=== PATIENT | male | born 1930 | race Caucasian/White ===

== ENCOUNTER 2018-06-04 12:50 | Emergency (ER) | payer OTHER ==
--- OUTSIDE RECORDS SUMMARY | 2018-06-04 12:54 | XMS REPORT | Continuity of Care Document ---
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 [facility] [place] arrhythmia<sup> [facility] 1</sup> Colon polyp Active Problem 01/14/2016 [facility] Skin cancer of Resolved Problem 01/14/2016 [facility] [place] face [facility] TIA (<span Resolved Problem 01/14/2016 [facility] [place] ID="[id number] [facility] 5">Confirmed</s miller>) ILLNESS, Active [facility] [place] UNSPECIFIED [facility] Medications Medication Details Route Status Patient Ordering Order Source Instructions Provider Date tramadol 50 mg=1 tab, PO, Active hydrochloride Q8H, PRN as 2015 [facility] 50 MG Oral needed for pain, [facility] Tablet [Ultram] # 40 tab, 0 Refill(s) tramadol 50 mg=1 tab, PO, Inactive 11/28[facility] hydrochloride Q8H, PRN Other 2015 [facility] 50 MG Oral -See Comment | [facility] Tablet pain, X 7 day, # 21 tab, 0 Refill(s) Miralax 17 gm, 1 pkt, Inactive Route: PO, Drug 2015 [facility] form: PWDRCecilia ONCE, Dosing Weight 82.2, kg, Priority: NOW, Start date: 11/29/15 7:52:00 CDT, Duration: 1 doses or times, Stop date: 11/29/15 7:52:00 CDTNotes: Dissolve in 8 oz of water or juice. (Same as: Miralax) Tylenol 650 mg, 2 tab, No Longer Route: PO, Drug Active 2015 [facility] form: TAB, Q6H, Cecilia Dosing Weight 82.2, kg, PRN Pain Score 1-3, Start date: 11/26/15 8:15:00 CDT, Duration: 30 day, Stop date: 12/26/15 8:14:00 CDTNotes: Do not exceed 4 gm/day. (Same as: Tylenol) tramadol 100 mg, 2 tab, No Longer hydrochloride Route: PO, Drug Active 2015 [facility] 50 MG Oral form: TAB, Q8H, City Tablet Dosing Weight 82.2, kg, PRN Pain Score 7-10, Start date: 11/26/15 8:15:00 CDT, Duration: 30 day, Stop date: 12/26/15 8:14:00 CDTNotes: Not to exceed 400mg/day. (Same As: Ultram) D5W 1/2NS + KCL 1,000 mL, Rate: No Longer 20mEq/L 1000ml 50 ml/hr, Infuse Active 2015 [facility] ([facility]) 1,000 over: 20 hr, City mL Route: IV, Dosing Weight 82.2 kg, Total Volume: 1,000, Start date: 11/26/15 8:13:00 CDT, Duration: 30 day, Stop date: 12/26/15 8:12:00 CDTNotes: PREMIX IV - Do Not Alter WASTE: F/P - Sink; E - Municipal Trash Bin ketOROLAC 15 15 mg, 0.5 mL, No Longer mg/mL Route: IV, Drug Active 2015 [facility] injectable form: INJ, Q6H, City solution Dosing Weight 82.2, kg, Start date: 11/25/15 12:00:00 CDT, Duration: 4 day, Stop date: 11/29/15 6:00:00 CDTNotes: (Same as:Toradol) IV bolus must be given >15 seconds. Give IM administration slowly and deeply into the muscle. Not for use > 4 days MEDICATION WASTE Product Size: 30 mg Product Wasted: _15__ mg Ofirmev 1,000 mg, 100 No Longer mL, Route: IV, Active 2015 [facility] Drug form: INJ, City Q6H, Dosing Weight 82.2, kg, for > or=50 kg, Start date: 11/25/15 12:00:00 CDT, Duration: 4 doses or times, Stop date: 11/26/15 3:48:00 CDTNotes: Infuse over 15 minutes Do not exceed 4gm/day of acetaminophen MEDICATION WASTE Product Size: 1000 mg Product Wasted: _0__ mg Lovenox 40 mg, 0.4 mL, No Longer Route: SUB-Q, Active 2015 [facility] Drug form: INJCecilia Daily, Dosing Weight 79.091, kg, Start date: 11/25/15 9:00:00 CDT, Duration: 30 day, Stop date: 12/24/15 9:00:00 CDTNotes: (Same as: Lovenox) latanoprost 1 drp, Route: No Longer ophthalmic BOTH EYES, Active 2015 [facility] 0.005% solution Bedtime, Drug City form: SOLN, Start date: 11/24/15 21:00:00 CDT, Duration: 30 day, Stop date: 12/23/15 21:00:00 CDTNotes: (Same as:Xalatan) bimatoprost 0.1 1 drp, Route: Inactive MG/ML BOTH EYES, Drug 2015 [facility] Ophthalmic Form: SOLNCecilia Solution Dosing Weight [Lumigan] 79.091, kg, Bedtime, Start date: 11/24/15 21:00:00 CDT, Duration: 30 day, Stop date: 12/23/15 21:00:00 CDT Cipro 400 mg, 200 mL, Inactive Route: IVPB, 2015 [facility] Drug form: INJCecilia ONCE, Dosing Weight 79.091, kg, Priority: Routine, Start date: 11/24/15 20:00:00 CDT, Stop date: 11/24/15 20:00:00 CDTNotes: Do not refrigerate Atropine 1 drp, Route: No Longer Sulfate 10 OPTH, QID, Drug Active 2015 [facility] MG/ML form: SOLN, Cecilia Ophthalmic Start date: Solution 11/24/15 [Atropine-Care] 17:00:00 CDT, Duration: 30 day, Stop date: 12/24/15 13:00:00 CDTNotes: (Same As: Isopto Atropine) Protonix 40 mg, Route: No Longer IVP, Before Active 2015 [facility] Dinner, Dosing City Weight 79.091, kg, Start date: 11/24/15 16:30:00 CDT, Duration: 30 day, Stop date: 12/23/15 16:30:00 CDTNotes: For IV push reconstitute with 10 ml 0.9% sodium chloride and push over 2 minutes. (Same as: Protonix) Flagyl 500 mg, 100 mL, No Longer Route: IVPB, [facility] 2015 [facility] Drug form: INJ, City Q8H, Dosing Weight 79.091, kg, Start date: 11/24/15 16:00:00 CDT, Duration: 2 doses or times, Stop date: 11/25/15 0:00:00 CDTNotes: (Same as: Flagyl) Avoid alcohol. Acetaminophen 1,000 mg, 100 No Longer 10 MG/ML mL, Route: IV, [facility] 2015 [facility] Injectable Drug form: INJ, City Solution Q8H, Dosing Weight 79.091, kg, For > or=50 kg, Start date: 11/24/15 16:00:00 CDT, Duration: 1 day, Stop date: 11/25/15 8:00:00 CDTNotes: Infuse over 15 minutes Do not exceed 4gm/day of acetaminophen MEDICATION WASTE Product Size: 1000 mg Product Wasted: ___ mg Sodium Chloride 25 mL, Route: No Longer 0.9% IV IV, Start date: [address] 11/24/15 [facility] 15:48:00 CDT, Duration: 30 day, Stop date: 12/24/15 15:47:00 CDT, PRN Line Flush BD Normal 10 mL, Route: No Longer Saline Flush IV, Drug Form: [facility] 2015 [facility] INJ, PRN, PRN City Line Flush, Start date: 11/24/15 15:48:00 CDT, Duration: 30 day, Stop date: 12/24/15 15:47:00 CDTNotes: (Same as: BD Posiflush) Morphine 3 mg, 0.75 mL, No Longer Route: IVP, Drug [address] form: INJ, Q2H, [facility] Dosing Weight 79.091, kg, PRN Other -See Comment, Priority: Routine, Start date: 11/24/15 12:44:00 CDT, Duration: 30 day, Stop date: 12/24/15 12:43:00 CDT, abdominal painNotes: (Same as:MORPhine Sulfate) Zofran 4 mg, 2 mL, No Longer Route: IV, Drug Active 2015 [facility] form: INJ, Q6H, [facility] Dosing Weight 79.091, kg, PRN Nausea, Start date: 11/24/15 12:40:00 CDT, Duration: 30 day, Stop date: 12/24/15 12:39:00 CDTNotes: (Same as: Zofran) MEDICATION WASTE Product Size: 4 mg Product Wasted: ___ mg D5W 1/2NS + KCL 1,000 mL, Rate: No Longer 20mEq/L 1000ml 125 ml/hr, Active 2015 [facility] ([facility]) 1,000 Infuse over: 8 City mL hr, Route: IV, Dosing Weight 79.091 kg, Total Volume: 1,000, Start date: 11/24/15 12:39:00 CDT, Duration: 30 day, Stop date: 12/24/15 12:38:00 CDTNotes: PREMIX IV - Do Not Alter WASTE: F/P - Sink; E - Municipal Trash Bin sugammadex 200 mg, 2 mL, Inactive Route: IV, Drug 2015 [facility] form: SOLN, City ONCE, Start date: 11/24/15 11:59:00 CDT, Stop date: 11/24/15 11:59:00 CDTNotes: (Same as: Bridion) Ondansetron 4 mg, 2 mL, Inactive Route: IVP, Drug 2015 [facility] form: INJ, ONCE, [facility] Dosing Weight 79.091, kg, PRN Nausea & Vomiting, Start date: 11/24/15 8:53:00 CDTNotes: (Same as: Zofran) MEDICATION WASTE Product Size: 4 mg Product Wasted: ___ mg Naloxone 0.4 mg, 1 mL, Inactive Route: IVP, Drug 2015 [facility] form: INJ, City Q2MIN, Dosing Weight 79.091, kg, PRN Narcotic Reversal, Start date: 11/24/15 8:53:00 CDT, Duration: 8 doses or times, Stop date: Limited # of timesNotes: Same as Narcan Flumazenil 0.2 mg, 2 mL, Inactive Route: IVP, Drug 2015 [facility] form: INJ, PRN, [facility] Dosing Weight 79.091, kg, PRN Benzodiazepine Reversal, Initial dose, Start date: 11/24/15 8:53:00 CDT, Duration: 30 day, Stop date: 12/24/15 8:52:00 CDTNotes: (Same as: Romazicon) Morphine 4 mg, 0.4 mL, Inactive Route: IVP, Drug 2015 [facility] form: INJ, City Q5Min, Dosing Weight 79.091, kg, PRN Pain Score 7-10, Start date: 11/24/15 8:53:00 CDT, Duration: 3 doses or times, Stop date: Limited # of timesNotes: (Same as:MORPhine Sulfate) bupivacaine 20 mL, Route: Inactive liposome InFILtration([facility] 2015 [facility]), Drug Form: City INJ, ONCALL, Start date: 11/24/15 0:00:00 CDT, Duration: 20 hr, Stop date: 11/24/15 19:59:00 CDTNotes: (Same as: Exparel) NOT FOR IV use Postoperative analgesia: Infiltration (local): Dose is based on surgical site and volume required to cover the area (in general, the maximum total dose is 266 mg). Bunionectomy: 7 mL into the tissues surrounding the osteotomy and 1 mL into the subcutaneous tissue of the surgical site (total dose=8 mL [106 mg]) Hemorrhoidectomy : 30 mL (20 mL vial diluted with 10 mL NS) divided and administered as 6 injections of 5 mL each (total dose=30 mL [266 mg]) Flagyl 500 mg, 100 mL, Inactive Route: IVPB 2015 [facility] Drug form: INJ, City ONCALL, Start date: 11/24/15 0:00:00 CDT, Duration: 20 hr, Stop date: 11/24/15 19:59:00 CDTNotes: (Same as: Flagyl) Avoid alcohol. Cipro 400 mg, 200 mL, Inactive Route: IVPB, 2015 [facility] Drug form: INJ, Cecilia ONCALL, Start date: 11/24/15 0:00:00 CDT, Duration: 20 hr, Stop date: 11/24/15 19:59:00 CDTNotes: Do not refrigerate Ferrex 150 Plus 1 cap, PO, Active Daily, 0 2015 [facility] Refill(s) [facility] bimatoprost 0.1 1 drp, BOTH Active MG/ML EYES, Bedtime, # 2016 [facility] Ophthalmic 5 mL, 4 City Solution Refill(s) [Lumigan] difluprednate 1 drp, BOTH Active 0.5 MG/ML EYES, QID, After 2015 [facility] Ophthalmic 14 days, taper [facility] Suspension dose as directed [Durezol] by physician., # 5 mL, 0 Refill(s) Atropine 1 drp, OPTH, Active Sulfate 10 QID, # 15 ml, 0 2015 [facility] MG/ML Refill(s) [facility] Ophthalmic Solution [Atropine-Care] Trazodone 50 mg=1 tab, PO, Active Hydrochloride Bedtime, # 30 2015 [facility] 50 MG Oral tab, 1 Refill(s) [facility] Tablet Allergies, Adverse Reactions, Alerts Substance Category Reaction Severity Reaction Status Date Comments Source type Reported Immunizations Immunization Date Given Site Status Last Updated Comments Source Results Order Name Results Value Reference Date Interpretation Comments Source Range Finger 3 Finger 3 Clinical history: Pain from a fall. 01/10 - views DX views DX [facility] Sex: Male. [facility] : 1930. Read by: Ashkan Dobbs MD Dictated Date/time: 01/11/16 17:21 Electronically Signed by: Ashkan Dobbs MD 01/11/16 17:22 FINAL REPORT Technique: 3 views of the right fingers attention 4th finger.. Findings: Interphalangeal narrowing. There is no fracture or dislocation. No destructive lesion. Impression: No acute skeletal abnormality. ELECTROLYTE AGAP 10.4 meq/L 10.0 - 11/25 S 20.0 [facility] ELECTROLYTE Glucose Lvl 117 mg/dL 70 - 99 11/25 S /2015 [facility] ELECTROLYTE Calcium Lvl 7.9 mg/dL 8.5 - 10.5 11/25 S [facility] ELECTROLYTE BUN 6 mg/dL 7 - 22 11/25 S [facility] ELECTROLYTE CO2 26 meq/L 24 - 32 11/25 S [facility] ELECTROLYTE Sodium Lvl 141 meq/L 135 - 145 11/25 S [facility] ELECTROLYTE Chloride Lvl 109 meq/L 95 - 109 11/25 S [facility] ELECTROLYTE Potassium 4.4 meq/L 3.5 - 5.1 11/25 S Lvl [facility] ELECTROLYTE eGFR 81 11/25 Result Comment: The eGFR is calculated using the CKD-EPI formula. In most young, healthy individuals the eGFR will be >90 mL/ min/1.73m2. The eGFR declines with age. An eGFR of 60-89 may be normal in mL/min/1. some populations, particularly the elderly, for whom the CKD-EPI formula has not been extensively validated. Use of the eGFR is not recommended in the following populations: [address] Individuals with unstable creatinine concentrations, including patients and those with serious co-morbid conditions. Patients with extremes in muscle mass or diet. The data above are obtained from the National Kidney Disease Education Program (NKDEP) which additionally recommends that when the eGFR is used in patients with extremes of body mass index for purposes of drug dosing, the eGFR should be multiplied by the estimated BMI. ELECTROLYTE Creatinine 0.82 mg/dL 0.50 - 11/25 S Lvl 1.40 [facility] HEMATOLOGY Eosinophils 5.4 % 0.0 - 4.0 11/25 [facility] HEMATOLOGY Monocytes 7.4 % 2.0 - 12.0 11/25 [facility] HEMATOLOGY Lymphocytes 18.7 % 20.0 - 11/25 MH 40.0 [facility] HEMATOLOGY Segs 68.0 % 45.0 - 11/25 MH 75.0 [facility] HEMATOLOGY Lymphocytes 1.4 K/CMM 1.0 - 5.5 11/25 MH # /2016 [facility] HEMATOLOGY Basophils 0.5 % 0.0 - 1.0 11/25 [facility] HEMATOLOGY Segs-Bands # 5.2 K/CMM 1.5 - 8.1 11/25 [facility] HEMATOLOGY Monocytes # 0.6 K/CMM 0.0 - 0.8 11/25 [facility] HEMATOLOGY Eosinophils 0.4 K/CMM 0.0 - 0.5 11/25 MH # /2015 [facility] HEMATOLOGY Basophils # 0.0 K/CMM 0.0 - 0.2 11/25 /2015 [facility] HEMATOLOGY Platelet 278 K/CMM 133 - 450 11/25 /2015 [facility] HEMATOLOGY MCH 30.1 pg 27.0 - 11/25 MH 31.0 /2015 [facility] HEMATOLOGY MCV 91.5 fL 80.0 - 11/25 MH 94.0 /2015 [facility] HEMATOLOGY Hct 31.4 % 42.0 - 11/25 MH 54.0 /2015 [facility] HEMATOLOGY Hgb 10.3 g/dL 14.0 - 11/25 MH 18.0 /2015 [facility] HEMATOLOGY RBC 3.44 M/CMM 4.70 - 11/25 MH 6.10 [facility] HEMATOLOGY WBC 7.7 K/CMM 3.7 - 10.4 11/25 [facility] HEMATOLOGY RDW 15.0 % 11.5 - 11/25 MH 14. [facility] HEMATOLOGY MCHC 32.9 g/dL 32.0 - 11/25 MH 36.0 /2015 [facility] HEMATOLOGY MPV 7.2 fL 7.4 - 10.4 11/25 [facility] CHEM PANEL Magnesium 2.1 mg/dL 1.8 - 2.4 11/24 MH Lvl /2015 [facility] CHEM PANEL Phosphorus 2.8 mg/dL 2.5 - 4.5 11/24 [facility] ELECTROLYTE Sodium Lvl 142 meq/L 135 - 145 11/24 S [facility] ELECTROLYTE Calcium Lvl 8.0 mg/dL 8.5 - 10.5 11/24 S [facility] ELECTROLYTE Chloride Lvl 107 meq/L 95 - 109 11/24 S [facility] ELECTROLYTE Potassium 3.9 meq/L 3.5 - 5.1 11/24 S Lvl /2015 [facility] ELECTROLYTE Glucose Lvl 147 mg/dL 70 - 99 11/24 S /2015 [facility] ELECTROLYTE BUN 9 mg/dL 7 - 22 11/24 S /2015 [facility] ELECTROLYTE Creatinine 0.92 mg/dL 0.50 - 11/24 S Lvl 1.40 /2015 [facility] ELECTROLYTE CO2 24 meq/L 24 - 32 11/24 S /2015 [facility] ELECTROLYTE eGFR 76 11/24 Result Comment: The eGFR is calculated using the CKD-EPI formula. In most young, healthy individuals the eGFR will be >90 mL/ min/1.73m2. The eGFR declines with age. An eGFR of 60-89 may be normal in S mL/min/1. some populations, particularly the elderly, for whom the CKD-EPI formula has not been extensively validated. Use of the eGFR is not recommended in the following populations: [address] Individuals with unstable creatinine concentrations, including patients and those with serious co-morbid conditions. Patients with extremes in muscle mass or diet. The data above are obtained from the National Kidney Disease Education Program (NKDEP) which additionally recommends that when the eGFR is used in patients with extremes of body mass index for purposes of drug dosing, the eGFR should be multiplied by the estimated BMI. ELECTROLYTE AGAP 14.9 meq/L 10.0 - 11/24 S 20.0 [facility] HEMATOLOGY MCHC 33.0 g/dL 32.0 - 11/24 MH 36.0 [facility] HEMATOLOGY RDW 15.1 % 11.5 - 11/24 MH 14. [facility] HEMATOLOGY MPV 6.7 fL 7.4 - 10.4 11/24 [facility] HEMATOLOGY Platelet 328 K/CMM 133 - 450 11/24 [facility] HEMATOLOGY WBC 9.4 K/CMM 3.7 - 10.4 11/24 [facility] HEMATOLOGY Hgb 11.3 g/dL 14.0 - 11/24 MH 18.0 [facility] HEMATOLOGY RBC 3.82 M/CMM 4.70 - 11/24 MH 6.10 [facility] HEMATOLOGY MCV 89.4 fL 80.0 - 11/24 MH 94.0 [facility] MCH 29.5 pg 27.0 - 11/24 MH 31.0 [facility] HEMATOLOGY Hct 34.1 % 42.0 - 11/24 MH 54.0 [facility] HEMATOLOGY Eosinophils 0.0 K/CMM 0.0 - 0.5 11/24 MH # /2016 [facility] HEMATOLOGY Basophils 0.3 % 0.0 - 1.0 11/24 [facility] HEMATOLOGY Segs-Bands # 7.4 K/CMM 1.5 - 8.1 11/24 /2015 [facility] HEMATOLOGY Monocytes # 0.8 K/CMM 0.0 - 0.8 11/24 /2015 [facility] HEMATOLOGY Lymphocytes 1.2 K/CMM 1.0 - 5.5 11/24 MH # /2016 [facility] HEMATOLOGY Segs 78.0 % 45.0 - 11/24 MH 75.0 /2015 [facility] HEMATOLOGY Monocytes 8.8 % 2.0 - 12.0 11/24 /2015 [facility] HEMATOLOGY Lymphocytes 12.7 % 20.0 - 11/24 MH 40.0 /2015 [facility] HEMATOLOGY Eosinophils 0.2 % 0.0 - 4.0 11/24 /2015 [facility] BLOOD BANK Antigen AHG K neg 11/16 RESULTS Int /2015 [facility] BLOOD BANK AB Int Anti-K 11/16 RESULTS /2015 [facility] BLOOD BANK Antibody Positive 1 11/16 Result Comment: 11/17/2015 12:12 [id number] RESULTS Scr "Significant Findings of Positive Antibody Screen_ called to Nella Copeland Rn__ at 11/17/2015 12:12__ by GM__. Read Back OK" [facility] (11/17/15 10:06 AM) [facility] BLOOD BANK ABO/Rh A POS 11/16 RESULTS [facility] Vital Signs Vital Sign Value Date Comments Source Respitory Rate 17 01/11/2016 [facility] Heart Rate 74 01/11/2016 [facility] Systolic (mm Hg) 146 01/11/2016 [facility] Diastolic (mm Hg) 87 01/11/2016 [facility] Heart Rate 83 01/11/2016 [facility] Respitory Rate 19 01/11/2016 [facility] Systolic (mm Hg) 143 01/11/2016 [facility] Diastolic (mm Hg) 85 01/11/2016 [facility] Weight 75.909 01/11/2016 [facility] Temperature Oral (F) 98.5 F 01/11/2016 [facility] Height 177.8 cm 01/11/2016 [facility] BMI Calculated 24.01 01/11/2016 [facility] Heart Rate 69 11/29/2015 [facility] Systolic (mm Hg) 149 11/29/2015 [facility] Diastolic (mm Hg) 79 11/29/2015 [facility] Respitory Rate 18 11/29/2015 [facility] Temperature Oral (F) 98.0 F 11/29/2015 [facility] Heart Rate 75 11/29/2015 [facility] Respitory Rate 18 11/29/2015 [facility] Systolic (mm Hg) 147 11/29/2015 [facility] Diastolic (mm Hg) 84 11/29/2015 [facility] Temperature Oral (F) 98.1 F 11/29/2015 [facility] Temperature Oral (F) 98.2 F 11/29/2015 [facility] Heart Rate 88 11/29/2015 [facility] Systolic (mm Hg) 145 11/29/2015 [facility] Diastolic (mm Hg) 76 11/29/2015 [facility] Respitory Rate 18 11/29/2015 [facility] BMI Calculated 26 11/24/2015 [facility] Weight 82.2 11/24/2015 [facility] Height 177.8 cm 11/24/2015 [facility] Weight 79.091 11/17/2015 [facility] Height 177.8 cm 11/17/2015 [facility] BMI Calculated 25.02 11/17/2015 [facility] Encounters Location Location Encounter Encounter Reason Attending ADM DC Status Source Details Type Number For Provider Date Date Visit [facility] Inpatient [id number] Andrea 11/23 11/28 Brice Sarah /2015 [facility] [id number] Roman Arceo 01/10 01/10 [facility] /2015 [facility] Procedures Procedure Code Date Perfomer Comments Source 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
--- NOTE | 2018-06-04 13:52 | EDPHYS ---
Physician Documentation [facility] Name: Khris Will Sr Age: 87 yrs Sex: Male : 1930 Arrival Date: 06/04/2018 Time: 12:51 Bed 6 Private MD: ED Physician Kane Pollack HPI: 06/04 13:47 This 87 yrs old Male presents to ER via EMS with complaints of Fall Injury. nessa 13:47 Details of fall: The patient fell from an upright position. Onset: The symptoms/episode nessa began/occurred just prior to arrival. Associated injuries: The patient sustained right arm and left arm, abrasion, contusion. Severity of symptoms: At their worst the symptoms were mild, in the emergency department the symptoms are unchanged. The patient has not experienced similar symptoms in the past. - Immunization history:: Adult Immunizations. - Family history:: not pertinent. - Ebola Screening: : Patient negative for fever greater than or equal to 101.5 degrees Fahrenheit, and additional compatible Ebola Virus Disease symptoms Patient denies exposure to infectious person Patient denies travel to an Ebola-affected area in the 21 days before illness onset No symptoms or risks identified at this time. ROS: 13:49 Constitutional: Negative for fever, chills, and weight loss, Eyes: Negative for injury, nessa pain, redness, and discharge, ENT: Negative for injury, pain, and discharge, Neck: Negative for injury, pain, and swelling, Cardiovascular: Negative for chest pain, palpitations, and edema, Respiratory: Negative for shortness of breath, cough, wheezing, and pleuritic chest pain, Abdomen/GI: Negative for abdominal pain, nausea, vomiting, diarrhea, and constipation, Back: Negative for injury and pain, : Negative for injury, bleeding, discharge, and swelling, Skin: Negative for injury, rash, and discoloration, Neuro: Negative for headache, weakness, numbness, tingling, and seizure, Psych: Negative for depression, anxiety, suicide ideation, homicidal ideation, and hallucinations, Allergy/Immunology: Negative for hives, rash, and allergies, Endocrine: Negative for neck swelling, polydipsia, polyuria, polyphagia, and marked weight changes. 13:49 MS/extremity: Positive for abrasion, pain, of the right arm and left arm. Exam: 13:49 Constitutional: This is a well developed, well nourished patient who is awake, alert, nessa and in no acute distress. Head/Face: Normocephalic, atraumatic. Eyes: Pupils equal round and reactive to light, extra-ocular motions intact. Lids and lashes normal. Conjunctiva and sclera are non-icteric and not injected. Cornea within normal limits. Periorbital areas with no swelling, redness, or edema. ENT: Nares patent. No nasal discharge, no septal abnormalities noted. Tympanic membranes are normal and external auditory canals are clear. Oropharynx with no redness, swelling, or masses, exudates, or evidence of obstruction, uvula midline. Mucous membranes moist. Neck: Trachea midline, no thyromegaly or masses palpated, and no cervical lymphadenopathy. Supple, full range of motion without nuchal rigidity, or vertebral point tenderness. No Meningismus. Chest/axilla: Normal chest wall appearance and motion. Nontender with no deformity. No lesions are appreciated. Cardiovascular: Regular rate and rhythm with a normal S1 and S2. No gallops, murmurs, or rubs. Normal PMI, no JVD. No pulse deficits. Respiratory: Lungs have equal breath sounds bilaterally, clear to auscultation and percussion. No rales, rhonchi or wheezes noted. No increased work of breathing, no retractions or nasal flaring. Abdomen/GI: Soft, non-tender, with normal bowel sounds. No distension or tympany. No guarding or rebound. No evidence of tenderness throughout. Back: No spinal tenderness. No costovertebral tenderness. Full range of motion. Male : Normal genitalia with no discharge or lesions. Skin: Warm, dry with normal turgor. Normal color with no rashes, no lesions, and no evidence of cellulitis. Neuro: Awake and alert, GCS 15, oriented to person, place, time, and situation. Cranial nerves II-XII grossly intact. Motor strength 5/5 in all extremities. Sensory grossly intact. Cerebellar exam normal. Normal gait. Psych: Awake, alert, with orientation to person, place and time. Behavior, mood, and affect are within normal limits. 13:49 Musculoskeletal/extremity: Extremities: noted in the right arm and left arm: abrasion. Vital Signs: 13:09 BP 117 / 69; Pulse 70; Resp 16; Temp 97.8; Pulse Ox 96% on R/A; Pain 4/10; iw MDM: 13:14 Patient medically screened. [facility] 13:49 Data reviewed: vital signs, nurses notes. [facility] 06/04 13:47 Order name: Wound Care; Complete Time: 14:00 [facility] Administered Medications: 14:00 Drug: Neosporin Ointment 1 application Route: Topical; Site: affected area; iw Disposition: 06/04/18 13:51 Discharged to Home. Impression: Fall due to bumping against object, Abrasion of left forearm, Abrasion of right forearm. - Condition is Stable. - Discharge Instructions: Contusion, Contusion, [id number], Fall Prevention in the Home, [id number]. - Medication Reconciliation Form, Thank You Letter, Antibiotic Education, Prescription Opioid Use form. - Follow up: Private Physician; When: 2 - 3 days; Reason: Recheck today's complaints, Continuance of care, Re-evaluation by your physician. - Problem is new. - Symptoms have improved. Signatures: Suzy Ventura, RN RN dm5 Kane Pollack MD MD cha Williams, Irene, RN RN Corrections: (The following items were deleted from the chart) 14:35 13:51 06/04/2018 13:51 Discharged to Home. Impression: Fall due to bumping against dm5 object; Abrasion of left forearm; Abrasion of right forearm. Condition is Stable. Forms are Medication Reconciliation Form, Thank You Letter, Antibiotic Education, Prescription Opioid Use. Follow up: Private Physician; When: 2 - 3 days; Reason: Recheck today's complaints, Continuance of care, Re-evaluation by your physician. Problem is new. Symptoms have improved. [facility]
--- NOTE | 2018-06-04 13:52 | ER ---
Nurse's Notes [facility] Name: Khris Will Sr Age: 87 yrs Sex: Male : 1930 Arrival Date: 06/04/2018 Time: 12:51 Bed 6 Private MD: Diagnosis: Fall due to bumping against object;Abrasion of left forearm;Abrasion of right forearm Presentation: 06/04 13:00 Presenting complaint: EMS states: fall at home, skin tear to right elbow, pt has been iw on pain medication due to recent oral surgery, difficult to speak. Risk Assessment: Do you want to hurt yourself or someone else? Patient reports no desire to harm self or others. 13:00 Initial Sepsis Screen: Does the patient meet any 2 criteria? No. Patient's initial iw sepsis screen is negative. Does the patient have a suspected source of infection? No. Patient's initial sepsis screen is negative. Care prior to arrival: None. 13:28 Transition of care: patient was not received from another setting of care. Onset of iw symptoms was June 04, 2018. 13:28 Method Of Arrival: EMS: [facility] iw 13:28 Acuity: CONCEPCION 3 iw Triage Assessment: 13:40 General: Appears in no apparent distress. Behavior is calm, cooperative. iw - Immunization history:: Adult Immunizations. - Family history:: not pertinent. - Ebola Screening: : Patient negative for fever greater than or equal to 101.5 degrees Fahrenheit, and additional compatible Ebola Virus Disease symptoms Patient denies exposure to infectious person Patient denies travel to an Ebola-affected area in the 21 days before illness onset No symptoms or risks identified at this time. Screenin:00 Abuse screen: Denies threats or abuse. Denies injuries from another. Nutritional iw screening: No deficits noted. Tuberculosis screening: No symptoms or risk factors identified. Fall Risk Fall in past 12 months (25 points). Assessment: 13:00 General: Appears. iw Vital Signs: 13:09 BP 117 / 69; Pulse 70; Resp 16; Temp 97.8; Pulse Ox 96% on R/A; Pain 4/10; iw ED Course: 12:51 Patient arrived in ED. ms 13:00 Arm band placed on. iw 13:08 Pilar Brantley, RN is Primary Nurse. iw 13:10 EKG done, by veterinary technologist. reviewed by Scooby Henry MD. at1 13:14 Kane Pollack MD is Attending Physician. nessa 13:28 Triage completed. iw 14:30 No provider procedures requiring assistance completed. Patient did not have IV access iw during this emergency room visit. Administered Medications: 14:00 Drug: Neosporin Ointment 1 application Route: Topical; Site: affected area; iw Outcome: 13:51 Discharge ordered by . nessa 14:34 Discharged to home via wheelchair, with family. iw 14:34 Condition: good 14:34 Discharge instructions given to patient, Instructed on discharge instructions, follow up and referral plans. Demonstrated understanding of instructions, follow-up care. 14:35 Patient left the ED. dm5 Signatures: Suzy Ventura, RN RN dmKane Davies MD MD cha Williams, Irene, Daily Jaramillo RN, ms, Amanda, social work therapist EKG Tat1
[2018-06-04 14:41] VITALS: BP 117/69; TEMP 97.8; O2SAT 96
--- NOTE | 2018-06-05 07:40 | EKG ---
Test Date: 2018-05-04 Test Time: 13:09:21 Central Office Operator: YESENIA MEASUREMENT RESULTS: Intervals: Rate: 68 WI: 138 QRSD: 178 QT: 474 QTc: 504 [place]: P: 76 WI: 138 QRS: 252 T: 82 INTERPRETIVE STATEMENTS: Atrial-sensed ventricular-paced rhythm tracking sinus rhythm Compared to ECG 04/26/2015 14:53:11 Atrial-sensed ventricular-paced rhythm is now present Electronically Signed On 06-05-18 07:31:25 E [employer] by Josias Franco
== END 2018-06-04 14:35 | disposition home or self-care (01) ==
LOC: ER 12:50
DX: S50.811A Abrasion of right forearm, initial encounter (principal); S50.812A Abrasion of left forearm, initial encounter; W18.00XA Striking against unspecified object with subsequent fall, initial encounter
CPT/HCPCS: 93005; 99283

== ENCOUNTER 2018-12-11 19:29 | Emergency (ER) | payer OTHER ==
--- OUTSIDE RECORDS SUMMARY | 2018-12-11 19:31 | XMS REPORT | Continuity of Care Document ---
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 [facility] Colon polyp Active Problem 01/14/2016 [facility] Skin cancer of Resolved Problem 01/14/2016 [facility] face [facility] TIA (Confirmed) Resolved Problem 01/14/2016 [facility] ILLNESS, Active [facility] UNSPECIFIED [facility] Medications Medication Details Route Status Patient Ordering Order Source Instructions Provider Date tramadol 50 mg=1 tab, PO, Active 11/28[facility] hydrochloride Q8H, PRN as 2015 [facility] 50 MG Oral needed for pain, [facility] Tablet [Ultram] # 40 tab, 0 Refill(s) tramadol 50 mg=1 tab, PO, Inactive 11/28[facility] hydrochloride Q8H, PRN Other 2015 [facility] 50 MG Oral -See Comment | [facility] Tablet pain, X 7 day, # 21 tab, 0 Refill(s) Miralax 17 gm, 1 pkt, Inactive Route: PO, Drug 2015 [facility] form: PWDRCecilia ONCE, Dosing Weight 82.2, kg, Priority: NOW, Start date: 11/29/15 7:52:00 CDT, Duration: 1 doses or times, Stop date: 11/29/15 7:52:00 CDTNotes: Dissolve in 8 oz of water or juice. (Same as: Miralax) Tylenol 650 mg, 2 tab, No Longer Route: PO, Drug Active 2015 [facility] form: TAB, Q6H, Cecilia Dosing Weight 82.2, kg, PRN Pain Score 1-3, Start date: 11/26/15 8:15:00 CDT, Duration: 30 day, Stop date: 12/26/15 8:14:00 CDTNotes: Do not exceed 4 gm/day. (Same as: Tylenol) tramadol 100 mg, 2 tab, No Longer hydrochloride Route: PO, Drug Active 2015 [facility] 50 MG Oral form: TAB, Q8H, City Tablet Dosing Weight 82.2, kg, PRN Pain Score 7-10, Start date: 11/26/15 8:15:00 CDT, Duration: 30 day, Stop date: 12/26/15 8:14:00 CDTNotes: Not to exceed 400mg/day. (Same As: Ultram) D5W 1/2NS + KCL 1,000 mL, Rate: No Longer 20mEq/L 1000ml 50 ml/hr, Infuse Active 2015 [facility] (Premix) 1,000 over: 20 hr, City mL Route: IV, Dosing Weight 82.2 kg, Total Volume: 1,000, Start date: 11/26/15 8:13:00 CDT, Duration: 30 day, Stop date: 12/26/15 8:12:00 CDTNotes: PREMIX IV - Do Not Alter WASTE: F/P - Sink; E - Municipal Trash Bin ketOROLAC 15 15 mg, 0.5 mL, No Longer mg/mL Route: IV, Drug Active 2015 [facility] injectable form: INJ, Q6H, City solution Dosing [...] No Longer mL, Route: IV, Active 2015 [facility] Drug form: INJ, City Q6H, Dosing Weight 82.2, kg, for > or=50 kg, Start date: 11/25/15 12:00:00 CDT, Duration: 4 doses or times, Stop date: 11/26/15 3:48:00 CDTNotes: Infuse over 15 minutes Do not exceed 4gm/day of acetaminophen MEDICATION WASTE Product Size: 1000 mg Product Wasted: _0__ mg Lovenox 40 mg, 0.4 mL, No Longer Route: SUB-Q, Active 2015 [facility] Drug form: INJCecilia Daily, Dosing Weight 79.091, kg, Start date: 11/25/15 9:00:00 CDT, Duration: 30 day, Stop date: 12/24/15 9:00:00 CDTNotes: (Same as: Lovenox) latanoprost 1 drp, Route: No Longer ophthalmic BOTH EYES, Active 2015 [facility] 0.005% solution Bedtime, Drug City form: SOLN, Start date: 11/24/15 21:00:00 CDT, Duration: 30 day, Stop date: 12/23/15 21:00:00 CDTNotes: (Same as:Xalatan) bimatoprost 0.1 1 drp, Route: Inactive MG/ML BOTH EYES, Drug 2015 [facility] Ophthalmic Form: SOLNCecilia Solution Dosing Weight [Lumigan] 79.091, kg, Bedtime, Start date: 11/24/15 21:00:00 CDT, Duration: 30 day, Stop date: 12/23/15 21:00:00 CDT Cipro 400 mg, 200 mL, Inactive Route: IVPB, 2015 [facility] Drug form: INJCecilia ONCE, Dosing Weight 79.091, kg, Priority: Routine, Start date: 11/24/15 20:00:00 CDT, Stop date: 11/24/15 20:00:00 CDTNotes: Do not refrigerate Atropine 1 drp, Route: No Longer Sulfate 10 OPTH, QID, Drug Active 2015 [facility] MG/ML form: SOLN, Cecilia Ophthalmic Start date: Solution 11/24/15 [Atropine-Care] 17:00:00 CDT, Duration: 30 day, Stop date: 12/24/15 13:00:00 CDTNotes: (Same As: Isopto Atropine) Protonix 40 mg, Route: No Longer IVP, Before Active 2015 [facility] Dinner, Dosing City Weight 79.091, kg, Start date: 11/24/15 16:30:00 CDT, Duration: 30 day, Stop date: 12/23/15 16:30:00 CDTNotes: For IV push reconstitute with 10 ml 0.9% sodium chloride and push over 2 minutes. (Same as: Protonix) Flagyl 500 mg, 100 mL, No Longer Route: IVPB, [facility] 2015 [facility] Drug form: INJ, City Q8H, Dosing Weight 79.091, kg, Start date: 11/24/15 16:00:00 CDT, Duration: 2 doses or times, Stop date: 11/25/15 0:00:00 CDTNotes: (Same as: Flagyl) Avoid alcohol. Acetaminophen 1,000 mg, 100 No Longer 10 MG/ML mL, Route: IV, [facility] 2015 [facility] Injectable Drug form: INJ, City Solution Q8H, Dosing Weight 79.091, kg, For > or=50 kg, Start date: 11/24/15 16:00:00 CDT, Duration: 1 day, Stop date: 11/25/15 8:00:00 CDTNotes: Infuse over 15 minutes Do not exceed 4gm/day of acetaminophen MEDICATION WASTE Product Size: 1000 mg Product Wasted: ___ mg Sodium Chloride 25 mL, Route: No Longer 0.9% IV IV, Start date: [address] 11/24/15 [facility] 15:48:00 CDT, Duration: 30 day, Stop date: 12/24/15 15:47:00 CDT, PRN Line Flush BD Normal 10 mL, Route: No Longer Saline Flush IV, Drug Form: [facility] 2015 [facility] INJ, PRN, PRN City Line Flush, Start date: 11/24/15 15:48:00 CDT, Duration: 30 day, Stop date: 12/24/15 15:47:00 CDTNotes: (Same as: BD Posiflush) Morphine 3 mg, 0.75 mL, No Longer Route: IVP, Drug [address] form: INJ, Q2H, [facility] Dosing Weight 79.091, kg, PRN Other -See Comment, Priority: Routine, Start date: 11/24/15 12:44:00 CDT, Duration: 30 day, Stop date: 12/24/15 12:43:00 CDT, abdominal painNotes: (Same as:MORPhine Sulfate) Zofran 4 mg, 2 mL, No Longer Route: IV, Drug Active 2015 [facility] form: INJ, Q6H, [facility] Dosing Weight 79.091, kg, PRN Nausea, Start date: 11/24/15 12:40:00 CDT, Duration: 30 day, Stop date: 12/24/15 12:39:00 CDTNotes: (Same as: Zofran) MEDICATION WASTE Product Size: 4 mg Product Wasted: ___ mg D5W 1/2NS + KCL 1,000 mL, Rate: No Longer 20mEq/L 1000ml 125 ml/hr, Active 2015 [facility] (Premix) 1,000 Infuse over: 8 City mL hr, Route: IV, Dosing Weight 79.091 kg, Total Volume: 1,000, Start date: 11/24/15 12:39:00 CDT, Duration: 30 day, Stop date: 12/24/15 12:38:00 CDTNotes: PREMIX IV - Do Not Alter WASTE: F/P - Sink; E - Municipal Trash Bin sugammadex 200 mg, 2 mL, Inactive Route: IV, Drug 2015 [facility] form: SOLN, City ONCE, Start date: 11/24/15 11:59:00 CDT, Stop date: 11/24/15 11:59:00 CDTNotes: (Same as: Bridion) Ondansetron 4 mg, 2 mL, Inactive Route: IVP, Drug 2015 [facility] form: INJ, ONCE, [facility] Dosing Weight 79.091, kg, PRN Nausea & Vomiting, Start date: 11/24/15 8:53:00 CDTNotes: (Same as: Zofran) MEDICATION WASTE Product Size: 4 mg Product Wasted: ___ mg Naloxone 0.4 mg, 1 mL, Inactive Route: IVP, Drug 2015 [facility] form: INJ, City Q2MIN, Dosing Weight 79.091, kg, PRN Narcotic Reversal, Start date: 11/24/15 8:53:00 CDT, Duration: 8 doses or times, Stop date: Limited # of timesNotes: Same as Narcan Flumazenil 0.2 mg, 2 mL, Inactive Route: IVP, Drug 2015 [facility] form: INJ, PRN, [facility] Dosing Weight 79.091, kg, PRN Benzodiazepine Reversal, Initial dose, Start date: 11/24/15 8:53:00 CDT, Duration: 30 day, Stop date: 12/24/15 8:52:00 CDTNotes: (Same as: Romazicon) Morphine 4 mg, 0.4 mL, Inactive Route: IVP, Drug 2015 [facility] form: INJ, City Q5Min, Dosing Weight 79.091, kg, PRN Pain Score 7-10, Start date: 11/24/15 8:53:00 CDT, Duration: 3 doses or times, Stop date: Limited # of timesNotes: (Same as:MORPhine Sulfate) bupivacaine 20 mL, Route: Inactive liposome [facility] 2015 [facility]), Drug Form: [facility] INJ, ONCALL, Start date: 11/24/15 0:00:00 CDT, [...] mg, 100 mL, Inactive Route: IVPB 2015 [facility] Drug form: INJ, City ONCALL, Start date: 11/24/15 0:00:00 CDT, Duration: 20 hr, Stop date: 11/24/15 19:59:00 CDTNotes: (Same as: Flagyl) Avoid alcohol. Cipro 400 mg, 200 mL, Inactive Route: IVPB, 2015 [facility] Drug form: INJ, Cecilia ONCALL, Start date: 11/24/15 0:00:00 CDT, Duration: 20 hr, Stop date: 11/24/15 19:59:00 CDTNotes: Do not refrigerate Ferrex 150 Plus 1 cap, PO, Active Daily, 0 2015 [facility] Refill(s) [facility] bimatoprost 0.1 1 drp, BOTH Active MG/ML EYES, Bedtime, # 2016 [facility] Ophthalmic 5 mL, 4 City Solution Refill(s) [Lumigan] difluprednate 1 drp, BOTH Active 0.5 MG/ML EYES, QID, After 2015 [facility] Ophthalmic 14 days, taper [facility] Suspension dose as directed [Durezol] by physician., # 5 mL, 0 Refill(s) Atropine 1 drp, OPTH, Active Sulfate 10 QID, # 15 ml, 0 2015 [facility] MG/ML Refill(s) [facility] Ophthalmic Solution [Atropine-Care] Trazodone 50 mg=1 tab, PO, Active Hydrochloride Bedtime, # 30 2016 [facility] 50 MG Oral tab, 1 Refill(s) [facility] Tablet Allergies, Adverse Reactions, Alerts No Known Medication Allergies Immunizations No Data Provided for This Section Results Order Name Results Value Reference Date Interpretation Comments Source Range ELECTROLYTES AGAP 10.4 10.0 - 11/25 20.0 [facility] ELECTROLYTES Glucose Lvl 117 70 - 99 11/25 [facility] ELECTROLYTES Calcium Lvl 7.9 8.5 - 10.5 11/25 [facility] ELECTROLYTES BUN 6 7 - 22 11/25 [facility] ELECTROLYTES CO2 26 24 - 32 11/25 [facility] ELECTROLYTES Sodium Lvl 141 135 - 145 11/25 [facility] ELECTROLYTES Chloride Lvl 109 95 - 109 11/25 [facility] ELECTROLYTES Potassium 4.4 3.5 - 5.1 11/25 Lvl [facility] ELECTROLYTES eGFR 81 11/25 Result Comment: The [facility] eGFR is City calculated using the CKD-EPI formula. In most young, healthy individuals the eGFR will be >90 mL/min/1.73m2 . The eGFR declines with age. An eGFR of 60-89 may be normal in some populations, particularly the elderly, for whom the CKD-EPI formula has not been extensively validated. Use of the eGFR is not recommended in the following populations:< br/>
Diane viduals with unstable creatinine concentration s, including patients and those with serious co-morbid conditions.<b r/>
Patie nts with extremes in muscle mass or diet.

The data above are obtained from the National Kidney Disease Education Program (NKDEP) which additionally recommends that when the eGFR is used in patients with extremes of body mass index for purposes of drug dosing, the eGFR should be multiplied by the estimated BMI. ELECTROLYTES Creatinine 0.82 0.50 - 11/25 MH Lvl 1.40 /2015 [facility] HEMATOLOGY Eosinophils 5.4 0.0 - 4.0 11/25 [facility] HEMATOLOGY Monocytes 7.4 2.0 - 12.0 11/25 [facility] HEMATOLOGY Lymphocytes 18.7 20.0 - 11/25 MH 40.0 [facility] HEMATOLOGY Segs 68.0 45.0 - 11/25 MH 75.0 [facility] HEMATOLOGY Lymphocytes 1.4 1.0 - 5.5 11/25 MH # /2015 [facility] HEMATOLOGY Basophils 0.5 0.0 - 1.0 11/25 [facility] Segs-Bands # 5.2 1.5 - 8.1 11/25 [facility] HEMATOLOGY Monocytes # 0.6 0.0 - 0.8 11/25 [facility] HEMATOLOGY Eosinophils 0.4 0.0 - 0.5 11/25 MH # /2015 [facility] HEMATOLOGY Basophils # 0.0 0.0 - 0.2 11/25 [facility] HEMATOLOGY Platelet 278 133 - 450 11/25 [facility] HEMATOLOGY MCH 30.1 27.0 - 11/25 MH 31.0 [facility] HEMATOLOGY MCV 91.5 80.0 - 11/25 MH 94.0 [facility] HEMATOLOGY Hct 31.4 42.0 - 11/25 MH 54.0 [facility] HEMATOLOGY Hgb 10.3 14.0 - 11/25 MH 18.0 [facility] HEMATOLOGY RBC 3.44 4.70 - 11/25 MH 6. [facility] HEMATOLOGY WBC 7.7 3.7 - 10.4 11/25 [facility] HEMATOLOGY RDW 15.0 11.5 - 11/25 MH 14. [facility] HEMATOLOGY MCHC 32.9 32.0 - 11/25 MH 36. [facility] HEMATOLOGY MPV 7.2 7.4 - 10.4 11/25 [facility] CHEM PANEL Magnesium 2.1 1.8 - 2.4 11/24 MH Lvl [facility] CHEM PANEL Phosphorus 2.8 2.5 - 4.5 11/24 [facility] ELECTROLYTES Sodium Lvl 142 135 - 145 11/24 [facility] ELECTROLYTES Calcium Lvl 8.0 8.5 - 10.5 11/24 [facility] ELECTROLYTES Chloride Lvl 107 95 - 109 11/24 [facility] ELECTROLYTES Potassium 3.9 3.5 - 5.1 11/24 Lvl [facility] ELECTROLYTES Glucose Lvl 147 70 - 99 11/24 [facility] ELECTROLYTES BUN 9 7 - 22 11/24 [facility] ELECTROLYTES Creatinine 0.92 0.50 - 11/24 Lvl 1.40 [facility] ELECTROLYTES CO2 24 24 - 32 11/24 [facility] ELECTROLYTES eGFR 76 11/24 Result Comment: The [facility] eGFR is City calculated using the CKD-EPI formula. In most young, healthy individuals the eGFR will be >90 mL/min/1.73m2 . The eGFR declines with age. An eGFR of 60-89 may be normal in some populations, particularly the elderly, for whom the CKD-EPI formula has not been extensively validated. Use of the eGFR is not recommended in the following populations:< br/>
Diane viduals with unstable creatinine concentration s, including patients and those with serious co-morbid conditions.<b r/>
Patie nts with extremes in muscle mass or diet.

The data above are obtained from the National Kidney Disease Education Program (NKDEP) which additionally recommends that when the eGFR is used in patients with extremes of body mass index for purposes of drug dosing, the eGFR should be multiplied by the estimated BMI. ELECTROLYTES AGAP 14.9 10.0 - 11/24 MH 20. [facility] HEMATOLOGY MCHC 33.0 32.0 - 11/24 MH 36.0 /2015 [facility] HEMATOLOGY RDW 15.1 11.5 - 11/24 MH 14.5 /2015 [facility] HEMATOLOGY MPV 6.7 7.4 - 10.4 11/24 /2015 [facility] HEMATOLOGY Platelet 328 133 - 450 11/24 /2015 [facility] HEMATOLOGY WBC 9.4 3.7 - 10.4 11/24 /2015 [facility] HEMATOLOGY Hgb 11.3 14.0 - 11/24 MH 18.0 /2015 [facility] HEMATOLOGY RBC 3.82 4.70 - 11/24 MH 6.10 /2015 [facility] HEMATOLOGY MCV 89.4 80.0 - 11/24 MH 94.0 /2015 [facility] HEMATOLOGY MCH 29.5 27.0 - 11/24 MH 31.0 /2015 [facility] HEMATOLOGY Hct 34.1 42.0 - 11/24 MH 54.0 /2015 [facility] HEMATOLOGY Eosinophils 0.0 0.0 - 0.5 11/24 MH # /2015 [facility] HEMATOLOGY Basophils 0.3 0.0 - 1.0 11/24 /2015 [facility] HEMATOLOGY Segs-Bands # 7.4 1.5 - 8.1 11/24 /2015 [facility] HEMATOLOGY Monocytes # 0.8 0.0 - 0.8 11/24 /2015 [facility] HEMATOLOGY Lymphocytes 1.2 1.0 - 5.5 11/24 # /2015 [facility] HEMATOLOGY Segs 78.0 45.0 - 11/24 MH 75.0 /2015 [facility] HEMATOLOGY Monocytes 8.8 2.0 - 12.0 11/24 /2015 [facility] HEMATOLOGY Lymphocytes 12.7 20.0 - 11/24 40.0 /2015 [facility] HEMATOLOGY Eosinophils 0.2 0.0 - 4.0 11/24 /2015 [facility] BLOOD BANK Antigen AHG K neg 11/16 RESULTS Int /2015 [facility] BLOOD BANK AB Int Anti-K 11/16 RESULTS /2015 [facility] BLOOD BANK Antibody Positive 1 11/16 Result RESULTS Scrn (11/17/15 10:06 AM) /2015 Comment: [facility] 11/17/2015 [facility] 12:12 [id number]
"Significant Findings of Positive Antibody Screen_ called to Nella Copeland Rn__ at 11/17/2015 12:12__ by GM__. Read Back OK" BLOOD BANK ABO/Rh A POS 11/16 [facility] Pathology Reports No Data Provided for This Section Diagnostic Reports Report Value Date Source Finger 3 views DX Clinical history: Pain from a fall. 01/11/2016 [facility] Sex: Male. : 1930. Technique: 3 views of the right fingers attention 4th finger.. Findings: Interphalangeal narrowing. There is no fracture or dislocation. No destructive lesion. Impression: No acute skeletal abnormality. Consultation Notes No Data Provided for This Section Discharge Summaries No Data Provided for This Section History and Physicals No Data Provided for This Section Vital Signs Vital Sign Value Date Comments Source Respitory Rate 17 01/11/2016 [facility] Heart Rate 74 01/11/2016 [facility] Systolic (mm Hg) 146 01/11/2016 [facility] Diastolic (mm Hg) 87 01/11/2016 [facility] Heart Rate 83 01/11/2016 [facility] Respitory Rate 19 01/11/2016 [facility] Systolic (mm Hg) 143 01/11/2016 [facility] Diastolic (mm Hg) 85 01/11/2016 [facility] Weight 75.909 01/11/2016 [facility] Temperature Oral (F) 98.5 F 01/11/2016 [facility] Height 177.8 cm 01/11/2016 [facility] BMI Calculated 24.01 01/11/2016 [facility] Heart Rate 69 11/29/2015 [facility] Systolic (mm Hg) 149 11/29/2015 [facility] Diastolic (mm Hg) 79 11/29/2015 [facility] Respitory Rate 18 11/29/2015 [facility] Temperature Oral (F) 98.0 F 11/29/2015 [facility] Heart Rate 75 11/29/2015 [facility] Respitory Rate 18 11/29/2015 [facility] Systolic (mm Hg) 147 11/29/2015 [facility] Diastolic (mm Hg) 84 11/29/2015 [facility] Temperature Oral (F) 98.1 F 11/29/2015 [facility] Temperature Oral (F) 98.2 F 11/29/2015 [facility] Heart Rate 88 11/29/2015 [facility] Systolic (mm Hg) 145 11/29/2015 [facility] Diastolic (mm Hg) 76 11/29/2015 [facility] Respitory Rate 18 11/29/2015 [facility] BMI Calculated 26 11/24/2015 [facility] Weight 82.2 11/24/2015 [facility] Height 177.8 cm 11/24/2015 [facility] Weight 79.091 11/17/2015 [facility] Height 177.8 cm 11/17/2015 [facility] BMI Calculated 25.02 11/17/2015 [facility] Encounters Location Location Encounter Encounter Reason Attending ADM DC Status Source Details Type Number For Provider Date Date [id number] [id number] Roman Arceo 01/10 01/10 [facility]2015 [facility] Procedures Procedure Code Date Perfomer Comments Source 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 [facility] Vasectomy [id number] [facility] Wide re-excision [id number] nose [facility] lesion [facility] skin<sup>1</sup> Assessment and Plan Assessment and Plan Date Source Extracted from:Title: Clinical Document 11/29/2015 [facility] Author: Josias Rahman MD Date: 11/26/15 [facility] Progress Note Subjective no n/v rosalinda ice/sips passed flatus last night, asking for food sat in a chair yesterday pain only with coughing Objective Vital Signs (last 24 hrs) Last Charted Temp Oral 98.5 DegF (NOV 25 04:00) Heart Rate Apical 89 bpm (NOV 25 06:00) Resp Rate 20 BRMIN (NOV 25 06:00) SBP 139 mmHg (NOV 25 06:00) DBP 77 mmHg (NOV 25 06:00) SpO2 96 % (NOV 25 06:00) Input/Output Record In Out Bal 11/24 24hr Tot 3413 1500 1913 11/23 24hr Tot 3288 [id number] 2478 UOP 1500 ml Physical examination: alert and oriented abd soft, approp ttp, removed dressings and inc c/d/i Labs (Last four charted values) WBC 7.7 (NOV 25) 9.4 (NOV 24) Hgb L 10.3 (NOV 25) L 11.3 (NOV 24) Hct L 31.4 (NOV 25) L 34.1 (NOV 24) Plt 278 (NOV 25) 328 (NOV 24) Na 141 (NOV 25) 142 (NOV 24) K 4.4 (NOV 25) 3.9 (NOV 24) CO2 26 (NOV 25) 24 (NOV 24) Cl 109 (NOV 25) 107 (NOV 24) Cr 0.82 (NOV 25) 0.92 (NOV 24) BUN L 6 (NOV 25) 9 (NOV 24) Glucose Random H 117 (NOV 25) H 147 (NOV 24) Mg 2.1 (NOV 24) Phos 2.8 (NOV 24) Ca L 7.9 (NOV 25) L 8.0 (NOV 24) Assessment/Plan POD2 GREGORY LAR. Good pain control. HD stable. Using IS. Passing flatus. Good renal function. Hct stable. AFebrile. - oral pain medication - ambulation - clears - decrease IVF - keep [place] (indwelling at home) - transfer to [facility] with telemetry Plan of Care No Data Provided for This Section Social History Social History Date Source Social History TypeResponse 11/24/2015 [facility] Substance Abuse Use: None. Alcohol Past, Type Wine. Alcohol use interferes with work or home: No. Drinks more than intended: No. Others hurt by drinking: No. Ready to change: No. Household alcohol concerns: No. Smoking Status Previous treatment: None; Ready to change: No; Concerns about tobacco use in household: No; Exposure to Tobacco Smoke None; Cigarette Smoking Last 365 Days Yes; Reg Smoking Cessation Counseling Yes; Former smoker; Type: Cigarettes Family History No Data Provided for This Section Advance Directives No Data Provided for This Section Functional Status No Data Provided for This Section
[2018-12-11] MEDS ORDERED: TETANUS & DIPHTHERIA TOX,ADULT 0.5 ML VIAL ONE (19:52)
--- NOTE | 2018-12-11 20:38 | RAD REPORT ---
EXAM DESCRIPTION: RAD - Foot Right 3 View - 12/11/2018 8:30 pm CLINICAL HISTORY: possible foreign body COMPARISON: No comparisons FINDINGS: No fracture is identified. No radiopaque foreign body is seen.
--- NOTE | 2018-12-11 20:50 | EDPHYS ---
Physician Documentation [facility] Name: Khris Will Sr Age: 88 yrs Sex: Male : 1930 Arrival Date: 12/11/2018 Time: 19:32 Bed 28 Private MD: Kurtis Aguirre ED Physician Puma Cordero HPI: 12/11 20:43 This 88 yrs old Male presents to ER via Wheelchair with complaints of gs Laceration To Foot. 20:43 The patient has a laceration related to: a puncture wound glass, occurred at home. The gs laceration(s) is(are) located on the ball of right foot. Onset: The symptoms/episode began/occurred acutely, today. Associated signs and symptoms: Pertinent positives: suspected foreign body, Pertinent negatives: heavy bleeding, numbness distal to injury. The patient has experienced similar episodes in the past, a few times. The patient has not recently seen a physician. Historical: - Allergies: 19:38 No Known Allergies; jd3 - Home Meds: 19:38 enalapril maleate 2.5 mg Oral tab 1 tab once daily [Active]; trazodone 50 mg Oral tab 1 jd3 tab daily [Active]; Ferrex 150 150 mg iron Oral cap daily [Active]; - PMHx: 19:38 bladder "shut down"; Hypertension; skin cancer; Pacemaker; jd3 - PSHx: 19:38 colon resection; jd3 - Immunization history:: Adult Immunizations up to date, Last tetanus immunization: < 5 years ago. - Social history:: Smoking status: Patient/guardian denies using tobacco, the patient reports quitting approximately 3 years ago. - Ebola Screening: : Patient negative for fever greater than or equal to 101.5 degrees Fahrenheit, and additional compatible Ebola Virus Disease symptoms. ROS: 20:43 All other systems are negative. gs Exam: 20:43 Head/Face: Normocephalic, atraumatic. Neck: Trachea midline, no thyromegaly or masses gs palpated, and no cervical lymphadenopathy. Supple, full range of motion without nuchal rigidity, or vertebral point tenderness. No Meningismus. Cardiovascular: Regular rate and rhythm with a normal S1 and S2. No gallops, murmurs, or rubs. Normal PMI, no JVD. No pulse deficits. Respiratory: Lungs have equal breath sounds bilaterally, clear to auscultation and percussion. No rales, rhonchi or wheezes noted. No increased work of breathing, no retractions or nasal flaring. Abdomen/GI: Soft, non-tender, with normal bowel sounds. No distension or tympany. No guarding or rebound. No evidence of tenderness throughout. Back: No spinal tenderness. No costovertebral tenderness. Full range of motion. Neuro: Awake and alert, GCS 15, oriented to person, place, time, and situation. Cranial nerves II-XII grossly intact. Motor strength 5/5 in all extremities. Sensory grossly intact. Cerebellar exam normal. Normal gait. 20:43 Constitutional: The patient appears alert, awake. 20:43 Musculoskeletal/extremity: ROM: no acute changes, Pulses: are normal with no appreciated deficits, Sensation intact. 20:43 Skin: injury, puncture(s), that are superficial, of the ball of right foot, between toes, no fb palpated or seen no increased pain with palpation to indicate fb, xray negative for fb. Vital Signs: 19:38 BP 147 / 78; Pulse 66; Resp 16 S; Temp 97.6(O); Pulse Ox 96% on R/A; Weight 90.72 kg jd3 (R); Height 5 ft. 10 in. (177.80 cm) (R); Pain 0/10; 21:12 BP 135 / 68; Pulse 66; Resp 16; Temp 98; Pulse Ox 99% ; rv 19:38 Body Mass Index 28.70 (90.72 kg, 177.80 cm) jd3 MDM: 19:48 Patient medically screened. gs 20:43 Differential diagnosis: puncture, retained fb. Data reviewed: vital signs, nurses gs notes, radiologic studies. Counseling: I had a detailed discussion with the patient and/or guardian regarding: the historical points, exam findings, and any diagnostic results supporting the discharge/admit diagnosis, radiology results, the need for outpatient follow up. Response to treatment: the patient's symptoms have markedly improved after treatment, and as a result, I will discharge patient. 12/11 19:49 Order name: Foot Right 3 View XRAY; Complete Time: 20:43 gs Administered Medications: 19:55 Drug: Tetanus-Diphtheria Toxoid Adult 0.5 ml {Curriculum Consultant: [employer]. Exp: rv 08/09/2020. Lot #: [id number]. } Route: IM; Site: left deltoid; 21:08 Follow up: Response: No adverse reaction rv Disposition: 12/11/18 20:49 Discharged to Home. Impression: Puncture wound without foreign body of foot. - Condition is Stable. - Discharge Instructions: Puncture Wound, [id number]. - Prescriptions for Keflex 500 mg Oral Capsule - take 1 capsule by ORAL route every 12 hours for 7 days; 10 capsule. - Medication Reconciliation Form, Thank You Letter, Antibiotic Education, Prescription Opioid Use form. - Follow up: Private Physician; When: 2 - 3 days; Reason: Re-evaluation by your physician. Signatures: Dispatcher [employer] Puma Linn MD MD gs Davies, Jonathon, RN RN Vick Pearl RN RN rv Corrections: (The following items were deleted from the chart) 21:12 20:49 12/11/2018 20:49 Discharged to Home. Impression: Puncture wound without foreign rv body of foot. Condition is Stable. Forms are Medication Reconciliation Form, Thank You Letter, Antibiotic Education, Prescription Opioid Use. Follow up: Private Physician; When: 2 - 3 days; Reason: Re-evaluation by your physician. suyapa
--- NOTE | 2018-12-11 20:50 | ER ---
Nurse's Notes [facility] Name: Khris Will Sr Age: 88 yrs Sex: Male : 1930 Arrival Date: 12/11/2018 Time: 19:32 Bed 28 Private MD: Kurtis Aguirre Diagnosis: Puncture wound without foreign body of foot Presentation: 12/11 19:34 Presenting complaint: the patient's adult daughter states: " I think he stepped on a jd3 piece of glass.". Transition of care: patient was not received from another setting of care. Complicating Factors: There are no complicating factors for this patient. Onset of symptoms was December 11, 2018. Risk Assessment: Do you want to hurt yourself or someone else? Patient reports no desire to harm self or others. Initial Sepsis Screen: Does the patient meet any 2 criteria? No. Patient's initial sepsis screen is negative. Does the patient have a suspected source of infection? No. Patient's initial sepsis screen is negative. Care prior to arrival: None. 19:34 Method Of Arrival: Wheelchair jd3 19:34 Acuity: CONCEPCION 4 jd3 Historical: - Allergies: 19:38 No Known Allergies; jd3 - Home Meds: 19:38 enalapril maleate 2.5 mg Oral tab 1 tab once daily [Active]; trazodone 50 mg Oral tab 1 jd3 tab daily [Active]; Ferrex 150 150 mg iron Oral cap daily [Active]; - PMHx: 19:38 bladder "shut down"; Hypertension; skin cancer; Pacemaker; jd3 - PSHx: 19:38 colon resection; jd3 - Immunization history:: Adult Immunizations up to date, Last tetanus immunization: < 5 years ago. - Social history:: Smoking status: Patient/guardian denies using tobacco, the patient reports quitting approximately 3 years ago. - Ebola Screening: : Patient negative for fever greater than or equal to 101.5 degrees Fahrenheit, and additional compatible Ebola Virus Disease symptoms. Screenin:09 Abuse screen: Denies threats or abuse. Denies injuries from another. Nutritional rv screening: No deficits noted. Tuberculosis screening: No symptoms or risk factors identified. Fall Risk None identified. Assessment: 21:08 General: Appears in no apparent distress. comfortable, Behavior is calm, cooperative. rv Pain: Complains of pain in right foot. Neuro: Level of Consciousness is awake, alert, obeys commands, Oriented to person, place, time, situation. Cardiovascular: Patient's skin is warm and dry. Respiratory: Airway is patent. GI: No deficits noted. No signs and/or symptoms were reported involving the gastrointestinal system. : No signs and/or symptoms were reported regarding the genitourinary system. EENT: No signs and/or symptoms were reported regarding the EENT system. Derm: Wound noted right foot. Musculoskeletal: Swelling absent. Injury Description: Laceration sustained to right foot is clean, superficial. Vital Signs: 19:38 BP 147 / 78; Pulse 66; Resp 16 S; Temp 97.6(O); Pulse Ox 96% on R/A; Weight 90.72 kg jd3 (R); Height 5 ft. 10 in. (177.80 cm) (R); Pain 0/10; 21:12 BP 135 / 68; Pulse 66; Resp 16; Temp 98; Pulse Ox 99% ; rv 19:38 Body Mass Index 28.70 (90.72 kg, 177.80 cm) jd3 ED Course: 19:32 Patient arrived in ED. mr 19:32 Kurtis Aguirre MD is Private Physician. mr 19:35 Triage completed. jd3 19:39 Arm band placed on. jd3 19:41 Puma Cordero MD is Attending Physician. gs 19:48 Vick Mix RN is Primary Nurse. rv 20:30 Foot Right 3 View XRAY In Process Unspecified. EDMS 21:09 Patient has correct armband on for positive identification. Bed in low position. Call rv light in reach. Side rails up X 1. Adult w/ patient. Pulse ox on. NIBP on. 21:09 No provider procedures requiring assistance completed. IV discontinued, intact, rv bleeding controlled, No redness/swelling at site. Pressure dressing applied. Administered Medications: 19:55 Drug: Tetanus-Diphtheria Toxoid Adult 0.5 ml {Web Press Operator Helper Offset: [employer]. Exp: rv 08/09/2020. Lot #: [id number]. } Route: IM; Site: left deltoid; 21:08 Follow up: Response: No adverse reaction rv Outcome: 20:49 Discharge ordered by . gs 21:09 Discharged to home via wheelchair, with family. rv 21:09 Condition: improved 21:09 Discharge instructions given to patient, family, Instructed on discharge instructions, follow up and referral plans. medication usage, wound care, Demonstrated understanding of instructions, follow-up care, medications, wound care, Prescriptions given X 1. 21:12 Patient left the ED. rv Signatures: Dispatcher [employer] PEEMelissa Goodwin Puma Cordero MD MD gs Davies, Jonathon, RN RN jd3 Vick Mix RN RN rv Corrections: (The following items were deleted from the chart) 19:39 19:38 BP 152 / 98; Pulse 66bpm; Resp 16bpm; Spontaneous; Pulse Ox 96% RA; Temp 97.6F jd3 Oral; 90.72 kg Reported; Height 5 ft. 10 in. Reported; BMI: 28.7; Pain 0/10; jd3 19:47 19:34 Presenting complaint: Child states: "I think he stepped on a piece of glass on jd3 his right foot." jd3
[2018-12-11] MEDS ORDERED: CEPHALEXIN 250 MG CAP ONE (21:00)
[2018-12-11 22:12] VITALS: BP 135/68; TEMP 98; O2SAT 99
== END 2018-12-11 21:12 | disposition home or self-care (01) ==
LOC: ER 19:29
DX: S91.331A Puncture wound without foreign body, right foot, initial encounter (principal); W25.XXXA Contact with sharp glass, initial encounter; I10 Essential (primary) hypertension; C44.90 Unspecified malignant neoplasm of skin, unspecified; Z23 Encounter for immunization; Z87.891 Personal history of nicotine dependence
CPT/HCPCS: 90471; 90714; 99284

== ENCOUNTER 2019-01-13 11:12 | Day surgery (SDC) | payer OTHER ==
--- OUTSIDE RECORDS SUMMARY | 2019-01-13 11:15 | XMS REPORT | Continuity of Care Document ---
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[facility] arrhythmia1 [facility] Colon polyp Active Problem 01/14/2016 [facility] Skin cancer of Resolved Problem 01/14/2016 [facility] face [facility] TIA (Confirmed) Resolved Problem 01/14/2016 [facility] ILLNESS, Active [facility] UNSPECIFIED [facility] Medications Medication Details Route Status Patient Ordering Order Source Instructions Provider Date tramadol 50 mg=1 tab, PO, Active 11/28[facility] hydrochloride Q8H, PRN as 2015 [facility] 50 MG Oral needed for pain, [facility] Tablet [Ultram] # 40 tab, 0 Refill(s) tramadol 50 mg=1 tab, PO, Inactive 11/28[facility] hydrochloride Q8H, PRN Other 2015 [facility] 50 MG Oral -See Comment | [facility] Tablet pain, X 7 day, # 21 tab, 0 Refill(s) Miralax 17 gm, 1 pkt, Inactive Route: PO, Drug 2015 [facility] form: PWDRCecilia ONCE, Dosing Weight 82.2, kg, Priority: NOW, Start date: 11/29/15 7:52:00 CDT, Duration: 1 doses or times, Stop date: 11/29/15 7:52:00 CDTNotes: Dissolve in 8 oz of water or juice. (Same as: Miralax) Tylenol 650 mg, 2 tab, No Longer Route: PO, Drug Active 2015 [facility] form: TAB, Q6H, Cecilia Dosing Weight 82.2, kg, PRN Pain Score 1-3, Start date: 11/26/15 8:15:00 CDT, Duration: 30 day, Stop date: 12/26/15 8:14:00 CDTNotes: Do not exceed 4 gm/day. (Same as: Tylenol) tramadol 100 mg, 2 tab, No Longer hydrochloride Route: PO, Drug Active 2015 [facility] 50 MG Oral form: TAB, Q8H, City Tablet Dosing Weight 82.2, kg, PRN Pain Score 7-10, Start date: 11/26/15 8:15:00 CDT, Duration: 30 day, Stop date: 12/26/15 8:14:00 CDTNotes: Not to exceed 400mg/day. (Same As: Ultram) D5W 1/2NS + KCL 1,000 mL, Rate: No Longer 20mEq/L 1000ml 50 ml/hr, Infuse Active 2015 [facility] (Premix) 1,000 over: 20 hr, City mL Route: IV, Dosing Weight 82.2 kg, Total Volume: 1,000, Start date: 11/26/15 8:13:00 CDT, Duration: 30 day, Stop date: 12/26/15 8:12:00 CDTNotes: PREMIX IV - Do Not Alter WASTE: F/P - Sink; E - Municipal Trash Bin ketOROLAC 15 15 mg, 0.5 mL, No Longer mg/mL Route: IV, Drug Active 2015 [facility] injectable form: INJ, Q6H, City [...] No Longer mL, Route: IV, Active 2015 [facility] Drug form: INJ, City Q6H, Dosing Weight 82.2, kg, for > or=50 kg, Start date: 11/25/15 12:00:00 CDT, Duration: 4 doses or times, Stop date: 11/26/15 3:48:00 CDTNotes: Infuse over 15 minutes Do not exceed 4gm/day of acetaminophen MEDICATION WASTE Product Size: 1000 mg Product Wasted: _0__ mg Lovenox 40 mg, 0.4 mL, No Longer Route: SUB-Q, Active 2015 [facility] Drug form: INJCecilia Daily, Dosing Weight 79.091, kg, Start date: 11/25/15 9:00:00 CDT, Duration: 30 day, Stop date: 12/24/15 9:00:00 CDTNotes: (Same as: Lovenox) latanoprost 1 drp, Route: No Longer ophthalmic BOTH EYES, Active 2015 [facility] 0.005% solution Bedtime, Drug City form: SOLN, Start date: 11/24/15 21:00:00 CDT, Duration: 30 day, Stop date: 12/23/15 21:00:00 CDTNotes: (Same as:Xalatan) bimatoprost 0.1 1 drp, Route: Inactive MG/ML BOTH EYES, Drug 2015 [facility] Ophthalmic Form: SOLNCecilia Solution Dosing Weight [Lumigan] 79.091, kg, Bedtime, Start date: 11/24/15 21:00:00 CDT, Duration: 30 day, Stop date: 12/23/15 21:00:00 CDT Cipro 400 mg, 200 mL, Inactive Route: IVPB, 2015 [facility] Drug form: INJCecilia ONCE, Dosing Weight 79.091, kg, Priority: Routine, Start date: 11/24/15 20:00:00 CDT, Stop date: 11/24/15 20:00:00 CDTNotes: Do not refrigerate Atropine 1 drp, Route: No Longer Sulfate 10 OPTH, QID, Drug Active 2015 [facility] MG/ML form: SOLN, Cecilia Ophthalmic Start date: Solution 11/24/15 [Atropine-Care] 17:00:00 CDT, Duration: 30 day, Stop date: 12/24/15 13:00:00 CDTNotes: (Same As: Isopto Atropine) Protonix 40 mg, Route: No Longer IVP, Before Active 2015 [facility] Dinner, Dosing City Weight 79.091, kg, Start date: 11/24/15 16:30:00 CDT, Duration: 30 day, Stop date: 12/23/15 16:30:00 CDTNotes: For IV push reconstitute with 10 ml 0.9% sodium chloride and push over 2 minutes. (Same as: Protonix) Flagyl 500 mg, 100 mL, No Longer Route: IVPB, [facility] 2015 [facility] Drug form: INJ, City Q8H, Dosing Weight 79.091, kg, Start date: 11/24/15 16:00:00 CDT, Duration: 2 doses or times, Stop date: 11/25/15 0:00:00 CDTNotes: (Same as: Flagyl) Avoid alcohol. Acetaminophen 1,000 mg, 100 No Longer 10 MG/ML mL, Route: IV, [facility] 2015 [facility] Injectable Drug form: INJ, City Solution Q8H, Dosing Weight 79.091, kg, For > or=50 kg, Start date: 11/24/15 16:00:00 CDT, Duration: 1 day, Stop date: 11/25/15 8:00:00 CDTNotes: Infuse over 15 minutes Do not exceed 4gm/day of acetaminophen MEDICATION WASTE Product Size: 1000 mg Product Wasted: ___ mg Sodium Chloride 25 mL, Route: No Longer 0.9% IV IV, Start date: [address] 11/24/15 [facility] 15:48:00 CDT, Duration: 30 day, Stop date: 12/24/15 15:47:00 CDT, PRN Line Flush BD Normal 10 mL, Route: No Longer Saline Flush IV, Drug Form: [facility] 2015 [facility] INJ, PRN, PRN City Line Flush, Start date: 11/24/15 15:48:00 CDT, Duration: 30 day, Stop date: 12/24/15 15:47:00 CDTNotes: (Same as: BD Posiflush) Morphine 3 mg, 0.75 mL, No Longer Route: IVP, Drug [address] form: INJ, Q2H, [facility] Dosing Weight 79.091, kg, PRN Other -See Comment, Priority: Routine, Start date: 11/24/15 12:44:00 CDT, Duration: 30 day, Stop date: 12/24/15 12:43:00 CDT, abdominal painNotes: (Same as:MORPhine Sulfate) Zofran 4 mg, 2 mL, No Longer Route: IV, Drug Active 2015 [facility] form: INJ, Q6H, [facility] Dosing Weight 79.091, kg, PRN Nausea, Start date: 11/24/15 12:40:00 CDT, Duration: 30 day, Stop date: 12/24/15 12:39:00 CDTNotes: (Same as: Zofran) MEDICATION WASTE Product Size: 4 mg Product Wasted: ___ mg D5W 1/2NS + KCL 1,000 mL, Rate: No Longer 20mEq/L 1000ml 125 ml/hr, Active 2015 [facility] ([facility]ix) 1,000 Infuse over: 8 City mL hr, Route: IV, Dosing Weight 79.091 kg, Total Volume: 1,000, Start date: 11/24/15 12:39:00 CDT, Duration: 30 day, Stop date: 12/24/15 12:38:00 CDTNotes: PREMIX IV - Do Not Alter WASTE: F/P - Sink; E - Municipal Trash Bin sugammadex 200 mg, 2 mL, Inactive Route: IV, Drug 2015 [facility] form: SOLN, City ONCE, Start date: 11/24/15 11:59:00 CDT, Stop date: 11/24/15 11:59:00 CDTNotes: (Same as: Bridion) Ondansetron 4 mg, 2 mL, Inactive Route: IVP, Drug 2015 [facility] form: INJ, ONCE, [facility] Dosing Weight 79.091, kg, PRN Nausea & Vomiting, Start date: 11/24/15 8:53:00 CDTNotes: (Same as: Zofran) MEDICATION WASTE Product Size: 4 mg Product Wasted: ___ mg Naloxone 0.4 mg, 1 mL, Inactive Route: IVP, Drug 2015 [facility] form: INJ, City Q2MIN, Dosing Weight 79.091, kg, PRN Narcotic Reversal, Start date: 11/24/15 8:53:00 CDT, Duration: 8 doses or times, Stop date: Limited # of timesNotes: Same as Narcan Flumazenil 0.2 mg, 2 mL, Inactive Route: IVP, Drug 2015 [facility] form: INJ, PRN, [facility] Dosing Weight 79.091, kg, PRN Benzodiazepine Reversal, Initial dose, Start date: 11/24/15 8:53:00 CDT, Duration: 30 day, Stop date: 12/24/15 8:52:00 CDTNotes: (Same as: Romazicon) Morphine 4 mg, 0.4 mL, Inactive Route: IVP, Drug 2015 [facility] form: INJ, City Q5Min, Dosing Weight 79.091, kg, PRN Pain Score 7-10, Start date: 11/24/15 8:53:00 CDT, Duration: 3 doses or times, Stop date: Limited # of timesNotes: (Same as:MORPhine Sulfate) bupivacaine 20 mL, Route: Inactive liposome [facility] 2015 [facility]), Drug Form: [facility] INJ, ONCALL, Start date: 11/24/15 0:00:00 CDT, [...] mg, 100 mL, Inactive Route: IVPB 2015 [facility] Drug form: INJ, City ONCALL, Start date: 11/24/15 0:00:00 CDT, Duration: 20 hr, Stop date: 11/24/15 19:59:00 CDTNotes: (Same as: Flagyl) Avoid alcohol. Cipro 400 mg, 200 mL, Inactive Route: IVPB, 2015 [facility] Drug form: INJ, Cecilia ONCALL, Start date: 11/24/15 0:00:00 CDT, Duration: 20 hr, Stop date: 11/24/15 19:59:00 CDTNotes: Do not refrigerate Ferrex 150 Plus 1 cap, PO, Active Daily, 0 2015 [facility] Refill(s) [facility] bimatoprost 0.1 1 drp, BOTH Active MG/ML EYES, Bedtime, # 2016 [facility] Ophthalmic 5 mL, 4 City Solution Refill(s) [Lumigan] difluprednate 1 drp, BOTH Active 0.5 MG/ML EYES, QID, After 2015 [facility] Ophthalmic 14 days, taper [facility] Suspension dose as directed [Durezol] by physician., # 5 mL, 0 Refill(s) Atropine 1 drp, OPTH, Active Sulfate 10 QID, # 15 ml, 0 2015 [facility] MG/ML Refill(s) [facility] Ophthalmic Solution [Atropine-Care] Trazodone 50 mg=1 tab, PO, Active Hydrochloride Bedtime, # 30 2016 [facility] 50 MG Oral tab, 1 Refill(s) [facility] Tablet Allergies, Adverse Reactions, Alerts No Known Medication Allergies Immunizations No Data Provided for This Section Results Order Name Results Value Reference Date Interpretation Comments Source Range ELECTROLYTES AGAP 10.4 10.0 - 11/25 20.0 [facility] ELECTROLYTES Glucose Lvl 117 70 - 99 11/25 [facility] ELECTROLYTES Calcium Lvl 7.9 8.5 - 10.5 11/25 [facility] ELECTROLYTES BUN 6 7 - 22 11/25 [facility] ELECTROLYTES CO2 26 24 - 32 11/25 [facility] ELECTROLYTES Sodium Lvl 141 135 - 145 11/25 [facility] ELECTROLYTES Chloride Lvl 109 95 - 109 11/25 [facility] ELECTROLYTES Potassium 4.4 3.5 - 5.1 11/25 Lvl [facility] ELECTROLYTES eGFR 81 11/25 Result Comment: The [facility] eGFR is City calculated using [...] 0.50 - 11/25 MH Lvl 1.40 /2015 [facility] HEMATOLOGY Eosinophils 5.4 0.0 - 4.0 11/25 [facility] HEMATOLOGY Monocytes 7.4 2.0 - 12.0 11/25 [facility] HEMATOLOGY Lymphocytes 18.7 20.0 - 11/25 MH 40.0 [facility] HEMATOLOGY Segs 68.0 45.0 - 11/25 MH 75.0 [facility] HEMATOLOGY Lymphocytes 1.4 1.0 - 5.5 11/25 MH # /2015 [facility] HEMATOLOGY Basophils 0.5 0.0 - 1.0 11/25 [facility] Segs-Bands # 5.2 1.5 - 8.1 11/25 [facility] HEMATOLOGY Monocytes # 0.6 0.0 - 0.8 11/25 [facility] HEMATOLOGY Eosinophils 0.4 0.0 - 0.5 11/25 MH # /2015 [facility] HEMATOLOGY Basophils # 0.0 0.0 - 0.2 11/25 [facility] HEMATOLOGY Platelet 278 133 - 450 11/25 [facility] HEMATOLOGY MCH 30.1 27.0 - 11/25 MH 31.0 [facility] HEMATOLOGY MCV 91.5 80.0 - 11/25 MH 94.0 [facility] HEMATOLOGY Hct 31.4 42.0 - 11/25 MH 54.0 [facility] HEMATOLOGY Hgb 10.3 14.0 - 11/25 MH 18.0 [facility] HEMATOLOGY RBC 3.44 4.70 - 11/25 MH 6. [facility] HEMATOLOGY WBC 7.7 3.7 - 10.4 11/25 [facility] HEMATOLOGY RDW 15.0 11.5 - 11/25 MH 14. [facility] HEMATOLOGY MCHC 32.9 32.0 - 11/25 MH 36. [facility] HEMATOLOGY MPV 7.2 7.4 - 10.4 11/25 [facility] CHEM PANEL Magnesium 2.1 1.8 - 2.4 11/24 MH Lvl [facility] CHEM PANEL Phosphorus 2.8 2.5 - 4.5 11/24 [facility] ELECTROLYTES Sodium Lvl 142 135 - 145 11/24 [facility] ELECTROLYTES Calcium Lvl 8.0 8.5 - 10.5 11/24 [facility] ELECTROLYTES Chloride Lvl 107 95 - 109 11/24 [facility] ELECTROLYTES Potassium 3.9 3.5 - 5.1 11/24 Lvl [facility] ELECTROLYTES Glucose Lvl 147 70 - 99 11/24 [facility] ELECTROLYTES BUN 9 7 - 22 11/24 [facility] ELECTROLYTES Creatinine 0.92 0.50 - 11/24 Lvl 1.40 [facility] ELECTROLYTES CO2 24 24 - 32 11/24 [facility] ELECTROLYTES eGFR 76 11/24 Result Comment: [facility] eGFR is City calculated using [...] AGAP 14.9 10.0 - 11/24 MH 20. [facility] HEMATOLOGY MCHC 33.0 32.0 - 11/24 MH 36.0 /2015 [facility] HEMATOLOGY RDW 15.1 11.5 - 11/24 MH 14.5 /2015 [facility] HEMATOLOGY MPV 6.7 7.4 - 10.4 11/24 /2015 [facility] HEMATOLOGY Platelet 328 133 - 450 11/24 /2015 [facility] HEMATOLOGY WBC 9.4 3.7 - 10.4 11/24 /2015 [facility] HEMATOLOGY Hgb 11.3 14.0 - 11/24 MH 18.0 /2015 [facility] HEMATOLOGY RBC 3.82 4.70 - 11/24 MH 6.10 /2015 [facility] HEMATOLOGY MCV 89.4 80.0 - 11/24 MH 94.0 /2015 [facility] HEMATOLOGY MCH 29.5 27.0 - 11/24 MH 31.0 /2015 [facility] HEMATOLOGY Hct 34.1 42.0 - 11/24 MH 54.0 /2015 [facility] HEMATOLOGY Eosinophils 0.0 0.0 - 0.5 11/24 MH # /2015 [facility] HEMATOLOGY Basophils 0.3 0.0 - 1.0 11/24 /2015 [facility] HEMATOLOGY Segs-Bands # 7.4 1.5 - 8.1 11/24 /2015 [facility] HEMATOLOGY Monocytes # 0.8 0.0 - 0.8 11/24 /2015 [facility] HEMATOLOGY Lymphocytes 1.2 1.0 - 5.5 11/24 # /2015 [facility] HEMATOLOGY Segs 78.0 45.0 - 11/24 MH 75.0 /2015 [facility] HEMATOLOGY Monocytes 8.8 2.0 - 12.0 11/24 /2015 [facility] HEMATOLOGY Lymphocytes 12.7 20.0 - 11/24 40.0 /2015 [facility] HEMATOLOGY Eosinophils 0.2 0.0 - 4.0 11/24 /2015 [facility] BLOOD BANK Antigen AHG K neg 11/16 RESULTS Int /2015 [facility] BLOOD BANK AB Int Anti-K 11/16 RESULTS /2015 [facility] BLOOD BANK Antibody Positive 1 11/16 Result RESULTS Scrn (11/17/15 10:06 AM) /2015 Comment: [facility] 11/17/2015 [facility] 12:12 [id number]
"Significant Findings of Positive Antibody Screen_ called to Nella Copeland Rn__ at 11/17/2015 12:12__ by GM__. Read Back OK" BLOOD BANK ABO/Rh A POS 11/16 [facility] Pathology Reports No Data Provided for This Section Diagnostic Reports Report Value Date Source Finger 3 views DX Clinical history: Pain from a fall. 01/11/2016 [facility] Sex: Male. : 1930. Technique: 3 views [...] Date Comments Source Respitory Rate 17 01/11/2016 [facility] Heart Rate 74 01/11/2016 [facility] Systolic (mm Hg) 146 01/11/2016 [facility] Diastolic (mm Hg) 87 01/11/2016 [facility] Heart Rate 83 01/11/2016 [facility] Respitory Rate 19 01/11/2016 [facility] Systolic (mm Hg) 143 01/11/2016 [facility] Diastolic (mm Hg) 85 01/11/2016 [facility] Weight 75.909 01/11/2016 [facility] Temperature Oral (F) 98.5 F 01/11/2016 [facility] Height 177.8 cm 01/11/2016 [facility] BMI Calculated 24.01 01/11/2016 [facility] Heart Rate 69 11/29/2015 [facility] Systolic (mm Hg) 149 11/29/2015 [facility] Diastolic (mm Hg) 79 11/29/2015 [facility] Respitory Rate 18 11/29/2015 [facility] Temperature Oral (F) 98.0 F 11/29/2015 [facility] Heart Rate 75 11/29/2015 [facility] Respitory Rate 18 11/29/2015 [facility] Systolic (mm Hg) 147 11/29/2015 [facility] Diastolic (mm Hg) 84 11/29/2015 [facility] Temperature Oral (F) 98.1 F 11/29/2015 [facility] Temperature Oral (F) 98.2 F 11/29/2015 [facility] Heart Rate 88 11/29/2015 [facility] Systolic (mm Hg) 145 11/29/2015 [facility] Diastolic (mm Hg) 76 11/29/2015 [facility] Respitory Rate 18 11/29/2015 [facility] BMI Calculated 26 11/24/2015 [facility] Weight 82.2 11/24/2015 [facility] Height 177.8 cm 11/24/2015 [facility] Weight 79.091 11/17/2015 [facility] Height 177.8 cm 11/17/2015 [facility] BMI Calculated 25.02 11/17/2015 [facility] Encounters Location Location Encounter Encounter Reason Attending ADM DC Status Source Details Type Number For Provider Date Date [facility] [id number] Andrea 11/23 11/28 [facility] /2015 [facility] [id number] Roman Arceo 01/10 01/10 [facility] /2015 [facility] Procedures Procedure Code Date Perfomer Comments Source Implantation of [id number] [facility] cardiac pacemaker [facility] Vasectomy [id number] [facility] Wide re-excision [id number] nose [facility] lesion [facility] skin<sup>1</sup> Assessment and Plan Assessment and Plan Date Source Extracted from:Title: Clinical Document 11/29/2015 [facility] Author: Josias Rahman MD Date: 11/26/15 Colon [...] [place] (indwelling at home) - transfer to [facility] with telemetry Plan of Care No Data Provided for This Section Social History Social History Date Source Social History TypeResponse 11/24/2015 [facility] Substance Abuse Use: None. Alcohol Past, Type [...]
[2019-01-13 13:20] LABS: Absolute Lymphocytes (CBC) 0.4 K/uL (0.7-4.9); Basophils % 0.2 % (0-1.3); Hematocrit 42.7 % (39.6-49.0); Lymphocytes % 2.9 % (15.3-44.8); MPV 6.3 fL (7.6-11.3); RBC Red Blood Cell Count 4.87 M/uL (4.33-5.43)
--- NOTE | 2019-01-13 13:20 | ER ---
Nurse's Notes [facility] Name: Khris Will Sr Age: 88 yrs Sex: Male : 1930 Arrival Date: 01/13/2019 Time: 11:14 Bed 15 Private MD: Kurtis Aguirre Diagnosis: Urinary Retention Presentation: 01/13 11:32 Presenting complaint: Patient states: urine catheter clogged up since early this morning. Pt reports the urine that is in the bag is from last night. nurse attempted to flush it but was unsuccessful. Transition of care: patient was not received from another setting of care. Onset of symptoms was January 13, 2019. Risk Assessment: Do you want to hurt yourself or someone else? Patient reports no desire to harm self or others. Initial Sepsis Screen: Does the patient meet any 2 criteria? No. Patient's initial sepsis screen is negative. Does the patient have a suspected source of infection? No. Patient's initial sepsis screen is negative. Care prior to arrival: None. 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 - Social history:: Smoking status: Patient/guardian denies using tobacco. - Ebola Screening: : No symptoms or risks identified at this time. Screenin:45 Abuse screen: Denies threats or abuse. Denies injuries from another. Nutritional jl7 screening: No deficits noted. Tuberculosis screening: No symptoms or risk factors identified. Fall Risk None identified. Assessment: 11:45 General: Appears in no apparent distress. uncomfortable. Pain: Complains of pain in jl7 suprapubic area. Neuro: Level of Consciousness is awake, alert, obeys commands, Oriented to person, place, time, situation. Cardiovascular: Patient's skin is warm and dry. Respiratory: Airway is patent Respiratory effort is even, unlabored, Respiratory pattern is regular, symmetrical. : Pt reports no urine since last night, report home health nurse replaced Scott twice and flushed the Scott with no return. Derm: Skin is pink, warm \\T\\ dry. Vital Signs: 11:36 BP 136 / 73; Pulse 90; Resp 16; Temp 97.5; Pulse Ox 97% ; Weight 88.45 kg; Height 5 ft. sv 8 in. (172.72 cm); 11:36 Body Mass Index 29.65 (88.45 kg, 172.72 cm) sv ED Course: 11:14 Patient arrived in ED. rg4 11:14 Kurtis Aguirre MD is Private Physician. rg4 11:36 Triage completed. sv 11:36 Arm band placed on. sv 11:38 Alex Virgen PA is PHCP. jmm 11:38 Guido Hutchison MD is Attending Physician. m 11:45 Patient has correct armband on for positive identification. Placed in gown. Bed in low jl7 position. Call light in reach. Side rails up X 1. 12:15 Bladder scan completed. 778. jl7 12:40 Patient tolerated well. Scott cath balloon deflated, 18 cc removed when deflated Blood jl7 and clots came out when balloon was deflated attempted to replace Scott with 18 Fr Scott, unsuccessful, tube curled at level of the prostate. Attempted with 18 FR Coude, unsuccessful, ERP notified. 12:41 Jeremy Maria, RN is Primary Nurse. jl7 13:18 Rayshawn Chacon MD is Hospitalizing Provider. [facility] 13:25 No provider procedures requiring assistance completed. Initial lab(s) drawn, by lab jl7 tech, sent to lab. Inserted saline lock: 22 gauge in right antecubital area, using aseptic technique. Blood collected. 13:25 Patient admitted, IV remains in place. intact, No redness/swelling at site. jl7 Administered Medications: No medications were administered Outcome: 13:18 Decision to Hospitalize by Provider. jmm 13:25 Admitted to OR accompanied by nurse, family with patient, via stretcher, with chart. jl7 13:25 Condition: stable 13:25 Discharge instructions given to patient, family, Instructed on the need for admit, Demonstrated understanding of instructions. 13:26 Patient left the ED. jl7 Signatures: Flaquita Vela, RN RN Alex Rose PA PA jmm Garcia, Rubi rg4 Jeremy Maria RN RN jl7
--- NOTE | 2019-01-13 13:20 | EDPHYS ---
Physician Documentation [facility] Name: Khris Will Sr Age: 88 yrs Sex: Male : 1930 Arrival Date: 01/13/2019 Time: 11:14 Bed 15 Private MD: Kurtis Aguirre ED Physician Guido Hutchison HPI: 01/13 11:42 This 88 yrs old Male presents to ER via Wheelchair with complaints of Problem jmm With Urinary Catheter. 11:42 The patient presents with urinary symptoms. Onset: The symptoms/episode began/occurred jmm at 02:00. Modifying factors: The symptoms are alleviated by nothing, the symptoms are aggravated by nothing. Associated signs and symptoms: Pertinent positives: pelvic pain. This is an 88 year old male with a history of htn, renal disease, enlarged prostate that presents to the ED with complaints of decreased urinary output in catheter bag and pain to his bladder. Denies fever. [place] catheter was changed by home health nurse this morning with no relief. . Historical: - Allergies: 11:36 No Known Allergies; sv - Home Meds: 13:09 enalapril maleate 2.5 mg Oral tab 1 tab once daily [Active]; Ferrex 150 150 mg iron jl7 Oral cap daily [Active]; trazodone 50 mg Oral tab 1 tab daily [Active]; - PMHx: 11:36 bladder "shut down"; Hypertension; Pacemaker; Renal Disease; skin cancer; sv - PSHx: 11:36 colon resection; sv - Immunization history:: Adult Immunizations unknown. - Social history:: Smoking status: Patient/guardian denies using tobacco. - Ebola Screening: : No symptoms or risks identified at this time. ROS: 11:42 Constitutional: Negative for fever, chills, and weight loss, Cardiovascular: Negative jmm for chest pain, palpitations, and edema, Respiratory: Negative for shortness of breath, cough, wheezing, and pleuritic chest pain. 11:42 Abdomen/GI: Negative for abdominal pain, nausea, vomiting, diarrhea, and constipation. 11:42 : Positive for urinary symptoms. 11:42 All other systems are negative. Exam: 11:42 Constitutional: This is a well developed, well nourished patient who is awake, alert, jmm and in no acute distress. Head/Face: atraumatic. Eyes: EOMI, no conjunctival erythema appreciated ENT: Moist Mucus Membranes Neck: Trachea midline, Supple Chest/axilla: Normal chest wall appearance and motion. Cardiovascular: Regular rate and rhythm. No edema appreciated Respiratory: Normal respirations, no respiratory distress appreciated Abdomen/GI: Non distended, soft 11:42 : Male external genitalia: normal, okeefe catheter noted with urine in leg bag. 11:42 Musculoskeletal/extremity: ROM: intact in all extremities. 11:42 Skin: Appearance: Color: normal in color. 11:42 Neuro: Orientation: is normal, Mentation: is normal, Memory: is normal. 11:42 Psych: Behavior/mood is pleasant, cooperative. Vital Signs: 11:36 BP 136 / 73; Pulse 90; Resp 16; Temp 97.5; Pulse Ox 97% ; Weight 88.45 kg; Height 5 ft. sv 8 in. (172.72 cm); 11:36 Body Mass Index 29.65 (88.45 kg, 172.72 cm) sv MDM: 11:42 Patient medically screened. [facility] 13:03 Data reviewed: vital signs, nurses notes. Counseling: I had a detailed discussion with [facility] the patient and/or guardian regarding: the historical points, exam findings, and any diagnostic results supporting the discharge/admit diagnosis, the need for outpatient follow up, the need for further work-up and treatment in the hospital. ED course: I discussed the patient with Dr. Chacon whom evaluated the patient at bedside. Recommended OR intervention. . 01/13 13:01 Order name: CBC with Diff [facility] 01/13 13:01 Order name: CMP [facility] 01/13 13:01 Order name: Saline Lock; Complete Time: 13:19 [facility] Administered Medications: No medications were administered Disposition: 01/14 09:34 Co-signature as Attending Physician, Guido Hutchiosn MD I agree with the assessment and kdr plan of care. Disposition: 01/13/19 13:18 Hospitalization ordered by Rayshawn Chacon for Observation. Preliminary diagnosis is Urinary Retention. - Bed requested for Operating Room. - Status is Observation. jl7 - Condition is Stable. - Problem is new. - Symptoms are unchanged. UTI on Admission? No Signatures: Dispatcher [employer] EDMS Flaquita Vela RN RN sv Rittger, MD MD sandor Lora Joel, PA PA Jeremy Gramajo, RN RN jl7 Corrections: (The following items were deleted from the chart) 01/13 13:26 13:18 Hospitalization Ordered by Rayshawn Chacon MD for Observation. Preliminary jl7 diagnosis is Urinary Retention. Bed requested for Operating Room. Status is Observation. Condition is Stable. Problem is new. Symptoms are unchanged. UTI on Admission? No. [facility]
--- OUTSIDE RECORDS SUMMARY | 2019-01-13 13:33 | XMS REPORT | Continuity of Care Document ---
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 [facility] arrhythmia1 [facility] Colon polyp Active Problem 01/14/2016 [facility] Skin cancer of Resolved Problem 01/14/2016 [facility] face [facility] TIA (Confirmed) Resolved Problem 01/14/2016 [facility] ILLNESS, Active [facility] UNSPECIFIED [facility] Medications Medication Details Route Status Patient Ordering Order Source Instructions Provider Date tramadol 50 mg=1 tab, PO, Active 11/28[facility] hydrochloride Q8H, PRN as 2015 [facility] 50 MG Oral needed for pain, [facility] Tablet [Ultram] # 40 tab, 0 Refill(s) tramadol 50 mg=1 tab, PO, Inactive 11/28[facility] hydrochloride Q8H, PRN Other 2015 [facility] 50 MG Oral -See Comment | [facility] Tablet pain, X 7 day, # 21 tab, 0 Refill(s) Miralax 17 gm, 1 pkt, Inactive Route: PO, Drug 2015 [facility] form: PWDRCecilia ONCE, Dosing Weight 82.2, kg, Priority: NOW, Start date: 11/29/15 7:52:00 CDT, Duration: 1 doses or times, Stop date: 11/29/15 7:52:00 CDTNotes: Dissolve in 8 oz of water or juice. (Same as: Miralax) Tylenol 650 mg, 2 tab, No Longer Route: PO, Drug Active 2015 [facility] form: TAB, Q6H, Cecilia Dosing Weight 82.2, kg, PRN Pain Score 1-3, Start date: 11/26/15 8:15:00 CDT, Duration: 30 day, Stop date: 12/26/15 8:14:00 CDTNotes: Do not exceed 4 gm/day. (Same as: Tylenol) tramadol 100 mg, 2 tab, No Longer hydrochloride Route: PO, Drug Active 2015 [facility] 50 MG Oral form: TAB, Q8H, City Tablet Dosing Weight 82.2, kg, PRN Pain Score 7-10, Start date: 11/26/15 8:15:00 CDT, Duration: 30 day, Stop date: 12/26/15 8:14:00 CDTNotes: Not to exceed 400mg/day. (Same As: Ultram) D5W 1/2NS + KCL 1,000 mL, Rate: No Longer 20mEq/L 1000ml 50 ml/hr, Infuse Active 2015 [facility] (Premix) 1,000 over: 20 hr, City mL Route: IV, Dosing Weight 82.2 kg, Total Volume: 1,000, Start date: 11/26/15 8:13:00 CDT, Duration: 30 day, Stop date: 12/26/15 8:12:00 CDTNotes: PREMIX IV - Do Not Alter WASTE: F/P - Sink; E - Municipal Trash Bin ketOROLAC 15 15 mg, 0.5 mL, No Longer mg/mL Route: IV, Drug Active 2015 [facility] injectable form: INJ, Q6H, City solution Dosing [...] No Longer mL, Route: IV, Active 2015 [facility] Drug form: INJ, City Q6H, Dosing Weight 82.2, kg, for > or=50 kg, Start date: 11/25/15 12:00:00 CDT, Duration: 4 doses or times, Stop date: 11/26/15 3:48:00 CDTNotes: Infuse over 15 minutes Do not exceed 4gm/day of acetaminophen MEDICATION WASTE Product Size: 1000 mg Product Wasted: _0__ mg Lovenox 40 mg, 0.4 mL, No Longer Route: SUB-Q, Active 2015 [facility] Drug form: INJCecilia Daily, Dosing Weight 79.091, kg, Start date: 11/25/15 9:00:00 CDT, Duration: 30 day, Stop date: 12/24/15 9:00:00 CDTNotes: (Same as: Lovenox) latanoprost 1 drp, Route: No Longer ophthalmic BOTH EYES, Active 2015 [facility] 0.005% solution Bedtime, Drug City form: SOLN, Start date: 11/24/15 21:00:00 CDT, Duration: 30 day, Stop date: 12/23/15 21:00:00 CDTNotes: (Same as:Xalatan) bimatoprost 0.1 1 drp, Route: Inactive MG/ML BOTH EYES, Drug 2015 [facility] Ophthalmic Form: SOLNCecilia Solution Dosing Weight [Lumigan] 79.091, kg, Bedtime, Start date: 11/24/15 21:00:00 CDT, Duration: 30 day, Stop date: 12/23/15 21:00:00 CDT Cipro 400 mg, 200 mL, Inactive Route: IVPB, 2015 [facility] Drug form: INJCecilia ONCE, Dosing Weight 79.091, kg, Priority: Routine, Start date: 11/24/15 20:00:00 CDT, Stop date: 11/24/15 20:00:00 CDTNotes: Do not refrigerate Atropine 1 drp, Route: No Longer Sulfate 10 OPTH, QID, Drug Active 2015 [facility] MG/ML form: SOLN, Cecilia Ophthalmic Start date: Solution 11/24/15 [Atropine-Care] 17:00:00 CDT, Duration: 30 day, Stop date: 12/24/15 13:00:00 CDTNotes: (Same As: Isopto Atropine) Protonix 40 mg, Route: No Longer IVP, Before Active 2015 [facility] Dinner, Dosing City Weight 79.091, kg, Start date: 11/24/15 16:30:00 CDT, Duration: 30 day, Stop date: 12/23/15 16:30:00 CDTNotes: For IV push reconstitute with 10 ml 0.9% sodium chloride and push over 2 minutes. (Same as: Protonix) Flagyl 500 mg, 100 mL, No Longer Route: IVPB, [facility] 2015 [facility] Drug form: INJ, City Q8H, Dosing Weight 79.091, kg, Start date: 11/24/15 16:00:00 CDT, Duration: 2 doses or times, Stop date: 11/25/15 0:00:00 CDTNotes: (Same as: Flagyl) Avoid alcohol. Acetaminophen 1,000 mg, 100 No Longer 10 MG/ML mL, Route: IV, [facility] 2015 [facility] Injectable Drug form: INJ, City Solution Q8H, Dosing Weight 79.091, kg, For > or=50 kg, Start date: 11/24/15 16:00:00 CDT, Duration: 1 day, Stop date: 11/25/15 8:00:00 CDTNotes: Infuse over 15 minutes Do not exceed 4gm/day of acetaminophen MEDICATION WASTE Product Size: 1000 mg Product Wasted: ___ mg Sodium Chloride 25 mL, Route: No Longer 0.9% IV IV, Start date: [address] 11/24/15 [facility] 15:48:00 CDT, Duration: 30 day, Stop date: 12/24/15 15:47:00 CDT, PRN Line Flush BD Normal 10 mL, Route: No Longer Saline Flush IV, Drug Form: [facility] 2015 [facility] INJ, PRN, PRN City Line Flush, Start date: 11/24/15 15:48:00 CDT, Duration: 30 day, Stop date: 12/24/15 15:47:00 CDTNotes: (Same as: BD Posiflush) Morphine 3 mg, 0.75 mL, No Longer Route: IVP, Drug [address] form: INJ, Q2H, [facility] Dosing Weight 79.091, kg, PRN Other -See Comment, Priority: Routine, Start date: 11/24/15 12:44:00 CDT, Duration: 30 day, Stop date: 12/24/15 12:43:00 CDT, abdominal painNotes: (Same as:MORPhine Sulfate) Zofran 4 mg, 2 mL, No Longer Route: IV, Drug Active 2015 [facility] form: INJ, Q6H, [facility] Dosing Weight 79.091, kg, PRN Nausea, Start date: 11/24/15 12:40:00 CDT, Duration: 30 day, Stop date: 12/24/15 12:39:00 CDTNotes: (Same as: Zofran) MEDICATION WASTE Product Size: 4 mg Product Wasted: ___ mg D5W 1/2NS + KCL 1,000 mL, Rate: No Longer 20mEq/L 1000ml 125 ml/hr, Active 2015 [facility] ([facility]) 1,000 Infuse over: 8 City mL hr, Route: IV, Dosing Weight 79.091 kg, Total Volume: 1,000, Start date: 11/24/15 12:39:00 CDT, Duration: 30 day, Stop date: 12/24/15 12:38:00 CDTNotes: PREMIX IV - Do Not Alter WASTE: F/P - Sink; E - Municipal Trash Bin sugammadex 200 mg, 2 mL, Inactive Route: IV, Drug 2015 [facility] form: SOLN, City ONCE, Start date: 11/24/15 11:59:00 CDT, Stop date: 11/24/15 11:59:00 CDTNotes: (Same as: Bridion) Ondansetron 4 mg, 2 mL, Inactive Route: IVP, Drug 2015 [facility] form: INJ, ONCE, [facility] Dosing Weight 79.091, kg, PRN Nausea & Vomiting, Start date: 11/24/15 8:53:00 CDTNotes: (Same as: Zofran) MEDICATION WASTE Product Size: 4 mg Product Wasted: ___ mg Naloxone 0.4 mg, 1 mL, Inactive Route: IVP, Drug 2015 [facility] form: INJ, City Q2MIN, Dosing Weight 79.091, kg, PRN Narcotic Reversal, Start date: 11/24/15 8:53:00 CDT, Duration: 8 doses or times, Stop date: Limited # of timesNotes: Same as Narcan Flumazenil 0.2 mg, 2 mL, Inactive Route: IVP, Drug 2015 [facility] form: INJ, PRN, [facility] Dosing Weight 79.091, kg, PRN Benzodiazepine Reversal, Initial dose, Start date: 11/24/15 8:53:00 CDT, Duration: 30 day, Stop date: 12/24/15 8:52:00 CDTNotes: (Same as: Romazicon) Morphine 4 mg, 0.4 mL, Inactive Route: IVP, Drug 2015 [facility] form: INJ, City Q5Min, Dosing Weight 79.091, kg, PRN Pain Score 7-10, Start date: 11/24/15 8:53:00 CDT, Duration: 3 doses or times, Stop date: Limited # of timesNotes: (Same as:MORPhine Sulfate) bupivacaine 20 mL, Route: Inactive liposome InFILtration([facility] 2015 [facility]), Drug Form: [facility] INJ, ONCALL, Start date: 11/24/15 [...] mg, 100 mL, Inactive Route: IVPB 2015 [facility] Drug form: INJ, City ONCALL, Start date: 11/24/15 0:00:00 CDT, Duration: 20 hr, Stop date: 11/24/15 19:59:00 CDTNotes: (Same as: Flagyl) Avoid alcohol. Cipro 400 mg, 200 mL, Inactive Route: IVPB, 2015 [facility] Drug form: INJ, Cecilia ONCALL, Start date: 11/24/15 0:00:00 CDT, Duration: 20 hr, Stop date: 11/24/15 19:59:00 CDTNotes: Do not refrigerate Ferrex 150 Plus 1 cap, PO, Active Daily, 0 2015 [facility] Refill(s) [facility] bimatoprost 0.1 1 drp, BOTH Active MG/ML EYES, Bedtime, # 2016 [facility] Ophthalmic 5 mL, 4 City Solution Refill(s) [Lumigan] difluprednate 1 drp, BOTH Active 0.5 MG/ML EYES, QID, After 2015 [facility] Ophthalmic 14 days, taper [facility] Suspension dose as directed [Durezol] by physician., # 5 mL, 0 Refill(s) Atropine 1 drp, OPTH, Active Sulfate 10 QID, # 15 ml, 0 2015 [facility] MG/ML Refill(s) [facility] Ophthalmic Solution [Atropine-Care] Trazodone 50 mg=1 tab, PO, Active Hydrochloride Bedtime, # 30 2016 [facility] 50 MG Oral tab, 1 Refill(s) [facility] Tablet Allergies, Adverse Reactions, Alerts No Known Medication Allergies Immunizations No Data Provided for This Section Results Order Name Results Value Reference Date Interpretation Comments Source Range ELECTROLYTES AGAP 10.4 10.0 - 11/25 20.0 [facility] ELECTROLYTES Glucose Lvl 117 70 - 99 11/25 [facility] ELECTROLYTES Calcium Lvl 7.9 8.5 - 10.5 11/25 [facility] ELECTROLYTES BUN 6 7 - 22 11/25 [facility] ELECTROLYTES CO2 26 24 - 32 11/25 [facility] ELECTROLYTES Sodium Lvl 141 135 - 145 11/25 [facility] ELECTROLYTES Chloride Lvl 109 95 - 109 11/25 [facility] ELECTROLYTES Potassium 4.4 3.5 - 5.1 11/25 Lvl [facility] ELECTROLYTES eGFR 81 11/25 Result Comment: The [facility] eGFR is City calculated using the CKD-EPI [...] 0.50 - 11/25 MH Lvl 1.40 /2015 [facility] HEMATOLOGY Eosinophils 5.4 0.0 - 4.0 11/25 [facility] HEMATOLOGY Monocytes 7.4 2.0 - 12.0 11/25 [facility] HEMATOLOGY Lymphocytes 18.7 20.0 - 11/25 MH 40.0 [facility] HEMATOLOGY Segs 68.0 45.0 - 11/25 MH 75.0 [facility] HEMATOLOGY Lymphocytes 1.4 1.0 - 5.5 11/25 MH # /2015 [facility] HEMATOLOGY Basophils 0.5 0.0 - 1.0 11/25 [facility] Segs-Bands # 5.2 1.5 - 8.1 11/25 [facility] HEMATOLOGY Monocytes # 0.6 0.0 - 0.8 11/25 [facility] HEMATOLOGY Eosinophils 0.4 0.0 - 0.5 11/25 MH # /2015 [facility] HEMATOLOGY Basophils # 0.0 0.0 - 0.2 11/25 [facility] HEMATOLOGY Platelet 278 133 - 450 11/25 [facility] HEMATOLOGY MCH 30.1 27.0 - 11/25 MH 31.0 [facility] HEMATOLOGY MCV 91.5 80.0 - 11/25 MH 94.0 [facility] HEMATOLOGY Hct 31.4 42.0 - 11/25 MH 54.0 [facility] HEMATOLOGY Hgb 10.3 14.0 - 11/25 MH 18.0 [facility] HEMATOLOGY RBC 3.44 4.70 - 11/25 MH 6. [facility] HEMATOLOGY WBC 7.7 3.7 - 10.4 11/25 [facility] HEMATOLOGY RDW 15.0 11.5 - 11/25 MH 14. [facility] HEMATOLOGY MCHC 32.9 32.0 - 11/25 MH 36. [facility] HEMATOLOGY MPV 7.2 7.4 - 10.4 11/25 [facility] CHEM PANEL Magnesium 2.1 1.8 - 2.4 11/24 MH Lvl [facility] CHEM PANEL Phosphorus 2.8 2.5 - 4.5 11/24 [facility] ELECTROLYTES Sodium Lvl 142 135 - 145 11/24 [facility] ELECTROLYTES Calcium Lvl 8.0 8.5 - 10.5 11/24 [facility] ELECTROLYTES Chloride Lvl 107 95 - 109 11/24 [facility] ELECTROLYTES Potassium 3.9 3.5 - 5.1 11/24 Lvl [facility] ELECTROLYTES Glucose Lvl 147 70 - 99 11/24 [facility] ELECTROLYTES BUN 9 7 - 22 11/24 [facility] ELECTROLYTES Creatinine 0.92 0.50 - 11/24 Lvl 1.40 [facility] ELECTROLYTES CO2 24 24 - 32 11/24 [facility] ELECTROLYTES eGFR 76 11/24 Result Comment: The [facility] eGFR is City calculated using the CKD-EPI [...] AGAP 14.9 10.0 - 11/24 MH 20. [facility] HEMATOLOGY MCHC 33.0 32.0 - 11/24 MH 36.0 /2015 [facility] HEMATOLOGY RDW 15.1 11.5 - 11/24 MH 14.5 /2015 [facility] HEMATOLOGY MPV 6.7 7.4 - 10.4 11/24 /2015 [facility] HEMATOLOGY Platelet 328 133 - 450 11/24 /2015 [facility] HEMATOLOGY WBC 9.4 3.7 - 10.4 11/24 /2015 [facility] HEMATOLOGY Hgb 11.3 14.0 - 11/24 MH 18.0 /2015 [facility] HEMATOLOGY RBC 3.82 4.70 - 11/24 MH 6.10 /2015 [facility] HEMATOLOGY MCV 89.4 80.0 - 11/24 MH 94.0 /2015 [facility] HEMATOLOGY MCH 29.5 27.0 - 11/24 MH 31.0 /2015 [facility] HEMATOLOGY Hct 34.1 42.0 - 11/24 MH 54.0 /2015 [facility] HEMATOLOGY Eosinophils 0.0 0.0 - 0.5 11/24 MH # /2015 [facility] HEMATOLOGY Basophils 0.3 0.0 - 1.0 11/24 /2015 [facility] HEMATOLOGY Segs-Bands # 7.4 1.5 - 8.1 11/24 /2015 [facility] HEMATOLOGY Monocytes # 0.8 0.0 - 0.8 11/24 /2015 [facility] HEMATOLOGY Lymphocytes 1.2 1.0 - 5.5 11/24 # /2015 [facility] HEMATOLOGY Segs 78.0 45.0 - 11/24 MH 75.0 /2015 [facility] HEMATOLOGY Monocytes 8.8 2.0 - 12.0 11/24 /2015 [facility] HEMATOLOGY Lymphocytes 12.7 20.0 - 11/24 40.0 /2015 [facility] HEMATOLOGY Eosinophils 0.2 0.0 - 4.0 11/24 /2015 [facility] BLOOD BANK Antigen AHG K neg 11/16 RESULTS Int /2015 [facility] BLOOD BANK AB Int Anti-K 11/16 RESULTS /2015 [facility] BLOOD BANK Antibody Positive 1 11/16 Result RESULTS Scrn (11/17/15 10:06 AM) /2015 Comment: [facility] 11/17/2015 [facility] 12:12 [id number]
"Significant Findings of Positive Antibody Screen_ called to Nella Copeland Rn__ at 11/17/2015 12:12__ by GM__. Read Back OK" BLOOD BANK ABO/Rh A POS 11/16 [facility] Pathology Reports No Data Provided for This Section Diagnostic Reports Report Value Date Source Finger 3 views DX Clinical history: Pain from a fall. 01/11/2016 [facility] Sex: Male. : 1930. Technique: 3 views [...] Date Comments Source Respitory Rate 17 01/11/2016 [facility] Heart Rate 74 01/11/2016 [facility] Systolic (mm Hg) 146 01/11/2016 [facility] Diastolic (mm Hg) 87 01/11/2016 [facility] Heart Rate 83 01/11/2016 [facility] Respitory Rate 19 01/11/2016 [facility] Systolic (mm Hg) 143 01/11/2016 [facility] Diastolic (mm Hg) 85 01/11/2016 [facility] Weight 75.909 01/11/2016 [facility] Temperature Oral (F) 98.5 F 01/11/2016 [facility] Height 177.8 cm 01/11/2016 [facility] BMI Calculated 24.01 01/11/2016 [facility] Heart Rate 69 11/29/2015 [facility] Systolic (mm Hg) 149 11/29/2015 [facility] Diastolic (mm Hg) 79 11/29/2015 [facility] Respitory Rate 18 11/29/2015 [facility] Temperature Oral (F) 98.0 F 11/29/2015 [facility] Heart Rate 75 11/29/2015 [facility] Respitory Rate 18 11/29/2015 [facility] Systolic (mm Hg) 147 11/29/2015 [facility] Diastolic (mm Hg) 84 11/29/2015 [facility] Temperature Oral (F) 98.1 F 11/29/2015 [facility] Temperature Oral (F) 98.2 F 11/29/2015 [facility] Heart Rate 88 11/29/2015 [facility] Systolic (mm Hg) 145 11/29/2015 [facility] Diastolic (mm Hg) 76 11/29/2015 [facility] Respitory Rate 18 11/29/2015 [facility] BMI Calculated 26 11/24/2015 [facility] Weight 82.2 11/24/2015 [facility] Height 177.8 cm 11/24/2015 [facility] Weight 79.091 11/17/2015 [facility] Height 177.8 cm 11/17/2015 [facility] BMI Calculated 25.02 11/17/2015 [facility] Encounters Location Location Encounter Encounter Reason Attending ADM DC Status Source Details Type Number For Provider Date Date [facility] [id number] [facility] [id number] Roman Arceo 01/10 01/10 [facility] /2015 [facility] Procedures Procedure Code Date Perfomer Comments Source Implantation of [id number] [facility] cardiac pacemaker [facility] Vasectomy [id number] [facility] Wide re-excision [id number] nose [facility] [place] [facility] [place] [facility] skin<sup>1</sup> Assessment and Plan Assessment and Plan Date Source Extracted from:Title: Clinical Document 11/29/2015 [facility] Author: Josias Rahman MD Date: 11/26/15 Colon [...] [place] (indwelling at home) - transfer to [facility] with telemetry Plan of Care No Data Provided for This Section Social History Social History Date Source Social History TypeResponse 11/24/2015 [facility] Substance Abuse Use: None. Alcohol Past, Type [...]
[2019-01-13] MEDS ORDERED: LIDOCAINE 1% MPF 5 ML VIAL ONE (13:34)
[2019-01-13] MEDS ORDERED: PROPOFOL 200 MG/20 ML VIAL IV ONE (13:34)
[2019-01-13 13:36] LABS: Albumin 4.6 g/dL (3.4-5.0); Bilirubin Total 1.1 mg/dL (0.2-1.0); Potassium 4.3 mmol/L (3.5-5.1); Protein, Total 8.7 g/dL (6.4-8.2)
[2019-01-13] MEDS ORDERED: GENTAMICIN 100 MG/100 ML BAG 100 ML IV ONE (13:38)
[2019-01-13] MEDS ORDERED: Ringers Lactate 1,000 ML IV ONE (13:38)
[2019-01-13] MEDS ORDERED: FENTANYL CITR 100 MCG/2 ML ONE (14:18)
[2019-01-13] MEDS: MEPERIDINE HCL 25 MG/0.5 ML ONE ×3 (15:08→15:13)
[2019-01-13 15:16] VITALS: O2SAT 98
[2019-01-13 15:28] VITALS: BP 150/73; TEMP 97.4
[2019-01-13 17:30] LABS: Urine Bacteria >50 /HPF (NONE SEEN); Urine RBC >50 /HPF (NONE SEEN)
[2019-01-13 17:31] LABS: Urine Culture Reflex Order NOT NEEDED; Urine Triple Phosphate Crystal MANY (NONE SEEN)
--- NOTE | 2019-01-13 19:18 | OP ---
Surgeon: Rayshawn Chacon MD Anesthesiologist: Dr. Marshall. 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 Procedure: Cysto bladder stone extraction greater than 2.5 cm, cysto clot evacuation, cysto placement of Scott catheter, and fulguration of bleeders of the prostatic urethra. Findings: Show traumatic bulbar urethra inside the bulbar urethra distal to the prostatic urethra, tear found at 7 o'clock area. Anesthesia: General Ebl: Minimal. Replacement: See record. Specimen: Stones. Complications: None. Drains: An 18-Mozambican Scott catheter. Indication: The patient was at home and had difficulty voiding. So, the nurse came in overnight to change the catheter twice, was not able to do it. In the emergency room, they tried and there was a lot of blood at the meatus. It was deemed necessary by and taken to the OR where we could see what is going on and possible false passage. General information was given alternatives and risks. Informed consent was obtained from the daughter who is power of electrical products sales engineer. Description Of Procedure: He was taken to the operative suite, placed in a lithotomy position. Area prepped and draped. We entered with a 21-Mozambican scope and 30-degree lens. Clots were seen in the ureter. These were evacuated. We were able to get into the bladder easily. There was no problem navigating in the urethra into the bladder, but there was very bloody urine in the bladder. This was drained. Urine was very stinky. Cultures were sent. The patient got preoperative IV gentamicin. We see this flat glasslike sponge back looking stones in the bladder that were broken up. Once we switched to a resectoscope loop to break up the stone, we flushed them out. Bladder was scoped. No tumors or stones were seen. There was some erythema from Scott catheter and UTI. There was a bleeder in the prostatic urethra that was fulgurated. In pulling back to the bulbar urethra, we could see the traumatic area where the clot formed in this area at the 7 o'clock in the bulbar urethra. Scott catheter was not advanced full enough into the prostate and bladder before the balloon was inflated. We went ahead and then switched the scope for 18-Mozambican Scott catheter, which went in easily with good return of urine. Placed a 4 x 4 gauze around the catheter to tamponade the bleeding at the meatus. The patient tolerated the procedure well, went to recovery room in stable condition. CHAR/CHRISTY Voice ID: [id number] Report ID: [id number] NORAH
[2019-01-13 20:13] LABS: Blood Morphology Comment NOT SEEN (NOT SEEN); Platelet Estimate ADEQ; Urine White Blood Cell Casts OK
--- NOTE | 2019-01-14 11:45 | RAD REPORT ---
EXAM DESCRIPTION: RAD - Cystography - 01/13/2019 11:05 pm CLINICAL HISTORY: ICD N 20.0 FINDINGS: One fluoroscopic spot images obtained. Fluoroscopy time 0.02 minutes Refer to the surgeons report for additional findings
== END 2019-01-13 15:50 | disposition home or self-care (01) ==
LOC: ER 11:12 → OR 13:29
PROVIDERS: ATTEND Surgery
PROC: 0TCB8ZZ Extirpation of Matter from Bladder, Via Natural or Artificial Opening Endoscopic (ICD-10-PCS; 2019-01-13)
PROC: 0T9B70Z Drainage of Bladder with Drainage Device, Via Natural or Artificial Opening (ICD-10-PCS; 2019-01-13)
PROC: 0TCD8ZZ Extirpation of Matter from Urethra, Via Natural or Artificial Opening Endoscopic (ICD-10-PCS; principal; 2019-01-13 14:00)
DX: R33.9 Retention of urine, unspecified (principal); S37.39XA Other injury of urethra, initial encounter; N21.0 Calculus in bladder; N39.0 Urinary tract infection, site not specified; I10 Essential (primary) hypertension; Z85.828 Personal history of other malignant neoplasm of skin; Z90.49 Acquired absence of other specified parts of digestive tract; Z95.0 Presence of cardiac pacemaker
CPT/HCPCS: 52001; 52315; 51702; 87088; 85025; 87086; 36415; 88300; 81015; 80053; 82360; 51600; 74430; 99285; J2704; J3010; J2175; J1580; 87077; 87186

== ENCOUNTER 2019-04-18 15:46 | Emergency (ER) | payer OTHER ==
[2019-04-18] MEDS ORDERED: LIDOCAINE 1% MPF 30 ML VIAL ONE (16:17)
--- NOTE | 2019-04-18 16:39 | EDPHYS ---
Physician Documentation [facility] Name: Khris Will Sr Age: 88 yrs Sex: Male : 1930 Arrival Date: 04/18/2019 Time: 15:47 Bed 13 Private MD: ED Physician Scooby Henry HPI: 04/18 16:01 This 88 yrs old Male presents to ER via Ambulatory with complaints of Boil. jmm 16:01 the patient presents with a swollen area of the back. Onset: The symptoms/episode jmm began/occurred gradually, 1 week(s) ago. Possible cause(s): unknown. Associated signs and symptoms: Pertinent positives: erythema, swelling, Pertinent negatives: fever. Modifying factors: the symptoms are alleviated by nothing, the symptoms are aggravated by pressure. This is an 88 year old male with a history of htn, renal disease that presents to the ED with complaints of swelling to his right upper back beginning 1 week ago. Patient denies fever or chills. . Historical: - Allergies: 15:52 No Known Allergies; aa5 - PMHx: 15:52 bladder "shut down"; Hypertension; Pacemaker; Renal Disease; skin cancer; aa5 - PSHx: 15:52 colon resection; aa5 - Immunization history:: Flu vaccine is up to date. - Social history:: Smoking status: Patient/guardian denies using tobacco. - Ebola Screening: : No symptoms or risks identified at this time. ROS: 16:01 Constitutional: Negative for fever, chills, and weight loss, Cardiovascular: Negative jmm for chest pain, palpitations, and edema, Respiratory: Negative for shortness of breath, cough, wheezing, and pleuritic chest pain. 16:01 Back: Positive for pain at rest. 16:01 All other systems are negative. Exam: 16:01 Constitutional: This is a well developed, well nourished patient who is awake, alert, jmm and in no acute distress. Head/Face: atraumatic. Eyes: EOMI, no conjunctival erythema appreciated ENT: Moist Mucus Membranes Neck: Trachea midline, Supple Chest/axilla: Normal chest wall appearance and motion. Cardiovascular: Regular rate and rhythm. No edema appreciated Respiratory: Normal respirations, no respiratory distress appreciated Back: Normal ROM 16:01 Skin: abscess noted to the right upper back. 16:01 Neuro: Orientation: is normal, Mentation: is normal, Memory: is normal. 16:01 Psych: Behavior/mood is pleasant, cooperative. Vital Signs: 15:52 BP 143 / 72; Pulse 70; Resp 18 S; Temp 98.3(TE); Pulse Ox 98% on R/A; Weight 86.18 kg aa5 (R); Height 5 ft. 10 in. (177.80 cm) (R); 15:52 Body Mass Index 27.26 (86.18 kg, 177.80 cm) aa5 Procedures: 16:34 I \\T\\ D: Incision and drainage was performed for an abscess of the back Prepped with [facility] Betadine, Anesthetized with 5 ml's 1% Lidocaine. Incised with #11 blade. Drained large amount purulent fluid. Loculations removed. Abscess cavity explored. Packed with iodoform gauze, Dressing: sterile 4x4 gauze, the patient tolerated the procedure well. MDM: 16:01 Patient medically screened. [facility] 16:34 Data reviewed: vital signs, nurses notes. Counseling: I had a detailed discussion with nitin the patient and/or guardian regarding: the historical points, exam findings, and any diagnostic results supporting the discharge/admit diagnosis, the need for outpatient follow up, to return to the emergency department if symptoms worsen or persist or if there are any questions or concerns that arise at home. ED course: Patient given strict wound infection return precautions. Patient understood and agrees with the plan of care. . 04/18 16:01 Order name: Incision \\T\\ Drainage Setup; Complete Time: 16:08 [facility] Administered Medications: 13:40 Drug: Lidocaine (1 %) 20 ml {Note: by PA. Alex} Volume: 20 ml; Route: Infiltration; ca1 Disposition: 17:59 Co-signature as Attending Physician, Scooby Henry MD. rn Disposition: 04/18/19 16:39 Discharged to Home. Impression: Infected Sebaceous Cyst. - Condition is Stable. - Discharge Instructions: Incision and Drainage, Care After. - Prescriptions for Bactrim DS 800- 160 mg Oral Tablet - take 1 tablet by ORAL route every 12 hours for 10 days; 20 tablet. - Medication Reconciliation Form, Thank You Letter, Antibiotic Education, Prescription Opioid Use form. - Follow up: Juan Arita MD; When: 2 - 3 days; Reason: Recheck today's complaints, Continuance of care, Re-evaluation by your physician. Signatures: Alex Virgen PA PA jmm Nieto, Roman, MD MD rn Calderon, Audri, RN RN aa5 Carlotta Arciniega RN RN ca1 Corrections: (The following items were deleted from the chart) 16:52 16:39 04/18/2019 16:39 Discharged to Home. Impression: Infected Sebaceous Cyst. ca1 Condition is Stable. Forms are Medication Reconciliation Form, Thank You Letter, Antibiotic Education, Prescription Opioid Use. Follow up: Juan Arita; When: 2 - 3 days; Reason: Recheck today's complaints, Continuance of care, Re-evaluation by your physician. eren
--- NOTE | 2019-04-18 16:39 | ER ---
Nurse's Notes [facility] Name: Khris Will Sr Age: 88 yrs Sex: Male : 1930 Arrival Date: 04/18/2019 Time: 15:47 Bed 13 Private MD: Diagnosis: Infected Sebaceous Cyst Presentation: 04/18 15:51 Presenting complaint: Patient states: abscess to right shoulder that because painful aa5 and swollen on Monday. Transition of care: patient was not received from another setting of care. Onset of symptoms was March 2019. Risk Assessment: Do you want to hurt yourself or someone else? Patient reports no desire to harm self or others. Initial Sepsis Screen: Does the patient meet any 2 criteria? No. Patient's initial sepsis screen is negative. Does the patient have a suspected source of infection? No. Patient's initial sepsis screen is negative. Care prior to arrival: None. 15:51 Acuity: CONCEPCION 4 aa5 15:51 Method Of Arrival: Ambulatory aa5 Historical: - Allergies: 15:52 No Known Allergies; aa5 - PMHx: 15:52 bladder "shut down"; Hypertension; Pacemaker; Renal Disease; skin cancer; aa5 - PSHx: 15:52 colon resection; aa5 - Immunization history:: Flu vaccine is up to date. - Social history:: Smoking status: Patient/guardian denies using tobacco. - Ebola Screening: : No symptoms or risks identified at this time. Screenin:00 Abuse screen: Denies threats or abuse. Denies injuries from another. Nutritional ca1 screening: No deficits noted. Tuberculosis screening: No symptoms or risk factors identified. Fall Risk None identified. Assessment: 16:00 General: Appears in no apparent distress. comfortable, Behavior is calm, cooperative, ca1 appropriate for age. Pain: Complains of pain in right scapular area Pain currently is 7 out of 10 on a pain scale. Pain began 2-3 days ago. Neuro: Level of Consciousness is awake, alert, obeys commands, Oriented to person, place, time, situation, Appropriate for age. Derm: Skin is healthy with good turgor, Skin is pink, warm \\T\\ dry. Abscess located on right trapezius is golf ball sized, has purulent drainage, has foul odor, is hot to touch, is red, is raised. Musculoskeletal: Circulation, motion, and sensation intact. Capillary refill < 3 seconds, Range of motion: intact in all extremities. 16:51 Reassessment: Patient appears in no apparent distress at this time. Patient is alert, ca1 oriented x 3, equal unlabored respirations, skin warm/dry/pink. Vital Signs: 15:52 BP 143 / 72; Pulse 70; Resp 18 S; Temp 98.3(TE); Pulse Ox 98% on R/A; Weight 86.18 kg aa (R); Height 5 ft. 10 in. (177.80 cm) (R); 15:52 Body Mass Index 27.26 (86.18 kg, 177.80 cm) [facility] ED Course: 15:47 Patient arrived in ED. as 15:52 Triage completed. [facility] 15:53 Alex Virgen PA is PHCP. [facility] 15:53 Scooby Henry MD is Attending Physician. [facility] 15:53 Arm band placed on. [facility] 16:13 Carlotta Arciniega RN is Primary Nurse. [facility] 16:37 I AND D. Dressings: 4X4s X 4; right trapezius and right scapular area. [facility] 16:38 Juan Arita MD is Referral Physician. [facility] 16:39 Patient has correct armband on for positive identification. Bed in low position. Call [facility] light in reach. Adult w/ patient. 16:43 Patient did not have IV access during this emergency room visit. ca1 Administered Medications: 13:40 Drug: Lidocaine (1 %) 20 ml {Note: by KARLA Johnson.} Volume: 20 ml; Route: Infiltration; [facility] Outcome: 16:39 Discharge ordered by . [facility] 16:51 Discharged to home ambulatory, with family. [facility] 16:51 Condition: stable 16:51 Discharge instructions given to patient, family, Instructed on discharge instructions, follow up and referral plans. medication usage, wound care, Demonstrated understanding of instructions, follow-up care, medications, wound care, Prescriptions given X 1. 16:52 Patient left the ED. [facility] Signatures: Alex Virgen PA PA jmm Martinez, Amelia as Calderon, Audri, RN RN [facility] Daily Arita [facility] Carlotta Arciniega RN RN [facility]
[2019-04-18 17:49] VITALS: BP 143/72; TEMP 98.3; O2SAT 98
== END 2019-04-18 16:52 | disposition home or self-care (01) ==
LOC: ER 15:46
PROC: 0J970ZZ Drainage of Back Subcutaneous Tissue and Fascia, Open Approach (ICD-10-PCS; principal; 2019-04-18)
DX: L72.3 Sebaceous cyst (principal); Z95.0 Presence of cardiac pacemaker; Z85.828 Personal history of other malignant neoplasm of skin
CPT/HCPCS: 99283

== ENCOUNTER 2019-04-19 10:58 | Day surgery (SDC) | payer OTHER ==
[2019-04-19] MEDS ORDERED: CEFAZOLIN/SWI 1gm 1 GM/10 ML SYR ONE (11:18)
[2019-04-19] MEDS ORDERED: Ringers Lactate 1,000 ML IV ONE (11:18)
[2019-04-19 11:35] LABS: Absolute Lymphocytes (CBC) 1.8 K/uL (0.7-4.9); Basophils % 0.6 % (0-1.3); Hematocrit 36.3 % (39.6-49.0); Lymphocytes % 24.8 % (15.3-44.8); MPV 6.7 fL (7.6-11.3); RBC Red Blood Cell Count 4.13 M/uL (4.33-5.43)
--- NOTE | 2019-04-19 11:46 | RAD REPORT ---
EXAM DESCRIPTION: RAD - Chest Pa And Lat (2 Views) - 04/19/2019 11:32 am CLINICAL HISTORY: PREOP, mass removal COMPARISON: March 2015 TECHNIQUE: PA and lateral views of the chest were obtained. FINDINGS: The lungs are peripheral mass or consolidation. Chronic interstitial lung pattern is simil ar to comparison. Pacemaker has been placed since the prior examination. Heart size is normal and c entral vasculature is within normal limits. No pleural effusion or pneumothorax seen. No acute bony finding noted. No aortic abnormality. Patient has normal variant bowel interposition between the l iver an the right hemidiaphragm. IMPRESSION: Chronic interstitial lung changes are present. No acute lung process seen.
[2019-04-19 11:51] LABS: Potassium 4.6 mmol/L (3.5-5.1)
[2019-04-19] MEDS ORDERED: propofoL 200 MG/20 ML VIAL IV ONE (13:18)
[2019-04-19] MEDS ORDERED: LIDOCAINE 2% MPF 5 ML VIAL ONE (13:18)
[2019-04-19] MEDS ORDERED: FENTANYL CITR 100 MCG/2 ML ONE (13:18)
[2019-04-19] MEDS ORDERED: EPHEDRINE SULF 50 MG/ML VIAL ONE (13:45)
--- NOTE | 2019-04-19 13:54 | P.BOP ---
Preoperative diagnosis: right upper back infected subcutaneous mass with cellultis and abscess Postoperative diagnosis: same Primary procedure: Excisional biopsy of right upper back infected subcutaneous mass 5x5cm Estimated blood loss: <10cc Specimen: mass Findings: right upper back infected subcutaneous mass / abscess Anesthesia: General Complications: None Transferred to: Recovery Room Condition: Good
[2019-04-19] MEDS ORDERED: CODEINE 30MG/APAP 300MG TAB ONE (15:16)
[2019-04-19] MEDS ORDERED: ONDANSETRON 4 MG/2 ML VIAL ONE (16:41)
[2019-04-19 16:45] VITALS: BP 141/73; TEMP 98; O2SAT 100
--- NOTE | 2019-04-20 01:19 | OP ---
Date of Procedure: 04/19/2019 Surgeon: Juan Arita MD Preoperative Diagnosis: Right upper back infected subcutaneous mass with cellulitis and abscess. Postoperative Diagnosis: Right upper back infected subcutaneous mass with cellulitis and abscess. Procedure: Excisional biopsy of right upper back infected subcutaneous mass, 5 x 5 x 2 cm. Estimated Blood Loss: Less than 10 mL. Specimen: Mass. Findings: Right upper back infected mass, abscess present all the way down to fascia of the muscle. Muscle seems to be intact. Anesthesia: General plus local. Indications: This is the case of an 88-year-old patient, with mass in the right upper back that rece ntly became red, infected. Initially, had an I and D by ER, but is not draining, it is still getting worse, erythematous. So we recommended an excisional biopsy of infected back mass under anesthesia with benefits, alternatives, and risks including, but not limited to infection, bleeding, damage to a djacent structures, anesthesia complication, nonhealing wound, VT, and even . He also understan ds this may not relieve any symptoms, he might need more than one surgical intervention. He understo od, consent was signed. Description Of Procedure: Patient was brought to the operating room, placed in supine position. Ane sthesia was done without complication. Right upper back was prepped and draped in usual sterile fash ion. Local anesthesia was applied followed by sharp incision of the skin. We put a hemostat to the area of the previous small I and D until we delineate the area of the mass and abscess. We made an i ncision, removed all devitalized tissue. Hemostasis obtained. The mass was excised with the specime n, and area was packed with wet-to-dry dressing after local anesthetic. The patient tolerated the pr ocedure well. Patient was sent to recovery in stable condition. ABEL/CHRISTY Voice ID: [id number] Report ID: [id number]
--- NOTE | 2019-04-20 01:22 | DS ---
Date of Discharge: 04/19/2019 Diagnosis: Right upper back infected subcutaneous mass with cellulitis and abscess. Procedure: Excisional biopsy of right upper back infected subcutaneous mass. Disposition: Home. Activity: As tolerated. No heavy lifting. Discharge Instructions: Follow up in my office in 1 week. Call for appointment [phone]. Patient's home health agencies are going to do wet-to-dry normal saline daily. Patient already have antibioti cs. We are going to give him Tylenol No. 3 for pain and normal saline for irrigation and packing. ABEL/CHRISTY Voice ID: [id number] Report ID: [id number]
== END 2019-04-19 16:03 | disposition home or self-care (01) ==
LOC: OR 10:58
PROVIDERS: ATTEND Surgery
PROC: 0JB70ZZ Excision of Back Subcutaneous Tissue and Fascia, Open Approach (ICD-10-PCS; principal; 2019-04-19 13:30)
DX: L72.0 Epidermal cyst (principal); L02.212 Cutaneous abscess of back [any part, except buttock and flank]; L03.312 Cellulitis of back [any part except buttock and flank]; I10 Essential (primary) hypertension; Z85.828 Personal history of other malignant neoplasm of skin; Z95.0 Presence of cardiac pacemaker; Z86.73 Personal history of transient ischemic attack (TIA), and cerebral infarction without residual deficits; Z87.891 Personal history of nicotine dependence; Z90.49 Acquired absence of other specified parts of digestive tract; Z80.0 Family history of malignant neoplasm of digestive organs
CPT/HCPCS: 11406; 93005; 87070; 85025; 80048; 36415; 87205; 88304; 87075; 71046; J2704; J3010; J0690; J7120; J2405

== ENCOUNTER 2019-05-29 11:19 | Day surgery (SDC) | payer OTHER ==
[2019-05-29 11:44] LABS: Absolute Lymphocytes (CBC) 1.9 K/uL (0.7-4.9); Basophils % 0.5 % (0-1.3); Hematocrit 35.7 % (39.6-49.0); Lymphocytes % 26.5 % (15.3-44.8); MPV 6.5 fL (7.6-11.3); RBC Red Blood Cell Count 4.09 M/uL (4.33-5.43)
[2019-05-29] MEDS ORDERED: CEFAZOLIN/SWI 1gm 1 GM/10 ML SYR ONE (11:50)
[2019-05-29] MEDS ORDERED: Ringers Lactate 1,000 ML IV ONE (11:50)
[2019-05-29 12:03] LABS: Potassium 4.3 mmol/L (3.5-5.1)
--- NOTE | 2019-05-29 12:05 | RAD REPORT ---
EXAM DESCRIPTION: RAD - Chest Pa And Lat (2 Views) - 05/29/2019 11:55 am CLINICAL HISTORY: PRE-OP SAME DAY SURGERY ROOM 4 Chest pain. COMPARISON: Chest Pa And Lat (2 Views) dated 04/19/2019; CHEST SINGLE VIEW dated 04/23/2015 FINDINGS: Prominent emphysematous pattern is seen throughout the lungs. The heart is normal in size. Dual lead pacer device is present. IMPRESSION: Prominent COPD.
--- NOTE | 2019-05-29 12:47 | EKG ---
Test Date: 2019-05-29 Test Time: 11:36:25 Dish Technician: YESENIA MEASUREMENT RESULTS: Intervals: Rate: 63 [place]: QRSD: 162 QT: 470 QTc: 480 [place]: P: [place]: QRS: 249 T: 69 INTERPRETIVE STATEMENTS: Atrial-sensed ventricular-paced rhythm tracking sinus rhythm Abnormal ECG Compared to ECG 06/04/2018 13:09:21 no significant change from previous ECG Electronically Signed On 05-29-19 12:46:47 SKEIN INSPECTOR by Josias Franco
[2019-05-29] MEDS ORDERED: BUPIVACAINE 0.5% PF 10 ML VIAL ONE (14:26)
[2019-05-29] MEDS ORDERED: LIDOCAINE 2% MPF 5 ML VIAL ONE (14:35)
[2019-05-29] MEDS ORDERED: propofoL 200 MG/20 ML VIAL IV ONE (14:35)
[2019-05-29] MEDS ORDERED: FENTANYL CITR 100 MCG/2 ML ONE (14:35)
--- NOTE | 2019-05-29 14:59 | P.BOP ---
Preoperative diagnosis: Infected left lateral abdominal wall mass with abscess/ cellulitis Postoperative diagnosis: same Primary procedure: WIde excison Infected left lateral abdominal wall mass with abscess drain Secondary procedure: 4x4cm Estimated blood loss: <10cc Specimen: mass Findings: Infected left lateral abdominal wall mass with abscess/cellulitis Anesthesia: General Complications: None Drain(s): Other (packing) Transferred to: Recovery Room Condition: Good
[2019-05-29] MEDS ORDERED: Phenylephrine HCl 10 MG/ML 1 ML VIAL ONE (15:11)
[2019-05-29 15:53] VITALS: TEMP 98.3
[2019-05-29] MEDS ORDERED: CODEINE 30MG/APAP 300MG TAB ONE (16:23)
[2019-05-29 17:06] VITALS: BP 141/74; O2SAT 100
--- NOTE | 2019-05-30 02:09 | OP ---
Date of Procedure: 05/29/2019 Surgeon: Juan Arita MD Preoperative Diagnosis: Infected left lateral abdominal wall mass with abscess and cellulitis. Postoperative Diagnosis: Infected left lateral abdominal wall mass with abscess and cellulitis. Procedure: Wide excision of infected left lateral wall in the abdomen with abscess drain, about 4 x 4 cm. Estimated Blood Loss: About 10 mL. Specimen: Mass with pus culture. Finding: Infected left lateral abdominal wall mass with abscess and cellulitis. Anesthesia: General plus local. Packing: Wet to dry. Indications: This is the case of an 88-year-old patient, comes to us with a new mass on the left lat eral abdomen, infected, purulent discharge present. Patient wanted that excised and infection and ab scess was drained. The benefits, alternatives, and risks of this fully explained to the patient and the patient family which include, but not limited to infection, bleeding, damage to adjacent structur es, anesthesia complication, recurrence, WA, and even . He also understands this may not reliev e his symptoms. He might need more than one surgical intervention. He understood, signed a consent. The patient understands he will require wound care. Description Of Procedure: The patient was brought to the operating room, placed in supine position. Anesthesia was done without complication. Abdominal wall was prepped and draped in sterile fashion. Local anesthesia was applied followed by wide excision of the infected mass with purulent discharge , necrotic tissue. Cultures were sent. Specimen sent to the pathologist. Go all the way down, deep layers of the subcutaneous tissue, but does not penetrate the muscle. The area was irrigated. Hemo stasis was obtained and the area was packed with wet-to-dry dressing. Patient tolerated the procedur e well. Patient was sent to recovery in stable condition. ABEL/CHRISTY Voice ID: [id number] Report ID: [id number]
--- NOTE | 2019-05-30 02:09 | DS ---
Date of Discharge: 05/29/2019 Diagnosis: Infected left lateral abdominal wall subcutaneous mass. Procedure: Wide excision of infected left lateral abdominal wall subcutaneous mass. Disposition: Home. Activity: As tolerated. No heavy lifting. Followup: Follow up in my office in 1 week. Call for appointment [phone]. Wet-to-dry dressing hallie pak Medications: Include Tylenol No. 3 q.4 hours p.r.n. pain, Bactrim DS p.o. b.i.d., and normal saline. ABEL/CHRISTY Voice ID: [id number] Report ID: [id number]
== END 2019-05-29 16:59 | disposition home health service (06) ==
LOC: OR 11:19
PROVIDERS: ATTEND Surgery
PROC: 0JB80ZZ Excision of Abdomen Subcutaneous Tissue and Fascia, Open Approach (ICD-10-PCS; principal; 2019-05-29 15:15)
DX: R22.2 Localized swelling, mass and lump, trunk (principal); L02.211 Cutaneous abscess of abdominal wall; L03.311 Cellulitis of abdominal wall; I10 Essential (primary) hypertension; E87.1 Hypo-osmolality and hyponatremia; J44.9 Chronic obstructive pulmonary disease, unspecified; Z95.0 Presence of cardiac pacemaker; Z90.49 Acquired absence of other specified parts of digestive tract; Z85.828 Personal history of other malignant neoplasm of skin; Z86.73 Personal history of transient ischemic attack (TIA), and cerebral infarction without residual deficits; Z87.891 Personal history of nicotine dependence; Z80.0 Family history of malignant neoplasm of digestive organs
CPT/HCPCS: 11404; 93005; 87070; 85025; 80048; 36415; 87205 ×2; 88304; 87075; 71046; J2704; J2370; J3010; J0690; J7120; 88305

== ENCOUNTER 2019-10-22 18:47 | Observation (INO) | payer OTHER ==
--- NOTE | 2019-10-22 20:23 | RAD REPORT ---
EXAM DESCRIPTION: CT - Head Brain Wo Cont - 10/22/2019 7:38 pm CLINICAL HISTORY: tia COMPARISON: 2014 TECHNIQUE: Computed axial tomography of the head was obtained. IV contrast was not requested. All CT scans are performed using dose optimization technique as appropriate and may include automated exposure control or mA/KV adjustment according to patient size. FINDINGS: An intracranial bleed is not seen . The ventricles are normal in caliber. No extra-axial fluid collection is noted. Mild low-density areas within periventricular, deep and subcortical white matter likely represent is chemic changes secondary to small vessel disease. Fluid within the sinuses/ mastoids is not seen. IMPRESSION: No acute intracranial abnormality is seen. If patient's symptoms persist MRI of the bra in would be recommended.
[2019-10-22] MEDS ORDERED: ASPIRIN 81 MG CHEWABLE TABLET ONE (20:32)
[2019-10-22] MEDS ORDERED: NA CHLORIDE 0.9% 1,000 ML ONE (20:32)
[2019-10-22] MEDS ORDERED: FOLIC ACID 5 MG/ML VIAL ONE (20:33)
[2019-10-22 20:48] LABS: Absolute Lymphocytes (CBC) 2.1 K/uL (0.7-4.9); Basophils % 0.6 % (0-1.3); Hematocrit 36.3 % (39.6-49.0); Lymphocytes % 26.6 % (15.3-44.8); Protime INR 0.97; RBC Red Blood Cell Count 4.07 M/uL (4.33-5.43)
[2019-10-22 20:56] LABS: Albumin 3.7 g/dL (3.4-5.0); Bilirubin Direct 0.2 mg/dL (0-0.2); Bilirubin Total 0.5 mg/dL (0.2-1.0); Magnesium 2.2 mg/dL (1.8-2.4); Potassium 4.5 mmol/L (3.5-5.1); Protein, Total 7.7 g/dL (6.4-8.2); Troponin (Emerg Dept Use Only) 0.04 ng/mL (0.0-0.045)
--- NOTE | 2019-10-22 22:04 | P.HP ---
Certification for Inpatient Patient admitted to: Observation With expected LOS: <2 Midnights Practitioner: I am a practitioner with admitting privileges, knowledge of patient current condition, hospital course, and medical plan of care. Services: Services provided to patient in accordance with Admission requirements found in Title 42 Section 412.3 of the Code of Federal Regulations Patient History Date of Service: 10/22/19 Reason for admission: I could not move History of Present Illness: 89-year-old gentleman with a history of hypertension, BPH, with chronic indwelling Scott had presented to the emergency department because he could not control his body after waking up from sleep around 2:00 p.m. today. Patient was concerned he was experiencing a TIA. He denied any trouble with speech or swallow. He denied any lateralizing weakness. CT head done in the ED shows no acute disease. EKG demonstrated paced rhythm. Patient is placed under observation for monitoring. Allergies No Known Allergies Allergy (Verified 05/29/19 12:28) Home Medications: Enalapril [Vasotec*] 2.5 mg PO DAILY 04/19/19 Iron Ps Cmplx/Vit B12/FA [Ferrex 150 Forte Capsule] 1 tab PO DAILY 04/19/19 Trazodone [Desyrel*] 50 mg PO DAILY 04/19/19 Codeine/APAP [Tylenol W/Codeine #3 tab] 1 tab PO Q4HP PRN #30 tab 05/29/19 NaCl 0.9% Irr Bottle [Ns Irrigation Bottle] 1,000 ml IR DAILY #1 btl 05/29/19 Sulfamethoxazole/Trimethoprim [Bactrim Ds Tablet] 1 each PO BID #12 tablet 05/29/19 - Past Medical/Surgical History Diabetic: No -: Hypertension -: BPH -: skin ca removed -: Colonoscopy - Family History Family History: Reviewed- Non-Contributory - Social History Smoking Status: Never smoker Alcohol use: Yes CD- Drugs: No Caffeine use: Yes Review of Systems Other: Except as documented, all other systems reviewed and negative. Physical Examination - Physical Exam General: Alert, In no apparent distress, Oriented x3 HEENT: Normocephalic, PERRLA, Mucous membr. moist/pink, EOMI, Sclerae nonicteric Neck: Supple, JVD not distended Respiratory: Clear to auscultation bilaterally, Normal air movement Cardiovascular: No edema, Regular rate/rhythm, Normal S1 S2 Capillary refill: <2 Seconds Gastrointestinal: Normal bowel sounds, Soft and benign, No tenderness Musculoskeletal: No swelling, No erythema Integumentary: No rashes Neurological: Normal speech, Normal strength at 5/5 x4 extr Urinary: Scott catheter - Studies Laboratory Data (last 24 hrs) 10/22/19 20:11: WBC 7.9, Hgb 12.6 L, Hct 36.3 L, Plt Count 269 10/22/19 20:11: PT 11.4, INR 0.97 10/22/19 20:11: Sodium 126 L, Potassium 4.5, BUN 17, Creatinine 0.96, Glucose 92, Magnesium 2.2, Total Bilirubin 0.5, AST 17, ALT 29, Alkaline Phosphatase 51 Assessment and Plan - Problems (Diagnosis) (1) TIA (transient ischemic attack) Current Visit: Yes Status: Acute (2) Hypertension Current Visit: Yes Status: Acute (3) Hyponatremia Current Visit: Yes Status: Acute - Plan Place under observation. Start aspirin. Obtain echocardiogram and carotid Doppler. IV normal saline to treat hyponatremia. Neuro checks PT evaluation Continue home antihypertensives. - Advance Directives Does patient have a Living Will: No Does patient have a Durable POA for Healthcare: No
--- OUTSIDE RECORDS SUMMARY | 2019-10-22 22:53 | XMS REPORT | Continuity of Care Document ---
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 [facility] (disorder) Polyp of colon Active Problem 01/14/2016 [facility] 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) Transient Resolved Problem 01/14/2016 Memori al ischemic attack [facility] (disorder) ILLNESS, Active Memoria l UNSPECIFIED [facility] Medications Medication Details Route Status Patient Ordering Order Source Instructions Provider Date tramadol 50 mg = 1 tab, Active hydrochloride PO, Q8H, PRN as 2016 Me morial 50 MG Oral needed for [facility] Tablet [Ultram] pain, # 40 tab, 0 Refill(s) tramadol 50 mg = 1 tab, Inactive hydrochloride PO, Q8H, PRN 2015 [facility] ial 50 MG Oral Other -See [facility] Tablet Comment | pain, X 7 day, # 21 tab, 0 Refill(s) Miralax Notes: Dissolve Inactive in 8 oz of 2015 [facility] water or juice. City (Same as: Miralax) Tylenol Notes: Do not No Longer exceed 4 Active 2016 [facility] gm/day. (Same City as: Tylenol) tramadol Notes: Not to No Longer hydrochloride exceed Active 2015 [facility] 50 MG Oral 400mg/day. City Tablet (Same As: Ultram) D5W 1/2NS + KCL Notes: PREMIX No Longer 20mEq/L 1000ml IV - Do Not Active 2015 [facility] ial (Premix) 1,000 Alter WASTE: Cit y mL F/P - Sink; E - Municipal Trash Bin ketOROLAC 15 4 days No Longer mg/mL MEDICATION Active 2015 [facility] injectable WASTE [facility] solution Product Size: 30 mg Product Wasted: _15__ mg Ofirmev Notes: Infuse No Longer over 15 minutes Active 2015 [facility] Do not exceed [facility] 4gm/day of acetaminophen MEDICATION WASTE Product Size: 1000 mg Product Wasted: _0__ mg Lovenox Notes: (Same No Longer as: Lovenox) Active 2015 [facility] latanoprost Notes: (Same No Longer ophthalmic as:Xalatan) Active 2015 [facility] 0.005% solution [facility] bimatoprost 0.1 1 drp, Route: Inactive H MG/ML BOTH EYES, Drug 2015 [facility] Ophthalmic Form: SOLN, [facility] Solution Dosing Weight [Lumigan] 79.091, kg, Bedtime, Start date: 11/24/15 21:00:00 CDT, Duration: 30 day, Stop date: 12/23/15 21:00:00 CDT Cipro Notes: Do not Inactive refrigerate 2015 [facility] Atropine Notes: (Same No Longer Sulfate 10 As: Isopto Active 2015 [facility] MG/ML Atropine) [facility] Ophthalmic Solution [Atropine-Care] Protonix Notes: For IV No Longer push Active 2015 [facility] ml 0.9% sodium chloride and push over 2 minutes. (Same as: Protonix) Flagyl Notes: (Same No Longer as: Flagyl) Active 2015 [facility] Avoid alcohol. [facility] Acetaminophen Notes: Infuse No Longer 10 MG/ML over 15 minutes [facility] Do not exceed [facility] Solution 4gm/day of acetaminophen MEDICATION WASTE Product Size: 1000 mg Product Wasted: ___ mg Sodium Chloride 25 mL, Route: No Longer 0.9% IV IV, Start date: Active [address] [place] [address] 11/24/15 [facility] 15:48:00 CDT, Duration: 30 day, Stop date: 12/24/15 15:47:00 CDT, PRN Line Flush BD Normal Notes: (Same No Longer Saline Flush as: BD Active 2015 [facility] Posiflush) [facility] Morphine Notes: (Same No Longer as:MORPhine Active 2015 [facility] Sulfate) [facility] Zofran Notes: (Same No Longer as: Zofran) Active 2015 [facility] MEDICATION City WASTE Product Size: 4 mg Product Wasted: ___ mg D5W 1/2NS + KCL Notes: PREMIX No Longer 20mEq/L 1000ml IV - Do Not Active 2015 [facility] (Premix) 1,000 Alter WASTE: Cit y mL F/P - Sink; E - [facility] sugammadex Notes: (Same Inactive as: Bridion) 2015 [facility] Ondansetron Notes: (Same Inactive as: Zofran) 2015 [facility] MEDICATION City WASTE Product Size: 4 mg Product Wasted: ___ mg Naloxone Notes: Same as Inactive Narcan 2015 [facility] Flumazenil Notes: (Same Inactive as: Romazicon) 2015 [facility] Morphine Notes: (Same Inactive as:MORPhine 2015 [facility] Sulfate) [facility] bupivacaine Notes: (Same Inactive liposome as: Exparel) 2015 [facility] NOT FOR IV City use Postoperative analgesia: Infiltration (local): Dose is based on surgical site and volume required to cover the area (in general, the maximum total dose is 266 mg). Bunionectomy: 7 mL into the tissues surrounding the osteotomy and 1 mL into the subcutaneous tissue of the surgical site (total dose = 8 mL [106 mg]) Hemorrhoidectom y: 30 mL (20 mL vial diluted with 10 mL NS) divided and administered as 6 injections of 5 mL each (total dose = 30 mL [266 mg]) Flagyl Notes: (Same Inactive as: Flagyl) 2015 [facility] Avoid alcohol. [facility] Cipro Notes: Do not Inactive refrigerate 2015 [facility] Ferrex 150 Plus 1 cap, PO, Active Daily, 0 2015 [facility] Refill(s) [facility] bimatoprost 0.1 1 drp, BOTH Active MG/ML EYES, Bedtime, 2015 [facility] Ophthalmic # 5 mL, 4 [facility] Solution Refill(s) [Lumigan] difluprednate 1 drp, BOTH Active 0.5 MG/ML EYES, QID, 2015 [facility] Ophthalmic After 14 days, [facility] Suspension taper dose as [Durezol] directed by physician., # 5 mL, 0 Refill(s) Atropine 1 drp, OPTH, Active Sulfate 10 QID, # 15 ml, 0 2015 [facility] ial MG/ML Refill(s) [facility] Ophthalmic Solution [Atropine-Care] Trazodone 50 mg = 1 tab, Active Hydrochloride PO, Bedtime, # 2016 [facility] o[facility] 50 MG Oral 30 tab, 1 [facility] Tablet Refill(s) Allergies, Adverse Reactions, Alerts No Known Medication Allergies Immunizations No Data Provided for This Section Results Order Name Results Value Reference Date Interpretation Comments Lashawn rce Range ELECTROLYTES AGAP 10.4 10.0 - 11/25 20.0 [facility] ELECTROLYTES Glucose Lvl 117 70 - 99 11/25 [facility] ELECTROLYTES Calcium Lvl 7.9 8.5 - 10.5 11/25 [facility] ELECTROLYTES BUN 6 7 - 22 11/25 [facility] ELECTROLYTES CO2 26 24 - 32 11/25 [facility] ELECTROLYTES Sodium Lvl 141 135 - 145 11/25 [facility] ELECTROLYTES Chloride Lvl 109 95 - 109 11/25 [facility] ELECTROLYTES Potassium 4.4 3.5 - 5.1 11/25 [facility] ELECTROLYTES eGFR 81 11/25 Result Comment: [facility] eGFR is City calculated using [...] 0.50 - 11/25 MH Lvl 1.40 /2015 [facility] HEMATOLOGY Eosinophils 5.4 0.0 - 4.0 11/25 [facility] HEMATOLOGY Monocytes 7.4 2.0 - 12.0 11/25 [facility] HEMATOLOGY Lymphocytes 18.7 20.0 - 11/25 MH 40.0 /2015 [facility] HEMATOLOGY Segs 68.0 45.0 - 11/25 MH 75.0 /2015 [facility] HEMATOLOGY Lymphocytes 1.4 1.0 - 5.5 11/25 MH # /2015 [facility] HEMATOLOGY Basophils 0.5 0.0 - 1.0 11/25 [facility] HEMATOLOGY Segs-Bands # 5.2 1.5 - 8.1 11/25 [facility] HEMATOLOGY Monocytes # 0.6 0.0 - 0.8 11/25 [facility] HEMATOLOGY Eosinophils 0.4 0.0 - 0.5 11/25 MH # /2015 [facility] HEMATOLOGY Basophils # 0.0 0.0 - 0.2 11/25 [facility] HEMATOLOGY Platelet 278 133 - 450 11/25 [facility] HEMATOLOGY MCH 30.1 27.0 - 11/25 MH 31.0 [facility] HEMATOLOGY MCV 91.5 80.0 - 11/25 MH 94.0 /2015 [facility] HEMATOLOGY Hct 31.4 42.0 - 11/25 MH 54.0 [facility] HEMATOLOGY Hgb 10.3 14.0 - 11/25 MH 18.0 [facility] HEMATOLOGY RBC 3.44 4.70 - 11/25 MH 6.10 /2015 [facility] HEMATOLOGY WBC 7.7 3.7 - 10.4 11/25 [facility] HEMATOLOGY RDW 15.0 11.5 - 11/25 MH 14. [facility] HEMATOLOGY MCHC 32.9 32.0 - 11/25 MH 36.0 [facility] HEMATOLOGY MPV 7.2 7.4 - 10.4 11/25 [facility] CHEM PANEL Magnesium 2.1 1.8 - 2.4 11/24 MH Lv [facility] CHEM PANEL Phosphorus 2.8 2.5 - 4.5 11/24 [facility] ELECTROLYTES Sodium Lvl 142 135 - 145 11/24 [facility] ELECTROLYTES Calcium Lvl 8.0 8.5 - 10.5 11/24 [facility] ELECTROLYTES Chloride Lvl 107 95 - 109 11/24 [facility] ELECTROLYTES Potassium 3.9 3.5 - 5.1 11/24 Lv [facility] ELECTROLYTES Glucose Lvl 147 70 - 99 11/24 [facility] ELECTROLYTES BUN 9 7 - 22 11/24 [facility] ELECTROLYTES Creatinine 0.92 0.50 - 11/24 Lvl 1.40 [facility] ELECTROLYTES CO2 24 24 - 32 11/24 [facility] ELECTROLYTES eGFR 76 11/24 Result Comment: [facility] eGFR is City calculated using [...] ELECTROLYTES AGAP 14.9 10.0 - 11/24 MH 20.0 [facility] HEMATOLOGY MCHC 33.0 32.0 - 11/24 36.0 [facility] HEMATOLOGY RDW 15.1 11.5 - 11/24 14. [facility] HEMATOLOGY MPV 6.7 7.4 - 10.4 11/24 [facility] HEMATOLOGY Platelet 328 133 - 450 11/24 [facility] HEMATOLOGY WBC 9.4 3.7 - 10.4 11/24 [facility] HEMATOLOGY Hgb 11.3 14.0 - 11/24 18.0 /2015 [facility] HEMATOLOGY RBC 3.82 4.70 - 11/24 MH 6.10 /2015 [facility] HEMATOLOGY MCV 89.4 80.0 - 11/24 MH 94.0 /2015 [facility] HEMATOLOGY MCH 29.5 27.0 - 11/24 MH 31.0 /2015 [facility] HEMATOLOGY Hct 34.1 42.0 - 11/24 MH 54.0 /2015 [facility] HEMATOLOGY Eosinophils 0.0 0.0 - 0.5 11/24 MH # /2015 [facility] HEMATOLOGY Basophils 0.3 0.0 - 1.0 11/24 MH /2015 [facility] HEMATOLOGY Segs-Bands # 7.4 1.5 - 8.1 11/24 /2015 [facility] HEMATOLOGY Monocytes # 0.8 0.0 - 0.8 11/24 /2015 [facility] HEMATOLOGY Lymphocytes 1.2 1.0 - 5.5 11/24 # /2015 [facility] HEMATOLOGY Segs 78.0 45.0 - 11/24 MH 75.0 /2015 [facility] HEMATOLOGY Monocytes 8.8 2.0 - 12.0 11/24 /2015 [facility] HEMATOLOGY Lymphocytes 12.7 20.0 - 11/24 40.0 /2015 [facility] HEMATOLOGY Eosinophils 0.2 0.0 - 4.0 11/24 /2015 [facility] BLOOD BANK Antigen AHG K neg 11/16 RESULTS Int /2015 [facility] BLOOD BANK AB Int Anti-K 11/16 RESULTS /2015 [facility] BLOOD BANK Antibody Positive 1 11/16 Result RESULTS Scrn (11/17/15 10:06 AM) /2015 Comment: Jesus schultz 11/17/2015 [facility] 12:12 [id number]
"Significant Findings of Positive Antibody Screen_ called to Nella Copeland Rn__ at 11/17/2015 12:12__ by GM__. Read Back OK" BLOOD BANK ABO/Rh A POS 11/16 RESULTS /2015 [facility] Pathology Reports No Data Provided for This Section Diagnostic Reports Report Value Date Source Finger 3 views DX Clinical history: Pain from a fall. 01/11/2016 [facility] Sex: Male. : 1930. Technique: 3 views of the right fingers attentio n 4th finger.. Findings: Interphalangeal na rrowing. There is no fracture or dislocation. No destructive lesion. Impression: No acute skeletal abnormality. Consultation Notes No Data Provided for This Section Discharge Summaries No Data Provided for This Section History and Physicals No Data Provided for This Section Vital Signs Vital Sign Value Date Comments Source Respitory Rate 17 01/11/2016 [facility] ity Heart Rate 74 01/11/[address] [facility] y Systolic (mm Hg) 146 01/11/2016 [facility] Diastolic (mm Hg) 87 01/11/2016 [facility] Heart Rate 83 01/11/[address] [facility] y Respitory Rate 19 01/11/[address] [facility] Systolic (mm Hg) 143 01/11/2016 [facility] Diastolic (mm Hg) 85 01/11/2016 [facility] Weight 75.909 01/11/2016 [facility] y Temperature Oral (F) 98.5 F 01/11/2016 [facility] Height 177.8 cm 01/11/[address] [facility] y BMI Calculated 24.01 01/11/2016 [facility] ity Heart Rate 69 11/29/[address] [facility] Cit y Systolic (mm Hg) 149 11/29/2015 [facility] Diastolic (mm Hg) 79 11/29/2015 [facility] Respitory Rate 18 11/29/[address] [facility] C it Temperature Oral (F) 98.0 F 11/29/2015 [facility] Heart Rate 75 11/29/[address] [facility] y Respitory Rate 18 11/29/[address] [facility] ity Systolic (mm Hg) 147 11/29/2015 [facility] Diastolic (mm Hg) 84 11/29/2015 [facility] Temperature Oral (F) 98.1 F 11/29/2015 [facility] Temperature Oral (F) 98.2 F 11/29/2015 [facility] Heart Rate 88 11/29/[address] [facility] y Systolic (mm Hg) 145 11/29/2015 [facility] Diastolic (mm Hg) 76 11/29/2015 [facility] Respitory Rate 18 11/29/[address] [facility] ity BMI Calculated 26 11/24/[address] [facility]y Weight 82.2 11/24/[address] [facility] y Height 177.8 cm 11/24/[address] [facility] y Weight 79.091 11/17/[address] [facility] y Height 177.8 cm 11/17/[address] [facility] y BMI Calculated 25.02 11/17/[address] [facility] C ity Encounters Location Location Encounter Encounter Reason Attending ADM DC Stat us Source Details Type Number For Provider Date Date Visit [facility] Inpatient [id number] Andrea 11/23 11/28 Brice Sarah /2015 [facility] [id number] 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 Alva al cardiac pacemaker [facility] Vasectomy [id number] [facility] Wide [id number] [facility] skin<sup>1</sup> Assessment and Plan Assessment and Plan Date Source Extracted from:Title: Clinical Document 11/29/2015 [facility] Author: Josias Rahman MD Date: 11/26/15 [facility] Progress Note Subjective no n/v rosalinda ice/sips passed flatus last night, asking for food sat in a chair yesterday pain only with coughing Objective Vital Signs (last 24 hrs) Last Charted _ Temp Oral 98.5 DegF (NOV 25 04:00) Heart Rate Apical 89 bpm (NOV 25 06:00) Resp Rate 20 BRMIN (NOV 25 06:00) SBP 139 mmHg (NOV 25 06:00) DBP 77 mmHg (NOV 25 06:00) SpO2 96 % (NOV 25 06:00) Input/Output Record In Out Bal 11/24 24hr Tot 3413 1500 11/23 24hr Tot 3288 [id number] UOP [...] Random H 117 (NOV 25) H 147 (OCT 30) Mg 2.1 (NOV 24) Phos 2.8 (NOV 24) Ca L 7.9 (NOV 25) L 8.0 (OCT 30) Assessment/Plan POD2 GREGORY LAR. Good pain control. HD stab le. Using IS. Passing flatus. Good renal function. Hct stable. AFebrile. - oral pain medication - ambulation - clears - decrease IVF - keep okeefe (indwelling at home) - transfer to [facility] with telemetry Plan of Care No Data Provided for This Section Social History Social History Date Source Social History TypeResponse 11/24/2015 [facility] Substance Abuse Use: None. Alcohol Past, Type Wine. Alcohol use interferes with work or home: No. Drinks more than intended: No. Others hurt by drinking: No. Ready to change: No. Household alcohol concerns: No. Smoking Status Previous treatment: None; Ready to bui e: No; Concerns about tobacco use in household: No; Exposure to Tobacco Smoke None; Cigarette Smoking Last 365 Days Yes; Reg Smoking Cessation Counseling Yes; Former smoker; Type: Cigarettes Family History No Data Provided for This Section Advance Directives No Data Provided for This Section Functional Status No Data Provided for This Section
--- OUTSIDE RECORDS SUMMARY | 2019-10-22 22:54 | XMS REPORT ---
:1930 Author Organization [employer] Care Team Providers Name Role Phone Tenorio, Na Provider Role Unavailable Allergies, Adverse Reactions, Alerts Substance Reaction Event Type N.K.D.A. 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 Assessment History of skin cancer Z85.828 Activ e Assessment Primary insomnia F51.01 Active Assessment Centrilobular emphysema J43.2 Acti ve Assessment 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 Assessment Essential hypertension I10 Activ e Assessment Iron deficiency anemia, unspecified D50.9 Active iron deficiency anemia type Medications Medication Code Code Instructions Start End Status Dosage System Date Date Enalapril ND 48374890002 2.5 MG Orally Active 1 ta blet Maleate Once a day Ferrex 150 ND 32242084601 150 MG Orally Active 1 c apsule Once a day Lidocaine ND 98048584948 5 % Externally August 15, Active 1 patch to Once a day 2019 skin as needed Trazodone HCl ND 36061050923 50 MG Orally Active 1 tablet Once a day at bedtime as needed Results No Known Results Summary Purpose [employer] Submission
--- OUTSIDE RECORDS SUMMARY | 2019-10-22 22:54 | XMS REPORT | Continuity of Care Document ---
:1930 Author Organization [facility] t Address [address] [place] [address] Care Team Providers Name Role Phone Faustino Arceou Attending Clinician Kvng Sarah Attending Clinician Kvng Sarah Admitting Clinician Problems Condition Condition Condition Status Onset Resolution Last Treating Co mments Source Name Details Category Date Date Treatment Clinician Date FALL Diagnosis Active 2016-03-30 Mem oria -12 14:45:00 l FALL 00:00: Tracy 00 Active 01/11/[address] [facility] [address], Diagnosis Active 2015-11-27 Mem oria K63.5, 7- 14:57:00 l COLON 22724, 00:00: Brice POLYPS K63.5, 00 COLON POLYPS Active 11/09/[address] 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 anemia Clinics type type Chronic Chronic Diagnosis Active [facility] indwelling indwelling Marsha kes - Scott Scott [facility]oria catheter catheter l [facility] COPD COPD Problem Active [facility] ([facility]ronic (chronic [facility] - obstructiv obstructiv Me moria e e l pulmonary pulmonary Outp ati disease) disease) ent Clinics Essential Essential Diagnosis Active [facility] hypertensi hypertensi Marsha kes - on on [facility] Primary Primary Diagnosis [facility] Centrilobu Centrilobu Diagnosis Active [facility] - emphysema emphysema Jesus marco l [facility] Cancer Cancer Problem Active [facility] History of History of Diagnosis Active [facility] skin skin [facility] cancer [facility] 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 Transient Problem Resolve 2016-01-14 M emoria ischemic d 04:04:31 l attack Tracy (disorder) Transient ischemic attack (disorder) Resolved Problem 01/14/[address] [facility] Cardiac Problem Active 2016-01-14 Jesus marco arrhythmia 04:04:31 l (disorder) 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 ILLNESS, Diagnosis Active 2015-11-27 M emoria UNSPECIFIE 14:57:00 l D ILLNESS, Solomon n UNSPECIFIE D Active [facility] Discharge Problem 2016-01-14 2016-01-14 Memoria Diagnosis: 9-12 04:04:31 04:04:31 l Finger 05:00: Brice injury Discharge 00 Diagnosis: Finger injury 01/11/2016 01/14/[address] [facility] Allergies, Adverse Reactions, Alerts This patient has no known allergies or adverse reactions. Social History Social Habit Start Date Stop Date Quantity Comments Source Social History 2015-11-24 2015-11-24 [facility] 20:57:23 20:57:23 Medications Ordered Filled Start Stop Current Ordering Indication Dosage Frequency Signature Comments Components Source Medication Medication Date Date Medication? Clinician (SIG) Name Name Lidocaine Lidocaine Yes Na Tenorio [address] [facility] 4-17 skin as [facility] - 00:00: needed [facility] 00 [facility] tramadol Yes 50 mg = 1 Jesus marco hydrochlori 7-31 tab, PO, l de 50 MG 12:53: Q8H, PRN Cathryn nn Oral Tablet 00 as needed [Ultram] for pain, # 40 tab, 0 Refill(s) tramadol No 50 mg = 1 Jesus marco hydrochlori 11-28 tab, PO, l de 50 MG 12:53: Q8H, PRN Cathryn nn Oral Tablet 00 Other -See Comment | pain, X 7 day, # 21 tab, 0 Refill(s) Miralax No Notes: Memoria 11-28 Dissolve l 12:52: in 8 oz of Tracy 00 water or juice. (Same as: Miralax) Tylenol No Notes: Do Memor ia 11-25 not exceed l 13:15: 4 gm/day. Tracy 00 (Same as: Tylenol) tramadol No Notes: Not Mem oria hydrochlori 11-25 to exceed l de 50 MG 13:15: 400mg/day. Her garrison Oral Tablet 00 (Same As: Ultram) D5W 1/2NS + No Notes: Jesus marco KCL 20mEq/L 11-25 PREMIX IV l 1000ml 13:13: - Do Not Tracy (Premix) 00 Alter 1,000 mL WASTE: F/P - Sink; E - Municipal Trash Bin ketOROLAC No 4 days Memor ia 15 mg/mL 11-24 l injectable 17:00: MEDICATION H ermann solution 00 WASTE Product Size: 30 mg Product Wasted: _15__ mg Ofirmev No Notes: Memoria 11-24 Infuse l 17:00: over 15 Tracy 00 minutes Do not exceed 4gm/day of acetaminop hen MEDICATION WASTE Product Size: 1000 mg Product Wasted: _0__ mg Lovenox No Notes: Memoria 11-24 (Same as: l 14:00: Lovenox) Brice 00 latanoprost No Notes: Jesus marco ophthalmic 11-24 (Same l 0.005% 02:00: as:Xalatan Cathryn nn solution 00 ) bimatoprost No 1 drp, Jesus marco 0.1 MG/ML 11-24 Route: l Ophthalmic 02:00: BOTH EYES, H ermann Solution 00 Drug Form: [Lumigan] SOLN, Dosing Weight 79.091, kg, Bedtime, Start date: 11/24/15 21:00:00 CDT, Duration: 30 day, Stop date: 12/23/15 21:00:00 CDT Cipro No Notes: Do Memoria - not l 01:00: refrigerat Tracy 00 e Atropine No Notes: Memoria Sulfate 10 11-23 (Same As: l MG/ML 22:00: Isopto Brice Ophthalmic 00 Atropine) Solution [Atropine-C are] Protonix No Notes: For Mem oria 11-23 IV push l 21:30: reconstitu Tracy 00 te with 10 ml 0.9% sodium chloride and push over 2 minutes. (Same as: Protonix) Flagyl No Notes: Memoria - (Same as: l 21:00: Flagyl) Tracy 00 Avoid alcohol. Acetaminoph No Notes: Jesus marco en 10 MG/ML 11-23 Infuse l Injectable 21:00: over 15 Herm caridad Solution 00 minutes Do not exceed 4gm/day of acetaminop hen MEDICATION WASTE Product Size: 1000 mg Product Wasted: ___ mg Sodium No 25 mL, Memoria Chloride 11-23 Route: IV, l 0.9% IV 20:48: Start Brice 00 date: 11/24/15 15:48:00 CDT, Duration: 30 day, Stop date: 12/24/15 15:47:00 CDT, PRN Line Flush BD Normal No Notes: Memori a Saline 11-23 (Same as: l Flush 20:48: BD Tracy Posiflush) Morphine No Notes: Memoria - (Same l 17:44: as:MORPhin Brice 00 e Sulfate) Zofran No Notes: Memoria - (Same as: l 17:40: Zofran) Tracy 00 MEDICATION WASTE Product Size: 4 mg Product Wasted: ___ mg D5W 1/2NS + No Notes: Jesus marco KCL 20mEq/L 11-23 PREMIX IV l 1000ml 17:39: - Do Not Brice (Premix) 00 Alter 1,000 mL WASTE: F/P - Sink; E - Municipal Trash Bin sugammadex No Notes: Memor ia 11-23 (Same as: l 16:59: Bridion) Ondansetron No Notes: Jesus marco 11-23 (Same as: l 13:53: Zofran) MEDICATION WASTE Product Size: 4 mg Product Wasted: ___ mg Naloxone No Notes: Memoria 11-23 Same as l 13:53: Narcan Flumazenil No Notes: Memor ia 11-23 (Same as: l 13:53: Romazicon) Morphine No Notes: Memoria 11-23 (Same l 13:53: as:MORPhin e Sulfate) bupivacaine No Notes: Jesus marco liposome 11-23 (Same as: l 05:00: Exparel) NOT FOR IV use Postoperat jenni analgesia: Infiltrati on (local): Dose is based on surgical site and volume required to cover the area (in general, the maximum total dose is 266 mg). Bunionecto my: 7 mL into the tissues surroundin g the osteotomy and 1 mL into the subcutaneo us tissue of the surgical site (total dose = 8 mL [106 mg]) Hemorrhoid ectomy: 30 mL (20 mL vial diluted with 10 mL NS) divided and administer ed as 6 injections of 5 mL each (total dose = 30 mL [266 mg]) Flagyl No Notes: Memoria 11-23 (Same as: l 05:00: Flagyl) Avoid alcohol. Cipro No Notes: Do Memoria 11-23 not l 05:00: refrigerat e Ferrex 150 Yes 1 cap, PO, M emoria Plus -19 Daily, 0 l 14:42: Refill(s) bimatoprost Yes 1 drp, Jesus marco 0.1 MG/ML 11-16 BOTH EYES, l Ophthalmic 14:42: Bedtime, # H ermann Solution 00 5 mL, 4 [Lumigan] Refill(s) diflupredna Yes 1 drp, Jesus marco te 0.5 11-16 BOTH EYES, l MG/ML 14:42: QID, After Solomon n Ophthalmic 00 14 days, Suspension taper dose [Durezol] as directed by physician. , # 5 mL, 0 Refill(s) Atropine Yes 1 drp, Memoria Sulfate 10 11-16 OPTH, QID, l MG/ML 14:42: # 15 ml, 0 Solomon n Ophthalmic 00 Refill(s) Solution [Atropine-C are] Trazodone Yes 50 mg = 1 Mem oria Hydrochlori 11-16 tab, PO, l de 50 MG 14:41: Bedtime, # Her garrison Oral Tablet 00 30 tab, 1 Refill(s) Enalapril Enalapril Yes Na Tenorio [address] [facility] [address] Maleate Maleate [facility] Ferrex 150 Ferrex 150 Yes Na Tenorio [address] [facility] Trazodone Trazodone Yes Na Tenorio [address] [facility] HCl HCl at bedtime [facility] - as needed [facility] Vital Signs Vital Name Observation Time Observation Value Comments Source Respitory Rate 2016-01-11 22:56:00 Memori al Brice Heart Rate 2016-01-11 22:56:00 [facility] Brice Systolic (mm Hg) 2016-01-11 22:56:00 Jesus rial Tracy Diastolic (mm Hg) 2016-01-11 22:56:00 Mem orial Brice Heart Rate 2016-01-11 21:24:00 [facility] Tracy Respitory Rate 2016-01-11 21:24:00 Memori al Tracy Systolic (mm Hg) 2016-01-11 21:24:00 Jesus rial Brice Diastolic (mm Hg) 2016-01-11 21:24:00 Mem orial Tracy Weight 2016-01-11 21:24:00 [facility] Temperature Oral (F) 2016-01-11 21:24:00 98.5 F [facility] Height 2016-01-11 21:24:00 177.8 cm [facility] BMI Calculated 2016-01-11 21:24:00 Memori al Tracy Heart Rate 2015-11-29 12:32:00 [facility] Systolic (mm Hg) 2015-11-29 12:32:00 Jesus rial Brice Diastolic (mm Hg) 2015-11-29 12:32:00 Mem orial Brice Respitory Rate 2015-11-29 12:32:00 Memori al Tracy Temperature Oral (F) 2015-11-29 12:32:00 98.0 F [facility] Brice Heart Rate 2015-11-29 09:00:00 [facility] Brice Respitory Rate 2015-11-29 09:00:00 Memori al Tracy Systolic (mm Hg) 2015-11-29 09:00:00 Jesus rial Tracy Diastolic (mm Hg) 2015-11-29 09:00:00 Mem orial Brice Temperature Oral (F) 2015-11-29 09:00:00 98.1 F [facility] Tracy Temperature Oral (F) 2015-11-29 04:55:00 98.2 F [facility] Tracy Heart Rate 2015-11-29 04:55:00 [facility] Brice Systolic (mm Hg) 2015-11-29 04:55:00 Jesus rial Tracy Diastolic (mm Hg) 2015-11-29 04:55:00 Mem orial Brice Respitory Rate 2015-11-29 04:55:00 Memori al Brice BMI Calculated 2015-11-24 20:49:00 Memori al Tracy Weight 2015-11-24 20:49:00 [facility] Tracy Height 2015-11-24 20:49:00 177.8 cm [facility] Tracy Weight 2015-11-17 14:17:00 [facility] Tracy Height 2015-11-17 14:17:00 177.8 cm [facility] Tracy BMI Calculated 2015-11-17 14:17:00 Memori al Tracy Procedures Procedure Date / Time Performed Performing Clinician [facility] e 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 Vasectomy [facility] Wide re-excision of [facility] Her garrison lesion of skin<sup>1</sup> Encounters Start End Encounter Admission Attending Care Care Encounter Source Date/Time Date/Time Type Type Clinicians Facility Department ID 2019-09-06 2019-09-06 Outpatient Poly Ty [id number] [facility] 10:00:00 10:00:00 [employer] [facility] Medicine Medicine Outpati ent Clinics 2019-08-19 2019-08-19 Outpatient Poly Pangt [id number] [facility] 10:57:00 10:57:[address] Luke s - Drive [facility] Medicine Outpati ent Clinics 2019-08-16 2019-08-16 [facility] [id number] 13:54:00 13:54:[address] Luke s - Drive [facility] Medicine Outpati ent Clinics 2019-08-05 2019-08-05 [facility] [id number] [address] 15:54:00 15:54:[address] Luke s - Drive [facility] Medicine Outpati ent Clinics 2019-06-21 2019-06-21 [facility] [id number] 09:58:00 09:58:[address] [employer] s - Drive [facility] 2019-06-07 2019-06-07 [facility] [id number] 15:20:00 15:20:00 [place] [employer] [place] - Drive [facility] 2016-01-11 2016-01-11 Outpatient Roman Arceo [facility] [id number] 16:11:00 17:58:00 Faustino Stefano 2015-11-24 2015-11-29 Outpatient Tyrel [facility] [id number] 05:09:00 11:23:00 Andrea I 00 Results Test Description Test Time Test Comments Results Result Comments Source ELECTROLYTES 2015-11-26 10.4 [facility] Her [facility] 10:02:00 ELECTROLYTES 2015-11-26 117 [facility] 10:02:00 ELECTROLYTES 2015-11-26 7.9 [facility] Her [facility] 10:02:00 ELECTROLYTES 2015-11-26 6 [facility] 10:02:00 ELECTROLYTES 2015-11-26 26 [facility] Her [facility] 10:02:00 ELECTROLYTES 2015-11-26 141 [facility] 10:02:00 ELECTROLYTES 2015-11-26 109 [facility] 10:02:00 ELECTROLYTES 2015-11-26 4.4 [facility] Her [facility] 10:02:00 ELECTROLYTES 2015-11-26 81 [facility] Her garrison 10:02:00 ELECTROLYTES 2015-11-26 0.82 [facility] 10:02:00 HEMATOLOGY 2015-11-26 5.4 Memorial Cathryn nn 10:02:00 HEMATOLOGY 2015-11-26 7.4 Memorial Cathryn nn 10:02:00 HEMATOLOGY 2015-11-26 18.7 Memorial Cathryn nn 10:02:00 HEMATOLOGY 2015-11-26 68.0 Memorial Cathryn nn 10:02:00 HEMATOLOGY 2015-11-26 1.4 Memorial Cathryn nn 10:02:00 HEMATOLOGY 2015-11-26 0.5 Memorial Cathryn nn 10:02:00 HEMATOLOGY 2015-11-26 5.2 Memorial Cathryn nn 10:02:00 HEMATOLOGY 2015-11-26 0.6 Memorial Cathryn nn 10:02:00 HEMATOLOGY 2015-11-26 0.4 Memorial Cathryn nn 10:02:00 HEMATOLOGY 2015-11-26 0.0 Memorial Cathryn nn 10:02:00 HEMATOLOGY 2015-11-26 278 Memorial Cathryn nn 10:02:00 HEMATOLOGY 2015-11-26 10:02:00 Test Item Value Reference Range Interpretation Comme nts MCH (test code = MCH) 30.1 pg 27.0-31.0 Memorial ErfxtevJOQFWHBYFY8614-75-85 10:02:0091.5[facility]ann[facility] 2015-11-26 10:02:0031.4[facility] XdbphuoKJPWJOBWYN4806-17-71 10:02:0010.3[facility] SlsksdmDLPEIRRSUS3345-93-75 10:02:003.44[facility] CbhootiKJWWGQQQNI7643-87-69 10:02:007.7[facility] AtmqlobGJJDAKJFUG3763-72-81 10:02:0015.0[facility] Brice JZLVGKBDCH6703-31-76 10:02:0032.9[facility] YmhslnbVOHAUTASTK3176-63-36 10:02:00 7.2[facility] HermannCHEM LTNHV7037-53-00 09:04:002.1[facility] HermannCHEM PANEL 2015-11-25 09:04:002.8[facility] VbikyfwRLVKOLVTTMKR8229-14-39 09:04:76710Qqjlegko PbwxrsjPOHBMEBCEDPF8402-93-62 09:04:008.0[facility] BlalpjeLYHHZNHVRBTR5907-19-77 09:04:79650Ynsjxzqv HtfqnatYHLQGQLMNJNO1604-25-38 09:04:003.9[facility] Brice WCUMYHSPKWTR5869-94-49 09:04:72104Miylrgkl JklsvdxAYXTPVICRNIU9293-36-04 09:04:009[facility] JbpyvgcPYLESVHUAUSX2723-57-80 09:04:000.92[facility] Brice BUPFXJPBEHAH2831-95-48 09:04:0024[facility] WkjmslqJYVFWQYTUHMX1722-55-53 09:04:00 76[facility] UddfwjdGFFPUSHSTKNP8538-41-95 09:04:0014.9[facility]ann[facility]MATOLOGY 2015-11-25 09:04:0033.0[facility] ArlrqhjKEAZDNVHKJ8099-13-83 09:04:0015.1[facility] LzimymoOBAUNBPHCZ3739-63-99 09:04:006.7[facility] JadpcihYNLTTBQPXB7577-89-42 09:04:68438Kkwktfut MsoprndBBMPMSAEGL9523-72-83 09:04:009.4[facility] Brice CROYQBMIJK8759-56-73 09:04:0011.3[facility] MwufqgtDWIGSTWDAR3219-24-64 09:04:00 3.82[facility] OlngnenIAOZSYCCQI0782-87-43 09:04:0089.4[facility]ann[facility]MATOLOGY 2015-11-25 09:04:00 Test Item Value Reference Range Interpretation Comments MCH (test code = MCH) 29.5 pg 27.0-31.0 Memorial MuvdfbyFRGBONEJPW3305-34-61 09:04:0034.1[facility]ann[facility]MATOLOGY 2015-11-25 09:04:000.0[facility] IxezifcNRUKMBPMEE0907-02-28 09:04:000.3[facility] SgzqxspVUXRFXMTCY7797-41-16 09:04:007.4[facility] CmjarpmWYPCABYSRH4784-64-42 09:04:000.8[facility] EteblezBOEWGMJNUS1597-92-56 09:04:001.2[facility] Tracy MHMZLZIEMP6033-76-61 09:04:0078.0[facility] MvhofkbGWRUCKGUCE1971-76-64 09:04:00 8.8[facility] YmlmblgPXKMDNDDOT5671-60-46 09:04:0012.7[facility] 2015-11-25 09:04:000.2[facility] OBDJYDO8823-83-25 15:06:00 Positive 1(11/17/15 10:06 AM)[facility]"
--- OUTSIDE RECORDS SUMMARY | 2019-10-22 22:54 | XMS REPORT ---
[...] End Status Dosage System Date Date Enalapril [facility][NOTE 3] 90789266013 2.5 MG Orally Active 1 ta blet Maleate Once a day Ferrex 150 [facility][NOTE 3] 55024993986 150 MG Orally Active 1 c apsule Once a day Trazodone HCl [facility][NOTE 3] 12616474283 50 MG Orally Active 1 tablet Once a day at bedtime as needed Results No Known Results Summary Purpose eClinicalWorks Submission
--- OUTSIDE RECORDS SUMMARY | 2019-10-22 22:54 | XMS REPORT ---
:1930 Author Organization [employer] Care Team Providers Name Role Phone Tenorio, Na Provider Role Unavailable Allergies No Known Allergies Problems Problem Type Condition Code Onset Dates [...] History of skin cancer Z85.828 Activ e Medications No Known Medications Results No Known Results Summary Purpose eClinicalWorks Submission
--- OUTSIDE RECORDS SUMMARY | 2019-10-22 22:54 | XMS REPORT ---
[...] of skin cancer Z85.828 Activ e Medications Medication Code Code Instructions Start End Status Dosage System Date Date Enalapril ND 54664467656 2.5 MG Orally Active 1 ta blet Maleate Once a day Trazodone HCl ND 28925311003 50 MG Orally Active 1 tablet Once a day at bedtime as needed Lidocaine ND 03955143908 5 % Externally August 15, Active 1 patch to Once a day 2019 skin as needed Ferrex 150 ND 98357118605 150 MG Orally Active 1 c apsule Once a day Results No Known Results Summary Purpose eClinicalWorks Submission
[2019-10-23 00:31] VITALS: BMI 27.6
[2019-10-23] MEDS: NA CHLORIDE 0.9% 1,000 ML IV SCH ×2 (01:32→15:12)
[2019-10-23 04:22] LABS: Basophils % 0.4 % (0-1.3); Hematocrit 35.6 % (39.6-49.0); Lymphocytes % 22.6 % (15.3-44.8); RBC Red Blood Cell Count 4.03 M/uL (4.33-5.43)
[2019-10-23 04:41] LABS: Magnesium 2.3 mg/dL (1.8-2.4); Phosphorus 2.9 mg/dL (2.5-4.9); Potassium 3.9 mmol/L (3.5-5.1); Thyroid Stimulating Hormone 1.66 uIU/mL (0.360-3.740)
--- NOTE | 2019-10-23 07:09 | P.DS ---
Admission Date: 10/22/19 Discharge Date: 10/24/19 Disposition: ROUTINE DISCHARGE Discharge Condition: GOOD Reason for Admission: I could not move - Problems (1) TIA (transient ischemic attack) Status: Acute (2) Hypertension Status: Acute (3) Hyponatremia Status: Acute Brief History of Present Illness: 89-year-old gentleman with a history of hypertension, BPH, with chronic indwelling Scott had presented to the emergency department because he could not control his body after waking up from sleep around 2:00 p.m. today. Patient was concerned he was experiencing a TIA. He denied any trouble with speech or swallow. He denied any lateralizing weakness. CT head done in the ED shows no acute disease. EKG demonstrated paced rhythm. Patient was placed under observation for monitoring. Hospital Course: Patient did not have any neurologic symptoms during the hospital stay. Echocardiogram reported normal EF. Carotid Doppler performed resulted no hemodynamically significant stenosis. Patient could have had a TIA. Lipid profile check showed LDL within target. Patient placed on baby aspirin. Seen by PT, patient ambulate with a walker and requesting for a wheel chair. He is deemed clinically stable for discharge. Vital Signs/Physical Exam: Temp Pulse Resp BP Pulse Ox 97.4 F 65 18 142/79 H 96 10/23/19 00:00 10/23/19 04:19 10/23/19 00:00 10/23/19 04:19 10/23/19 00:00 General: Alert, In no apparent distress HEENT: Mucous membr. moist/pink Respiratory: Clear to auscultation bilaterally, Normal air movement Cardiovascular: No edema, Regular rate/rhythm, Normal S1 S2 Capillary refill: <2 Seconds Gastrointestinal: Normal bowel sounds, Soft and benign, No tenderness Musculoskeletal: No swelling Integumentary: No rashes Neurological: Normal speech, Normal strength at 5/5 x4 extr, Cranial nerves 3-12 intact Laboratory Data at Discharge: WBC 8.7 K/uL (4.3-10.9) 10/23/19 03:43 Hgb 12.2 g/dL (13.6-17.9) L 10/23/19 03:43 Hct 35.6 % (39.6-49.0) L 10/23/19 03:43 Plt Count 257 K/uL (152-406) 10/23/19 03:43 PT 11.4 SECONDS (9.5-12.5) 10/22/19 20:11 INR 0.97 10/22/19 20:11 Sodium 130 mmol/L (136-145) L 10/23/19 03:43 Potassium 3.9 mmol/L (3.5-5.1) 10/23/19 03:43 BUN 14 mg/dL (7-18) 10/23/19 03:43 Creatinine 0.86 mg/dL (0.55-1.3) 10/23/19 03:43 Glucose 90 mg/dL (74-106) 10/23/19 03:43 Phosphorus 2.9 mg/dL (2.5-4.9) 10/23/19 03:43 Magnesium 2.3 mg/dL (1.8-2.4) 10/23/19 03:43 Total Bilirubin 0.5 mg/dL (0.2-1.0) 10/22/19 20:11 AST 17 U/L (15-37) 10/22/19 20:11 ALT 29 U/L (12-78) 10/22/19 20:11 Alkaline Phosphatase 51 U/L (45-117) 10/22/19 20:11 Triglycerides 94 mg/dL (<150) 10/23/19 03:43 Cholesterol 133 mg/dL (<200) 10/23/19 03:43 HDL Cholesterol 55 mg/dL (40-60) 10/23/19 03:43 Cholesterol/HDL Ratio 2.42 10/23/19 03:43 Home Medications: Enalapril [Vasotec*] 2.5 mg PO DAILY 04/19/19 Iron Ps Cmplx/Vit B12/FA [Ferrex 150 Forte Capsule] 1 tab PO DAILY 04/19/19 Trazodone [Desyrel*] 50 mg PO DAILY 04/19/19 Aspirin [Aspirin EC 81 MG] 81 mg PO DAILY #30 tablet. 10/24/19 Atorvastatin Calcium [Lipitor] 40 mg PO BEDTIME #30 tab 10/24/19 Clopidogrel Bisulfate [Plavix*] 75 mg PO DAILY #30 tablet 10/24/19 New Medications: Aspirin [Aspirin EC 81 MG] 81 mg PO DAILY #30 tablet. Atorvastatin Calcium [Lipitor] 40 mg PO BEDTIME #30 tab Clopidogrel Bisulfate [Plavix*] 75 mg PO DAILY #30 tablet Diet: AHA Activity: Ad ian
[2019-10-23] MEDS ORDERED: KCL 20 MEQ/100 mL IVPB 20 MEQ/100 ML BAG IV SCH (08:00)
--- NOTE | 2019-10-23 08:23 | RAD REPORT ---
EXAM DESCRIPTION: RAD - Chest Single View - 10/22/2019 11:00 pm CLINICAL HISTORY: COUGH Chest pain. COMPARISON: Chest Pa And Lat (2 Views) dated 05/29/2019; Chest Pa And Lat (2 Views) dated 04/19/2019; CHEST SINGLE VIEW dated 04/23/2015 FINDINGS: Portable technique limits examination quality. The lungs are underinflated with linear opacities in both lung bases, likely representing atelectasis . The heart is moderately enlarged with a tortuous thoracic aorta. Multi lead pacer device is present .
[2019-10-23] MEDS ORDERED: PNEUMOCOCCAL VACCINE 0.5 ML IMVAC ONE (09:00)
--- NOTE | 2019-10-23 09:03 | RAD REPORT ---
EXAM DESCRIPTION: - CP - 10/23/2019 8:13 am CLINICAL HISTORY: TIA Headache, drowsiness, TIA COMPARISON: No comparisons TECHNIQUE: Real-time sonographic evaluation of both carotid systems was performed. Doppler interroga tion was performed with waveform tracing bilaterally. FINDINGS: Normal high resistance waveforms are noted in both external carotid arteries. The common c arotid arteries and internal carotid arteries show normal low resistance waveforms. Mild mixed plaque is present in both proximal internal carotid arteries. Peak systolic and end diasto lic velocity values and the ICA/CCA ratios are in the non-hemodynamically significant range. Antegrade flow seen in both vertebral arteries. IMPRESSION: Mild mixed plaque is seen in both proximal internal carotid arteries. No evidence of a hemodynamically significant stenosis.
[2019-10-23] MEDS: ASPIRIN EC 81 MG TAB PO SCH (10:03)
[2019-10-23] MEDS: ENOXAPARIN 40 MG/0.4 ML SQ SCH (10:03)
--- NOTE | 2019-10-23 10:28 | ER ---
Nurse's Notes [facility] Name: Khris Will Sr Age: 89 yrs Sex: Male : 1930 Arrival Date: 10/22/2019 Time: 18:52 Bed 24 Private MD: Janis Tenorio Diagnosis: Transient cerebral ischemic attack, unspecified;Weakness-right arm and leg resolved;Hypo-osmolality and hyponatremia Presentation: 10/21 18:57 Chief complaint: Patient states: He told me he woke up earlier and at first he couldn't ca1 move, that was around 233pm today. After a while he was able to move and get up from the bed but he wasn't as steady as he normally is. He would have insisted on using his walker to come in here. Denies slurring of speech. Denies facial drooping. A\\T\\0x 4. Van Negative. Coronavirus screen: Proceed with normal triage. Patient denies a cough. Patient denies shortness of breath or difficulty breathing. Patient denies measured and/or subjective temperature greater than 100.4F prior to today's visit. Patient denies travel on a cruise ship or to a country the [facility] currently lists as an affected area. Patient denies contact with known and/or suspected case of COVID-19. Ebola Screen: Patient negative for fever greater than or equal to 101.5 degrees Fahrenheit, and additional compatible Ebola Virus Disease symptoms Patient denies exposure to infectious person. Patient denies travel to an Ebola-affected area in the 21 days before illness onset. No symptoms or risks identified at this time. Initial Sepsis Screen: Does the patient meet any 2 criteria? No. Patient's initial sepsis screen is negative. Does the patient have a suspected source of infection? No. Patient's initial sepsis screen is negative. Risk Assessment: Do you want to hurt yourself or someone else? Patient reports no desire to harm self or others. Onset of symptoms was October 22, 2019 at 14:30. 18:57 Method Of Arrival: Wheelchair ca1 18:57 Acuity: CONCEPCION 3 ca1 Triage Assessment: 22:29 General: Appears in no apparent distress. comfortable, Behavior is calm, cooperative. ea Pain: Denies pain. Neuro: Level of Consciousness is awake, alert, obeys commands, Oriented to person, place, time, situation, Reports numbness in right arm and right leg paresthesias in right arm and right leg. Cardiovascular: No deficits noted. Respiratory: No deficits noted. GI: Reports. GI: No deficits noted. No signs and/or symptoms were reported involving the gastrointestinal system. 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 - Social history:: Smoking status: Patient denies any tobacco usage or history of. - Family history:: not pertinent. Screenin:55 Abuse screen: Denies threats or abuse. Denies injuries from another. Nutritional ea screening: No deficits noted. Tuberculosis screening: No symptoms or risk factors identified. 18:55 Fall Risk Total Reyes Fall Scale indicates High Risk Score (45 or more points). Fall ea prevention measures have been instituted. Side Rails Up X 2 Placed Close to Nursing Station Frequent Obs/Assessments Occuring As available patient and family educated on Fall Prevention Program and Strategies. Assessment: 19:15 General: Appears in no apparent distress. comfortable, Behavior is calm, cooperative. ls4 : Scott in place Urine is cloudy. EENT: No deficits noted. No signs and/or symptoms were reported regarding the EENT system. 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 Musculoskeletal: Circulation, motion, and sensation intact. Capillary refill < 3 seconds, Range of motion: intact in all extremities, PT USES WALKER FOR AMBULATION. 19:15 Cardiovascular: Denies chest pain. GI: No deficits noted. No signs and/or symptoms were ls4 reported involving the gastrointestinal system. 20:30 Reassessment: Patient appears in no apparent distress at this time. Patient and/or ls4 family updated on plan of care and expected duration. Pain level reassessed. Patient is alert, oriented x 3, equal unlabored respirations, skin warm/dry/pink. Pain: Denies pain. 21:30 Reassessment: Patient appears in no apparent distress at this time. Patient and/or ls4 family updated on plan of care and expected duration. Pain level reassessed. Patient is alert, oriented x 3, equal unlabored respirations, skin warm/dry/pink. Patient denies pain at this time. 22:52 Reassessment: Patient aware of pending admission to floor. Neuro: Level of lp1 Consciousness is awake, alert, obeys commands, Oriented to person, place, situation. Respiratory: Respiratory effort is even. Derm: Skin is thin, Skin is dry, Skin is normal. Vital Signs: 18:57 BP 130 / 62; Pulse 59; Resp 16 S; Temp 98.9(TE); Pulse Ox 99% on R/A; Weight 83.91 kg ca1 (R); Height 5 ft. 8 in. (172.72 cm) (R); 21:00 BP 141 / 75; Pulse 62; Resp 16; Pulse Ox 99% on R/A; Pain 0/10; ls4 22:37 BP 158 / 92; Pulse 65; Resp 16; Pulse Ox 100% on R/A; Pain 0/10; ls4 18:57 Body Mass Index 28.13 (83.91 kg, 172.72 cm) ca1 NIH Stroke Scale Scores: 20:08 NIHSS Score: 0 [facility] ED Course: 18:52 Patient arrived in ED. mr 18:52 Janis Tenorio MD is Private Physician. mr 18:55 Patient has correct armband on for positive identification. Placed in gown. Bed in low ea position. Call light in reach. Side rails up X 1. Adult w/ patient. monitor technician on. Pulse ox on. NIBP on. Warm blanket given. Pillow given. Verbal reassurance given. 19:02 Triage completed. ca1 19:04 Arm band placed on right wrist. ca1 19:15 No provider procedures requiring assistance completed. Inserted saline lock: in left ea antecubital area, using aseptic technique. Blood collected. 19:15 Patient maintains SpO2 saturation greater than 95% on room air. ea 19:17 Kane Pollack MD is Attending Physician. nessa 19:21 Meena Tovar RN is Primary Nurse. ls4 20:09 Jose Manuel Thompson is Hospitalizing Provider. nessa 22:51 Patient admitted, IV remains in place. lp1 Administered Medications: 20:20 Drug: NS 0.9% 1000 ml Route: IV; Rate: 1 bolus; Site: right forearm; ls4 23:29 Follow up: IV Status: Infusion continued upon admission; IV Intake: 1000ml ls4 20:20 Drug: Aspirin Chewable Tablet 324 mg Route: PO; ls4 20:40 Follow up: Response: No adverse reaction; Marked relief of symptoms ls4 20:20 Drug: foLIC Acid 1 mg Route: IVPB; Site: right forearm; ls4 21:20 Follow up: IV Status: Completed infusion; IV Intake: 100ml ls4 Intake: 21:20 IV: 100ml; Total: 100ml. ls4 23:29 IV: 1000ml; Total: 1100ml. ls4 Outcome: 20:10 Decision to Hospitalize by Provider. nessa 22:30 Condition: stable ea 22:52 Admitted to Med/surg via stretcher, room 221, Report called to ADRIANNA Vega lp1 22:52 Instructed on the need for admit. 23:34 Patient left the ED. lp1 NIH Stroke Scale - NIH Stroke Score Date: 10/22/2019 Time: 20:08 Total Score = 0 1a. Level of Consciousness (LOC) - 0(Alert) 1b. Level of Consciousness (LOC) (Year \\T\\ Age) - 0(Both) 1c. LOC Commands (Open \\T\\ Closes Eyes/Enginehouse Brakeman) - 0(Both) 2. Best Gaze (Lateral Gaze Paresis) - 0(Normal) 3. Visual Field Loss - 0(No visual loss) 4. Facial Palsy - 0(Normal) 5a. Left Arm: Motor (10-second hold) - 0(No drift) 5b. Right Arm: Motor (10-second hold) - 0(No drift) 6a. Left Leg: Motor (5-second hold - always test supine) - 0(No drift) 6b. Right Leg: Motor (5-second hold - always test supine) - 0(No drift) 7. Limb Ataxia (finger/nose \\T\\ heel/guaman - test with eyes open) - 0(Absent) 8. Sensory Loss (pinprick arms/legs/face) - 0(Normal) 9. Best Language: Aphasia (description/naming/reading) - 0(No aphasia) 10. Dysarthria (speech clarity - read or repeat words) - 0(Normal) 11. Extinction and Inattention (visual/tactile/auditory/spatial/personal) - 0(No abnormality) Initials: nessa Signatures: Kane Pollack MD MD cha Rivera, Melissa mr Jackie Corea, RN RN lp1 Nathaly Chan RN RN Meena Haskins RN RN ls4 AcCarlotta zarco RN RN ca1 Corrections: (The following items were deleted from the chart) 22:40 22:36 BP 141 / 75; Pulse 62bpm; Resp 16bpm; Pulse Ox 99% RA; Pain 0/10; ls4 ls4
--- NOTE | 2019-10-23 10:28 | EDPHYS ---
Physician Documentation [facility] Name: Khris Will Sr Age: 89 yrs Sex: Male : 1930 Arrival Date: 10/22/2019 Time: 18:52 Bed 24 Private MD: Janis Tenorio ED Physician Kane Pollack HPI: 10/21 20:03 This 89 yrs old Male presents to ER via Wheelchair with complaints of nessa Possible TIA. 20:03 The patient's problem is reported as weakness, in the right upper extremity, in the nessa right lower extremity. Onset: The symptoms/episode began/occurred 6 hour(s) ago, took nap at 130 awoke at 230 , could not get up because right side was weak, arm and leg, stayed home did not come to the hospital, patient feels better now deficits resolved. 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 - Social history:: Smoking status: Patient denies any tobacco usage or history of. - Family history:: not pertinent. ROS: 20:03 Constitutional: Negative for fever, chills, and weight loss, Eyes: Negative for injury, nessa pain, redness, and discharge, ENT: Negative for injury, pain, and discharge, Neck: Negative for injury, pain, and swelling, Cardiovascular: Negative for chest pain, palpitations, and edema, Respiratory: Negative for shortness of breath, cough, wheezing, and pleuritic chest pain, Abdomen/GI: Negative for abdominal pain, nausea, vomiting, diarrhea, and constipation, Back: Negative for injury and pain, : Negative for injury, bleeding, discharge, and swelling, MS/Extremity: Negative for injury and deformity, Skin: Negative for injury, rash, and discoloration, Psych: Negative for depression, anxiety, suicide ideation, homicidal ideation, and hallucinations, Allergy/Immunology: Negative for hives, rash, and allergies, Endocrine: Negative for neck swelling, polydipsia, polyuria, polyphagia, and marked weight changes, Hematologic/Lymphatic: Negative for swollen nodes, abnormal bleeding, and unusual bruising. 20:03 Neuro: Positive for gait disturbance, weakness. Exam: 20:03 Radiologist reports: neg per dr yeni szymanski 20:03 Constitutional: This is a well developed, well nourished patient who is awake, alert, and in no acute distress. Head/Face: Normocephalic, atraumatic. Eyes: Pupils equal round and reactive to light, extra-ocular motions intact. Lids and lashes normal. Conjunctiva and sclera are non-icteric and not injected. Cornea within normal limits. Periorbital areas with no swelling, redness, or edema. ENT: Nares patent. No nasal discharge, no septal abnormalities noted. Tympanic membranes are normal and external auditory canals are clear. Oropharynx with no redness, swelling, or masses, exudates, or evidence of obstruction, uvula midline. Mucous membranes moist. Neck: Trachea midline, no thyromegaly or masses palpated, and no cervical lymphadenopathy. Supple, full range of motion without nuchal rigidity, or vertebral point tenderness. No Meningismus. Chest/axilla: Normal chest wall appearance and motion. Nontender with no deformity. No lesions are appreciated. Cardiovascular: Regular rate and rhythm with a normal S1 and S2. No gallops, murmurs, or rubs. Normal PMI, no JVD. No pulse deficits. Respiratory: Lungs have equal breath sounds bilaterally, clear to auscultation and percussion. No rales, rhonchi or wheezes noted. No increased work of breathing, no retractions or nasal flaring. Abdomen/GI: Soft, non-tender, with normal bowel sounds. No distension or tympany. No guarding or rebound. No evidence of tenderness throughout. Back: No spinal tenderness. No costovertebral tenderness. Full range of motion. Male : Normal genitalia with no discharge or lesions. Skin: Warm, dry with normal turgor. Normal color with no rashes, no lesions, and no evidence of cellulitis. MS/ Extremity: Pulses equal, no cyanosis. Neurovascular intact. Full, normal range of motion. Neuro: Awake and alert, GCS 15, oriented to person, place, time, and situation. Cranial nerves II-XII grossly intact. Motor strength 5/5 in all extremities. Sensory grossly intact. Cerebellar exam normal. Normal gait. Psych: Awake, alert, with orientation to person, place and time. Behavior, mood, and affect are within normal limits. 21:30 ECG was reviewed by the Attending Physician. nessa Vital Signs: 18:57 BP 130 / 62; Pulse 59; Resp 16 S; Temp 98.9(TE); Pulse Ox 99% on R/A; Weight 83.91 kg ca1 (R); Height 5 ft. 8 in. (172.72 cm) (R); 21:00 BP 141 / 75; Pulse 62; Resp 16; Pulse Ox 99% on R/A; Pain 0/10; ls4 22:37 BP 158 / 92; Pulse 65; Resp 16; Pulse Ox 100% on R/A; Pain 0/10; ls4 18:57 Body Mass Index 28.13 (83.91 kg, 172.72 cm) ca1 NIH Stroke Scale Scores: 20:08 NIHSS Score: 0 nessa MDM: 19:17 Patient medically screened. nsesa 20:07 Data reviewed: vital signs, nurses notes, lab test result(s), EKG, radiologic studies, nessa CT scan, plain films. 21:28 Differential diagnosis: CVA, TIA, Dementia, Alzheimer disease, Parkinson disease. Data nessa interpreted: campus monitor: rate is 75 beats/min, Pulse oximetry: on room air is 99 %. Test interpretation: by ED physician or midlevel provider: ECG, plain radiologic studies. Counseling: I had a detailed discussion with the patient and/or guardian regarding: the historical points, exam findings, and any diagnostic results supporting the discharge/admit diagnosis, the presence of at least one elevated blood pressure reading (>120/80) during this emergency department visit, lab results, radiology results, the need for further work-up and treatment in the hospital. ED course: pt at baseline, non focal, not a tpa candidate, 6 hours speech language assistant, pt improved, dr chen accepted the patient. 10/21 20:02 Order name: Cardiac monitoring; Complete Time: 20:35 [facility] 10/21 20:02 Order name: EKG - Nurse/Tech; Complete Time: 21:38 [facility] 10/21 20:02 Order name: IV Saline Lock; Complete Time: 20:35 [facility] 10/21 20:02 Order name: Labs collected and sent; Complete Time: 20:36 [facility] 10/21 20:02 Order name: O2 Per Protocol; Complete Time: 20:36 [facility] 10/21 20:02 Order name: O2 Sat Monitoring; Complete Time: 20:35 [facility] 10/21 20:02 Order name: Urine Dipstick-Ancillary (obtain specimen); Complete Time: 21:40 [facility] EC:30 Rate is 65 beats/min. Rhythm is regular. Clinical impression: No evidence of ischemia. [facility] Interpreted by me. Reviewed by me. Administered Medications: 20:20 Drug: NS 0.9% 1000 ml Route: IV; Rate: 1 bolus; Site: right forearm; ls4 23:29 Follow up: IV Status: Infusion continued upon admission; IV Intake: 1000ml ls4 20:20 Drug: Aspirin Chewable Tablet 324 mg Route: PO; ls4 20:40 Follow up: Response: No adverse reaction; Marked relief of symptoms ls4 20:20 Drug: foLIC Acid 1 mg Route: IVPB; Site: right forearm; ls4 21:20 Follow up: IV Status: Completed infusion; IV Intake: 100ml ls4 Disposition: 10/22/19 20:10 Hospitalization ordered by Jose Manuel Thompson for Observation. Preliminary diagnosis are Transient cerebral ischemic attack, unspecified, Weakness - right arm and leg resolved, Hypo-osmolality and hyponatremia. - Bed requested for Telemetry/MedSurg (observation). - Status is Observation. lp1 - Condition is Fair. - Problem is new. - Symptoms have improved. NIH Stroke Scale - NIH Stroke Score Date: 10/22/2019 Time: 20:08 Total Score = 0 1a. Level of Consciousness (LOC) - 0(Alert) 1b. Level of Consciousness (LOC) (Year \\T\\ Age) - 0(Both) 1c. LOC Commands (Open \\T\\ Closes Eyes/Pattern Storage Clerk) - 0(Both) 2. Best Gaze (Lateral Gaze Paresis) - 0(Normal) 3. Visual Field Loss - 0(No visual loss) 4. Facial Palsy - 0(Normal) 5a. Left Arm: Motor (10-second hold) - 0(No drift) 5b. Right Arm: Motor (10-second hold) - 0(No drift) 6a. Left Leg: Motor (5-second hold - always test supine) - 0(No drift) 6b. Right Leg: Motor (5-second hold - always test supine) - 0(No drift) 7. Limb Ataxia (finger/nose \\T\\ heel/guaman - test with eyes open) - 0(Absent) 8. Sensory Loss (pinprick arms/legs/face) - 0(Normal) 9. Best Language: Aphasia (description/naming/reading) - 0(No aphasia) 10. Dysarthria (speech clarity - read or repeat words) - 0(Normal) 11. Extinction and Inattention (visual/tactile/auditory/spatial/personal) - 0(No abnormality) Initials: [facility] Signatures: Kane Pollack MD MD cha Pena, Laura, RN RN lp1 Isa Best RN RN tl1 Meena Tovar, RN RN ls4 Carlotta Arciniega RN RN ca1 Corrections: (The following items were deleted from the chart) 22:17 20:10 Hospitalization Ordered by Jose Manuel Thompson for Observation. Preliminary [facility] diagnosis is Transient cerebral ischemic attack, unspecified; Weakness - right arm and leg resolved. Bed requested for Telemetry/MedSurg (observation). Status is Observation. Condition is Fair. Problem is new. Symptoms have improved. [facility] 22:18 22:17 10/22/2019 20:10 Hospitalization Ordered by Jose Manuel Thompson for tl1 Observation. Preliminary diagnosis is Transient cerebral ischemic attack, unspecified; Weakness - right arm and leg resolved; Hypo-osmolality and hyponatremia. Bed requested for Telemetry/MedSurg (observation). Status is Observation. Condition is Fair. Problem is new. Symptoms have improved. [facility] 23:34 22:18 10/22/2019 20:10 Hospitalization Ordered by Jose Manuel Thompson for lp1 Observation. Preliminary diagnosis is Transient cerebral ischemic attack, unspecified; Weakness - right arm and leg resolved; Hypo-osmolality and hyponatremia. Bed requested for Telemetry/MedSurg (observation). Status is Observation. Condition is Fair. Problem is new. Symptoms have improved. tl1
--- NOTE | 2019-10-23 12:24 | EKG ---
Test Date: 2019-10-22 Test Time: 20:55:35 [employer] Operator: ZAHRAA MEASUREMENT RESULTS: Intervals: Rate: 65 IA: QRSD: 168 QT: 470 QTc: 488 [place]: P: 63 IA: QRS: 251 T: 66 INTERPRETIVE STATEMENTS: Electronic ventricular pacemaker Compared to ECG 10/22/2019 20:48:03 Atrial fibrillation no longer present Right bundle-branch block no longer present Myocardial infarct finding no longer present Electronically Signed On 10-23-19 12:22:20 CDT by You Colin
--- NOTE | 2019-10-23 12:24 | EKG ---
Test Date: 2019-10-22 Test Time: 20:48:03 Bee Breeder: ZAHRAA MEASUREMENT RESULTS: Intervals: Rate: 66 ND: QRSD: 174 QT: 474 QTc: 496 [place]: P: ND: QRS: 243 T: 77 INTERPRETIVE STATEMENTS: Suspect arm lead reversal, interpretation assumes no reversal Atrial fibrillation Right bundle branch block Inferior infarct, age undetermined Possible Anterolateral infarct, age undetermined Abnormal ECG Compared to ECG 05/29/2019 11:36:25 Right bundle-branch block now present Myocardial infarct finding now present Ventricular-paced complex(es) or rhythm no longer present Atrial-sensed ventricular-paced complex(es) or rhythm no longer present Sinus rhythm no longer present Electronically Signed On 10-23-19 12:22:21 CDT by You Colin
[2019-10-23] MEDS: CLOPIDOGREL 75 MG TABLET PO SCH (17:32)
[2019-10-23] MEDS: FOLIC ACID 1 MG TABLET PO SCH (17:32)
[2019-10-23] MEDS ORDERED: ATORVASTATIN 40 MG TAB PO SCH (21:00)
[2019-10-23] MEDS ORDERED: ATORVASTATIN 20 MG TAB PO SCH (21:00)
[2019-10-24] MEDS: NA CHLORIDE 0.9% 1,000 ML IV SCH ×2 (01:40→15:35)
[2019-10-24 05:38] LABS: Potassium 4.1 mmol/L (3.5-5.1)
--- NOTE | 2019-10-24 07:14 | P.PN ---
Subjective Date of Service: 10/23/19 Chief Complaint: I could not move Patient has no complain. He is waiting for echocardiogram to be done. Physical Examination - Vital Signs Temperature: 97.9 F Blood Pressure: 150/75 Pulse: 63 Respirations: 18 Pulse Ox (%): 94 - Physical Exam General: Alert, In no apparent distress HEENT: Mucous membr. moist/pink Respiratory: Clear to auscultation bilaterally, Normal air movement Cardiovascular: No edema, Regular rate/rhythm, Normal S1 S2 Gastrointestinal: Normal bowel sounds, Soft and benign, No tenderness Musculoskeletal: No swelling, No erythema Integumentary: No rashes Neurological: Normal speech, Normal strength at 5/5 x4 extr Assessment And Plan - Current Problems (Diagnosis) (1) TIA (transient ischemic attack) Current Visit: Yes Status: Acute (2) Hypertension Current Visit: Yes Status: Acute (3) Hyponatremia Current Visit: Yes Status: Acute - Plan Continue aspirin. Echocardiogram and carotid Doppler are pending. Hyponatremia is improving. PT evaluation Continue home antihypertensives.
[2019-10-24 08:07] VITALS: O2SAT 94
[2019-10-24] MEDS: CLOPIDOGREL 75 MG TABLET PO SCH (08:23)
[2019-10-24] MEDS: FOLIC ACID 1 MG TABLET PO SCH (08:24)
[2019-10-24] MEDS: ENOXAPARIN 40 MG/0.4 ML SQ SCH (08:24)
[2019-10-24] MEDS: ASPIRIN EC 81 MG TAB PO SCH (08:24)
--- NOTE | 2019-10-24 08:43 | ECHO ---
HEIGHT: 5 ft 10 in WEIGHT: 192 lb 5 oz DATE OF STUDY: 10/23/[address]: brien oropeza 2-DIMENSIONAL: YES M.MODE: YES DOPPLER: YES COLOR FLOW: YES TDS: YES PORTABLE: NO DEFINITY: NO BUBBLE STUDY: NO DIAGNOSIS: TRANSIENT ISCHEMIC ATTACK CARDIAC HISTORY: CATHERIZATION: SURGERY: PROSTHETIC VALVE: PACEMAKER: MEASUREMENTS (cm) DIASTOLIC (NORMALS) SYSTOLIC (NORMALS) IVSd (0.6-1.2) LA Diam (1.9-4.0) LVEF % LVIDd (3.5-5.7) LVIDs (2.0-3.5) %FS % LVPWd (0.6-1.2) Ao Diam 2.9 (2.0-3.7) 2 DIMENSIONAL ASSESSMENT: RIGHT ATRIUM: NORMAL LEFT ATRIUM: NORMAL RIGHT VENTRICLE: NORMAL LEFT VENTRICLE: NORMAL TRICUSPID VALVE: NORMAL MITRAL VALVE: NORMAL PULMONIC VALVE: NORMAL AORTIC VALVE: NORMAL PERICARDIAL EFFUSION: NONE AORTIC ROOT: NORMAL LEFT VENTRICULAR WALL MOTION: NORMAL DOPPLER/COLOR FLOW: NORMAL COMMENTS: TECHNICALLY DIFFICULT STUDY. GROSSLY NORMAL LEFT VENTRICULAR SIZE AND FUNCTION. NO OBVIOUS VEGETATION OR THROMBUS. TECHNOLOGIST: Mariely JUNG
[2019-10-24 16:13] LABS: BUN Blood Urea Nitrogen 13 mg/dL (7-18); Bicarbonate 24 mmol/L (21-32); Glucose Level 95 mg/dL (74-106); Potassium 3.8 mmol/L (3.5-5.1); Sodium Level 129 mmol/L (136-145); Troponin I 0.04 ng/mL (0.0-0.045)
[2019-10-24 16:42] VITALS: BP 149/73; TEMP 98.2
--- NOTE | 2019-10-24 21:46 | CON ---
Reason For Consultation: Transient ischemic attack. History Of Present Illness: Mr. Will is an 89-year-old right-handed patient with hyperte nsion, cardiac pacemaker placement, and kidney disease, who comes in the hospital with an episode of transient right-sided weakness after waking up from a nap around 1:30 in the evening on the . He reportedly could not get out of bed because his right arm and leg were weak. He did not com e to the hospital immediately and his symptoms eventually resolved. He did later come to [facility] for evaluation and his head CT scan did not reveal any acute ischemic or hemorrhagic change. There was a mild amount of periventricular deep and subcortical white matter small vessel ischemic disease. His electrocardiogram revealed an electronic ventricular pacemaker. His carotid artery ult rasound showed mixed plaque, but no evidence of hemodynamically significant stenosis. His echocardio gram was actually a technically difficult echo study, but there was reported normal left ventricular size and function. No obvious vegetation identified and ejection fraction was not reported. His lab oratory studies showed essentially slightly low hemoglobin and hematocrit, but otherwise complete blo od count differential was normal. Coagulation panel normal. Chemistries showed low sodium of 126, c hloride low at 93, potassium normal, creatinine normal. Glucose, calcium, liver function studies, ph osphorus are all normal. Thyroid-stimulating hormone level was normal. Total cholesterol normal at 133, LDL 59, HDL 55. He was continued on aspirin 81 mg daily with Plavix 75 mg daily, Lipitor 40 mg at bedtime, folic acid 1 mg daily, and also Lovenox for DVT prophylaxis. Past Medical History: Pacemaker placement, skin cancer, chronic kidney disease, and hypertension. Surgical History: Colon resection. Allergies: NO KNOWN DRUG ALLERGIES. Home Medications: Enalapril 2.5 mg daily, Ferrex 150 mg daily, trazodone 50 mg at bedtime. Family History: Noncontributory. Social History: No alcohol, tobacco, or IV drug use. Review of Systems: No recent fever, chills, nausea, vomiting, myalgias, arthralgias, rash, weight change, headache, psyc hiatric issues, or genitourinary issues. Physical Examination: Vital Signs: Blood pressure 149/73, pulse 68, respiratory rate 18, temperature 98.2, oxygen saturati on 98%. Weight 192 pounds, height 5 feet 10 inches, BMI 27.6. General: Mr. Will is resting in bed. at bedside. He is in no acute distress. HEENT: He is normocephalic, atraumatic. Sclerae anicteric. Oropharynx is moist and pink. Neck: Supple. Chest: Clear. Heart: Regular. Extremities: Show no edema, cyanosis, or clubbing. Neurologic: Alert, oriented to situation, place, and person. Follows commands appropriately. He quiroz s no cranial nerve deficits. No focal motor, sensory, coordination, or gait abnormalities. Assessment: Mr. Will is an 89-year-old patient with stroke risk factors, hypertension, dyslipidemi a. He possibly had a transient ischemic attack that was brief. Head CT scan reveals no acute ischem ic change. The rest of his stroke workup is essentially not remarkable. Plan: 1.He should continue the aspirin, Plavix, Lipitor, folic acid. 2.He may follow up with the blood pressure diary for possible adjustments for antihypertensive medications within the next week. 3.Once discharged, follow up with Dr. Watt 1 month later. RAÚL/CHRISTY Voice ID: [id number] Report ID: [id number]
== END 2019-10-24 18:33 | disposition home health service (06) ==
LOC: ER 18:47 → ERHOLD 22:26 → INTOOBSV 22:26 → 2ND 22:52
PROVIDERS: ADMIT Internal Medicine; ATTEND Internal Medicine
DX: G45.9 Transient cerebral ischemic attack, unspecified (principal); I11.9 Hypertensive heart disease without heart failure; E87.1 Hypo-osmolality and hyponatremia; N40.0 Benign prostatic hyperplasia without lower urinary tract symptoms; E78.5 Hyperlipidemia, unspecified; Z11.59 Encounter for screening for other viral diseases; I45.10 Unspecified right bundle-branch block; R94.31 Abnormal electrocardiogram [ECG] [EKG]; Z96.0 Presence of urogenital implants; Z79.899 Other long term (current) drug therapy; Z85.828 Personal history of other malignant neoplasm of skin; Z95.0 Presence of cardiac pacemaker
CPT/HCPCS: 96365; 96361; 93005 ×2; 93306; 85025 ×2; 80048 ×4; 36415 ×2; 83735 ×2; 84100; 85610; 80061; 80076; 84443; 84484 ×2; 83880; 70450; 71045; 93880; 92610; 97116; 97161; 94760 ×4; 99285; U0002; J1650 ×2; J7030 ×4; G0378 ×3

== ENCOUNTER 2020-01-31 11:20 | Day surgery (SDC) | payer OTHER ==
[2020-01-31 09:36] LABS: Absolute Lymphocytes (CBC) 1.5 K/uL (0.7-4.9); Basophils % 0.5 % (0-1.3); Lymphocytes % 19.9 % (15.3-44.8); MPV 7.2 fL (7.6-11.3); RBC Red Blood Cell Count 4.21 M/uL (4.33-5.43)
[2020-01-31 09:41] LABS: Potassium 3.8 mmol/L (3.5-5.1)
[2020-01-31] MEDS ORDERED: Ringers Lactate 1,000 ML IV ONE (11:48)
[2020-01-31] MEDS: CEFAZOLIN/SWI 1gm 1 GM/10 ML SYR ONE ×2 (13:09→14:05)
[2020-01-31] MEDS ORDERED: propofoL 200 MG/20 ML VIAL IV ONE (13:14)
[2020-01-31] MEDS ORDERED: LIDOCAINE 2% MPF 5 ML VIAL ONE (13:14)
[2020-01-31] MEDS ORDERED: FENTANYL CITR 100 MCG/2 ML ONE (13:14)
[2020-01-31] MEDS ORDERED: Phenylephrine HCl 10 MG/ML 1 ML VIAL ONE (14:35)
--- NOTE | 2020-01-31 14:45 | P.BOP ---
Preoperative diagnosis: infected lower back subQ mass Postoperative diagnosis: same Primary procedure: Excisional biopsy of infected lower back subQ mass 6x6cm with abscess drain Estimated blood loss: <10cc Specimen: mass, culture Findings: as above Anesthesia: General Complications: None Drain(s): Other (wet to dry NS) Transferred to: Recovery Room Condition: Good
[2020-01-31] MEDS ORDERED: CODEINE 30MG/APAP 300MG TAB ONE (16:25)
[2020-01-31 16:54] VITALS: BP 136/82; TEMP 97.4; O2SAT 99
--- NOTE | 2020-01-31 20:47 | OP ---
Surgeon: Juan Arita MD Preoperative Diagnosis: Infected lower back subcutaneous mass, 6 x 6 cm, with drainage of an abscess . Anesthesia: General plus local. Findings: Infected mass with abscess. Specimens: Mass and culture of the pus. Indications: This is the case of a male, who comes to us with infected mid to lower back mass, purul ent discharge, tenderness, erythema, discomfort, increased temperature. Benefits, alternatives, and risks of excisional biopsy of infected mass with drainage of an abscess fully explained, which includ e, but not limited to infection, bleeding, damage to adjacent structures, anesthesia complication, no nhealing wound, [place], and even . He also understands this may not relieve his symptoms. He might need more than one surgical intervention. He understood and signed a consent. The patient understa nds he will require a wound care on to heal. Description Of Procedure: The patient was brought to the operating room and placed in supine positio n. Anesthesia was done without complication. The area of concern was previously marked by me and th e patient in the holding room. The patient was placed in lateral decubitus position with proper prot ection. A time-out was called. The back was prepped and draped in a sterile fashion. We proceeded to do then delineation of the area of concern. We have some necrotic tissue present that have to com e with the specimen. Once we delineated tissue, we cut it with knife and Bovie cauterizer to obtain hemostasis until we went deep to the subcutaneous tissue. The muscle seems not to be involved in it. So, mass was completely excised. It is about 1 to 1.2 cm deep. Area was irrigated. Hemostasis ob tained. Local anesthesia was applied. Then, the area was packed with dry dressing. The patient rosalinda erated the procedure well. The patient was sent to recovery in stable condition. Disposition: Home. Activity: As tolerated. No heavy lifting. Plan: Follow up in my office in 1 week. Call for appointment [phone]. Wet-to-dry dressing. Maxine l saline daily. Medications: Tylenol No. 3 q.4 hours p.r.n. pain, Bactrim DS p.o. b.i.d. ABEL/CHRISTY Voice ID: [id number] Report ID: [id number]
--- OUTSIDE RECORDS SUMMARY | 2020-02-05 19:55 | XMS REPORT ---
:1930 Author Organization [employer] Care Team Providers Name Role Phone Tenorio, Na Provider Role Unavailable Allergies, Adverse Reactions, Alerts Substance Reaction Event Type N.K.D.A. 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 Assessment Hospital discharge follow-up Z09 Active Problem Transient ischemic attack (TIA) G45.9 Active Problem COPD (chronic obstructive pulmonary J44.9 Active disease) Problem HTN (hypertension) I10 Active Problem Prostate pain N42.81 Active Problem Essential hypertension I10 Activ e Assessment Primary insomnia F51.01 Active Assessment Centrilobular emphysema J43.2 Acti ve Assessment 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 Assessment Iron deficiency anemia, unspecified D50.9 Active iron deficiency anemia type Assessment Hyponatremia E87.1 Active Assessment Essential hypertension I10 Activ e Problem Iron deficiency anemia, unspecified D50.9 Active iron deficiency anemia type Assessment Need for assistance due to unsteady R26.89 Active gait Assessment Transient ischemic attack (TIA) G45.9 Active Problem Centrilobular emphysema J43.2 Acti ve Medications Medication Code Code Instructions Start End Status Dosage System Date Date Ferrex 150 ND 64489742347 150 MG Orally Active 1 c apsule Once a day Trazodone HCl ND 98197495269 50 MG Orally Active 1 tablet Once a day at bedtime as needed Enalapril ND 32799847505 2.5 MG Orally Active 1 ta blet Maleate Once a day Atorvastatin ND 08221677219 40 MG Orally Active 1 tablet Calcium Once a day Lidocaine ND 13737378024 5 % Externally Ana María Active 1 p atch to Once a day 2019 skin as needed Sodium Chloride [facility] 82386742199 1 GM Orally October 30Dec Active 1 tablet Twice a day 2019 Aspirin ND 96306857822 81 MG Orally Active 1 table t Once a day Clopidogrel [facility] 87935617493 75 MG Orally Active 1 t ablet Bisulfate Once a day Results No Known Results Summary Purpose [employer] Submission
--- OUTSIDE RECORDS SUMMARY | 2020-02-05 19:55 | XMS REPORT | Continuity of Care Document ---
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 [facility] (disorder) Polyp of colon Active Problem 01/14/2016 [facility] Basal cell Resolved Problem 01/14/2016 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 (disorder) Transient Resolved Problem 01/14/2016 Memori al ischemic attack [facility] (disorder) ILLNESS, Active Memoria l UNSPECIFIED [facility] Medications Medication Details Route Status Patient Ordering Order Source Instructions Provider Date tramadol 50 mg = 1 tab, Active hydrochloride PO, Q8H, PRN as 2016 [facility] 50 MG Oral needed for [facility] Tablet [Ultram] pain, # 40 tab, 0 Refill(s) tramadol 50 mg = 1 tab, Inactive hydrochloride PO, Q8H, PRN 2015 [facility] ial 50 MG Oral Other -See [facility] Tablet Comment | pain, X 7 day, # 21 tab, 0 Refill(s) Miralax Notes: Dissolve Inactive in 8 oz of 2015 [facility] water or juice. City (Same as: Miralax) [...] days No Longer mg/mL MEDICATION Active 2015 [facility] injectable WASTE [facility] solution Product Size: 30 mg Product Wasted: _15__ mg Ofirmev Notes: Infuse No Longer over 15 minutes Active 2015 [facility] Do not exceed [facility] 4gm/day of acetaminophen MEDICATION WASTE Product Size: 1000 mg Product Wasted: _0__ mg Lovenox Notes: (Same No Longer as: Lovenox) Active 2015 [facility] latanoprost Notes: (Same No Longer ophthalmic as:Xalatan) Active 2015 [facility] 0.005% solution [facility] bimatoprost 0.1 1 drp, Route: Inactive H MG/ML BOTH EYES, Drug 2015 [facility] Ophthalmic Form: SOLN, [facility] Solution Dosing Weight [Lumigan] 79.091, kg, Bedtime, Start date: 11/24/15 21:00:00 CDT, Duration: 30 day, Stop date: 12/23/15 21:00:00 CDT Cipro Notes: Do not Inactive refrigerate 2015 [facility] Atropine Notes: (Same No Longer Sulfate 10 As: Isopto Active 2015 [facility] MG/ML Atropine) [facility] Ophthalmic Solution [Atropine-Care] Protonix Notes: For IV No Longer push Active 2015 [facility] ml 0.9% sodium chloride and push over 2 minutes. (Same as: Protonix) Flagyl Notes: (Same No Longer as: Flagyl) Active 2015 [facility] Avoid alcohol. [facility] Acetaminophen Notes: Infuse No Longer 10 MG/ML over 15 minutes [facility] Injectable Do not exceed [facility] Solution 4gm/day of acetaminophen MEDICATION WASTE Product Size: 1000 mg Product Wasted: ___ mg Sodium Chloride 25 mL, Route: No Longer 0.9% IV IV, Start date: Active [address] [place] [address] 11/24/15 [facility] 15:48:00 CDT, Duration: 30 day, Stop date: 12/24/15 15:47:00 CDT, PRN Line Flush BD Normal Notes: (Same No Longer Saline Flush as: BD Active 2015 [facility] Posiflush) [facility] Morphine Notes: (Same No Longer as:MORPhine Active 2015 [facility] Sulfate) [facility] Zofran Notes: (Same No Longer as: Zofran) Active 2015 [facility] MEDICATION City WASTE Product Size: 4 mg Product Wasted: ___ mg D5W 1/2NS + KCL Notes: PREMIX No Longer 20mEq/L 1000ml IV - Do Not Active 2015 [facility] ial (Premix) 1,000 Alter WASTE: Cit y mL F/P - Sink; E - [employer] sugammadex Notes: (Same Inactive as: Bridion) 2015 [facility] Ondansetron Notes: (Same Inactive as: Zofran) 2015 [facility] MEDICATION City WASTE Product Size: 4 mg Product Wasted: ___ mg Naloxone Notes: Same as Inactive Narcan 2015 [facility] Flumazenil Notes: (Same Inactive as: Romazicon) 2015 [facility] Morphine Notes: (Same Inactive as:MORPhine 2015 [facility] Sulfate) [facility] bupivacaine Notes: (Same Inactive liposome as: Exparel) 2015 [facility] NOT FOR IV City use Postoperative analgesia: [...] Flagyl Notes: (Same Inactive as: Flagyl) 2015 [facility] Avoid alcohol. [facility] Cipro Notes: Do not Inactive refrigerate 2015 [facility] Ferrex 150 Plus 1 cap, PO, Active Daily, 0 2015 [facility] Refill(s) [facility] bimatoprost 0.1 1 drp, BOTH Active MG/ML EYES, Bedtime, 2015 [facility] Ophthalmic # 5 mL, 4 [facility] Solution Refill(s) [Lumigan] difluprednate 1 drp, BOTH Active 0.5 MG/ML EYES, QID, 2015 [facility] Ophthalmic After 14 days, [facility] Suspension taper dose as [Durezol] directed by physician., # 5 mL, 0 Refill(s) Atropine 1 drp, OPTH, Active Sulfate 10 QID, # 15 ml, 0 2015 [facility] ial MG/ML Refill(s) [facility] Ophthalmic Solution [Atropine-Care] Trazodone 50 mg = 1 tab, Active Hydrochloride PO, Bedtime, # 2016 Mem orial 50 MG Oral 30 tab, 1 [facility] Tablet Refill(s) Allergies, Adverse Reactions, Alerts No Known Medication Allergies Immunizations No Data Provided for This Section Results Order Name Results Value Reference Date Interpretation Comments Lashawn rce Range ELECTROLYTES AGAP 10.4 10.0 - 11/25 20.0 [facility] ELECTROLYTES Glucose Lvl 117 70 - 99 11/25 [facility] ELECTROLYTES Calcium Lvl 7.9 8.5 - 10.5 11/25 [facility] ELECTROLYTES BUN 6 7 - 22 11/25 [facility] ELECTROLYTES CO2 26 24 - 32 11/25 [facility] ELECTROLYTES Sodium Lvl 141 135 - 145 11/25 [facility] ELECTROLYTES Chloride Lvl 109 95 - 109 11/25 [facility] ELECTROLYTES Potassium 4.4 3.5 - 5.1 11/25 [facility] ELECTROLYTES eGFR 81 11/25 Result Comment: [facility] eGFR is City calculated using the [...] 0.50 - 11/25 MH Lvl 1.40 /2015 [facility] HEMATOLOGY Eosinophils 5.4 0.0 - 4.0 11/25 [facility] HEMATOLOGY Monocytes 7.4 2.0 - 12.0 11/25 [facility] HEMATOLOGY Lymphocytes 18.7 20.0 - 11/25 MH 40.0 /2015 [facility] HEMATOLOGY Segs 68.0 45.0 - 11/25 MH 75.0 /2015 [facility] HEMATOLOGY Lymphocytes 1.4 1.0 - 5.5 11/25 MH # /2015 [facility] HEMATOLOGY Basophils 0.5 0.0 - 1.0 11/25 [facility] HEMATOLOGY Segs-Bands # 5.2 1.5 - 8.1 11/25 [facility] HEMATOLOGY Monocytes # 0.6 0.0 - 0.8 11/25 [facility] HEMATOLOGY Eosinophils 0.4 0.0 - 0.5 11/25 MH # /2015 [facility] HEMATOLOGY Basophils # 0.0 0.0 - 0.2 11/25 [facility] HEMATOLOGY Platelet 278 133 - 450 11/25 [facility] HEMATOLOGY MCH 30.1 27.0 - 11/25 MH 31.0 [facility] HEMATOLOGY MCV 91.5 80.0 - 11/25 MH 94.0 /2015 [facility] HEMATOLOGY Hct 31.4 42.0 - 11/25 MH 54.0 [facility] HEMATOLOGY Hgb 10.3 14.0 - 11/25 MH 18.0 [facility] HEMATOLOGY RBC 3.44 4.70 - 11/25 MH 6.10 /2015 [facility] HEMATOLOGY WBC 7.7 3.7 - 10.4 11/25 [facility] HEMATOLOGY RDW 15.0 11.5 - 11/25 MH 14. [facility] HEMATOLOGY MCHC 32.9 32.0 - 11/25 MH 36.0 [facility] HEMATOLOGY MPV 7.2 7.4 - 10.4 11/25 [facility] CHEM PANEL Magnesium 2.1 1.8 - 2.4 11/24 MH Lv [facility] CHEM PANEL Phosphorus 2.8 2.5 - 4.5 11/24 [facility] ELECTROLYTES Sodium Lvl 142 135 - 145 11/24 [facility] ELECTROLYTES Calcium Lvl 8.0 8.5 - 10.5 11/24 [facility] ELECTROLYTES Chloride Lvl 107 95 - 109 11/24 [facility] ELECTROLYTES Potassium 3.9 3.5 - 5.1 11/24 Lv [facility] ELECTROLYTES Glucose Lvl 147 70 - 99 11/24 [facility] ELECTROLYTES BUN 9 7 - 22 11/24 [facility] ELECTROLYTES Creatinine 0.92 0.50 - 11/24 Lvl 1.40 [facility] ELECTROLYTES CO2 24 24 - 32 11/24 [facility] ELECTROLYTES eGFR 76 11/24 Result Comment: [facility] eGFR is City calculated using the [...] AGAP 14.9 10.0 - 11/24 MH 20.0 [facility] HEMATOLOGY MCHC 33.0 32.0 - 11/24 36.0 [facility] HEMATOLOGY RDW 15.1 11.5 - 11/24 14. [facility] HEMATOLOGY MPV 6.7 7.4 - 10.4 11/24 [facility] HEMATOLOGY Platelet 328 133 - 450 11/24 [facility] HEMATOLOGY WBC 9.4 3.7 - 10.4 11/24 [facility] HEMATOLOGY Hgb 11.3 14.0 - 11/24 18.0 /2015 [facility] HEMATOLOGY RBC 3.82 4.70 - 11/24 MH 6.10 /2015 [facility] HEMATOLOGY MCV 89.4 80.0 - 11/24 MH 94.0 /2015 [facility] HEMATOLOGY MCH 29.5 27.0 - 11/24 MH 31.0 /2015 [facility] HEMATOLOGY Hct 34.1 42.0 - 11/24 MH 54.0 /2015 [facility] HEMATOLOGY Eosinophils 0.0 0.0 - 0.5 11/24 MH # /2015 [facility] HEMATOLOGY Basophils 0.3 0.0 - 1.0 11/24 MH /2015 [facility] HEMATOLOGY Segs-Bands # 7.4 1.5 - 8.1 11/24 /2015 [facility] HEMATOLOGY Monocytes # 0.8 0.0 - 0.8 11/24 /2015 [facility] HEMATOLOGY Lymphocytes 1.2 1.0 - 5.5 11/24 # /2015 [facility] HEMATOLOGY Segs 78.0 45.0 - 11/24 MH 75.0 /2015 [facility] HEMATOLOGY Monocytes 8.8 2.0 - 12.0 11/24 /2015 [facility] HEMATOLOGY Lymphocytes 12.7 20.0 - 11/24 40.0 /2015 [facility] HEMATOLOGY Eosinophils 0.2 0.0 - 4.0 11/24 /2015 [facility] BLOOD BANK Antigen AHG K neg 11/16 RESULTS Int /2015 [facility] BLOOD BANK AB Int Anti-K 11/16 RESULTS /2015 [facility] BLOOD BANK Antibody Positive 1 11/16 Result RESULTS Scrn (11/17/15 10:06 AM) /2015 Comment: Jesus schultz 11/17/2015 [facility] 12:12 [id number]
"Significant Findings of Positive Antibody Screen_ called to Nella Copeland Rn__ at 11/17/2015 12:12__ by GM__. Read Back OK" BLOOD BANK ABO/Rh A POS 11/16 RESULTS /2015 [facility] Pathology Reports No Data Provided for This Section Diagnostic Reports Report Value Date Source Finger 3 views DX Clinical history: Pain from a fall. 01/11/2016 [facility] Sex: Male. : 1930. Technique: 3 views [...] Date Comments Source Respitory Rate 17 01/11/2016 [facility] ity Heart Rate 74 01/11/2016 [facility] Cit y Systolic (mm Hg) 146 01/11/2016 [facility] Diastolic (mm Hg) 87 01/11/2016 [facility] Heart Rate 83 01/11/2016 [facility] Cit y Respitory Rate 19 01/11/2016 [facility] C ity Systolic (mm Hg) 143 01/11/2016 [facility] Diastolic (mm Hg) 85 01/11/2016 [facility] Weight 75.909 01/11/2016 [facility] y Temperature Oral (F) 98.5 F 01/11/2016 [facility] Height 177.8 cm 01/11/2016 [facility] Cit y BMI Calculated 24.01 01/11/2016 [facility] ity Heart Rate 69 11/29/2015 [facility] Cit y Systolic (mm Hg) 149 11/29/2015 [facility] Diastolic (mm Hg) 79 11/29/2015 [facility] Respitory Rate 18 11/29/2015 [facility] C it Temperature Oral (F) 98.0 F 11/29/2015 [facility] Heart Rate 75 11/29/2015 [facility] Cit y Respitory Rate 18 11/29/2015 [facility] C ity Systolic (mm Hg) 147 11/29/2015 [facility] Diastolic (mm Hg) 84 11/29/2015 [facility] Temperature Oral (F) 98.1 F 11/29/2015 [facility] Temperature Oral (F) 98.2 F 11/29/2015 [facility] Heart Rate 88 11/29/2015 [facility] Cit y Systolic (mm Hg) 145 11/29/2015 [facility] Diastolic (mm Hg) 76 11/29/2015 [facility] Respitory Rate 18 11/29/2015 [facility] C ity BMI Calculated 26 11/24/2015 [facility] C ity Weight 82.2 11/24/2015 [facility] Cit y Height 177.8 cm 11/24/2015 [facility] Cit y Weight 79.091 11/17/2015 [facility] Cit y Height 177.8 cm 11/17/2015 [facility] Cit y BMI Calculated 25.02 11/17/2015 [facility] C ity Encounters Location Location Encounter Encounter Reason Attending ADM DC Stat us Source Details Type Number For Provider Date Date Visit [facility] Inpatient [id number] Andrea 11/23 11/28 Brice Sarah /2015 [facility] [id number] Roman Arceo [facility]/10 [facility] Procedures Procedure Code Date Perfomer Comments Source Implantation of [id number] Alva al cardiac pacemaker [facility] Vasectomy [id number] [facility] Wide re-excision [id number] [facility] skin<sup>1</sup> Assessment and Plan Assessment and Plan Date Source Extracted from:Title: Clinical Document 11/29/2015 [facility] Author: Josias Rahman MD Date: 11/26/15 Colon [...] [place] (indwelling at home) - transfer to [facility] with telemetry Plan of Care No Data Provided for This Section Social History Social History Date Source Social History TypeResponse 11/24/2015 [facility] Substance Abuse Use: None. Alcohol Past, Type [...]
--- OUTSIDE RECORDS SUMMARY | 2020-02-05 19:55 | XMS REPORT ---
:1930 Author Organization [employer] Care Team Providers Name Role Phone Tenorio, Na Provider Role Unavailable Allergies No Known Allergies Problems Problem Type Condition Code Onset Dates Condition Statu s Problem Primary insomnia F51.01 Active Problem Cancer C80.1 Active Problem History of skin cancer Z85.828 Activ e Problem Iron deficiency anemia, unspecified D50.9 Active iron deficiency anemia type Problem Centrilobular emphysema J43.2 Acti ve Problem Need for assistance due to unsteady R26.89 Active gait Problem 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 Problem Transient ischemic attack (TIA) G45.9 Active Problem COPD (chronic obstructive pulmonary J44.9 Active disease) Problem HTN (hypertension) I10 Active Problem Prostate pain N42.81 Active Problem Essential hypertension I10 Activ e Medications No Known Medications Results No Known Results Summary Purpose [employer] Submission
--- OUTSIDE RECORDS SUMMARY | 2020-02-05 19:55 | XMS REPORT | Continuity of Care Document ---
:1930 Author Organization [facility] t Address [address] [place] [address] Care Team Providers Name Role Phone Faustino Arceou Attending Clinician Kvng Sarah Attending Clinician Kvng Sarah Admitting Clinician Problems Condition Condition Condition Status Onset Resolution Last Treating Co mments Source Name Details Category Date Date Treatment Clinician Date FALL Diagnosis Active 2016-03-30 Mem oria 01-10 14:45:00 l FALL 00:00: [place] 00 Active 01/11/2016 [facility] [id number], Diagnosis Active 2015-11-27 Mem oria K63.5, 7- 14:57:00 l COLON 10955, 00:00: [place] POLYPS K63.5, 00 COLON POLYPS Active 11/09/2015 [facility] Prostate Prostate [facility] Iron Iron Problem Active [facility] deficiency deficiency Marsha kes - anemia, anemia, Memoria unspecifie unspecifie l d iron d iron Outpati deficiency deficiency en t anemia anemia Clinics type type Chronic Chronic Problem Active [facility] indwelling indwelling Marsha kes - Scott Scott [facility] catheter catheter l Outpati ent Clinics COPD COPD Problem Active [facility] (chronic (chronic [facility] - obstructiv obstructiv Me moria e e l pulmonary pulmonary Outp ati disease) disease) ent Clinics HTN HTN Problem Active [facility] (hypertens (hypertens Marsha kes - ion) ion) [facility] Primary Primary Problem Active [facility] insomnia [facility] Centrilobu Centrilobu Problem Active [facility] emphysema emphysema Jesus marco l [facility] ent Clinics Cancer Cancer Problem Active [facility] History of History of Problem Active C HI [facility] skin skin 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) Resolved Problem 01/14/2016 [facility] Transient Problem Resolve 2016-01-14 M emoria ischemic d 04:04:31 l attack Brice (disorder) Transient ischemic attack (disorder) Resolved Problem 01/14/2016 [facility] Cardiac Problem Active 2016-01-14 Jesus marco arrhythmia 04:04:31 l (disorder) 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 [facility] Polyp of Problem Active 2016-01-14 Mem oria colon 04:04:31 l (disorder) 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 Social History Social Habit Start Date Stop Date Quantity Comments Source Social History 2015-11-24 2015-11-24 [facility] mackenzie 20:57:23 20:57:23 Medications Ordered Filled Start Stop Current Ordering Indication Dosage Frequency Signature Comments Components Source Medication Medication Date Date Medication? Clinician (SIG) Name Name Sodium Sodium 2020-0 2020- No Na Tenorio [address] Chloride Chloride 7-01-28 [facility] l [facility] Clinics Lidocaine Lidocaine 2020-0 Yes Na Tenorio [address] [facility] 4-17 skin as [facility] - 00:[facility]: needed [facility] 00 l Out[facility] ent Clinics tramadol Yes 50 mg = [...] Dissolve l 12:52: in 8 oz of [place] 00 water or juice. (Same as: Miralax) Tylenol No Notes: Do Memor ia 11-25 not exceed l 13:15: 4 gm/day. [place] 00 (Same as: Tylenol) tramadol No Notes: Not Mem oria hydrochlori 11-25 to exceed l de 50 MG 13:15: 400mg/day. Her garrison Oral Tablet 00 (Same As: Ultram) D5W 1/2NS + No Notes: Jesus marco KCL 20mEq/L 11-25 PREMIX IV l 1000ml 13:13: - Do Not [place] (Premix) 00 Alter 1,000 mL WASTE: F/P - Sink; E - Municipal Trash Bin ketOROLAC No 4 days Memor ia 15 mg/mL 11-24 l injectable 17:00: MEDICATION H ermann solution 00 WASTE Product Size: 30 mg Product Wasted: _15__ mg Ofirmev No Notes: Memoria 11-24 Infuse l 17:00: over 15 [place] 00 minutes Do not exceed 4gm/day of acetaminop hen MEDICATION WASTE Product Size: 1000 mg Product Wasted: _0__ mg Lovenox No Notes: Memoria 11-24 (Same as: l 14:00: Lovenox) [place] 00 latanoprost No Notes: Jesus marco ophthalmic [...] 21:00:00 CDT Cipro No Notes: Do Memoria 11-24 not l 01:00: refrigerat Brice 00 e Atropine No Notes: Memoria Sulfate 10 11-23 (Same As: l MG/ML 22:00: Isopto Brice Ophthalmic 00 Atropine) Solution [Atropine-C are] Protonix No Notes: For Mem oria 11-23 IV push l 21:30: reconstitu Brice te with 10 ml 0.9% sodium chloride and push over 2 minutes. (Same as: Protonix) Flagyl No Notes: Memoria 11-23 (Same as: l 21:00: Flagyl) [place] Avoid alcohol. Acetaminoph No Notes: Jesus marco [...] 11-23 (Same as: l Flush 20:48: BD Brice Posiflush) Morphine No Notes: Memoria - (Same l 17:44: as:MORPhin [place] e Sulfate) Zofran No Notes: Memoria - (Same as: l 17:40: Zofran) Brice MEDICATION WASTE Product Size: 4 mg Product [...] Yes 1 cap, PO, M emoria Plus 7-19 Daily, 0 l 14:42: Refill(s) Brice 00 bimatoprost Yes 1 drp, Jesus marco 0.1 [...] Tenorio [address] [facility] Maleate Maleate [facility]ics Ferrex 150 Ferrex 150 Yes Na Tenorio [address] [facility] Trazodone Trazodone Yes Na Tenorio [address] [facility] HCl HCl at bedtime [facility] - as needed [facility] Atorvastati Atorvastati Yes Na Tenorio [address] [facility] n Calcium n Calcium [facility] Aspirin Aspirin Yes Na Tenorio [address] [facility] Clopidogrel Clopidogrel Yes Na Tenorio [address] [facility] Bisulfate Bisulfate [facility] Vital Signs Vital Name Observation Time Observation Value Comments Source Respitory Rate 2016-01-11 22:56:00 Alva al Brice Heart Rate 2016-01-11 22:56:00 [facility] Systolic (mm Hg) 2016-01-11 22:56:00 Jesus marion Narvaez Diastolic (mm Hg) 2016-01-11 22:56:00 [facility] tristan Narvaez Heart Rate 2016-01-11 21:24:00 [facility] [place] Respitory Rate 2016-01-11 21:24:00 Memori al [place] Systolic (mm Hg) 2016-01-11 21:24:00 Jesus rial [place] Diastolic (mm Hg) 2016-01-11 21:24:00 Mem orial [place] Weight 2016-01-11 21:24:00 [facility] [place] Temperature Oral (F) 2016-01-11 21:24:00 98.5 F [facility] [place] Height 2016-01-11 21:24:00 177.8 cm [facility] [place] BMI Calculated 2016-01-11 21:24:00 Memori al [place] Heart Rate 2015-11-29 12:32:00 [facility] [place] Systolic (mm Hg) 2015-11-29 12:32:00 Jesus rial [place] Diastolic (mm Hg) 2015-11-29 12:32:00 Mem orial [place] Respitory Rate 2015-11-29 12:32:00 Memori al [place] Temperature Oral (F) 2015-11-29 12:32:00 98.0 F [facility] [place] Heart Rate 2015-11-29 09:00:00 [facility] [place] Respitory Rate 2015-11-29 09:00:00 Memori al Brcie Systolic (mm Hg) 2015-11-29 09:00:00 Jesus rial Br[place] Diastolic (mm Hg) 2015-11-29 09:00:00 Mem orial [place] Temperature Oral (F) 2015-11-29 09:00:00 98.1 F [facility] [place] Temperature Oral (F) 2015-11-29 04:55:00 98.2 F [facility] [place] Heart Rate 2015-11-29 04:55:00 [facility] [place] Systolic (mm Hg) 2015-11-29 04:55:00 Jesus rial [place] Diastolic (mm Hg) 2015-11-29 04:55:00 Mem orial [place] Respitory Rate 2015-11-29 04:55:00 Memori al [place] BMI Calculated 2015-11-24 20:49:00 Memori al [place] Weight 2015-11-24 20:49:00 [facility] [place] Height 2015-11-24 20:49:00 177.8 cm [facility] [place] Weight 2015-11-17 14:17:00 [facility] [place] Height 2015-11-17 14:17:00 177.8 cm [facility] [place] BMI Calculated 2015-11-17 14:17:00 Memori al [place] Procedures Procedure Date / Time Performed Performing Clinician Federico ortega 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 Medicine Medicine Outpati ent Clinics 2020-01-09 2020-01-09 [facility] [id number] [facility] 14:40:00 14:40:00 t Dizzion [facility] l Medicine Outpati ent Clinics 2019-11-23 2019-11-23 [facility] [id number] 19:34:00 19:34:[address] [facility] Medicine Medicine Outpati ent Clinics 2019-11-04 2019-11-04 [facility] [id number] [facility] 07:06:00 07:06:[address] [facility] Medicine Medicine Outpati ent Clinics 2019-10-31 2019-10-31 [facility] [id number] [address] 13:00:00 13:00:[address] [facility] Medicine Medicine Outpati ent Clinics 2019-10-25 2019-10-25 [facility] [id number] [address] 13:25:00 13:25:[address] [facility] Medicine Medicine Outpati ent Clinics 2019-10-25 2019-10-25 [facility] [id number] 13:22:00 13:22:00 t Dizzion [facility] Medicine Outpati ent Clinics 2019-09-06 2019-09-06 [facility] [id number] 10:00:00 10:00:00 t Dizzion [facility] Medicine Outpati ent Clinics 2019-08-19 2019-08-19 [facility] [id number] 10:57:00 10:57:[address] [employer] s - Drive [facility] Medicine Outpati ent Clinics 2019-08-16 2019-08-16 [facility] [id number] 13:54:00 13:54:[address] Luke s - Drive [facility] Medicine Outpati ent Clinics 2019-08-05 2019-08-05 [facility] [id number] 15:54:00 15:54:[address] Luke s - Drive [facility] Medicine Outpati ent Clinics 2019-06-21 2019-06-21 [facility] [id number] 09:58:00 09:58:[address] [employer] s - Drive [facility] Medicine Outpati ent Clinics 2019-06-07 2019-06-07 [facility] [id number] 15:20:00 15:20:00 t [place] [employer] [facility] Medicine [facility] 2016-01-11 2016-01-11 Outpatient Roman Arceo [facility] [id number] 16:11:00 17:58:00 Faustino Agarwal 2015-11-24 2015-11-29 Outpatient Tyrel [facility] [id number] 05:09:00 11:23:00 Andrea I 00 Results [...] code = MCH) 30.1 pg 27.0-31.0 Memorial WxcdfxlIXNIPMAYFB7196-17-46 10:02:0091.5[facility]ann[facility]MATOLOGY 2015-11-26 10:02:0031.4[facility] MmgrkwbQFHQVEMVYF6818-13-85 10:02:0010.3[facility] CphkgzjVNNJIKLUKN2609-57-23 10:02:003.44[facility] SkfutsmYEESXIBKSK8928-90-91 10:02:007.7[facility] XgfglhbKDXEDGPPFK3419-99-09 10:02:0015.0[facility] [place] LUSFIEUQQR5744-54-99 10:02:0032.9[facility] FfdcmosKPTTQRKJEN3571-38-24 10:02:00 7.2[facility] HermannCHEM SDRZJ3263-57-62 09:04:002.1[facility] HermannCHEM PANEL 2015-11-25 09:04:002.8[facility] DhbfzohFOWSWGDHTXVZ4918-10-53 09:04:33676Ufwiqnxw XlzewipUAIJXWGKFMPO8539-57-60 09:04:008.0[facility] SvtjtfeJULHHPFZBLQI4880-92-14 09:04:89603Zooisvtx KmuxwzrDURXSEALVCSK9686-78-09 09:04:003.9[facility] [place] XUHKFPFHXKQD9699-91-17 09:04:74901Utebeurs NgoagdnCMBJATKLHHII6146-62-30 09:04:009[facility] XaeotneUHNKXMKAYEGD1895-57-23 09:04:000.92[facility] [place] VSACGTARWAWB5311-62-20 09:04:0024Mem[facility] StppijaYSUYOQHJGJMN9646-46-85 09:04:00 76[facility] QmqqdjtTPQWOZIKJLDZ2638-25-63 09:04:0014.9[facility] HermannHEMATOLOGY 2015-11-25 09:04:0033.0[facility] RrnwtzvDRFIDLMZJT5304-41-26 09:04:0015.1[facility] LforzqdBHFUXXVHOK3813-46-55 09:04:006.7[facility] PamvxksNTDADNKHDN1867-77-17 09:04:11389Auwlprgt NsuvkpaSTWIAPPCDN2545-61-47 09:04:009.4[facility] [place]ice SFTCYZBQLO3092-39-89 09:04:0011.3[facility] GcetkryUIMURZFCCA2426-93-57 09:04:00 3.82[facility] UtqhgvcQRHZCNZUHI1247-57-98 09:04:0089.4[facility] HermannHEMATOLOGY 2015-11-25 09:04:00 Test Item Value Reference Range Interpretation Comments MCH (test code = MCH) 29.5 pg 27.0-31.0 Memorial PgsmvbwAXDKOWBLIE4428-69-08 09:04:0034.1[facility] HermannHEMATOLOGY 2015-11-25 09:04:000.0[facility] FahpkvrBXPKJSXBMP0172-32-92 09:04:000.3[facility] YgcienmOAQAKEYYSH9051-60-53 09:04:007.4[facility] WvlgojgQYKBXVIELG2566-30-75 09:04:000.8[facility] VmqafnkWOJXNINQHQ0605-69-87 09:04:001.2[facility] [place] XXRYEQZHEV7786-55-70 09:04:0078.0[facility] OcktxqoMENHMOQNFY5064-15-22 09:04:00 8.8[facility] NhabyacCZEQEHVNYW5886-31-01 09:04:0012.7[facility] HermannHEMATOLOGY 2015-11-25 09:04:000.2[facility]annBL[facility]OD BANK GGRHATE0884-72-82 15:06:00 Positive 1(11/17/15 10:06 AM)[facility]"
--- OUTSIDE RECORDS SUMMARY | 2020-02-05 19:56 | XMS REPORT ---
:1930 Author Organization [employer] Care Team Providers Name Role Phone Tenorio, Na Provider Role Unavailable Allergies, Adverse Reactions, Alerts Substance Reaction Event Type N.K.D.A. 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 Problem Need for assistance due to unsteady R26.89 Active gait Assessment Need for assistance due to unsteady R26.89 Active gait Assessment Onychomycosis due to dermatophyte B35.1 Active Problem Anemia D64.9 Active Problem Cancer C80.1 Active Problem History of skin cancer Z85.828 Activ e Problem 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 Problem Prostate pain N42.81 Active Assessment Primary insomnia F51.01 Active Assessment Centrilobular emphysema J43.2 Acti ve Assessment Transient ischemic attack (TIA) G45.9 Active Assessment Iron deficiency anemia, unspecified D50.9 Active iron deficiency anemia type Problem COPD (chronic obstructive pulmonary J44.9 Active disease) Assessment Hyponatremia E87.1 Active Problem Essential hypertension I10 Activ e Assessment Essential hypertension I10 Activ e Problem HTN (hypertension) I10 Active Medications Medication Code Code Instructions Start End Status Dosage System Date Date Clopidogrel ND 64944028877 75 MG Orally Active 1 t ablet Bisulfate Once a day Atorvastatin ND 50006822800 40 MG Orally Active 1 tablet Calcium Once a day Trazodone HCl ND 85943971331 50 MG Orally Active 1 tablet Once a day at bedtime as needed Enalapril ND 31093652051 2.5 MG Orally Active 1 ta blet Maleate Once a day Ferrex 150 ND 45948333973 150 MG Orally Active 1 c apsule Once a day Sodium Chloride ND 74351332404 1 GM Orally Active 1 tablet Twice a day Aspirin [facility] 37099068731 81 MG Orally Active 1 table t Once a day Lidocaine [facility] 07762338391 5 % Externally July Active 1 p atch to Once a day 2019 skin as needed Results Name Result Date Reference Range Unit Abnormali ty Flag Ferritin ----Ferritin 101.8 20200110 26-388 ng/mL Summary Purpose [employer] Submission
--- OUTSIDE RECORDS SUMMARY | 2020-02-05 19:56 | XMS REPORT ---
[...] Transient ischemic attack (TIA) G45.9 Active Problem Need for assistance due to unsteady R26.89 Active gait Problem Anemia D64.9 Active Problem Cancer C80.1 Active Problem History of skin cancer Z85.828 Activ e Problem 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 Problem Prostate pain N42.81 Active Problem COPD (chronic obstructive pulmonary J44.9 Active disease) Problem Essential hypertension I10 Activ e Assessment Anemia D64.9 Active Problem HTN (hypertension) I10 Active Medications No Known Medications Results No Known Results Summary Purpose [employer] Submission
== END 2020-01-31 16:40 | disposition home or self-care (01) ==
LOC: OR 11:20
PROVIDERS: ATTEND Surgery
PROC: 0JB70ZZ Excision of Back Subcutaneous Tissue and Fascia, Open Approach (ICD-10-PCS; principal; 2020-01-31 12:30)
DX: L72.0 Epidermal cyst (principal); Z20.828 Contact with and (suspected) exposure to other viral communicable diseases
CPT/HCPCS: 36415; 80048; 85025; 87070; 87075; 87077; 87186; 87205; 88304; 88305; J0690; J2370; J2704; J3010; J7120; U0002

== ENCOUNTER 2020-03-04 09:54 | Inpatient (IN) | payer OTHER ==
--- OUTSIDE RECORDS SUMMARY | 2020-03-04 09:57 | XMS REPORT | Continuity of Care Document ---
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 [facility] (disorder) Polyp of colon Active Problem 01/14/2016 [facility] 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) Transient Resolved Problem 01/14/2016 Memori al ischemic attack [facility] (disorder) ILLNESS, Active Memoria l UNSPECIFIED [facility] Medications Medication Details Route Status Patient Ordering Order Source Instructions Provider Date tramadol 50 mg = 1 tab, Active hydrochloride PO, Q8H, PRN as 2016 Me morial 50 MG Oral needed for [facility] Tablet [Ultram] pain, # 40 tab, 0 Refill(s) tramadol 50 mg = 1 tab, Inactive hydrochloride PO, Q8H, PRN 2015 Memor ial 50 MG Oral Other -See [facility] Tablet Comment | pain, X 7 day, # 21 tab, 0 Refill(s) Miralax Notes: Dissolve Inactive in 8 oz of 2015 [facility] water or juice. City (Same as: [...] days No Longer mg/mL MEDICATION Active 2015 [facility] injectable WASTE [facility] solution Product Size: 30 mg Product Wasted: _15__ mg Ofirmev Notes: Infuse No Longer over 15 minutes Active 2015 [facility] Do not exceed [facility] 4gm/day of acetaminophen MEDICATION WASTE Product Size: 1000 mg Product Wasted: _0__ mg Lovenox Notes: (Same No Longer as: Lovenox) Active 2015 [facility] latanoprost Notes: (Same No Longer ophthalmic as:Xalatan) Active 2015 [facility] 0.005% solution [facility] bimatoprost 0.1 1 drp, Route: Inactive H MG/ML BOTH EYES, Drug 2015 [facility] Ophthalmic Form: SOLN, [facility] Solution Dosing Weight [Lumigan] 79.091, kg, Bedtime, Start date: 11/24/15 21:00:00 CDT, Duration: 30 day, Stop date: 12/23/15 21:00:00 CDT Cipro Notes: Do not Inactive refrigerate 2015 [facility] Atropine Notes: (Same No Longer Sulfate 10 As: Isopto Active 2015 [facility] MG/ML Atropine) [facility] Ophthalmic Solution [Atropine-Care] Protonix Notes: For IV No Longer push Active [facility] 0.9% sodium chloride and push over 2 minutes. (Same as: Protonix) Flagyl Notes: (Same No Longer as: Flagyl) Active 2015 [facility] Avoid alcohol. [facility] Acetaminophen Notes: Infuse No Longer 10 MG/ML over [facility] Do not exceed [facility] Solution 4gm/day of acetaminophen MEDICATION WASTE Product Size: 1000 mg Product Wasted: ___ mg Sodium Chloride 25 mL, Route: No Longer 0.9% IV IV, Start date: Active [address] [place] [address] 11/24/15 [facility] 15:48:00 CDT, Duration: 30 day, Stop date: 12/24/15 15:47:00 CDT, PRN Line Flush BD Normal Notes: (Same No Longer Saline Flush as: BD Active 2015 [facility] Posiflush) [facility] Morphine Notes: (Same No Longer as:MORPhine Active 2015 [facility] Sulfate) [facility] Zofran Notes: (Same No Longer as: Zofran) Active 2015 [facility] MEDICATION City WASTE Product Size: 4 mg Product Wasted: ___ mg D5W 1/2NS + KCL Notes: PREMIX No Longer 20mEq/L 1000ml IV - Do Not Active 2015 Memor ial (Premix) 1,000 Alter WASTE: Cit y mL F/P - Sink; E - [facility] sugammadex Notes: (Same Inactive as: Bridion) 2015 [facility] Ondansetron Notes: (Same Inactive as: Zofran) 2015 [facility] MEDICATION City WASTE Product Size: 4 mg Product Wasted: ___ mg Naloxone Notes: Same as Inactive Narcan 2015 [facility] Flumazenil Notes: (Same Inactive as: Romazicon) 2015 [facility] Morphine Notes: (Same Inactive as:MORPhine 2015 [facility] Sulfate) [facility] bupivacaine Notes: (Same Inactive liposome as: Exparel) 2015 [facility] NOT FOR IV City use Postoperative [...] Flagyl Notes: (Same Inactive as: Flagyl) 2015 [facility] Avoid alcohol. [facility] Cipro Notes: Do not Inactive refrigerate 2015 [facility] Ferrex 150 Plus 1 cap, PO, Active Daily, 0 2015 [facility] Refill(s) [facility] bimatoprost 0.1 1 drp, BOTH Active MG/ML EYES, Bedtime, 2015 [facility] Ophthalmic # 5 mL, 4 [facility] Solution Refill(s) [Lumigan] difluprednate 1 drp, BOTH Active 0.5 MG/ML EYES, QID, 2015 [facility] Ophthalmic After 14 days, [facility] Suspension taper dose as [Durezol] directed by physician., # 5 mL, 0 Refill(s) Atropine 1 drp, OPTH, Active Sulfate 10 QID, # 15 ml, 0 2015 Memor ial MG/ML Refill(s) [facility] Ophthalmic Solution [Atropine-Care] Trazodone 50 mg = 1 tab, Active Hydrochloride PO, Bedtime, # 2016 Mem orial 50 MG Oral 30 tab, 1 [facility] Tablet Refill(s) Allergies, Adverse Reactions, Alerts No Known Medication Allergies Immunizations No Data Provided for This Section Results Order Name Results Value Reference Date Interpretation Comments Lashawn rce Range ELECTROLYTES AGAP 10.4 10.0 - 11/25 20.0 [facility] ELECTROLYTES Glucose Lvl 117 70 - 99 11/25 [facility] ELECTROLYTES Calcium Lvl 7.9 8.5 - 10.5 11/25 [facility] ELECTROLYTES BUN 6 7 - 22 11/25 [facility] ELECTROLYTES CO2 26 24 - 32 11/25 [facility] ELECTROLYTES Sodium Lvl 141 135 - 145 11/25 [facility] ELECTROLYTES Chloride Lvl 109 95 - 109 11/25 [facility] ELECTROLYTES Potassium 4.4 3.5 - 5.1 11/25 [facility] ELECTROLYTES eGFR 81 11/25 Result Comment: [facility] eGFR is City calculated using the [...] 0.50 - 11/25 MH Lvl 1.40 /2015 [facility] HEMATOLOGY Eosinophils 5.4 0.0 - 4.0 11/25 [facility] HEMATOLOGY Monocytes 7.4 2.0 - 12.0 11/25 [facility] HEMATOLOGY Lymphocytes 18.7 20.0 - 11/25 MH 40.0 /2015 [facility] HEMATOLOGY Segs 68.0 45.0 - 11/25 MH 75.0 /2015 [facility] HEMATOLOGY Lymphocytes 1.4 1.0 - 5.5 11/25 MH # /2015 [facility] HEMATOLOGY Basophils 0.5 0.0 - 1.0 11/25 [facility] HEMATOLOGY Segs-Bands # 5.2 1.5 - 8.1 11/25 [facility] HEMATOLOGY Monocytes # 0.6 0.0 - 0.8 11/25 [facility] HEMATOLOGY Eosinophils 0.4 0.0 - 0.5 11/25 MH # /2015 [facility] HEMATOLOGY Basophils # 0.0 0.0 - 0.2 11/25 [facility] HEMATOLOGY Platelet 278 133 - 450 11/25 [facility] HEMATOLOGY MCH 30.1 27.0 - 11/25 MH 31.0 [facility] HEMATOLOGY MCV 91.5 80.0 - 11/25 MH 94.0 /2015 [facility] HEMATOLOGY Hct 31.4 42.0 - 11/25 MH 54.0 [facility] HEMATOLOGY Hgb 10.3 14.0 - 11/25 MH 18.0 [facility] HEMATOLOGY RBC 3.44 4.70 - 11/25 MH 6.10 /2015 [facility] HEMATOLOGY WBC 7.7 3.7 - 10.4 11/25 [facility] HEMATOLOGY RDW 15.0 11.5 - 11/25 MH 14. [facility] HEMATOLOGY MCHC 32.9 32.0 - 11/25 MH 36.0 [facility] HEMATOLOGY MPV 7.2 7.4 - 10.4 11/25 [facility] CHEM PANEL Magnesium 2.1 1.8 - 2.4 11/24 MH Lv [facility] CHEM PANEL Phosphorus 2.8 2.5 - 4.5 11/24 [facility] ELECTROLYTES Sodium Lvl 142 135 - 145 11/24 [facility] ELECTROLYTES Calcium Lvl 8.0 8.5 - 10.5 11/24 [facility] ELECTROLYTES Chloride Lvl 107 95 - 109 11/24 [facility] ELECTROLYTES Potassium 3.9 3.5 - 5.1 11/24 Lv [facility] ELECTROLYTES Glucose Lvl 147 70 - 99 11/24 [facility] ELECTROLYTES BUN 9 7 - 22 11/24 [facility] ELECTROLYTES Creatinine 0.92 0.50 - 11/24 Lvl 1.40 [facility] ELECTROLYTES CO2 24 24 - 32 11/24 [facility] ELECTROLYTES eGFR 76 11/24 Result Comment: [facility] eGFR is City calculated using the [...] AGAP 14.9 10.0 - 11/24 MH 20.0 [facility] HEMATOLOGY MCHC 33.0 32.0 - 11/24 36.0 [facility] HEMATOLOGY RDW 15.1 11.5 - 11/24 14. [facility] HEMATOLOGY MPV 6.7 7.4 - 10.4 11/24 [facility] HEMATOLOGY Platelet 328 133 - 450 11/24 [facility] HEMATOLOGY WBC 9.4 3.7 - 10.4 11/24 [facility] HEMATOLOGY Hgb 11.3 14.0 - 11/24 18.0 /2015 [facility] HEMATOLOGY RBC 3.82 4.70 - 11/24 MH 6.10 /2015 [facility] HEMATOLOGY MCV 89.4 80.0 - 11/24 MH 94.0 /2015 [facility] HEMATOLOGY MCH 29.5 27.0 - 11/24 MH 31.0 /2015 [facility] HEMATOLOGY Hct 34.1 42.0 - 11/24 MH 54.0 /2015 [facility] HEMATOLOGY Eosinophils 0.0 0.0 - 0.5 11/24 MH # /2015 [facility] HEMATOLOGY Basophils 0.3 0.0 - 1.0 11/24 MH /2015 [facility] HEMATOLOGY Segs-Bands # 7.4 1.5 - 8.1 11/24 /2015 [facility] HEMATOLOGY Monocytes # 0.8 0.0 - 0.8 11/24 /2015 [facility] HEMATOLOGY Lymphocytes 1.2 1.0 - 5.5 11/24 # /2015 [facility] HEMATOLOGY Segs 78.0 45.0 - 11/24 MH 75.0 /2015 [facility] HEMATOLOGY Monocytes 8.8 2.0 - 12.0 11/24 /2015 [facility] HEMATOLOGY Lymphocytes 12.7 20.0 - 11/24 40.0 /2015 [facility] HEMATOLOGY Eosinophils 0.2 0.0 - 4.0 11/24 /2015 [facility] BLOOD BANK Antigen AHG K neg 11/16 RESULTS Int /2015 [facility] BLOOD BANK AB Int Anti-K 11/16 RESULTS /2015 [facility] BLOOD BANK Antibody Positive 1 11/16 Result RESULTS Scrn (11/17/15 10:06 AM) /2015 Comment: Jesus schultz 11/17/2015 [facility] 12:12 [id number]
"Significant Findings of Positive Antibody Screen_ called to Nella Copeland Rn__ at 11/17/2015 12:12__ by GM__. Read Back OK" BLOOD BANK ABO/Rh A POS 11/16 RESULTS /2015 [facility] Pathology Reports No Data Provided for This Section Diagnostic Reports Report Value Date Source Finger 3 views DX Clinical history: Pain from a fall. 01/11/2016 [facility] Sex: Male. : 1930. Technique: 3 views [...] Date Comments Source Respitory Rate 17 01/11/2016 [facility] ity Heart Rate 74 01/11/2016 [facility] y Systolic (mm Hg) 146 01/11/2016 [facility] Diastolic (mm Hg) 87 01/11/2016 [facility] Heart Rate 83 01/11/2016 [facility] y Respitory Rate 19 01/11/2016 [facility]y Systolic (mm Hg) 143 01/11/2016 [facility] Diastolic (mm Hg) 85 01/11/2016 [facility] Weight 75.909 01/11/[address] [facility] y Temperature Oral (F) 98.5 F 01/11/2016 [facility] Height 177.8 cm 01/11/2016 [facility] y BMI Calculated 24.01 01/11/2016 [facility] ity Heart Rate 69 11/29/2015 [facility] y Systolic (mm Hg) 149 11/29/2015 [facility] Diastolic (mm Hg) 79 11/29/2015 [facility] Respitory Rate 18 11/29/2015 [facility] it Temperature Oral (F) 98.0 F 11/29/2015 [facility] Heart Rate 75 11/29/2015 [facility] y Respitory Rate 18 11/29/2015 [facility] Systolic (mm Hg) 147 11/29/2015 [facility] Diastolic (mm Hg) 84 11/29/2015 [facility] Temperature Oral (F) 98.1 F 11/29/2015 [facility] Temperature Oral (F) 98.2 F 11/29/2015 [facility] Heart Rate 88 11/29/2015 [facility] y Systolic (mm Hg) 145 11/29/2015 [facility] Diastolic (mm Hg) 76 11/29/2015 [facility] Respitory Rate 18 11/29/2015 [facility] ity BMI Calculated 26 11/24/2015 [facility]y Weight 82.2 11/24/2015 [facility] y Height 177.8 cm 11/24/2015 [facility] y Weight 79.091 11/17/2015 [facility] Height 177.8 cm 11/17/2015 [facility] y BMI Calculated 25.02 11/17/2015 [facility] C ity Encounters Location Location Encounter Encounter Reason Attending ADM DC Stat us Source Details Type Number For Provider Date Date Visit [facility] Inpatient [id number] Andrea 11/23 11/28 Brice Sarah /2015 [facility] [id number] Roman Arceo [facility]/10 [facility] Procedures Procedure Code Date Perfomer Comments Source Implantation of [id number] Alva al cardiac pacemaker [facility] Vasectomy [id number] [facility] Wide [id number] [facility] skin<sup>1</sup> Assessment and Plan Assessment and Plan Date Source Extracted from:Title: Clinical Document 11/29/2015 [facility] Author: Josias Rahman MD Date: 11/26/15 Colon [...] [place] (indwelling at home) - transfer to [facility] with telemetry Plan of Care No Data Provided for This Section Social History Social History Date Source Social History TypeResponse 11/24/2015 [facility] Substance Abuse Use: None. Alcohol Past, Type [...]
--- OUTSIDE RECORDS SUMMARY | 2020-03-04 09:58 | XMS REPORT | Continuity of Care Document ---
:1930 Author Organization [facility] t Address [address] [place] [address] Care Team Providers Name Role Phone Faustino Arceo Attending Clinician Kvng Sarah Attending Clinician Kvng Sarah Admitting Clinician Problems Condition Condition Condition Status Onset Resolution Last Treating Co mments Source Name Details Category Date Date Treatment Clinician Date FALL Diagnosis Active 2016-03-30 Mem oria -12 14:45:00 l FALL 00:00: Brice 00 Active 01/11/2016 [facility] [address], Diagnosis Active 2015-11-27 Mem oria K63.5, - 14:57:00 l COLON 75188, 00:00: [place] POLYPS K63.5, 00 COLON POLYPS Active 11/09/2015 [facility] 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 Problem 01/14/2016 [facility] Transient Problem Resolve 2016-01-14 M emoria ischemic d 04:04:31 l attack Brice (disorder) Transient ischemic attack (disorder) Resolved Problem 01/14/2016 [facility] Cardiac Problem Active 2016-01-14 Jesus marco arrhythmia 04:04:31 l (disorder) 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 [facility] Polyp of Problem Active 2016-01-14 Mem oria colon 04:04:31 l (disorder) 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 Social History Social Habit Start Date Stop Date Quantity Comments Source Social History 2015-11-24 2015-11-24 [facility] ermann 20:57:23 20:57:23 Medications Ordered Filled Start Stop Current Ordering Indication Dosage Frequency Signature Comments Components Source Medication Medication Date Date Medication? Clinician (SIG) Name Name Sodium Sodium Na Tenorio [address] Chloride Chloride 10-30 [facility] Clinics Lidocaine Lidocaine Yes Na Tenorio 1 patch [...] Dissolve l 12:52: in 8 oz of Brice 00 water or juice. (Same as: Miralax) Tylenol No Notes: Do Memor ia 11-25 not exceed l 13:15: 4 gm/day. Brice 00 (Same as: Tylenol) tramadol No Notes: Not Mem oria hydrochlori 11-25 to exceed l de 50 MG 13:15: 400mg/day. Her garrison Oral Tablet 00 (Same As: Ultram) D5W 1/2NS + No Notes: Jesus marco KCL 20mEq/L 11-25 PREMIX IV l 1000ml 13:13: - Do Not [place] (Premix) 00 Alter 1,000 mL WASTE: F/P - Sink; E - Municipal Trash Bin ketOROLAC No 4 days Memor ia 15 mg/mL 11-24 l injectable 17:00: MEDICATION H ermann solution 00 WASTE Product Size: 30 mg Product Wasted: _15__ mg Ofirmev No Notes: Memoria 11-24 Infuse l 17:00: over 15 [place] 00 minutes Do not exceed 4gm/day of [...] Do Memoria 11-24 not l 01:00: refrigerat [place] 00 e Atropine No Notes: Memoria Sulfate 10 11-23 (Same As: l MG/ML 22:00: Isopto Brice Ophthalmic 00 Atropine) Solution [Atropine-C are] Protonix No Notes: For Mem oria 11-23 IV push l 21:30: reconstitu Brice te with 10 ml 0.9% sodium chloride and push over 2 minutes. (Same as: Protonix) Flagyl No Notes: Memoria 11-23 (Same as: l 21:00: Flagyl) Brice 00 Avoid alcohol. Acetaminoph No Notes: Jesus marco en 10 MG/ML 11-23 Infuse l Injectable 21:00: over 15 Herm caridad Solution 00 minutes Do not exceed 4gm/day of acetaminop hen MEDICATION WASTE Product Size: 1000 mg Product Wasted: ___ mg Sodium No 25 mL, Memoria Chloride 11-23 Route: IV, l 0.9% IV 20:48: Start [place] 00 date: 11/24/15 15:48:00 CDT, Duration: 30 day, Stop date: 12/24/15 15:47:00 CDT, PRN Line Flush BD Normal No Notes: Memori a Saline 11-23 (Same as: l Flush 20:48: BD Brice Posiflush) Morphine No Notes: Memoria 11-23 (Same l 17:44: as:MORPhin [place] 00 e Sulfate) Zofran No Notes: Memoria 11-23 (Same as: l 17:40: Zofran) [place] 00 MEDICATION WASTE Product Size: 4 mg Product Wasted: ___ mg D5W 1/2NS + No Notes: Jesus marco KCL 20mEq/L 11-23 PREMIX IV l 1000ml 17:39: - Do Not [place] (Premix) 00 Alter 1,000 mL WASTE: F/P - Sink; E - Municipal Trash Bin sugammadex No Notes: Memor ia 11-23 (Same as: l 16:59: [place]) Ondansetron No Notes: Jesus marco 11-23 (Same as: l 13:53: Zofran) [place] 00 MEDICATION WASTE Product Size: 4 mg Product Wasted: ___ mg Naloxone No Notes: Memoria 11-23 Same as l 13:53: Narcan [place] 00 Flumazenil No Notes: Memor ia 11-23 (Same as: l 13:53: Romazicon) [place] Morphine No Notes: Memoria 11-23 (Same l 13:53: as:MORPhin Brice e Sulfate) bupivacaine No Notes: Jesus marco [...] Do Memoria 11-23 not l 05:00: refrigerat 00 e Ferrex 150 Yes 1 cap, PO, M emoria Plus 11-16 Daily, 0 l 14:42: Refill(s) Brice 00 [...] St Maleate Maleate [facility] Ferrex 150 Ferrex 150 Yes Na Tenorio [address] [facility] Trazodone Trazodone Yes Na Tenorio [address] HCl HCl at bedtime [facility] - as needed [facility] Atorvastati Atorvastati Yes Na Tenorio [address] [facility] n Calcium n Calcium [facility] Aspirin Aspirin Yes Na Tenorio [address] [facility] Clopidogrel Clopidogrel Yes Na Tenorio [address] Bisulfate Bisulfate [facility] Vital Signs Vital Name Observation Time Observation Value Comments Source Respitory Rate 2016-01-11 22:56:00 Memori al [place] Heart Rate 2016-01-11 22:56:00 Memorial [place] Systolic (mm Hg) 2016-01-11 22:56:00 Jesus rial Brice Diastolic (mm Hg) 2016-01-11 22:56:00 Mem orial [place] Heart Rate 2016-01-11 21:24:00 [facility] [place] Respitory Rate 2016-01-11 21:24:00 Memori al Brice Systolic (mm Hg) 2016-01-11 21:24:00 Jesus rial Brice Diastolic (mm Hg) 2016-01-11 21:24:00 Mem orial [place] Weight 2016-01-11 21:24:00 Memorial [place] Temperature Oral (F) 2016-01-11 21:24:00 98.5 F [facility] Brice Height 2016-01-11 21:24:00 177.8 cm [facility] Brice BMI Calculated 2016-01-11 21:24:00 Memori al [place] Heart Rate 2015-11-29 12:32:00 [facility] [place] Systolic (mm Hg) 2015-11-29 12:32:00 Jesus rial Brice Diastolic (mm Hg) 2015-11-29 12:32:00 Mem orial [place] Respitory Rate 2015-11-29 12:32:00 Memori al [place] Temperature Oral (F) 2015-11-29 12:32:00 98.0 F Memorial [place] Heart Rate 2015-11-29 09:00:00 Memorial [place] Respitory Rate 2015-11-29 09:00:00 Memori al [place] Systolic (mm Hg) 2015-11-29 09:00:00 Jesus rial Brice Diastolic (mm Hg) 2015-11-29 09:00:00 Mem orial [place] Temperature Oral (F) 2015-11-29 09:00:00 98.1 F [facility] Brice Temperature Oral (F) 2015-11-29 04:55:00 98.2 F Memorial [place] Heart Rate 2015-11-29 04:55:00 [facility] [place] Systolic (mm Hg) 2015-11-29 04:55:00 Jesus rial Brice Diastolic (mm Hg) 2015-11-29 04:55:00 Mem orial [place] Respitory Rate 2015-11-29 04:55:00 Memori al [place] BMI Calculated 2015-11-24 20:49:00 Memori al [place] Weight 2015-11-24 20:49:00 Memorial [place] Height 2015-11-24 20:49:00 177.8 cm Memorial [place] Weight 2015-11-17 14:17:00 Memorial [place] Height 2015-11-17 14:17:00 177.8 cm Memorial [place] BMI Calculated 2015-11-17 14:17:00 Memori al [place] Procedures Procedure Date / Time Performed Performing Clinician Alberto shannon 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 Vasectomy [facility] Brice Wide re-excision of Memorial Her garrison lesion of skin<sup>1</sup> Encounters Start End Encounter Admission Attending Care Care Encounter Source Date/Time Date/Time Type Type Clinicians Facility Department ID 2020-02-24 2020-02-24 Outpatient [facility]ML[facility] [id number] [facility] 2020-01-11 2020-01-11 [facility] [id number] [facility] 04:59:00 04:59:00 [facility] l Medicine Outpati ent Clinics 2020-01-09 2020-01-09 [facility] [id number] 14:40:00 14:40:00 t [facility] l Medicine Outpati ent Clinics 2019-11-23 2019-11-23 [facility] [id number] 19:34:00 19:34:00 t [employer] [facility] l Medicine Outpati ent Clinics 2019-11-04 2019-11-04 [facility] [id number] 07:06:00 07:06:[address] [facility] Medicine l Medicine Outpati ent Clinics 2019-10-31 2019-10-31 [facility] [id number] 13:00:00 13:00:[address] [facility] l Medicine Outpati ent Clinics 2019-10-25 2019-10-25 [facility] [id number] 13:25:00 13:25:[address] [facility] l Medicine Outpati ent Clinics 2019-10-25 2019-10-25 [facility] [id number] 13:22:00 13:22:[address] [facility] Medicine Outpati ent Clinics 2019-09-06 2019-09-06 [facility] [id number] 10:00:00 10:00:[address] [facility] Medicine Outpati ent Clinics 2019-08-19 2019-08-19 [facility] [id number] 10:57:00 10:57:00 t [employer] [facility] Medicine Outpati ent Clinics 2019-08-16 2019-08-16 [facility] [id number] 13:54:00 13:54:[address] [facility] Medicine Outpati ent Clinics 2019-08-05 2019-08-05 [facility] [id number] 15:54:00 15:54:[address] [facility] Medicine Outpati ent Clinics 2019-06-21 2019-06-21 [facility] [id number] 09:58:00 09:58:[address] [facility] l Medicine Outpati ent Clinics 2019-06-07 2019-06-07 [facility] [id number] 15:20:00 15:20:[address] [facility] Medicine Outpati ent Clinics 2016-01-11 2016-01-11 Outpatient Roman Arceo [facility] [id number] 16:11:00 17:58:00 Faustino Agarwal 2015-11-24 2015-11-29 Outpatient Tyrel [facility] [id number] 05:09:00 11:23:00 Andrea I 00 Results [...] code = MCH) 30.1 pg 27.0-31.0 Memorial JdhjlypZMXUPNRPMC6360-22-61 10:02:0091.5[facility] HermannHEMATOLOGY 2015-11-26 10:02:0031.4[facility] YgmdnqvFMAJJKPZGP1243-40-47 10:02:0010.3[facility] JudfcfaJNPNTEQSZT6753-78-96 10:02:003.44[facility] YcvkmntDQTQUTGJTV1683-76-28 10:02:007.7[facility] WuboohyMMUMLVVPAV6808-22-15 10:02:0015.0[facility] Brice GLWETMKYEA4259-72-28 10:02:0032.9[facility] KqkvdamPOSVPAEAHV0007-74-57 10:02:00 7.2[facility] HermannCHEM WUZEO2209-91-46 09:04:002.1[facility] HermannCHEM PANEL 2015-11-25 09:04:002.8[facility] VddjibhSRTGCMYMGOJQ3535-90-80 09:04:01065Yllxbfoq HoxssyjWEZRNZVJMBJI7027-75-87 09:04:008.0[facility] OzyllwdKXGRDSLHAWMV4824-58-52 09:04:07604Miqhwtoe ZedhcocPXLLYBSCJQXZ5918-59-91 09:04:003.9[facility] [place] CUVDUNAEUXXF0698-94-38 09:04:75024Lpkaojcz VyhbbmfNSESKQJZXYIO9763-30-74 09:04:009[facility] CwihwpoXRDJCHLUVPCR7040-23-85 09:04:000.92[facility] [place] EDWHUUWWQBXC7384-21-79 09:04:0024[facility] TvpnaaiQCDIGLVCBGNR4319-79-52 09:04:00 76[facility] XpbgtvwQGADRODOKALN8911-81-41 09:04:0014.9[facility] HermannHEMATOLOGY 2015-11-25 09:04:0033.0[facility] LuiehccAYVGEUQJVA3278-70-32 09:04:0015.1[facility] KqcjfgxSRJOUPVGJQ2928-39-07 09:04:006.7[facility] JmyszaoWOWDYAPWRF4376-64-42 09:04:79472Nmuqyzyf EcmfwvwMYUSKBHDSL0720-83-51 09:04:009.4[facility] Brice PBLEZPJAXA6841-30-23 09:04:0011.3[facility] IgrqtroZASOAUJVRK5109-41-85 09:04:00 3.82[facility] PjdfuxsRWXXUUQHGB5068-01-48 09:04:0089.4[facility] HermannHEMATOLOGY 2015-11-25 09:04:00 Test Item Value Reference Range Interpretation Comments MCH (test code = MCH) 29.5 pg 27.0-31.0 Memorial AkgldxtFEGDFTOJRV6050-91-32 09:04:0034.1[facility] HermannHEMATOLOGY 2015-11-25 09:04:000.0[facility] KermvqxIRDCQHRRIK2498-00-68 09:04:000.3[facility] YbvzgfrCXZYOIWPII4418-20-00 09:04:007.4[facility] WvdahddITELEOKBQM5581-58-34 09:04:000.8[facility] FwtjdxwHSRNTCQRBO9288-85-92 09:04:001.2[facility] [place] FUQTNOWEPR5759-17-63 09:04:0078.0[facility] NewbwhiLSQMXLCTFJ8077-26-15 09:04:00 8.8[facility]orial LrkwomhPRTNQHMLGR6796-17-64 09:04:0012.7[facility] HermannHEMATOLOGY 2015-11-25 09:04:000.2[facility]ann[facility]OD BANK IDHQWSH4528-02-04 15:06:00 Positive 1(11/17/15 10:06 AM)Nancy Narvaez"
--- OUTSIDE RECORDS SUMMARY | 2020-03-04 09:59 | XMS REPORT ---
[...] Status Dosage System Date Date Clopidogrel ND 44840068148 75 MG Orally Active 1 t ablet Bisulfate Once a day Atorvastatin ND 72615392391 40 MG Orally Active 1 tablet Calcium Once a day Trazodone HCl ND 59225480593 50 MG Orally Active 1 tablet Once a day at bedtime as needed Enalapril ND 45661836418 2.5 MG Orally Active 1 ta blet Maleate Once a day Ferrex 150 ND 02998823895 150 MG Orally Active 1 c apsule Once a day Sodium Chloride ND 79546287038 1 GM Orally Active 1 tablet Twice a day Aspirin [facility] 41331843007 81 MG Orally Active 1 table t Once a day Lidocaine [facility] 62061808812 5 % Externally July Active 1 p atch to Once a day 2019 skin as needed Results Name Result Date Reference Range Unit Abnormali ty Flag Ferritin ----Ferritin 101.8 20200110 26-388 ng/mL Summary Purpose eClinicalWorks Submission
--- OUTSIDE RECORDS SUMMARY | 2020-03-04 09:59 | XMS REPORT ---
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 Active 0586221 Problem History of skin Z85.828 Active 628176879 cancer Problem Transient G45.9 Active 420476534 ischemic attack (TIA) Problem Iron deficiency D50.9 Active 21307921 anemia, unspecified iron deficiency anemia type Problem Anemia D64.9 Active 269496390 Problem HTN I10 Active 65896855 (hypertension) Problem Cancer C80.1 Active 44135908 Problem Prostate pain N42.81 Active 71373851 Problem Chronic Z96.0 Active 608279346 indwelling Scott catheter Problem Need for R26.89 Active 575741839 assistance due to unsteady gait ALLERGIES No Known Allergies ENCOUNTERS from 1930 to 2020-02-24 Encounter Location Date [facility] [address] [facility] [address], [place] [address] IMMUNIZATIONS No Information SOCIAL HISTORY Tobacco Use: Social History Observation Description Date Details (start date - stop date) Former Smoker Sex Assigned At : Social History Observation Description Sex Assigned At Unknown Tobacco Use/Smoking Question Answer Notes Are you a former smoker REASON FOR REFERRAL No Information VITAL SIGNS No information MEDICATIONS Medication SIG (Take, Route, Frequency, Start Date End Date Status Duration) Aspirin 81 MG 1 tablet Orally Once a day Active for 90 days Ferrex 150 150 MG 1 capsule Orally Once a day Active for 90 days Sodium Chloride 1 GM 1 tablet Orally Twice a day Active for 30 days Lidocaine 5 % 1 patch to skin as needed Jul, A ctive Externally Once a day for 30 days Trazodone HCl 50 MG 1 tablet Orally AT bed time Jan, Active for 90 days Clopidogrel Bisulfate 75 MG 1 tablet Orally Once a day Active for 90 days Atorvastatin Calcium 40 MG 1 tablet Orally Once a day Active for 90 days Enalapril Maleate 2.5 MG 1 tablet Orally Once a day Active PROCEDURES No Information RESULTS No Results REASON FOR VISIT not sleeping MEDICAL (GENERAL) HISTORY Type Description Date Medical History Prostate pain Medical History Cancer Medical History HTN (hypertension) Medical History COPD (chronic obstructive pulmonary dise ase) Surgical History pace maker 2015 Surgical History colon resection 2015 Surgical History boil/infection 2018 Surgical History catheter Surgical History skin cancer Goals Section No Information Health Concerns No Information MEDICAL EQUIPMENT No Information MENTAL STATUS No Information FUNCTIONAL STATUS No Information ASSESSMENTS No Information PLAN OF TREATMENT Medication Medication Name Sig Start Date Stop Date Aspirin 81 MG 1 tablet Orally Once a day for 90 days Clopidogrel Bisulfate 75 MG 1 tablet Orally Once a day for 90 days Atorvastatin Calcium 40 MG 1 tablet Orally Once a day for 90 days Trazodone HCl 50 MG 1 tablet Orally AT bed time for 90 Jan, 020 days Ferrex 150 150 MG 1 capsule Orally Once a day for 90 days Sodium Chloride 1 GM 1 tablet Orally Twice a day for 30 days Enalapril Maleate 2.5 MG 1 tablet Orally Once a day Insurance Providers Payer Name Payer Address Payer Insured Patient Coverage Cover age Phone Name Relationship to Start Date End Date Insured MEDICARE Attn Part B [id number] Frank Will self 1995 [employer] Claims [address] [place] [address] [employer] [address] [phone] Frank Will self 2018 [place] [address] [address]
--- OUTSIDE RECORDS SUMMARY | 2020-03-04 09:59 | XMS REPORT ---
[...] Medications Results No Known Results Summary Purpose [facility] Medicalinical[facility] Submission
[2020-03-04 10:45] LABS: Absolute Lymphocytes (CBC) 0.5 K/uL (0.7-4.9); Basophils % 0.1 % (0-1.3); Hematocrit 37.8 % (39.6-49.0); Lymphocytes % 5.3 % (15.3-44.8); RBC Red Blood Cell Count 4.23 M/uL (4.33-5.43)
[2020-03-04 10:55] LABS: Protime INR 1.03
[2020-03-04 11:06] LABS: Albumin 3.5 g/dL (3.4-5.0); Bilirubin Direct 0.4 mg/dL (0-0.2); Bilirubin Total 1.2 mg/dL (0.2-1.0); Magnesium 2.5 mg/dL (1.8-2.4); Potassium 4.3 mmol/L (3.5-5.1); Protein, Total 7.4 g/dL (6.4-8.2); Troponin (Emerg Dept Use Only) 0.04 ng/mL (0.0-0.045)
[2020-03-04] MEDS ORDERED: NACL 0.9% IRR SOLN 2,000 ML IRR ONE ×4 (11:30→18:41)
--- NOTE | 2020-03-04 11:35 | RAD REPORT ---
EXAM DESCRIPTION: RAD - Chest Single View - 03/04/2020 11:22 am CLINICAL HISTORY: gross hematuriacough COMPARISON: Portable October 22, 2019 TECHNIQUE: AP portable chest image was obtained 03/04/2020 11:22 am . FINDINGS: No focal lung parenchymal process. Interstitial pattern matches comparison. Pacemaker is i n place. Heart and vasculature are normal. No measurable pleural effusion and no pneumothorax. No acu te bony abnormality seen. No acute aortic finding. Calcifications of the aorta match comparison. Bowel interposition between the liver and right hemidiaphragm again noted. No free air under the diap hragm. IMPRESSION: No acute cardiopulmonary process. No significant change comparison.
--- NOTE | 2020-03-04 12:23 | RAD REPORT ---
EXAM DESCRIPTION: CT - Abdomen Pelvis W Contrast - 03/04/2020 12:07 pm CLINICAL HISTORY: ABD PAIN COMPARISON: Head C Spine Cap Wo Con dated 07/10/2017 TECHNIQUE: Biphasic, helical CT imaging of the abdomen and pelvis was performed following 100 ml non -ionic IV contrast. No oral contrast given. All CT scans are performed using dose optimization technique as appropriate and may include automated exposure control or mA/KV adjustment according to patient size. FINDINGS: Fibrotic stranding present at both lung bases. No pleural effusion and no pneumothorax. No pericardial effusion. The liver, spleen, and pancreas show no suspicious findings. No gallstones confirmed. There does appe ar to be some sludge or increased density fluid in the dependent portion of the gallbladder fundus. N o wall thickening or edema. No biliary tree dilatation. Renal function is symmetric and does not appear to be delayed. However, there is at least moderate se verity hydronephrosis and hydroureter to the UVJ level. No pyelonephritis or acute parenchymal proces s. Small renal cysts are present. No adrenal abnormalities. Patient has marked enlargement of the prostate gland measuring 7.2 cm AP x 7.7 cm TR. The patient's F oley catheter balloon is below not within the prostatic urethra. An 8 centimeter area of lobulated ma terial or soft tissue masses present in the posterior and inferior aspect of the bladder. Air is pres ent within the lumen. The large 8 centimeter mass component may be entirely hematoma. An underlying b ladder mass may be present when the hemorrhagic component resolves. Free air is presumed to be relate d to placement of the Scott catheter. The tip of the Scott catheter is buckled at the trigone. No dilated bowel loops or bowel wall thickening. Colonic diverticulosis present without diverticuliti s. No acute bowel process. No intraperitoneal free air or free fluid. No pneumatosis. Bilateral fat filled inguinal hernias are present. No suspicious bony findings. Disc and bony degenerative changes are present. Dense arterial tree calc ifications. IMPRESSION: A large 8 centimeter lobulated soft tissue density masses present in the posterior and p osteroinferior bladder. This may entirely be blood clot. An underlying isodense mass could be present once the suspected hematoma resolves. Patient has marked enlargement of the prostate gland. The Scott catheter balloon is inflated within t he prostatic urethra rather than the bladder lumen. Significant bilateral hydronephrosis and hydroureter down to the UVJ level likely due to the obstruct jenni affects of the hematoma and/or mass as well as the prostatic enlargement. .
[2020-03-04 12:26] LABS: Blood Morphology Comment NOT SEEN (NOT SEEN); Platelet Estimate ADEQ; White Blood Cell Scan OK (OK)
--- NOTE | 2020-03-04 13:10 | ER ---
Nurse's Notes [facility] Name: Khris Will Age: 89 yrs Sex: Male : 1930 Arrival Date: 03/04/2020 Time: 10:02 Bed 15 Private MD: Diagnosis: Hematuria;Anemia in other chronic diseases classified elsewhere Presentation: 03/04 10:03 Chief complaint: EMS states: Bloody urine/Scott cath since 1800 yesterday. Pain on ca1 penis at 1900 yesterday. VS WNL. nurse reports pt on Scott for prostate issues. Denies previous episode of blood in Scott cath. Coronavirus screen: Client denies travel out of the [place] in the last 14 days. At this time, the client does not indicate any symptoms associated with coronavirus-19. Ebola Screen: Patient negative for fever greater than or equal to 101.5 degrees Fahrenheit, and additional compatible Ebola Virus Disease symptoms Patient denies exposure to infectious person. Patient denies travel to an Ebola-affected area in the 21 days before illness onset. No symptoms or risks identified at this time. Initial Sepsis Screen: Does the patient meet any 2 criteria? No. Patient's initial sepsis screen is negative. Does the patient have a suspected source of infection? No. Patient's initial sepsis screen is negative. Risk Assessment: Do you want to hurt yourself or someone else? Patient reports no desire to harm self or others. Onset of symptoms was March 03, 2020 at 18:00. Transition of care: Charissa Jordan. 10:03 Acuity: CONCEPCION 3 ca1 10:03 Method Of Arrival: EMS: [facility] ca1 Triage Assessment: 10:09 General: Appears in no apparent distress. comfortable, Behavior is calm, cooperative, ca1 appropriate for age. Pain: Complains of pain in head of penis and shaft of penis Pain currently is 7 out of 10 on a pain scale. Pain began 1 day ago. Also complains of bloody urine. EENT: No signs and/or symptoms were reported regarding the EENT system. Neuro: Level of Consciousness is awake, alert, obeys commands, Oriented to person, place, time, situation. Cardiovascular: Heart tones S1 S2 present Capillary refill < 3 seconds Patient's skin is warm and dry. Rhythm is ventricular pacer. Respiratory: Airway is patent Respiratory effort is even, unlabored, Respiratory pattern is regular, symmetrical, Breath sounds are clear bilaterally. GI: Abdomen is flat, non-distended, Bowel sounds present X 4 quads. Abd is soft and non tender X 4 quads. GI: Reports nausea. : Scott in place to gravity drainage Urine is daisy blood, Genitalia appear normal Reports pain penis. Derm: Skin is intact, is healthy with good turgor, Skin is pink, warm \\T\\ dry. Musculoskeletal: Circulation, motion, and sensation intact. Capillary refill < 3 seconds. Historical: - Allergies: 10:09 No Known Allergies; ca1 - Home Meds: 10:09 enalapril maleate 2.5 mg Oral tab 1 tab once daily [Active]; clopidogrel 75 mg oral tab ca1 1 tab once daily [Active]; Ferrex 150 150 mg iron Oral cap daily [Active]; trazodone 50 mg Oral tab 1 tab daily [Active]; sodium chloride 1 gram oral tab twice a day [Active]; atorvastatin 40 mg oral tab 1 tab once daily [Active]; aspirin 81 mg Oral TbEC 1 tab once daily [Active]; - PMHx: 10:09 bladder "shut down"; Hypertension; Pacemaker; Renal Disease; skin cancer; Dementia; ca1 Major Depressive Disorder; - PSHx: 10:09 colon resection; ca1 - Immunization history:: Adult Immunizations up to date, Flu vaccine is up to date. - Social history:: Smoking status: Patient denies any tobacco usage or history of. Screenin:10 Abuse screen: Denies threats or abuse. Denies injuries from another. Nutritional ca1 screening: No deficits noted. Tuberculosis screening: No symptoms or risk factors identified. Fall Risk Secondary diagnosis (15 points) dementia, IV access (20 points). Ambulatory Aid- Crutches/Cane/Walker (15 pts). Total Reyes Fall Scale indicates High Risk Score (45 or more points). Fall prevention measures have been instituted. Side Rails Up X 2 Frequent Obs/Assessments Occuring As available patient and family educated on Fall Prevention Program and Strategies. Assessment: 10:10 Reassessment: see triage notes. ca1 11:10 Reassessment: Patient appears in no apparent distress at this time. Patient and/or ca1 family updated on plan of care and expected duration. Pain level reassessed. Patient is alert, oriented x 3, equal unlabored respirations, skin warm/dry/pink. 12:10 Reassessment: Patient appears in no apparent distress at this time. Patient and/or ca1 family updated on plan of care and expected duration. Pain level reassessed. Patient is alert, oriented x 3, equal unlabored respirations, skin warm/dry/pink. 12:37 Reassessment: Kane Lopez notified that patient's type and screen was positive for ss antibodies. 12:48 Reassessment: Bladder irrigation done until clear. KARLA Cardona at bedside. ca1 13:27 Reassessment: Patient appears in no apparent distress at this time. Patient and/or ca1 family updated on plan of care and expected duration. Pain level reassessed. Patient is alert, oriented x 3, equal unlabored respirations, skin warm/dry/pink. 14:30 Reassessment: Patient appears in no apparent distress at this time. Patient and/or ca1 family updated on plan of care and expected duration. Pain level reassessed. Patient is alert, oriented x 3, equal unlabored respirations, skin warm/dry/pink. 14:56 Reassessment: Urologist at bedside. ca1 15:10 Reassessment: Patient appears in no apparent distress at this time. Patient is alert, ca1 oriented x 3, equal unlabored respirations, skin warm/dry/pink. 15:42 Reassessment: Patient appears in no apparent distress at this time. Patient is alert, ca1 oriented x 3, equal unlabored respirations, skin warm/dry/pink. 15:57 Reassessment: Dr. Swanson, Urologist wrote notes on pt's physical chart. Made a copy ca1 and sent with pt to room. Dr. Swanson talked to receiving nurse at the floor and gave instructions with CBI and manual irrigation. 16:50 Reassessment: Patient appears in no apparent distress at this time. Patient and/or ca1 family updated on plan of care and expected duration. Pain level reassessed. Patient is alert, oriented x 3, equal unlabored respirations, skin warm/dry/pink. Vital Signs: 10:03 BP 136 / 82; Pulse 76; Resp 16 S; Temp 97.8(TE); Pulse Ox 95% on R/A; Weight 81.65 kg ca1 (R); Height 5 ft. 1 in. (154.94 cm) (R); Pain 7/10; 10:30 BP 125 / 75; Pulse 81; Resp 16 S; Pulse Ox 100% on R/A; ca1 11:00 BP 138 / 93; Pulse 89; Resp 16 S; Pulse Ox 98% on R/A; ca1 11:30 BP 117 / 75; Pulse 87; Resp 16 S; Pulse Ox 97% on R/A; ca1 12:00 BP 134 / 84; Pulse 84; Resp 16 S; Pulse Ox 98% on R/A; ca1 12:30 BP 120 / 80; Pulse 96; Resp 16 S; Pulse Ox 98% on R/A; ca1 13:00 BP 101 / 72; Pulse 93; Resp 16 S; Pulse Ox 99% on R/A; ca1 13:27 BP 106 / 57; Pulse 94; Resp 16 S; Pulse Ox 97% on R/A; ca1 13:52 BP 117 / 72; Pulse 95; Resp 16 S; Pulse Ox 97% on R/A; ca1 14:31 BP 121 / 82; Pulse 97; Resp 16 A; Pulse Ox 98% on R/A; ca1 15:00 BP 125 / 83; Pulse 100; Resp 16 S; Pulse Ox 99% on R/A; ca1 15:30 BP 117 / 75; Pulse 99; Resp 20 S; Pulse Ox 98% on R/A; ca1 16:50 BP 118 / 75; Pulse 100; Resp 16 S; Pulse Ox 98% on R/A; ca1 10:03 Body Mass Index 34.01 (81.65 kg, 154.94 cm) ca1 ED Course: 10:02 Patient arrived in ED. ca1 10:03 Kane Lopez PA is PHCP. cp 10:03 Scooby Henry MD is Attending Physician. cp 10:05 Triage completed. ca1 10:09 Arm band placed on right wrist. ca1 10:10 Patient has correct armband on for positive identification. Placed in gown. Bed in low ca1 position. Call light in reach. Side rails up X2. Pulse ox on. NIBP on. Warm blanket given. 10:26 Inserted saline lock: 20 gauge in right antecubital area, using aseptic technique. ca1 Blood collected. 10:28 EKG done, by overhead door technician. reviewed by Kane ACOSTA. ca1 11:00 3-way catheter inserted, using sterile technique, 24 Fr. Returned bloody urine. ca1 11:03 Acob, Carlotta, ADRIANNA is Primary Nurse. ca1 11:10 Bladder irrigated via Scott with 75 ml normal saline returned daisy blood Patient ca1 tolerated well. 11:22 XRAY Chest (1 view) In Process Unspecified. EDMS 11:50 Bladder irrigated via with CBI with 200 ml normal saline returned nothing Patient ca1 tolerated well. 12:00 Bladder irrigated via Scott with 160 normal saline returned nothing Patient tolerated ca1 well. 12:06 CT Abd/Pelvis - IV Contrast Only In Process Unspecified. EDMS 12:48 Bladder irrigated via Scott with 250 ml normal saline returned clear fluid Patient ca1 tolerated well. 13:40 Jose Manuel Thompson is Hospitalizing Provider. cp 13:56 Pablo Alexis MD is Hospitalizing Provider. cp 13:57 Urine collected: Scott catheter specimen, daisy blood. ca1 13:57 Urine Culture Sent. ca1 13:57 Urine Microscopic Only Sent. ca1 15:15 No provider procedures requiring assistance completed. Patient admitted, IV remains in ca1 place. Bladder irrigated via by Dr. Swanson with 500 ml normal saline returned clear fluid Patient tolerated well. 16:18 Hematocrit Sent. jp3 16:18 Hemoglobin Sent. jp3 Administered Medications: 15:15 Drug: Rocephin 1 grams Route: IV; Rate: calculated rate; Site: right antecubital; ca1 Outcome: 13:09 ER care complete, transfer ordered by MD. cp 13:41 Decision to Hospitalize by Provider. cp 15:50 Admitted to Med/surg accompanied by tech, via stretcher, room 212, with chart, Other ca1 with CBI Report called to ADRIANNA Jama 15:50 Condition: stable 15:50 Instructed on the need for admit. 17:11 Patient left the ED. ca1 Signatures: Dispatcher [employer] EDNY Flaca Hill RN RN ss Kane Lopez PA PA cp Jonatan Garcia jp3 Carlotta Arciniega RN RN ca1 Corrections: (The following items were deleted from the chart) 10:31 10:09 : No signs and/or symptoms were reported regarding the genitourinary system. ca1ca1 10:34 10:09 Cardiovascular: Heart tones S1 S2 present Capillary refill < 3 seconds Patient's ca1 skin is warm and dry. ca1
--- NOTE | 2020-03-04 13:10 | EDPHYS ---
Physician Documentation [facility] Name: Khris Will Age: 89 yrs Sex: Male : 1930 Arrival Date: 03/04/2020 Time: 10:02 Bed 15 Private MD: ED Physician Scooby Henry HPI: 03/04 10:14 This 89 yrs old Male presents to ER via EMS with complaints of Blood In cp Catheter. 10:14 The patient presents with gross hematuria. Onset: The symptoms/episode began/occurred cp yesterday. Associated signs and symptoms: Pertinent positives: abdominal pain, hematuria, Pertinent negatives: diarrhea, fever, vomiting. Severity of symptoms: in the emergency department the symptoms are unchanged. Historical: - Allergies: 10:09 No Known Allergies; ca1 - Home Meds: 10:09 enalapril maleate 2.5 mg Oral tab 1 tab once daily [Active]; clopidogrel 75 mg oral tab ca1 1 tab once daily [Active]; Ferrex 150 150 mg iron Oral cap daily [Active]; trazodone 50 mg Oral tab 1 tab daily [Active]; sodium chloride 1 gram oral tab twice a day [Active]; atorvastatin 40 mg oral tab 1 tab once daily [Active]; aspirin 81 mg Oral TbEC 1 tab once daily [Active]; - PMHx: 10:09 bladder "shut down"; Hypertension; Pacemaker; Renal Disease; skin cancer; Dementia; ca1 Major Depressive Disorder; - PSHx: 10:09 colon resection; ca1 - Immunization history:: Adult Immunizations up to date, Flu vaccine is up to date. - Social history:: Smoking status: Patient denies any tobacco usage or history of. ROS: 10:16 Eyes: Negative for injury, pain, redness, and discharge. cp 10:16 Constitutional: Negative for fever, poor PO intake. 10:16 ENT: Negative for ear pain, sore throat, difficulty swallowing, difficulty handling secretions. 10:16 Cardiovascular: Negative for chest pain, edema. 10:16 Respiratory: Negative for cough, shortness of breath, wheezing. 10:16 Abdomen/GI: Positive for abdominal pain, Negative for vomiting, diarrhea, constipation. 10:16 Back: Negative for pain at rest, pain with movement. 10:16 : Positive for hematuria, Negative for flank pain. 10:16 Neuro: Negative for altered mental status, headache, weakness. 10:16 All other systems are negative. Exam: 10:17 Head/Face: Normocephalic, atraumatic. cp 10:17 Constitutional: The patient appears in no acute distress, alert, awake, non-toxic, well developed, well nourished. 10:17 Eyes: Periorbital structures: appear normal, Conjunctiva: normal, no exudate, no injection, Sclera: no appreciated abnormality, Lids and lashes: appear normal, bilaterally. 10:17 ENT: External ear(s): are unremarkable, Nose: is normal, Posterior pharynx: Airway: no evidence of obstruction, patent. 10:17 Chest/axilla: Inspection: normal, Palpation: is normal, no crepitus, no tenderness. 10:17 Cardiovascular: Rate: normal. 10:17 Respiratory: the patient does not display signs of respiratory distress, Respirations: normal, no use of accessory muscles, no retractions, labored breathing, is not present, Breath sounds: are clear throughout, no decreased breath sounds. 10:17 Abdomen/GI: Inspection: abdomen appears normal, Bowel sounds: active, all quadrants, Palpation: soft, in all quadrants, mild abdominal tenderness, in the right lower quadrant and left lower quadrant, rebound tenderness, is not appreciated, voluntary guarding, is elicited in the right lower quadrant and left lower quadrant. 10:17 Back: CVA tenderness, is absent. 10:30 ECG was reviewed by the Attending Physician. cp Vital Signs: 10:03 BP 136 / 82; Pulse 76; Resp 16 S; Temp 97.8(TE); Pulse Ox 95% on R/A; Weight 81.65 kg ca1 (R); Height 5 ft. 1 in. (154.94 cm) (R); Pain 7/10; 10:30 BP 125 / 75; Pulse 81; Resp 16 S; Pulse Ox 100% on R/A; ca1 11:00 BP 138 / 93; Pulse 89; Resp 16 S; Pulse Ox 98% on R/A; ca1 11:30 BP 117 / 75; Pulse 87; Resp 16 S; Pulse Ox 97% on R/A; ca1 12:00 BP 134 / 84; Pulse 84; Resp 16 S; Pulse Ox 98% on R/A; ca1 12:30 BP 120 / 80; Pulse 96; Resp 16 S; Pulse Ox 98% on R/A; ca1 13:00 BP 101 / 72; Pulse 93; Resp 16 S; Pulse Ox 99% on R/A; ca1 13:27 BP 106 / 57; Pulse 94; Resp 16 S; Pulse Ox 97% on R/A; ca1 13:52 BP 117 / 72; Pulse 95; Resp 16 S; Pulse Ox 97% on R/A; ca1 14:31 BP 121 / 82; Pulse 97; Resp 16 A; Pulse Ox 98% on R/A; ca1 15:00 BP 125 / 83; Pulse 100; Resp 16 S; Pulse Ox 99% on R/A; ca1 15:30 BP 117 / 75; Pulse 99; Resp 20 S; Pulse Ox 98% on R/A; ca1 16:50 BP 118 / 75; Pulse 100; Resp 16 S; Pulse Ox 98% on R/A; ca1 10:03 Body Mass Index 34.01 (81.65 kg, 154.94 cm) ca1 MDM: 10:06 Patient medically screened. cp 11:00 Differential diagnosis: Scott catheter problem, prostatitis, urethritis, anemia, kidney cp stone. 13:15 Physician consultation: Bladimir Swanson MD was contacted at 13:15, regarding consult, cp patient's condition, and will see patient in ED. 13:45 Physician consultation: Pablo Alexis MD was contacted at 13:40, regarding admission, cp to the telemetry unit. patient's condition. 13:45 Data reviewed: vital signs, nurses notes, lab test result(s), EKG, radiologic studies, cp CT scan. 13:45 Test interpretation: by ED physician or midlevel provider: ECG, chest xray negative for cp infiltrates. 03/04 10:10 Order name: Basic Metabolic Panel; Complete Time: 11:16 cp 03/04 11:16 Interpretation: Normal except: NA 130; GLUC 139; GFR 64. cp 03/04 10:10 Order name: CBC with Diff; Complete Time: 12:27 cp 03/04 10:54 Interpretation: Normal except: RBC 4.23; HGB 12.8; HCT 37.8; MPV 7.0; MEGHA% 85.9; LYM% cp 5.3; NEUT A 8.7; LYMA 0.5. 03/04 10:10 Order name: LFT's; Complete Time: 11:16 cp 03/04 11:21 Interpretation: Normal except: BILIT 1.2; BILID 0.4; GLOB 3.9; A/G 0.9. 03/04 10:10 Order name: Magnesium; Complete Time: 11:16 03/04 10:10 Order name: PT-INR; Complete Time: 11:16 03/04 10:10 Order name: Troponin (emerg Dept Use Only); Complete Time: 11:16 03/04 11:16 Interpretation: Reviewed. 03/04 10:10 Order name: Lipase; Complete Time: 11:16 03/04 10:10 Order name: Ptt, Activated; Complete Time: 11:16 03/04 10:10 Order name: Type And Screen; Complete Time: 13:37 03/04 10:10 Order name: Urine Microscopic Only 03/04 12:17 Order name: ABO/RH no charge; Complete Time: 12:27 [facility] 03/04 12:26 Order name: CBC Smear Scan; Complete Time: 12:27 EDMT 03/04 12:37 Order name: Antibody Identification; Complete Time: 13:37 [facility] 03/04 13:08 Order name: Urine Culture 03/04 10:10 Order name: XRAY Chest (1 view); Complete Time: 12:27 03/04 11:33 Order name: CT Abd/Pelvis - IV Contrast Only; Complete Time: 12:27 03/04 13:14 Order name: Antigen type; Complete Time: 13:37 [facility] 03/04 14:34 Order name: Comprehensive Metabolic Panel [facility] 03/04 14:34 Order name: Comprehensive Metabolic Panel [facility] 03/04 14:34 Order name: Platelet Function Analysis EDMT 03/04 14:34 Order name: Platelet Function Analysis EDMT 03/04 14:34 Order name: Protime (+INR) EDMT 03/04 14:34 Order name: Protime (+INR) EDMT 03/04 14:34 Order name: PTT, Activated Partial Thromb EDMS 03/04 14:34 Order name: PTT, Activated Partial Thromb EDMT 03/04 14:35 Order name: CBC with Automated Diff EDMS 03/04 14:35 Order name: CBC with Automated Diff EDMT 03/04 14:35 Order name: Hematocrit EDMT 03/04 14:35 Order name: Hemoglobin EDMS 03/04 10:10 Order name: EKG; Complete Time: 10:11 cp 03/04 10:10 Order name: Cardiac monitoring; Complete Time: 10:30 03/04 10:10 Order name: EKG - Nurse/Tech; Complete Time: 10:30 03/04 10:10 Order name: IV Saline Lock; Complete Time: 10:30 03/04 10:10 Order name: Labs collected and sent; Complete Time: 10:30 03/04 10:10 Order name: O2 Per Protocol; Complete Time: 10:30 03/04 10:10 Order name: O2 Sat Monitoring; Complete Time: 10:30 03/04 10:10 Order name: Scott-Three way; Complete Time: 11:03 03/04 11:34 Order name: Labs - recollect needed: collect abo/rh no charge; Complete Time: 11:54 bd 03/04 13:27 Order name: Bladder Irrigation; Complete Time: 13:27 ca1 03/04 14:34 Order name: CONS Pharmacy Consult [facility] 03/04 14:34 Order name: CONS Physician Consult [facility] 03/04 14:34 Order name: NPO EDMT EC:30 Rate is 77 beats/min. Rhythm is regular, Paced. MS interval is normal. QRS interval is cp prolonged at 144 msec. QT interval is normal. T waves are Inverted in lead aVR. Interpreted by me. Reviewed by me. Administered Medications: 15:15 Drug: Rocephin 1 grams Route: IV; Rate: calculated rate; Site: right antecubital; ca1 Disposition: 17:30 Co-signature as Attending Physician, Scooby eHnry MD. rn Disposition: 03/04/20 13:41 Hospitalization ordered by Pablo Alexis for Inpatient Admission. 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 - Bed requested for Telemetry/MedSurg (Inpatient). - Status is Inpatient Admission. ca1 - Condition is Stable. - Problem is new. - Symptoms have improved. Signatures: Dispatcher [employer] EDMT Noelle Garcia Kimberly, RN RN kl Nieto, Roman, MD MD rn Page, Corey, PA PA cp Acob, Cheryl, RN RN ca1 Corrections: (The following items were deleted from the chart) 13:39 13:09 03/04/2020 13:[address] [facility]. cp Diagnosis is Hematuria. Reason for transfer: Higher level of care. Accepting physician is Doctor. Condition is Stable. Problem is new. Symptoms have improved. cp 13:52 10:10 Urine Dipstick-Ancillary ordered. cp ca1 13:56 13:41 Hospitalization Ordered by Jose Manuel Thompson for Inpatient Admission. Preliminary cp diagnosis is Hematuria. Bed requested for Telemetry/MedSurg (Inpatient). Status is Inpatient Admission. Condition is Stable. Problem is new. Symptoms have improved. cp 13:56 13:56 03/04/2020 13:41 Hospitalization Ordered by Pablo Alexis MD for Inpatient cp Admission. Preliminary diagnosis is Hematuria. Bed requested for Telemetry/MedSurg (Inpatient). Status is Inpatient Admission. Condition is Stable. Problem is new. Symptoms have improved. cp 15:25 13:56 03/04/2020 13:41 Hospitalization Ordered by Pablo Alexis MD for Inpatient bd Admission. Preliminary diagnosis is Hematuria; Anemia in other chronic diseases classified elsewhere. Bed requested for Telemetry/MedSurg (Inpatient). Status is Inpatient Admission. Condition is Stable. Problem is new. Symptoms have improved. cp 15:26 15:25 03/04/2020 13:41 Hospitalization Ordered by Pablo Alexis MD for Inpatient kl Admission. Preliminary diagnosis is Hematuria; Anemia in other chronic diseases classified elsewhere. Bed requested for Telemetry/MedSurg (Inpatient). Status is Inpatient Admission. Condition is Stable. Problem is new. Symptoms have improved. bd 15:39 15:26 03/04/2020 13:41 Hospitalization Ordered by Pablo Alexis MD for Inpatient bd Admission. Preliminary diagnosis is Hematuria; Anemia in other chronic diseases classified elsewhere. Bed requested for Telemetry/MedSurg (Inpatient). Status is Inpatient Admission. Condition is Stable. Problem is new. Symptoms have improved. kl 17:11 15:39 03/04/2020 13:41 Hospitalization Ordered by Pablo Alexis MD for Inpatient ca1 Admission. Preliminary diagnosis is Hematuria; Anemia in other chronic diseases classified elsewhere. Bed requested for Telemetry/MedSurg (Inpatient). Status is Inpatient Admission. Condition is Stable. Problem is new. Symptoms have improved. bd
[2020-03-04] MEDS ORDERED: MORPHINE 2 MG/ML SYR IV PRN (14:26)
[2020-03-04] MEDS ORDERED: ACETAMINOPHEN 500 MG TAB PO PRN (14:26)
[2020-03-04] MEDS ORDERED: ONDANSETRON 4 MG/2 ML VIAL IV PRN (14:26)
[2020-03-04 14:56] LABS: Urine Bacteria <20 /HPF (NONE SEEN); Urine Culture Reflex Order NOT NEEDED; Urine RBC <5 /HPF (NONE SEEN)
[2020-03-04] MEDS ORDERED: CEFTRIAXONE/SWI 1gm 1 GM/10 ML SYR ONE (15:20)
[2020-03-04] MEDS ORDERED: H2O FOR IRR,STER 1,000 ML IRR SCH (16:00)
[2020-03-04] MEDS ORDERED: NACL 0.9% IRR SOLN 4,000 ML IRR ONE (16:16)
[2020-03-04 16:33] LABS: Hematocrit 35.2 % (39.6-49.0)
[2020-03-04 17:44] VITALS: BMI 26.4
[2020-03-04] MEDS: NA CHLORIDE 0.9% 1,000 ML IV SCH (18:30)
[2020-03-04 19:42] LABS: Hematocrit 34.9 % (39.6-49.0)
[2020-03-04] MEDS: SODIUM CHL 0.9% IRR SOLN 2000 ML IRR PRN ×4 (20:03→23:43)
[2020-03-05 00:40] LABS: Hematocrit 32.4 % (39.6-49.0)
[2020-03-05] MEDS: SODIUM CHL 0.9% IRR SOLN 2000 ML IRR PRN ×6 (01:04→16:01)
[2020-03-05 04:12] LABS: Absolute Lymphocytes (CBC) 1.2 K/uL (0.7-4.9); Basophils % 0.4 % (0-1.3); Hematocrit 31.5 % (39.6-49.0); Lymphocytes % 13.6 % (15.3-44.8); MPV 7.1 fL (7.6-11.3); RBC Red Blood Cell Count 3.52 M/uL (4.33-5.43)
[2020-03-05 04:35] LABS: Albumin 2.9 g/dL (3.4-5.0); Bilirubin Total 0.9 mg/dL (0.2-1.0); Potassium 4.1 mmol/L (3.5-5.1); Protein, Total 6.6 g/dL (6.4-8.2)
[2020-03-05 04:59] LABS: Protime INR 1.06
[2020-03-05 06:18] LABS: COL/ADP ND SECONDS (56-102); COL/EPI 134 SECONDS (80-184)
[2020-03-05] MEDS: NA CHLORIDE 0.9% 1,000 ML IV SCH ×3 (06:31→20:23)
--- NOTE | 2020-03-05 07:35 | EKG ---
Test Date: 2020-03-04 Test Time: 10:23:20 Urology Nurse: GALEN MEASUREMENT RESULTS: Intervals: Rate: 77 TN: 142 QRSD: 144 QT: 450 QTc: 509 [place]: P: 27 TN: 142 QRS: 248 T: 67 INTERPRETIVE STATEMENTS: Electronic ventricular pacemaker Compared to ECG 10/22/2019 20:55:35 No significant changes Electronically Signed On 03-05-20 07:32:35 RN TELEHEALTH by You Colin
--- NOTE | 2020-03-05 09:43 | P.HP ---
Certification for Inpatient Patient admitted to: Inpatient With expected LOS: >2 Midnights Patient will require the following post-hospital care: None Practitioner: I am a practitioner with admitting privileges, knowledge of patient current condition, hospital course, and medical plan of care. Services: Services provided to patient in accordance with Admission requirements found in Title 42 Section 412.3 of the Code of Federal Regulations Patient History Date of Service: 03/04/20 Reason for admission: Hematuria History of Present Illness: Patient is an 89yo who presented to the hospital with gross hematuria. 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 Patient has not had any hematuria for quite a while. The states that he did have some hematuria a few months ago. This resolved. Patient is on some anti-platelet regimens including aspirin and Plavix. Patient does not really give me much of a history as most of this is obtained from his . She does not think patient has any trauma. He has had some prostate issues which caused his chronic bladder issues as well. At this time will monitor H&H closely. Blood transfusion as needed. Urology consultation pending as well. Continuous bladder irrigation is pending. Allergies No Known Allergies Allergy (Verified 01/31/20 08:51) Home Medications: Enalapril [Vasotec*] 2.5 mg PO DAILY 04/19/19 Iron Ps Cmplx/Vit B12/FA [Ferrex 150 Forte Capsule] 1 tab PO DAILY 04/19/19 Trazodone [Desyrel*] 50 mg PO DAILY 04/19/19 Aspirin [Aspirin EC 81 MG] 81 mg PO DAILY #30 tablet. 10/24/19 Atorvastatin Calcium [Lipitor] 40 mg PO BEDTIME #30 tab 10/24/19 Clopidogrel Bisulfate [Plavix*] 75 mg PO DAILY #30 tablet 10/24/19 - Past Medical/Surgical History Has patient received pneumonia vaccine in the past: Yes Diabetic: No -: Hypertension -: BPH -: skin cancer -: pacemaker -: skin ca removed -: Colonoscopy -: Pacemaker -: Colon Resection - Social History Smoking Status: Former smoker Alcohol use: No CD- Drugs: No Caffeine use: Yes Place of Residence: Detention Review of Systems 10-point ROS is otherwise unremarkable Physical Examination - Vital Signs Temperature: 97.8 F Blood Pressure: 122/59 Pulse: 90 Respirations: 16 Pulse Ox (%): 96 - Physical Exam General: Alert, In no apparent distress, Oriented x1, Demented, Confused HEENT: Atraumatic, PERRLA, Mucous membr. moist/pink, EOMI, Sclerae nonicteric Neck: Supple, 2+ carotid pulse no bruit, No LAD, Without JVD or thyroid abnormality Respiratory: Diminished Cardiovascular: Regular rate/rhythm, Normal S1 S2, Systolic murmur Gastrointestinal: Normal bowel sounds, Soft and benign, Non-distended, No tenderness Musculoskeletal: No clubbing, No tenderness, Swelling Neurological: Cranial nerves 3-12 intact, Normal reflexes 2+, Abnormal gait, Abnormal speech, Abnormal strength - Studies Laboratory Data (last 24 hrs) 03/04/20 10:26: PT 12.2, INR 1.03, APTT 29.6 03/04/20 10:26: WBC 10.2, Hgb 12.8 L, Hct 37.8 L, Plt Count 286 03/04/20 10:26: Sodium 130 L, Potassium 4.3, BUN 13, Creatinine 1.09, Glucose 139 H, Magnesium 2.5 H, Total Bilirubin 1.2 H, AST 24, ALT 52, Alkaline Phosphatase 97, Lipase 119 Assessment & Plan - Problems (Diagnosis) (1) Gross hematuria Current Visit: Yes Status: Acute (2) Benign prostatic hypertrophy with urinary obstruction Onset Date: 04/27/15 Current Visit: No Status: Acute (3) Hypertension Current Visit: No Status: Acute (4) TIA (transient ischemic attack) Current Visit: No Status: Acute (5) Weakness generalized Onset Date: 04/27/15 Current Visit: No Status: Acute (6) UTI (urinary tract infection) Onset Date: 04/27/15 Current Visit: No Status: Resolved - Plan Plan: 1. Bladder irrigation 2. Monitor H and H 3. Urology consultation 4. Holding anti-platelet therapy 5. Pain medication 6. Monitor labs closely 7. Discussed with regarding long-term plan of care 8. GI DVT prophylaxis Discharge Plan: Home Plan to discharge in: Greater than 2 days - Advance Directives Does patient have a Living Will: No Does patient have a Durable POA for Healthcare: No - Code Status/Comfort Care Code Status Assessed: Yes Code Status: Full Code Critical Care: No Time Spent Managing PTS Care (In Minutes): 45
--- NOTE | 2020-03-05 09:46 | P.PN ---
Subjective Date of Service: 03/05/20 Patient is doing much better. Hematuria is resolved. Patient clinically feels much better as well. is at bedside and also states patient is doing better. Review of Systems 10-point ROS is otherwise unremarkable Physical Examination - Vital Signs Temperature: 97.8 F Blood Pressure: 122/59 Pulse: 90 Respirations: 16 Pulse Ox (%): 96 - Physical Exam General: Alert, In no apparent distress, Mild distress Respiratory: Diminished, Rhonchi/gurgles Cardiovascular: Regular rate/rhythm, Normal S1 S2, Systolic murmur Gastrointestinal: Normal bowel sounds, Soft and benign, Non-distended, No tenderness Musculoskeletal: No clubbing, No swelling Urinary: Scott catheter - Studies Laboratory Data (last 24 hrs) 03/04/20 10:26: PT 12.2, INR 1.03, APTT 29.6 03/04/20 10:26: WBC 10.2, Hgb 12.8 L, Hct 37.8 L, Plt Count 286 03/04/20 10:26: Sodium 130 L, Potassium 4.3, BUN 13, Creatinine 1.09, Glucose 139 H, Magnesium 2.5 H, Total Bilirubin 1.2 H, AST 24, ALT 52, Alkaline Phosphatase 97, Lipase 119 Assessment & Plan - Problems (Diagnosis) (1) Gross hematuria Current Visit: Yes Status: Acute (2) Benign prostatic hypertrophy with urinary obstruction Onset Date: 04/27/15 Current Visit: No Status: Acute (3) Hypertension Current Visit: No Status: Acute (4) TIA (transient ischemic attack) Current Visit: No Status: Acute (5) Weakness generalized Onset Date: 04/27/15 Current Visit: No Status: Acute (6) UTI (urinary tract infection) Onset Date: 04/27/15 Current Visit: No Status: Resolved Qualifiers: Urinary tract infection type: acute cystitis - Plan Plan: 1. Bladder irrigation 2. Monitor H and H 3. Urology consultation appreciated 4. Holding anti-platelet therapy 5. Pain medication 6. Monitor labs closely 7. GI DVT prophylaxis Discharge Plan: Home Plan to discharge in: Greater than 2 days - Advance Directives Does patient have a Living Will: No Does patient have a Durable POA for Healthcare: No - Code Status/Comfort Care Code Status: Full Code Critical Care: No Time Spent Managing PTS Care (In Minutes): 35
[2020-03-05] MEDS ORDERED: TRAZODONE 50 MG TABLET PO SCH (21:00)
[2020-03-05] MEDS ORDERED: ATORVASTATIN 40 MG TAB PO SCH (21:00)
[2020-03-05 23:43] VITALS: O2SAT 97
[2020-03-06] MEDS: SODIUM CHL 0.9% IRR SOLN 2000 ML IRR PRN ×2 (02:00→09:14)
[2020-03-06 05:39] LABS: Absolute Lymphocytes (CBC) 1.4 K/uL (0.7-4.9); Basophils % 0.6 % (0-1.3); Hematocrit 27.1 % (39.6-49.0); Lymphocytes % 20.6 % (15.3-44.8); MPV 6.7 fL (7.6-11.3); RBC Red Blood Cell Count 3.05 M/uL (4.33-5.43)
[2020-03-06] MEDS ORDERED: CLOPIDOGREL 75 MG TABLET PO SCH (09:00)
[2020-03-06] MEDS ORDERED: ENALAPRIL 2.5 MG TAB PO SCH (09:00)
[2020-03-06] MEDS ORDERED: FE SULF/FA/VIT B COMP & C TAB PO SCH (09:00)
[2020-03-06] MEDS ORDERED: ASPIRIN EC 81 MG TAB PO SCH (09:00)
[2020-03-06] MEDS: NA CHLORIDE 0.9% 1,000 ML IV SCH (09:10)
[2020-03-06 16:56] VITALS: BP 123/56; TEMP 97.9
--- NOTE | 2020-03-06 17:38 | P.DS ---
Discharge Date: 03/06/20 Disposition: ROUTINE DISCHARGE Discharge Condition: GOOD Reason for Admission: Hematuria Consultations: Urologist - Problems (1) Gross hematuria Status: Acute (2) Benign prostatic hypertrophy with urinary obstruction Onset Date: 04/27/15 Status: Acute (3) Hypertension Status: Acute (4) TIA (transient ischemic attack) Status: Acute (5) Weakness generalized Onset Date: 04/27/15 Status: Acute (6) UTI (urinary tract infection) Onset Date: 04/27/15 Status: Resolved Qualifiers: Urinary tract infection type: acute cystitis Brief History of Present Illness: Patient is an 89yo who presented to the hospital with gross hematuria. 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 Patient has not had any hematuria for quite a while. The states that he did have some hematuria a few months ago. This resolved. Patient is on some anti-platelet regimens including aspirin and Plavix. Patient does not really give me much of a history as most of this is obtained from his . She does not think patient has any trauma. He has had some prostate issues which caused his chronic bladder issues as well. At this time will monitor H&H closely. Blood transfusion as needed. Urology consultation pending as well. Continuous bladder irrigation is pending. Hospital Course: Patient's hematuria has improved. Patient is clinically doing much better. Recommendation per Urology were to follow up as an outpatient for possible cystoscopy. At this time, patient is stable for discharge home for outpatient follow-up. Vital Signs/Physical Exam: Temp Pulse Resp BP Pulse Ox 97.9 F 59 16 123/56 L 98 03/06/20 16:00 03/06/20 16:00 03/06/20 16:00 03/06/20 16:00 03/06/20 16:00 General: Alert, In no apparent distress, Oriented x2 Laboratory Data at Discharge: WBC 6.6 K/uL (4.3-10.9) D 03/06/20 05:28 Hgb 9.4 g/dL (13.6-17.9) L 03/06/20 05:28 Hct 27.1 % (39.6-49.0) L 03/06/20 05:28 Plt Count 232 K/uL (152-406) 03/06/20 05:28 PT 12.5 SECONDS (9.5-12.5) 03/05/20 04:00 INR 1.06 03/05/20 04:00 APTT 29.6 SECONDS (24.3-36.9) 03/05/20 04:00 Sodium 135 mmol/L (136-145) L 03/05/20 04:00 Potassium 4.1 mmol/L (3.5-5.1) 03/05/20 04:00 BUN 14 mg/dL (7-18) 03/05/20 04:00 Creatinine 1.03 mg/dL (0.55-1.3) 03/05/20 04:00 Glucose 127 mg/dL (74-106) H 03/05/20 04:00 Magnesium 2.5 mg/dL (1.8-2.4) H 03/04/20 10:26 Total Bilirubin 0.9 mg/dL (0.2-1.0) 03/05/20 04:00 AST 21 U/L (15-37) 03/05/20 04:00 ALT 45 U/L (12-78) 03/05/20 04:00 Alkaline Phosphatase 74 U/L (45-117) 03/05/20 04:00 Lipase 119 U/L (73-393) 03/04/20 10:26 Home Medications: Enalapril [Vasotec*] 2.5 mg PO DAILY 04/19/19 Iron Ps Cmplx/Vit B12/FA [Ferrex 150 Forte Capsule] 1 tab PO DAILY 04/19/19 Trazodone [Desyrel*] 50 mg PO DAILY 04/19/19 Aspirin [Aspirin EC 81 MG] 81 mg PO DAILY #30 tablet. 10/24/19 Atorvastatin Calcium [Lipitor] 40 mg PO BEDTIME #30 tab 10/24/19 Clopidogrel Bisulfate [Plavix*] 75 mg PO DAILY #30 tablet 10/24/19 Sulfamethoxazole/Trimethoprim [Bactrim Ds Tablet] 1 each PO DAILY #10 tablet 03/06/20 New Medications: Sulfamethoxazole/Trimethoprim [Bactrim Ds Tablet] 1 each PO DAILY #10 tablet Patient Discharge Instructions: OK TO DC IV AND DC HOME. FOLLOW-UP WITH PRIMARY CARE PROVIDER IN 1-2 WEEKS. FOLLOW-UP WITH UROLOGY IN 1-2 WEEKS-PLEASE LEAVE THEM DR. MARIE OFFICE NUMBER. RETURN TO THE ER IF SYMPTOMS WORSEN. CALL or TEXT DR. ORTIZ AT [phone] IF ANY QUESTIONS REGARDING HOSPITAL STAY. PLEASE CALL THE FLOOR AT [phone] IF ANY MEDICATION OR NURSING QUESTIONS. PLEASE HOLD LISINOPRIL-RESUME ONCE BACTRIM WAS COMPLETED Diet: AHA Activity: Fall precautions Followup: Unknown,U [Primary Care Provider] - Bladimir Marie [COURTESY - CAN ADMIT] - Time spent managing pt's care (in minutes): 35
--- NOTE | 2020-03-06 20:16 | PN ---
Subjective: The patient was seen today at bedside in good spirits and doing well. He expressed bein g interested in going home. His daughter was with him at bedside, and they expressed that he had not had any significant gross hematuria with clots since the night of his admission. His urine was esse ntially light pink as of yesterday, and since today, his urine has essentially been clear. Physical Examination: GENERAL: The patient is well appearing, in no acute distress. Alert, awake, and oriented. : Urethral Scott catheter in place and secured to right upper thigh via stat lock. Slow drip, marcio roximately 1 drop per second, CBI with normal saline instilling. Returning efflux of fluid and urine crystal clear. I thus utilized the indwelling CBI to backfill his bladder by elevating the tubing with approximately 20 cc of height to create back pressure into the bladder. After a couple of 100 cc were instilled a nd after he expressed the mild urge to void, I then lowered the tubing and allowed the fluid to efflu x, and there was no gross hematuria noted. Once the bladder collapsed around the tubing, he went not ing the discomfort associated with a bladder spasm and collapse around the Scott catheter. Despite t his, his urine remained crystal clear. As such, I instructed that the CBI port may be capped and he could be discharged with the indwelling 3-way Scott catheter per routine. 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 Since the culture results revealed an organism sensitive to the quinolones as well as Bactrim among t he oral alternatives, I recommended Bactrim double strength tablets twice a day for 7-10 days. I asked the patient, start to arrange an appointment for him in my clinic next week for cystoscopy to rule out bladder malignancy. We will consider upper tract imaging with a CT urogram versus an ultrasound with cytology. However, given his normal renal function, a CT urogram would be preferred given his smoking history. MAYANK/MODL Voice ID: [id number] Report ID: [id number]
--- NOTE | 2020-03-09 11:07 | CON ---
Date of Consultation: 03/04/2020 History Of Present Illness: This is an 89-year-old gentleman [facility]. He has an extensive smoking history of several deca skylar with greater than 1 pack per day of smoking. He also had an indwelling Scott catheter for the la st several years due to presumptive acontractile detrusor. He denied any increase in bother, suprapub ic pain, pericatheter discharge, fever or chills, or other bothersome symptoms associated with the in dwelling catheter prior to the development of the gross hematuria. He was last at his usual state of health when this occurred. He does acknowledge having had some mild traumatic hypospadias associate d with the prolonged indwelling urethral catheter. The catheter is exchanged about once a month by [facility] nursing facility. I was thus called by the emergency department because of the significant nature of the gross hematuria requiring CBI and 3 way Scott catheter placement. Physical Examination: General: The patient was awake, alert, and oriented and his daughter was with him at the bedside. H e was in no acute distress and was well nourished and well developed and in good spirits. Abdomen: Soft and nondistended. : An urethral Scott catheter, [address] was already inserted into his urethra with CBI conne cted to normal saline. Despite slow drip of the CBI into the catheter, there was no drainage of any fluid from the catheter. I thus took steps to flush the catheter and correct the circumstance. Procedure Note: Complex bladder irrigation and CBI re-initiation procedure. Description Of Procedure: Using a 60 cc catheter tip syringe and normal saline, I flushed the indwel ling 3 way Scott catheter with over 2 L of fluid, 1.5 L of normal saline and about 500 cc of sterile water to rip the bladder off a moderate clot burden sufficient to obstruct the catheter. Once this wa s complete, his urine was light pink without additional clot. I thus took the infusion tubing, which was 1 way tubing and requested Y tubing to provide 2 bags of normal saline irrigation simultaneously to improve the continuity of the irrigation. Once I was done with the irrigation, the patient was i n reasonably good condition with his urine only light pink and intermittently clear. I placed the ca theter over the side rail of the bed to encourage some increased fluid back pressure in the bladder a nd enhance irrigation. The patient was then transferred to the inpatient unit for management. 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 2.I recommended the patient be admitted and continued on CBI with normal saline to keep the urine li ght pink to clear. 3.Ceftriaxone, IV antimicrobial therapy. 4.Belladonna and opiate suppositories for bladder spasms. 5.Trend his hematocrit. 6.Consider imaging with a CT urogram to look for an upper tract urothelial mass causing hematuria. 7.Outpatient cystoscopy will be required unless refractory gross hematuria demands inpatient operati ve cystoscopy and clot evacuation with fulguration. MAYANK/CHRISTY Voice ID: [id number] Report ID: [id number]
== END 2020-03-06 17:33 | disposition home health service (06) | DRG 699 ==
LOC: ER 09:54 → 2ND 14:29
PROVIDERS: ADMIT Hospitalist; ATTEND Hospitalist
PROC: 3E1K38Z Irrigation of Genitourinary Tract using Irrigating Substance, Percutaneous Approach (ICD-10-PCS; principal; 2020-03-06)
DX: T83.518A Infection and inflammatory reaction due to other urinary catheter, initial encounter (principal); N30.00 Acute cystitis without hematuria; N13.8 Other obstructive and reflux uropathy; N40.1 Benign prostatic hyperplasia with lower urinary tract symptoms; I12.9 Hypertensive chronic kidney disease with stage 1 through stage 4 chronic kidney disease, or unspecified chronic kidney disease; N18.2 Chronic kidney disease, stage 2 (mild); L98.422 Non-pressure chronic ulcer of back with fat layer exposed; F03.90 Unspecified dementia, unspecified severity, without behavioral disturbance, psychotic disturbance, mood disturbance, and anxiety; R53.1 Weakness; R31.0 Gross hematuria; Z79.02 Long term (current) use of antithrombotics/antiplatelets; Z87.891 Personal history of nicotine dependence; Z79.82 Long term (current) use of aspirin; Z79.899 Other long term (current) drug therapy; Z95.0 Presence of cardiac pacemaker; Z85.828 Personal history of other malignant neoplasm of skin; Z20.828 Contact with and (suspected) exposure to other viral communicable diseases
CPT/HCPCS: 17250; 36415; 51700; 71045; 74177; 80048; 80053; 80076; 81015; 83690; 83735; 84484; 85014; 85018; 85025; 85576; 85610; 85730; 86850; 86870; 86900; 86901; 86902; 87070; 87077; 87086; 87088; 87186; 87205; 93005; 96374; 99213; 99285; J0696; J2270; J7030; Q9967; U0002

== ENCOUNTER 2020-03-25 08:34 | Day surgery (SDC) | payer OTHER ==
--- OUTSIDE RECORDS SUMMARY | 2020-03-25 09:08 | XMS REPORT | Continuity of Care Document ---
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 [facility] (disorder) Polyp of colon Active Problem 01/14/2016 [facility]order) [facility] 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) Transient Resolved Problem 01/14/2016 Memori al ischemic attack [facility] (disorder) ILLNESS, Active Memoria l UNSPECIFIED [facility] Medications Medication Details Route Status Patient Ordering Order Source Instructions Provider Date tramadol 50 mg = 1 tab, Active hydrochloride PO, Q8H, PRN as 2016 Me morial 50 MG Oral needed for [facility] Tablet [Ultram] pain, # 40 tab, 0 Refill(s) tramadol 50 mg = 1 tab, Inactive hydrochloride PO, Q8H, PRN 2015 Memor ial 50 MG Oral Other -See [facility] Tablet Comment | pain, X 7 day, # 21 tab, 0 Refill(s) Miralax Notes: Dissolve Inactive in 8 oz of 2015 [facility] water or juice. City (Same as: [...] days No Longer mg/mL MEDICATION Active 2015 [facility] injectable WASTE [facility] solution Product Size: 30 mg Product Wasted: _15__ mg Ofirmev Notes: Infuse No Longer over 15 minutes Active 2015 [facility] Do not exceed [facility] 4gm/day of acetaminophen MEDICATION WASTE Product Size: 1000 mg Product Wasted: _0__ mg Lovenox Notes: (Same No Longer as: Lovenox) Active 2015 [facility] latanoprost Notes: (Same No Longer ophthalmic as:Xalatan) Active 2015 [facility] 0.005% solution [facility] bimatoprost 0.1 1 drp, Route: Inactive H MG/ML BOTH EYES, Drug 2015 [facility] Ophthalmic Form: SOLN, [facility] Solution Dosing Weight [Lumigan] 79.091, kg, Bedtime, Start date: 11/24/15 21:00:00 CDT, Duration: 30 day, Stop date: 12/23/15 21:00:00 CDT Cipro Notes: Do not Inactive refrigerate 2015 [facility] Atropine Notes: (Same No Longer Sulfate 10 As: Isopto Active 2015 [facility] MG/ML Atropine) [facility] Ophthalmic Solution [Atropine-Care] Protonix Notes: For IV No Longer push Active 2015 [facility] ml 0.9% sodium chloride and push over 2 minutes. (Same as: Protonix) Flagyl Notes: (Same No Longer as: Flagyl) Active 2015 [facility] Avoid alcohol. [facility] Acetaminophen Notes: Infuse No Longer 10 MG/ML over 15 minutes [facility] Do not exceed [facility] Solution 4gm/day of acetaminophen MEDICATION WASTE Product Size: 1000 mg Product Wasted: ___ mg Sodium Chloride 25 mL, Route: No Longer 0.9% IV IV, Start date: Active [address] [place] [address] 11/24/15 [facility] 15:48:00 CDT, Duration: 30 day, Stop date: 12/24/15 15:47:00 CDT, PRN Line Flush BD Normal Notes: (Same No Longer Saline Flush as: BD Active 2015 [facility] Posiflush) [facility] Morphine Notes: (Same No Longer as:MORPhine Active 2015 [facility] Sulfate) [facility] Zofran Notes: (Same No Longer as: Zofran) Active 2015 [facility] MEDICATION City WASTE Product Size: 4 mg Product Wasted: ___ mg D5W 1/2NS + KCL Notes: PREMIX No Longer 20mEq/L 1000ml IV - Do Not Active 2015 Memor ial (Premix) 1,000 Alter WASTE: Cit y mL F/P - Sink; E - [employer] sugammadex Notes: (Same Inactive as: Bridion) 2015 [facility] Ondansetron Notes: (Same Inactive as: Zofran) 2015 [facility] MEDICATION City WASTE Product Size: 4 mg Product Wasted: ___ mg Naloxone Notes: Same as Inactive Narcan 2015 [facility] Flumazenil Notes: (Same Inactive as: Romazicon) 2015 [facility] Morphine Notes: (Same Inactive as:MORPhine 2015 [facility] Sulfate) [facility] bupivacaine Notes: (Same Inactive liposome as: Exparel) 2015 [facility] NOT FOR IV City use Postoperative [...] Flagyl Notes: (Same Inactive as: Flagyl) 2015 [facility] Avoid alcohol. [facility] Cipro Notes: Do not Inactive refrigerate 2015 [facility] Ferrex 150 Plus 1 cap, PO, Active Daily, 0 2015 [facility] Refill(s) [facility] bimatoprost 0.1 1 drp, BOTH Active MG/ML EYES, Bedtime, 2015 [facility] Ophthalmic # 5 mL, 4 [facility] Solution Refill(s) [Lumigan] difluprednate 1 drp, BOTH Active 0.5 MG/ML EYES, QID, 2015 [facility] Ophthalmic After 14 days, [facility] Suspension taper dose as [Durezol] directed by physician., # 5 mL, 0 Refill(s) Atropine 1 drp, OPTH, Active Sulfate 10 QID, # 15 ml, 0 2015 Memor ial MG/ML Refill(s) [facility] Ophthalmic Solution [Atropine-Care] Trazodone 50 mg = 1 tab, Active Hydrochloride PO, Bedtime, # 2016 Mem orial 50 MG Oral 30 tab, 1 [facility] Tablet Refill(s) Allergies, Adverse Reactions, Alerts No Known Medication Allergies Immunizations No Data Provided for This Section Results Order Name Results Value Reference Date Interpretation Comments Lashawn rce Range ELECTROLYTES AGAP 10.4 10.0 - 11/25 20.0 [facility] ELECTROLYTES Glucose Lvl 117 70 - 99 11/25 [facility] ELECTROLYTES Calcium Lvl 7.9 8.5 - 10.5 11/25 [facility] ELECTROLYTES BUN 6 7 - 22 11/25 [facility] ELECTROLYTES CO2 26 24 - 32 11/25 [facility] ELECTROLYTES Sodium Lvl 141 135 - 145 11/25 [facility] ELECTROLYTES Chloride Lvl 109 95 - 109 11/25 [facility] ELECTROLYTES Potassium 4.4 3.5 - 5.1 11/25 [facility] ELECTROLYTES eGFR 81 11/25 Result Comment: [facility] eGFR is City calculated using the [...] 0.50 - 11/25 MH Lvl 1.40 /2015 [facility] HEMATOLOGY Eosinophils 5.4 0.0 - 4.0 11/25 [facility] HEMATOLOGY Monocytes 7.4 2.0 - 12.0 11/25 [facility] HEMATOLOGY Lymphocytes 18.7 20.0 - 11/25 MH 40.0 /2015 [facility] HEMATOLOGY Segs 68.0 45.0 - 11/25 MH 75.0 /2015 [facility] HEMATOLOGY Lymphocytes 1.4 1.0 - 5.5 11/25 MH # /2015 [facility] HEMATOLOGY Basophils 0.5 0.0 - 1.0 11/25 [facility] HEMATOLOGY Segs-Bands # 5.2 1.5 - 8.1 11/25 [facility] HEMATOLOGY Monocytes # 0.6 0.0 - 0.8 11/25 [facility] HEMATOLOGY Eosinophils 0.4 0.0 - 0.5 11/25 MH # /2015 [facility] HEMATOLOGY Basophils # 0.0 0.0 - 0.2 11/25 [facility] HEMATOLOGY Platelet 278 133 - 450 11/25 [facility] HEMATOLOGY MCH 30.1 27.0 - 11/25 MH 31.0 [facility] HEMATOLOGY MCV 91.5 80.0 - 11/25 MH 94.0 /2015 [facility] HEMATOLOGY Hct 31.4 42.0 - 11/25 MH 54.0 [facility] HEMATOLOGY Hgb 10.3 14.0 - 11/25 MH 18.0 [facility] HEMATOLOGY RBC 3.44 4.70 - 11/25 MH 6.10 /2015 [facility] HEMATOLOGY WBC 7.7 3.7 - 10.4 11/25 [facility] HEMATOLOGY RDW 15.0 11.5 - 11/25 MH 14. [facility] HEMATOLOGY MCHC 32.9 32.0 - 11/25 MH 36.0 [facility] HEMATOLOGY MPV 7.2 7.4 - 10.4 11/25 [facility] CHEM PANEL Magnesium 2.1 1.8 - 2.4 11/24 MH Lv [facility] CHEM PANEL Phosphorus 2.8 2.5 - 4.5 11/24 [facility] ELECTROLYTES Sodium Lvl 142 135 - 145 11/24 [facility] ELECTROLYTES Calcium Lvl 8.0 8.5 - 10.5 11/24 [facility] ELECTROLYTES Chloride Lvl 107 95 - 109 11/24 [facility] ELECTROLYTES Potassium 3.9 3.5 - 5.1 11/24 Lv [facility] ELECTROLYTES Glucose Lvl 147 70 - 99 11/24 [facility] ELECTROLYTES BUN 9 7 - 22 11/24 [facility] ELECTROLYTES Creatinine 0.92 0.50 - 11/24 Lvl 1.40 [facility] ELECTROLYTES CO2 24 24 - 32 11/24 [facility] ELECTROLYTES eGFR 76 11/24 Result Comment: [facility] eGFR is City calculated using the [...] AGAP 14.9 10.0 - 11/24 MH 20.0 [facility] HEMATOLOGY MCHC 33.0 32.0 - 11/24 36.0 [facility] HEMATOLOGY RDW 15.1 11.5 - 11/24 14. [facility] HEMATOLOGY MPV 6.7 7.4 - 10.4 11/24 [facility] HEMATOLOGY Platelet 328 133 - 450 11/24 [facility] HEMATOLOGY WBC 9.4 3.7 - 10.4 11/24 [facility] HEMATOLOGY Hgb 11.3 14.0 - 11/24 18.0 /2015 [facility] HEMATOLOGY RBC 3.82 4.70 - 11/24 MH 6.10 /2015 [facility] HEMATOLOGY MCV 89.4 80.0 - 11/24 MH 94.0 /2015 [facility] HEMATOLOGY MCH 29.5 27.0 - 11/24 MH 31.0 /2015 [facility] HEMATOLOGY Hct 34.1 42.0 - 11/24 MH 54.0 /2015 [facility] HEMATOLOGY Eosinophils 0.0 0.0 - 0.5 11/24 MH # /2015 [facility] HEMATOLOGY Basophils 0.3 0.0 - 1.0 11/24 MH /2015 [facility] HEMATOLOGY Segs-Bands # 7.4 1.5 - 8.1 11/24 /2015 [facility] HEMATOLOGY Monocytes # 0.8 0.0 - 0.8 11/24 /2015 [facility] HEMATOLOGY Lymphocytes 1.2 1.0 - 5.5 11/24 # /2015 [facility] HEMATOLOGY Segs 78.0 45.0 - 11/24 MH 75.0 /2015 [facility] HEMATOLOGY Monocytes 8.8 2.0 - 12.0 11/24 /2015 [facility] HEMATOLOGY Lymphocytes 12.7 20.0 - 11/24 40.0 /2015 [facility] HEMATOLOGY Eosinophils 0.2 0.0 - 4.0 11/24 /2015 [facility] BLOOD BANK Antigen AHG K neg 11/16 RESULTS Int /2015 [facility] BLOOD BANK AB Int Anti-K 11/16 RESULTS /2015 [facility] BLOOD BANK Antibody Positive 1 11/16 Result RESULTS Scrn (11/17/15 10:06 AM) /2015 Comment: Jesus schultz 11/17/2015 [facility] 12:12 [id number]
"Significant Findings of Positive Antibody Screen_ called to Nella Copeland Rn__ at 11/17/2015 12:12__ by GM__. Read Back OK" BLOOD BANK ABO/Rh A POS 11/16 RESULTS /2015 [facility] Pathology Reports No Data Provided for This Section Diagnostic Reports Report Value Date Source Finger 3 views DX Clinical history: Pain from a fall. 01/11/2016 [facility] Sex: Male. : 1930. Technique: 3 views [...] Date Comments Source Respitory Rate 17 01/11/2016 [facility] ity Heart Rate 74 01/11/[address] [facility] Cit y Systolic (mm Hg) 146 01/11/2016 [facility] Diastolic (mm Hg) 87 01/11/2016 [facility] Heart Rate 83 01/11/[address] [facility] Cit y Respitory Rate 19 01/11/[address] [facility] C ity Systolic (mm Hg) 143 01/11/2016 [facility] Diastolic (mm Hg) 85 01/11/2016 [facility] Weight 75.909 01/11/2016 [facility] y Temperature Oral (F) 98.5 F 01/11/2016 [facility] Height 177.8 cm 01/11/[address] [facility] Cit y BMI Calculated 24.01 01/11/2016 [facility] ity Heart Rate 69 11/29/[address] [facility] Cit y Systolic (mm Hg) 149 11/29/2015 [facility] Diastolic (mm Hg) 79 11/29/2015 [facility] Respitory Rate 18 11/29/[address] [facility] C it Temperature Oral (F) 98.0 F 11/29/2015 [facility] Heart Rate 75 11/29/[address] [facility] Cit y Respitory Rate 18 11/29/[address] [facility] C ity Systolic (mm Hg) 147 11/29/2015 [facility] Diastolic (mm Hg) 84 11/29/2015 [facility] Temperature Oral (F) 98.1 F 11/29/2015 [facility] Temperature Oral (F) 98.2 F 11/29/2015 [facility] Heart Rate 88 11/29/[address] [facility] Cit y Systolic (mm Hg) 145 11/29/2015 [facility] Diastolic (mm Hg) 76 11/29/2015 [facility] Respitory Rate 18 11/29/[address] [facility] C ity BMI Calculated 26 11/24/[address] [facility] C ity Weight 82.2 11/24/[address] [facility] Cit y Height 177.8 cm 11/24/[address] [facility] Cit y Weight 79.091 11/17/[address] [facility] Cit y Height 177.8 cm 11/17/[address] [facility] Cit y BMI Calculated 25.02 11/17/[address] [facility] C ity Encounters Location Location Encounter Encounter Reason Attending ADM DC Stat us Source Details Type Number For Provider Date Date Visit [facility] Inpatient [id number] Andrea 11/23 11/28 Brice Sarah /2015 [facility] [id number] Roman Arceo 01/10 [facility]10 [facility] Procedures Procedure Code Date Perfomer Comments Source Implantation of [id number] Alva al cardiac pacemaker [facility] Vasectomy [id number] [facility] Wide [facility] [id number] [facility] skin<sup>1</sup> Assessment and Plan Assessment and Plan Date Source Extracted from:Title: Clinical Document 11/29/2015 [facility] Author: Josias Rahman MD Date: 11/26/15 Colon [...] [place] (indwelling at home) - transfer to [facility] with telemetry Plan of Care No Data Provided for This Section Social History Social History Date Source Social History TypeResponse 11/24/2015 [facility] Substance Abuse Use: None. Alcohol Past, Type [...]
--- OUTSIDE RECORDS SUMMARY | 2020-03-25 09:09 | XMS REPORT ---
:1930 Author Organization [facility] Address [address] 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 12725430 emphysema Problem Cancer C80.1 Active 63507225 Problem History of skin Z85.828 Active 471110936 cancer Problem Essential I10 Active 38204654 hypertension Problem COPD (chronic J44.9 Active 79587445 obstructive pulmonary disease) Problem Prostate pain N42.81 Active 98640843 Problem Chronic indwelling Z96.0 Active 141422585 Scott catheter Problem Need for R26.89 Active 717339963 assistance due to unsteady gait Problem Urinary retention R33.9 Active 080073338 Problem Iron deficiency D50.9 Active 65598542 anemia, unspecified iron deficiency anemia type Problem Gross hematuria R31.0 Active 062597552 Problem HTN (hypertension) I10 Active 79087467 Problem Transient ischemic G45.9 Active 549865784 attack (TIA) Problem Anemia D64.9 Active 222742608 Problem Hypospadias, Q54.1 Active 547854721 penile Problem Other N13.39 Active 26365496 hydronephrosis ALLERGIES No Known Allergies ENCOUNTERS from 1930 to 2020-03-13 Encounter [facility] Date [facility] [address] [facility] [address] [facility] [address] Mar, 2020 [place] [address] IMMUNIZATIONS No Information SOCIAL HISTORY Tobacco Use: Social History Observation Description Date Details (start date - stop date) Former Smoker Sex Assigned At : Social History Observation Description Sex Assigned At Unknown Alcohol Screen Question Answer Notes Did you have a drink containing alcohol in the past year? No Points 0 Interpretation Negative Tobacco Use/Smoking Question Answer Notes Are you a former smoker REASON FOR REFERRAL No Information VITAL SIGNS No information MEDICATIONS Medication SIG (Take, Route, Start Date End Date Status Frequency, Duration) Trazodone HCl 50 MG 1 tablet Orally AT bed Jan, Active time for 90 days Lidocaine 5 % 1 patch to skin as needed Jul, A ctive Externally Once a day for 30 days Linzess 72 MCG 1 capsule at least 30 Mar, Mar, Acti ve minutes before the first meal of the day on an empty stomach Orally Once a day for 30 day(s) Sodium Chloride 1 GM 1 tablet Orally Twice a Active day for 30 days Ferrex 150 150 MG 1 capsule Orally Once a Active day for 90 days Atorvastatin Calcium 40 MG 1 tablet Orally Once a Active day for 90 days Clopidogrel Bisulfate 75 MG 1 tablet Orally Once a Active day for 90 days Aspirin 81 MG 1 tablet Orally Once a Acti ve day for 90 days Enalapril Maleate 2.5 MG 1 tablet Orally Once a Active day PROCEDURES No Information RESULTS No Results REASON FOR VISIT constipation MEDICAL (GENERAL) HISTORY Type Description Date Medical History Prostate pain Medical History Cancer Medical History HTN (hypertension) Medical History COPD (chronic obstructive pulmonary dise ase) Medical History BLADDER FAILURE Medical History TIA'S Medical History HEART ATTACK Surgical History pace maker 2015 Surgical History colon resection 2015 Surgical History boil/infection 2018 Surgical History catheter Surgical History skin cancer Surgical History SKIN GRAFTS X 2 Goals Section No Information Health Concerns No Information MEDICAL EQUIPMENT No Information MENTAL STATUS No Information FUNCTIONAL STATUS No Information ASSESSMENTS No Information PLAN OF TREATMENT Medication Medication Name Sig Start Date Stop Date Linzess 72 MCG 1 capsule at least 30 minutes before the Mar, Mar, first meal of the day on an empty stomach Orally Once a day for 30 day(s) Next Appt Details Provider Name:Bladimir Sky 2020-05-11 03:00:00 PM, [address] [place] [address], [place], [address], Insurance Providers Payer Name Payer Address Payer Insured Patient Coverage Cover age Phone Name Relationship to Start Date End Date Insured [employer] [address] [phone] Frank Will self 2018 [place] [address] [address] MEDICARE Attn Part B [id number] Frank Will self 1995 [place] Claims [address] [facility] [address]
--- OUTSIDE RECORDS SUMMARY | 2020-03-25 09:09 | XMS REPORT ---
[...] Status Dosage System Date Date Clopidogrel ND 05807747325 75 MG Orally Active 1 t ablet Bisulfate Once a day Atorvastatin ND 32527335499 40 MG Orally Active 1 tablet Calcium Once a day Trazodone HCl ND 49401550819 50 MG Orally Active 1 tablet Once a day at bedtime as needed Enalapril ND 26080767002 2.5 MG Orally Active 1 ta blet Maleate Once a day Ferrex 150 ND 95861734589 150 MG Orally Active 1 c apsule Once a day Sodium Chloride ND 79875288286 1 GM Orally Active 1 tablet Twice a day Aspirin [facility] 27094126345 81 MG Orally Active 1 table t Once a day Lidocaine [facility] 80531125892 5 % Externally July Active 1 p atch to Once a day 2019 skin as needed Results Name Result Date Reference Range Unit Abnormali ty Flag Ferritin ----Ferritin 101.8 20200110 26-388 ng/mL Summary Purpose [employer]ClinicalWorks Submission
--- OUTSIDE RECORDS SUMMARY | 2020-03-25 09:09 | XMS REPORT ---
:1930 Author Organization [facility] Address [address], 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 011967858 Scott catheter Problem Need for R26.89 Active 484030107 assistance due to unsteady gait Problem Urinary retention R33.9 Active 213803597 Problem Iron deficiency D50.9 Active 45838775 anemia, unspecified iron deficiency anemia type Problem Gross hematuria R31.0 Active 525351500 Problem HTN (hypertension) I10 Active 12803740 Problem Transient ischemic G45.9 Active 723064812 attack (TIA) Problem Anemia D64.9 Active 402914062 Problem Hypospadias, Q54.1 Active 334236783 penile Problem Other N13.39 Active 03442960 hydronephrosis ALLERGIES No Known Allergies ENCOUNTERS from 1930 to 2020-03-11 Encounter Location Date Provider Diagnosis [facility] [address] [facility] [place], Bladimir Carlos he maturia R31.0 Specialty/Urology [address], ; [place] [address] N13.39 ; Hypos padias, penile Q54.1 an d Urinary retenti on R33.9 IMMUNIZATIONS No Information SOCIAL HISTORY Tobacco Use: [...] REASON FOR REFERRAL No Information VITAL SIGNS Height 68.00 in Mar, Weight 180 lbs Mar, Temperature 97.4 degrees Fahrenheit Mar, BMI 27.37 kg/m2 Mar, Oximetry 94 % Mar, Blood pressure systolic 102 mm Hg Mar, Blood pressure diastolic 59 mm Hg Mar, MEDICATIONS Medication SIG (Take, Route, Frequency, Start Date End Date Status Duration) Trazodone HCl 50 MG 1 tablet Orally AT bed time Jan, Active for 90 days Enalapril Maleate 2.5 MG 1 tablet Orally Once a day Active Sodium Chloride 1 GM 1 tablet Orally Twice a day Active for 30 days Lidocaine 5 % 1 patch to skin as needed Jul, A ctive Externally Once a day for 30 days Atorvastatin Calcium 40 MG 1 tablet Orally Once a day Active for 90 days Clopidogrel Bisulfate 75 MG 1 tablet Orally Once a day Active for 90 days Aspirin 81 MG 1 tablet Orally Once a day Active for 90 days Ferrex 150 150 MG 1 capsule Orally Once a day Active for 90 days PROCEDURES No Information RESULTS No Results REASON FOR VISIT hospital follow -up, cystoscopy MEDICAL (GENERAL) HISTORY Type Description Date Medical History Prostate pain Medical History Cancer Medical History HTN (hypertension) Medical History COPD (chronic obstructive pulmonary dise ase) Medical History BLADDER FAILURE Medical History TIA'S Medical History HEART ATTACK Surgical History pace maker 2016 Surgical History colon resection 2016 Surgical History boil/infection 2019 Surgical History catheter Surgical History skin cancer 2004/2007 Surgical History SKIN GRAFTS X 2 Goals Section No Information Health Concerns No Information MEDICAL EQUIPMENT No Information MENTAL STATUS No Information FUNCTIONAL STATUS No Information ASSESSMENTS Encounter Date Diagnosis Notes Mar, Urinary retention (ICD-10 - R33.9) Mar, Gross hematuria (ICD-10 - R31.0) Mar, Hypospadias, penile (ICD-10 - Q54.1) Mar, Other hydronephrosis (ICD-10 - N13.39) PLAN OF TREATMENT Treatment Notes Test Name Order Date CYTOLOGY, NON-WET PROCESS MILLER 2020-03-11 Renal Ultrasound-Complete 2020-03-11 Next Appt Details Provider Name:Bladimir Swanson, 2020-05-11 03:00:00 PM, [address] [place] [address], [place], [address], Insurance Providers Payer Name Payer Address Payer Insured Patient Coverage Cover age Phone Name Relationship to Start Date End Date Insured [employer] [address] [phone] Frank Will self 2018 [facility] [place] [address] [address] MEDICARE Attn Part B [id number] Frank Will self 1995 [employer] Claims [address] [facility] [address]
--- OUTSIDE RECORDS SUMMARY | 2020-03-25 09:09 | XMS REPORT ---
[...] Medications Results No Known Results Summary Purpose [employer] Submission
--- OUTSIDE RECORDS SUMMARY | 2020-03-25 09:09 | XMS REPORT | Continuity of Care Document ---
:1930 Author Organization [facility] t Address [address] [place] [address] Care Team Providers Name Role Phone Faustino Arceo Attending Clinician Kvng Sarah Attending Clinician Kvng Sarah Admitting Clinician Problems Condition Condition Condition Status Onset Resolution Last Treating Co mments Source Name Details Category Date Date Treatment Clinician Date FALL Diagnosis Active 2016-03-30 Mem oria 12 14:45:00 l FALL 00:00: [place] 00 Active 01/11/[address] [facility] [id number], Diagnosis Active 2015-11-27 Mem oria K63.5, 7- 14:57:00 l COLON 01839, 00:00: [place] POLYPS K63.5, 00 COLON POLYPS Active 11/09/[address] 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 Transient Problem Resolve 2016-01-14 M emoria ischemic d 04:04:31 l attack Brice (disorder) Transient ischemic attack (disorder) Resolved Problem 01/14/[address] 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 ILLNESS, Diagnosis Active 2015-11-27 M emoria UNSPECIFIE 14:57:00 l D ILLNESS, Solomon n UNSPECIFIE D Active [facility] Discharge Problem 2016-01-14 2016-01-14 Memoria Diagnosis: 9- 04:04:31 04:04:31 l Finger 05:00: [place] injury Discharge 00 Diagnosis: Finger injury 01/11/2016 01/14/[address] [facility] Allergies, Adverse Reactions, Alerts This patient has no known allergies or adverse reactions. Social History Social Habit Start Date Stop Date Quantity Comments Source Social History 2015-11-24 2015-11-24 [facility] ermann 20:57:23 20:57:23 Medications Ordered Filled Start Stop Current Ordering Indication Dosage Frequency Signature Comments Components Source Medication Medication Date Date Medication? Clinician (SIG) Name Name Sodium Sodium 2019- No Na Tenorio 1 tablet C HI [...] 11-25 not exceed l 13:15: 4 gm/day. [place] 00 (Same as: Tylenol) tramadol No Notes: Not Mem oria hydrochlori 11-25 to exceed l de 50 MG 13:15: 400mg/day. Her garrison Oral Tablet 00 (Same As: Ultram) D5W 1/2NS + No Notes: Jeuss marco KCL 20mEq/L 11-25 PREMIX IV l 1000ml 13:13: - Do Not Brice (Premix) 00 Alter 1,000 mL WASTE: F/P - Sink; E - Municipal Trash Bin ketOROLAC No 4 days Memor ia 15 mg/mL 11-24 l injectable 17:00: MEDICATION H ermann solution WASTE Product Size: 30 mg Product Wasted: _15__ mg Ofirmev No Notes: Memoria 11-24 Infuse l 17:00: over 15 Brice 00 minutes Do not exceed 4gm/day of acetaminop hen MEDICATION WASTE Product Size: 1000 mg Product Wasted: _0__ mg Lovenox No Notes: Memoria 11-24 (Same as: l 14:00: Lovenox) Brice latanoprost No Notes: Jesus marco ophthalmic 11-24 (Same l 0.005% 02:00: as:Xalatan Cathryn nn solution ) bimatoprost No 1 drp, Jesus marco 0.1 MG/ML 11-24 Route: l Ophthalmic 02:00: BOTH EYES, H ermann Solution 00 Drug Form: [Lumigan] SOLN, Dosing Weight 79.091, kg, Bedtime, Start date: 11/24/15 21:00:00 CDT, Duration: 30 day, Stop date: 12/23/15 21:00:00 CDT Cipro No Notes: Do Memoria 11-24 not l 01:00: refrigerat Brice e Atropine No Notes: Memoria Sulfate 10 11-23 (Same As: l MG/ML 22:00: Isopto [place] Ophthalmic 00 Atropine) Solution [Atropine-C are] Protonix No Notes: For Mem oria 11-23 IV push l 21:30: reconstitu [place] te with 10 ml 0.9% sodium chloride and push over 2 minutes. (Same as: Protonix) Flagyl No Notes: Memoria 11-23 (Same as: l 21:00: Flagyl) Brice Avoid alcohol. Acetaminoph No Notes: Jesus marco en 10 MG/ML 11-23 Infuse l Injectable 21:00: over 15 Herm caridad Solution 00 minutes Do not exceed 4gm/day of acetaminop hen MEDICATION WASTE Product Size: 1000 mg Product Wasted: ___ mg Sodium No 25 mL, Memoria Chloride 11-23 Route: IV, l 0.9% IV 20:48: Start [place] 00 date: 11/24/15 15:48:00 CDT, Duration: 30 day, Stop date: 12/24/15 15:47:00 CDT, PRN Line Flush BD Normal No Notes: Memori a Saline 11-23 (Same as: l Flush 20:48: BD Brice Posiflush) Morphine No Notes: Memoria 11-23 (Same l 17:44: as:MORPhin Brice e Sulfate) Zofran No Notes: Memoria 11-23 (Same as: l 17:40: Zofran) Briec 00 MEDICATION WASTE Product Size: 4 mg Product Wasted: ___ mg D5W 1/2NS + No Notes: Jesus marco KCL 20mEq/L 11-23 PREMIX IV l 1000ml 17:39: - Do Not Brice (Premix) 00 Alter 1,000 mL WASTE: F/P - Sink; E - Municipal Trash Bin sugammadex No Notes: Memor ia 11-23 (Same as: l 16:59: Bridion) [place] 00 Ondansetron No Notes: Jesus marco 11-23 (Same as: l 13:53: Zofran) [place] 00 MEDICATION WASTE Product Size: 4 mg Product Wasted: ___ mg Naloxone No Notes: Memoria 11-23 Same as l 13:53: Narcan [place] Flumazenil No Notes: Memor ia 11-23 (Same as: l 13:53: Romazicon) [place] 00 Morphine No Notes: Memoria - (Same l 13:53: as:MORPhin e Sulfate) bupivacaine No Notes: Jesus marco liposome - (Same as: l 05:00: Exparel) NOT FOR [...] mL [266 mg]) Flagyl No Notes: Memoria - (Same as: l 05:00: Flagyl) Avoid alcohol. [...] Atropine Yes 1 drp, Memoria Sulfate 10 -19 OPTH, QID, l MG/ML 14:42: # 15 ml, 0 Solomon n Ophthalmic 00 Refill(s) Solution [Atropine-C are] Trazodone Yes 50 mg = 1 Mem oria Hydrochlori -19 tab, PO, l de 50 MG 14:41: Bedtime, # Her garrison Oral Tablet 00 30 tab, 1 Refill(s) Enalapril Enalapril Yes Na Tenorio [address] [facility] Maleate Maleate [facility] Ferrex 150 Ferrex 150 Yes Na Tenorio [address] [facility] - [facility] Trazodone Trazodone Yes Na Tenorio [address] [facility] [address] HCl HCl at bedtime [facility] - as needed [facility] Atorvastati Atorvastati Yes Na Tenorio [address] [facility] n Calcium n Calcium [facility] Aspirin Aspirin Yes Na Tenorio [address] [facility] Clopidogrel Clopidogrel Yes Na Tenorio [address] [facility] Bisulfate Bisulfate [facility] Vital Signs Vital Name Observation Time Observation Value Comments Source Respitory Rate 2016-01-11 22:56:00 Memori al [place] Heart Rate 2016-01-11 22:56:00 [facility] [place] Systolic (mm Hg) 2016-01-11 22:56:00 Jesus rial [place] Diastolic (mm Hg) 2016-01-11 22:56:00 Mem orial [place] Heart Rate 2016-01-11 21:24:00 [facility] [place] Respitory Rate 2016-01-11 21:24:00 Memori al [place] Systolic (mm Hg) 2016-01-11 21:24:00 Jesus rial [place] Diastolic (mm Hg) 2016-01-11 21:24:00 Mem orial [place] Weight 2016-01-11 21:24:00 [facility] [place] Temperature Oral (F) 2016-01-11 21:24:00 98.5 F [facility] [place] Height 2016-01-11 21:24:00 177.8 cm [facility] [place] BMI Calculated 2016-01-11 21:24:00 Memori al [place] Heart Rate 2015-11-29 12:32:00 [facility] [place] Systolic (mm Hg) 2015-11-29 12:32:00 Jesus rial [place] Diastolic (mm Hg) 2015-11-29 12:32:00 Mem orial [place] Respitory Rate 2015-11-29 12:32:00 Memori al [place] Temperature Oral (F) 2015-11-29 12:32:00 98.0 F [facility] [place] Heart Rate 2015-11-29 09:00:00 [facility] [place] Respitory Rate 2015-11-29 09:00:00 Memori al [place] Systolic (mm Hg) 2015-11-29 09:00:00 Jesus rial [place] Diastolic (mm Hg) 2015-11-29 09:00:00 Mem orial [place] Temperature Oral (F) 2015-11-29 09:00:00 98.1 F [facility] [place] Temperature Oral (F) 2015-11-29 04:55:00 98.2 F [facility] [place] Heart Rate 2015-11-29 04:55:00 [facility] [place] Systolic (mm Hg) 2015-11-29 04:55:00 Jesus rial [place] Diastolic (mm Hg) 2015-11-29 04:55:00 Mem orial [place] Respitory Rate 2015-11-29 04:55:00 Memori al [place] BMI Calculated 2015-11-24 20:49:00 Memori al [place] Weight 2015-11-24 20:49:00 [facility] [place] Height 2015-11-24 20:49:00 177.8 cm [facility] [place] Weight 2015-11-17 14:17:00 [facility] [place] Height 2015-11-17 14:17:00 177.8 cm [facility] [place] BMI Calculated 2015-11-17 14:17:00 Memori al [place] Procedures Procedure Date / Time Performed Performing Clinician [facility] shannon 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 Vasectomy [facility] [place] Wide re-excision of Memorial garrison lesion of skin<sup>1</sup> Encounters Start End Encounter Admission Attending Care Care Encounter Source Date/Time Date/Time Type Type Clinicians Facility Department ID 2020-03-13 2020-03-13 [id number] 2020-03-11 2020-03-11 [facility] [id number] 2020-02-24 2020-02-24 [facility] [id number] [facility] 2020-01-11 2020-01-11 [facility] [id number] [facility] 04:59:[facility] 04:59:[address] [place] [address] [place] [address] [facility] Medicine l Medicine Outpati ent Clinics 2020-01-09 2020-01-09 [facility] [id number] [address] 14:40:00 14:40:00 [place] [address] [facility] l Medicine Outpati ent Clinics 2019-11-23 2019-11-23 [facility] [id number] 19:34:00 19:34:00 [place] [address] [facility] l Medicine Outpati ent Clinics 2019-11-04 2019-11-04 [facility] [id number] 07:06:00 07:06:00 [place] [address] [facility] Medicine Outpati ent Clinics 2019-10-31 2019-10-31 [facility] [id number] 13[facility]00:00 13:00:00 [place] [address] [facility] Medicine Outpati ent Clinics 2019-10-25 2019-10-25 [facility] [id number] 13:25:00 13:25:00 [place] [address] [facility] Medicine Outpati ent Clinics 2019-10-25 2019-10-25 [facility] [id number] 13:22:00 13:22:00 [place] [address] [facility] Medicine Outpati ent Clinics 2019-09-06 2019-09-06 [facility] [id number] 10:00:00 10:00:00 [place] [address] [facility] Medicine Outpati ent Clinics 2019-08-19 2019-08-19 [facility] [id number] 10:57:00 10:57:00 [place] [address] [facility] Medicine Outpati ent Clinics 2019-08-16 2019-08-16 [facility] [id number] 13:54:00 13:54:00 [place] [address] [facility] Medicine Outpati ent Clinics 2019-08-05 2019-08-05 [facility] [id number] 15:54:00 15:54:[address] [place] [address] - [address] [facility] 2019-06-21 2019-06-21 [facility] [id number] 09:58:00 09:58:[address] [place] [address] - [address] [facility] 2019-06-07 2019-06-07 [facility] [id number] 15:20:00 15:20:[address] [place] [address] - [address] [facility] 2016-01-11 2016-01-11 Outpatient Roman Arceo [facility] [id number] 16:11:00 17:58:00 Faustino Agarwal 2015-11-24 2015-11-29 Outpatient Tyrel [facility] [id number] 05:09:00 11:23:00 Andrea I 00 Results [...] code = MCH) 30.1 pg 27.0-31.0 Memorial NtonrblANMDSGLZQF9605-21-80 10:02:0091.5[facility] HermannHEMATOLOGY 2015-11-26 10:02:0031.4[facility] QlyxhktBOGTGYCVIC7873-23-52 10:02:0010.3[facility] GelfcntWPPVZLEJBK3012-27-49 10:02:003.44[facility] XdqclxvUJXPDFEKYN7348-45-13 10:02:007.7[facility]orial IvpzqpsFTGCWSEKQJ0763-04-23 10:02:0015.0[facility] [place] USOBORAWGR6465-23-95 10:02:0032.9[facility] DjnlirlYOJFRFUUCP4792-89-56 10:02:00 7.2[facility] HermannCHEM SZFDR9816-33-40 09:04:002.1[facility] HermannCHEM PANEL 2015-11-25 09:04:002.8[facility] PzniwuaVDNCIWQZUAAB1740-54-85 09:04:76101Otqhnnnj VliypwdJTGTWBIYXLVF6367-36-65 09:04:008.0[facility]orial OeuniblIAZHWJZZHXQS2952-09-36 09:04:38492Lbmwcffy ApogkioLEYOQWHTYXFI3459-73-80 09:04:003.9[facility] HTVEXRKTRJKR1523-18-24 09:04:82655Xnrzaigx RxzyktfFTEENDIHXGGY9093-05-20 09:04:009[facility] DiawknmURICSHCFYDMP3965-34-33 09:04:000.92[facility] YJZNIXPTKASG4609-55-36 09:04:0024[facility] UszhjfhYHXVDZDLYKEB8732-33-29 09:04:00 76[facility]orial JvapmiuVVGZDEHPLOQF7671-67-37 09:04:0014.9[facility] HermannHEMATOLOGY 2015-11-25 09:04:0033.0[facility] QqlzlodOXPPRKITCC2983-03-57 09:04:0015.1[facility] ZpwgvjxPYWFSHETWL6506-77-48 09:04:006.7[facility] HisznrbSQLNJQIRBR0632-78-28 09:04:34164Qwkgdhge UxsaryvYMPEBOIBFQ3705-79-76 09:04:009.4[facility] AEQSFOOESZ8664-30-38 09:04:0011.3[facility] LamgpjxQGOJSZZTPX0425-27-56 09:04:00 3.82Memorial TtosacnQEUCYHXIZT0730-94-21 09:04:0089.4[facility] HermannHEMATOLOGY 2015-11-25 09:04:00 Test Item Value Reference Range Interpretation Comments MCH (test code = MCH) 29.5 pg 27.0-31.0 Memorial GibqbaaXKMWNXFFWQ4325-87-83 09:04:0034.1[facility] HermannHEMATOLOGY 2015-11-25 09:04:000.0[facility] LdcsfuxMBGYFLDECR3285-21-00 09:04:000.3[facility] XfuteeiWPAMUPKICX4260-62-03 09:04:007.4[facility] JswyoznIPDNOMDCTH9255-56-04 09:04:000.8[facility] UrmhvaqWWKGALURNZ5917-20-90 09:04:001.2[facility] [place] SBCDLVGQIV6228-77-83 09:04:0078.0[facility] YbduoaxWCFBZGXRGS5357-44-63 09:04:00 8.8[facility] FsoythwUOYWOQEWUW7915-72-29 09:04:0012.7[facility] HermannHEMATOLOGY 2015-11-25 09:04:000.2[facility] HermannBLOOD BANK TCQGYEV8046-32-10 15:06:00 Positive 1(11/17/15 10:06 AM)[facility]"
[2020-03-25] MEDS ORDERED: Ringers Lactate 1,000 ML IV ONE (09:23)
[2020-03-25 09:26] LABS: Absolute Lymphocytes (CBC) 1.3 K/uL (0.7-4.9); Basophils % 0.4 % (0-1.3); Hematocrit 30.9 % (39.6-49.0); RBC Red Blood Cell Count 3.44 M/uL (4.33-5.43)
[2020-03-25] MEDS ORDERED: propofoL 200 MG/20 ML VIAL IV ONE (09:48)
[2020-03-25] MEDS ORDERED: FENTANYL CITR 100 MCG/2 ML ONE (09:48)
[2020-03-25] MEDS: CEFAZOLIN/SWI 1gm 1 GM/10 ML SYR ONE ×2 (09:49→09:55)
[2020-03-25] MEDS ORDERED: LIDOCAINE 2% MPF 5 ML VIAL ONE (09:49)
[2020-03-25] MEDS ORDERED: KETOROLAC 30 MG/ML INJ ONE (10:15)
--- NOTE | 2020-03-25 10:40 | P.BOP ---
Preoperative diagnosis: infected upper back subQ mass 5x5cm with abscess Postoperative diagnosis: same Primary procedure: Excisional of infected upper back subQ mass with abscess drainage Estimated blood loss: <10cc Specimen: mass, culture Findings: as above Anesthesia: General Complications: None Drain(s): Other Transferred to: Recovery Room Condition: Good
[2020-03-25 14:18] VITALS: TEMP 96.7; O2SAT 99
[2020-03-25 14:19] VITALS: BP 123/56
--- NOTE | 2020-04-08 11:58 | DS ---
Date of Discharge: 03/25/2020 Diagnosis: Infected upper back subcutaneous mass. Procedure: Excisional biopsy of infected upper back subcutaneous mass with abscess drainage. Disposition: Home. Activity: As tolerated, no heavy lifting. Plan: Follow up in my office in 1 week. Call for appointment at [phone]. Keep area dry for 24 karen rs, then wet-to-dry dressings daily. ABEL/CHRISTY Voice ID: [id number] Report ID: [id number]
--- NOTE | 2020-04-08 11:58 | OP ---
Date of Procedure: 03/25/2020 Surgeon: Juan Arita MD Preoperative Diagnosis: Infected upper back subcutaneous mass, 5 x 5 cm with abscess present. Postoperative Diagnosis: Infected upper back subcutaneous mass, 5 x 5 cm with abscess present. Procedure: Excision of infected upper back subcutaneous mass with abscess drainage. Anesthesia: General plus local. Specimen: Mass and culture. Finding: As above. Complications: None. Packing: Wet-to-dry. Indications: This is a case of a male, who comes to us with infected upper back subcutaneous mass ab out 5 x 5 cm with abscess present and cellulitis. Benefits, alternatives, and risks of excisional bi opsy of mass with drainage of an abscess were fully explained which include, but not limited to infec tion, bleeding, damage to adjacent structures, anesthesia complication, recurrence, OH and even . He also understands this may not relieve symptoms. He might need more than one surgical intervent ion. He will require wound care and he has agreed with that and the family too. He has agreed with that and family too. Description Of Procedure: The patient was brought to the operating room, placed in supine position. Anesthesia was done without complication. A time-out was called. The previous area was marked by m shannon and the patient in the holding room. Once we have the patient in lateral decubitus position, a tarik e-out was called. We proceeded to prep the area in a sterile fashion. A wedge incision in the skin was made to remove the mass with abscess and deep in the subcutaneous tissue. Abscess loculations we re opened and explore. Area was irrigated and the area was packed with wet-to-dry dressing after hem ostasis was obtained. The patient tolerated the procedure well. The patient was sent to recovery in stable condition. ABEL/CHRISTY Voice ID: [id number] Report ID: [id number]
== END 2020-03-25 12:25 | disposition home or self-care (01) ==
LOC: DIETCON 08:34
PROVIDERS: ATTEND Surgery
PROC: 0JB70ZZ Excision of Back Subcutaneous Tissue and Fascia, Open Approach (ICD-10-PCS; principal; 2020-03-25 10:00)
DX: L72.0 Epidermal cyst (principal); L02.212 Cutaneous abscess of back [any part, except buttock and flank]; L03.312 Cellulitis of back [any part except buttock and flank]
CPT/HCPCS: 11406; 87070; 85025; 80048; 36415; 87205; 88304; 87075; J2704; J3010; J0690; J7120; 88305

== ENCOUNTER 2020-11-08 16:08 | Emergency (ER) | payer OTHER ==
--- OUTSIDE RECORDS SUMMARY | 2020-11-08 16:11 | XMS REPORT | Continuity of Care Document ---
:1930 Author Organization [facility] t Address [address] [place] [address] Care Team Providers Name Role Phone ArceoFaustino kearns Attending Clinician Kvng Sarah Attending Clinician Kvng Sarah Admitting Clinician Problems Condition Condition Condition Status Onset Resolution Last Treating Co mments Source Name Details Category Date Date Treatment Clinician Date FALL Diagnosis Active 2016-03-30 Mem oria 9-12 14:45:00 l FALL 00:00: Clayton 00 Active 01/11/2016 [facility] [address], Diagnosis Active 2015-11-27 Mem oria K63.5, 7-11 14:57:00 l COLON 32353, 00:00: Clayton POLYPS K63.5, 00 COLON POLYPS Active 11/09/2015 [facility] Cardiac Problem Active 2016-01-14 Jesus marco arrhythmia 04:04:31 l (disorder) 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 [facility] Polyp of Problem Active 2016-01-14 Mem oria colon 04:04:31 l (disorder) 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) Active Problem 01/14/2016 [facility] ILLNESS, Diagnosis Active 2015-11-27 M emoria UNSPECIFIE 14:57:00 l D ILLNESS, Solomon n UNSPECIFIE D Active [facility] 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 Problem 01/14/2016 [facility] Transient Problem Resolve 2016-01-14 M jesusitaria ischemic d 04:04:31 l attack Brice (disorder) Transient ischemic attack (disorder) Resolved Problem 01/14/2016 [facility] History of Past Illness Condition Condition Condition Status Onset Resolution Last Treating Co mments Source Name Details Category Date Date Treatment Clinician Date Discharge Problem 2016-01-14 2016-01-14 Memoria Diagnosis: - 04:04:31 04:04:31 l Finger 05:00: Clayton injury Discharge 00 Diagnosis: Finger injury 01/11/2016 01/14/2016 [facility] Allergies, Adverse Reactions, Alerts This patient has no known allergies or adverse reactions. Social History Social Habit Start Date Stop Date Quantity Comments Source Social History 2015-11-24 2015-11-24 [facility] ermann 20:57:23 20:57:23 Medications Ordered Filled Start Stop Current Ordering Indication Dosage Frequency Signature Comments Components Source Medication Medication Date Date Medication? Clinician (SIG) Name Name Sodium Sodium 2020- No Na Tenorio [address] Chloride Chloride 10-30 [facility] Lidocaine Lidocaine Yes Na Tenorio [address] [facility] 4-17 skin as [facility] tramadol Yes 50 mg = 1 Jesus marco hydrochlori -31 tab, PO, l de 50 MG 12:53: [...] Do Memoria 11-24 not l 01:00: refrigerat Clayton 00 e Atropine No Notes: Memoria Sulfate 10 11-23 (Same As: l MG/ML 22:00: Isopto Brice Ophthalmic 00 Atropine) Solution [Atropine-C are] Protonix No Notes: For Mem oria 11-23 IV push l 21:30: reconstitu Brice 00 te with 10 ml 0.9% sodium [...] Route: IV, l 0.9% IV 20:48: Start Clayton date: 11/24/15 15:48:00 CDT, Duration: 30 day, Stop date: 12/24/15 15:47:00 CDT, PRN Line Flush BD Normal No Notes: Memori a Saline 11-23 (Same as: l Flush 20:48: BD Clayton 00 Posiflush) Morphine No Notes: Memoria 11-23 (Same l 17:44: as:MORPhin Clayton 00 e Sulfate) Zofran No Notes: Memoria 11-23 (Same as: l 17:40: Zofran) Brice 00 MEDICATION WASTE Product Size: 4 mg Product Wasted: ___ mg D5W 1/2NS + No Notes: Jesus marco KCL 20mEq/L 11-23 PREMIX IV l 1000ml 17:39: - Do Not Clayton (Premix) 00 Alter 1,000 mL WASTE: F/P - Sink; E - Municipal Trash Bin sugammadex No Notes: Memor ia 11-23 (Same as: l 16:59: Bridion) Clayton 00 Ondansetron No Notes: Jesus marco 11-23 (Same as: l 13:53: Zofran) Brice MEDICATION WASTE Product Size: 4 mg Product Wasted: ___ mg Naloxone No Notes: Memoria 11-23 Same as l 13:53: Narcan Clayton Flumazenil No Notes: Memor ia 11-23 (Same as: l 13:53: Romazicon) Morphine No Notes: Memoria - (Same l [...] Yes 1 cap, PO, M emoria Plus - Daily, 0 l 14:42: Refill(s) bimatoprost Yes [...] Tenorio [address] [facility] Maleate Maleate [facility] Ferrex 150 Ferrex 150 Yes Na Tenorio [address] [facility] Trazodone Trazodone Yes Na Tenorio [address] [facility] HCl HCl at bedtime [facility] - as needed [facility] Atorvastati Atorvastati Yes Na Tenorio [address] [facility] n Calcium n Calcium [facility] Aspirin Aspirin Yes Na Tenorio [address] [facility] Clopidogrel Clopidogrel Yes Na Tenorio [address] [facility] Bisulfate Bisulfate [facility] Vital Signs Vital Name Observation Time Observation Value Comments Source Respitory Rate 2016-01-11 22:56:00 Memori al [place] Heart Rate 2016-01-11 22:56:00 [facility] [place] Systolic (mm Hg) 2016-01-11 22:56:00 Jesus rial [place] Diastolic (mm Hg) 2016-01-11 22:56:00 Mem orial [place] Heart Rate 2016-01-11 21:24:00 [facility] [place] Respitory Rate 2016-01-11 21:24:00 Memori al [place] Systolic (mm Hg) 2016-01-11 21:24:00 Jesus rial [place] Diastolic (mm Hg) 2016-01-11 21:24:00 Mem orial [place] Weight 2016-01-11 21:24:00 [facility] [place] Temperature Oral (F) 2016-01-11 21:24:00 98.5 F [facility] [place] Height 2016-01-11 21:24:00 177.8 cm [facility] [place] BMI Calculated 2016-01-11 21:24:00 Memori al [place] Heart Rate 2015-11-29 12:32:00 [facility] [place] Systolic (mm Hg) 2015-11-29 12:32:00 Jesus rial Clayton Diastolic (mm Hg) 2015-11-29 12:32:00 Mem orial [place] Respitory Rate 2015-11-29 12:32:00 Memori al [place] Temperature Oral (F) 2015-11-29 12:32:00 98.0 F [facility] [place] Heart Rate 2015-11-29 09:00:00 [facility] [place] Respitory Rate 2015-11-29 09:00:00 Memori al [place] Systolic (mm Hg) 2015-11-29 09:00:00 Jesus rial [place] Diastolic (mm Hg) 2015-11-29 09:00:00 Mem orial [place] Temperature Oral (F) 2015-11-29 09:00:00 98.1 F [facility] [place] Temperature Oral (F) 2015-11-29 04:55:00 98.2 F [facility] [place] Heart Rate 2015-11-29 04:55:00 [facility] [place] Systolic (mm Hg) 2015-11-29 04:55:00 Jesus rial [place] Diastolic (mm Hg) 2015-11-29 04:55:00 Mem orial [place] Respitory Rate 2015-11-29 04:55:00 Memori al [place] BMI Calculated 2015-11-24 20:49:00 Memori al [place] Weight 2015-11-24 20:49:00 [facility] [place] Height 2015-11-24 20:49:00 177.8 cm [facility] [place] Weight 2015-11-17 14:17:00 [facility] [place] Height 2015-11-17 14:17:00 177.8 cm [facility] [place] BMI Calculated 2015-11-17 14:17:00 Memori al [place] Procedures Procedure Date / Time Performed Performing Clinician [facility] Implantation of cardiac [facility] [place] pacemaker Vasectomy [facility] [place] Wide re-excision of [facility] Her garrison lesion of skin<sup>1</sup> Encounters Start End Encounter Admission Attending Care Care Encounter Source Date/Time Date/Time Type Type Clinicians Facility Department ID 2020-07-07 2020-07-07 Outpatient [facility] [id number] [facility] 2020-05-11 2020-05-11 Outpatient [facility] [id number] [facility] 2020-04-14 2020-04-14 Outpatient [facility] [id number] [facility] 2020-03-13 2020-03-13 Out[facility] [id number] [facility] 2020-03-11 2020-03-11 Out[facility] [id number] [facility] 2020-02-24 2020-02-24 Out[facility] [id number] [facility] 2020-01-11 2020-01-11 [facility] [id number] [facility] 04:59:00 04:59:[address] Luke [facility] - Drive [facility] Family Medicine l Medicine Outpati ent Clinics 2020-01-09 2020-01-09 [facility] [id number] 14:40:00 14:40:00 t Roff R[employer] Luke s - Drive [facility] Medicine l Medicine Outpati ent Clinics 2019-11-23 2019-11-23 [facility] [id number] 19:34:00 19:34:00 t Roff [employer] Luke s - Drive [facility] Family Medicine l Medicine Outpati ent Clinics 2019-11-04 2019-11-04 [facility] [id number] 07:06:00 07:06:00 t Roff [employer] Luke s - Drive [facility] Family Medicine l Medicine Outpati ent Clinics 2019-10-31 2019-10-31 [facility] [id number] 13:00:00 13:00:00 t Roff [employer] Luke s - Drive [facility] Medicine l Medicine Outpati ent Clinics 2019-10-25 2019-10-25 [facility] [id number] 13:25:00 13:25:00 t Roff [employer] Luke s - Drive [facility] Medicine l Medicine Outpati ent Clinics 2019-10-25 2019-10-25 [facility] [id number] 13:22:00 13:22:00 t Roff [employer] Luke s - Drive [facility] Medicine l Medicine Outpati ent Clinics 2019-09-06 2019-09-06 [facility] [id number] 10:00:00 10:00:[address] [employer] s - Drive [facility] Medicine Outpati ent Clinics 2019-08-19 2019-08-19 [facility] [id number] 10:57:00 10:57:[address] [employer] s - Drive [facility] Medicine Outpati ent Clinics 2019-08-16 2019-08-16 [facility] [id number] 13:54:00 13:54:[address] Luke s - Drive [facility] Medicine Outpati ent Clinics 2019-08-05 2019-08-05 [facility] [id number] 15:54:00 15:54:00 t Roff Roff [employer] s - Drive [facility] Medicine Outpati ent Clinics 2019-06-21 2019-06-21 [facility] [id number] 09:58:00 09:58:00 t Roff [employer] s - Drive [facility] Medicine Outpati ent Clinics 2019-06-07 2019-06-07 [facility] [id number] 15:20:00 15:20:00 t Roff [employer] s - [employer] [facility] Medicine Outpati ent Clinics 2016-01-11 2016-01-11 Outpatient Roman Arceo [facility] [id number] 16:11:00 17:58:00 Faustino Agarwal 2015-11-24 2015-11-29 Outpatient Tyrel [facility] [id number] 05:09:00 11:23:00 Andrea I 00 Results [...] code = MCH) 30.1 pg 27.0-31.0 [facility] HtrdrwdFOAMUVFRSY4278-62-27 10:02:0091.5[facility] 2015-11-26 10:02:0031.4[facility] ZyyzfgvRQKMZJUNRC0752-52-23 10:02:0010.3[facility] UizkbetMZKPRUPGWA3438-12-92 10:02:003.44[facility] JzinyyfKDZJPCWUSY8254-09-18 10:02:007.7[facility] ZcsmkvrPDZNVHNHIT6002-53-75 10:02:0015.0[facility] [place] WKHGLILRCC6422-51-61 10:02:0032.9[facility] LxyysbuHJIFRJSTHQ9438-51-92 10:02:00 7.2[facility] WwjuowyCEHTIXSUKMJE1337-47-58 09:04:009[facility] HermannELECTROLYTES 2015-11-25 09:04:000.92[facility] FvsnjywPOIVIKWDMJSR6306-32-98 09:04:0024[facility] CpugoppSCTCZZPNNUZD0113-44-73 09:04:0076[facility] IknoqytUGGRAGYVETCS4153-20-88 09:04:0014.9[facility] CfniqrwFULIVXMZCC6002-39-84 09:04:0033.0[facility] [place] SHMUPVOIFG4763-77-46 09:04:0015.1[facility] KtzqlnnKAHMPJLJBE1331-16-46 09:04:00 6.7[facility] PavcmybNKCAVANUXP7323-56-74 09:04:27546Ieppmvyh HermannHEMATOLOGY 2015-11-25 09:04:009.4[facility] GlcquunBNVAPRZUMD7287-09-26 09:04:0011.3[facility] EotmgglFNQALOXHNF4787-94-54 09:04:003.82[facility] FzhdrgtUSTKHYNBMJ4964-61-31 09:04:0089.4[facility] JdpagrqLFCXJUDRCX5056-54-23 09:04:00 Test Item Value Reference Range Interpretation Comments MCH (test code = MCH) 29.5 pg 27.0-31.0 Memorial GnmiknySLNNQZPESD3999-40-50 09:04:0034.1[facility] HermannHEMATOLOGY 2015-11-25 09:04:000.0[facility] DdtaysnVXFUXTMBSK6743-86-80 09:04:000.3[facility] HmohjruCRZVBVSDZB7969-74-57 09:04:007.4[facility] RviwncrVYDUFDEWLL4605-92-40 09:04:000.8[facility] QkhvwbdBONETNNAXC5493-21-94 09:04:001.2[facility] [place] GFWCSEKKYM0941-90-20 09:04:0078.0[facility] IwudwqzJWCCBDFOQN2831-82-71 09:04:00 8.8[facility] KqbrmqgHLZTTTKLUG5977-18-06 09:04:0012.7[facility] HermannHEMATOLOGY 2015-11-25 09:04:000.2[facility] HermannCHEM KWSQA3331-55-16 09:04:002.1[facility] HermannCHEM NEVOD5809-43-40 09:04:002.8[facility] WfrzpnuCPXFDRDQDBQY5489-90-96 09:04:44912Gnoonxmc JllufooOTPZGMYGICUC5808-01-61 09:04:008.0[facility] [place] BXSZBVBXPNSD5195-82-37 09:04:67655Pqsperdr TmrnotuXWDFDJAHIZKP9987-54-42 09:04:003.9[facility] ZuqbetkHRXLMDYPTSQA0751-51-24 09:04:84105Dkuukrba Clayton BLOOD BANK IEUSIER8869-83-24 15:06:00Positive 1(11/17/15 10:06 AM)[facility] Brice"
[2020-11-08 16:54] LABS: Hematocrit 35.2 % (39.6-49.0); MPV 7.6 fL (7.6-11.3); RBC Red Blood Cell Count 4.15 M/uL (4.33-5.43)
[2020-11-08 17:07] LABS: Protime INR 1.12
[2020-11-08 17:20] LABS: Albumin 3.1 g/dL (3.4-5.0); Bilirubin Total 0.7 mg/dL (0.2-1.0); Potassium 3.8 mmol/L (3.5-5.1)
--- NOTE | 2020-11-08 18:53 | EDPHYS ---
Physician Documentation [facility] Name: Khris Will Age: 89 yrs Sex: Male : 1930 Arrival Date: 11/08/2020 Time: 16:12 Bed 5 Private MD: ED Physician Warren Foreman HPI: 11/08 17:12 This 89 yrs old Male presents to ER via EMS with complaints of hematuria. tw4 17:12 The patient presents with a Scott catheter problem, urinary symptoms, hematuria. Onset: tw4 The symptoms/episode began/occurred 3 day(s) ago. Modifying factors: The symptoms are alleviated by nothing, the symptoms are aggravated by nothing. Severity of symptoms: At their worst the symptoms were moderate, in the emergency department the symptoms are unchanged. Historical: - Home Meds: 16:14 Ferrex 150 150 mg iron Oral cap daily [Active]; aspirin 81 mg Oral TbEC 1 tab once tr6 daily [Active]; atorvastatin 40 mg Oral tab 1 tab once daily [Active]; clopidogrel 75 mg Oral tab 1 tab once daily [Active]; trazodone 50 mg Oral tab 1 tab daily [Active]; enalapril maleate 2.5 mg Oral tab 1 tab once daily [Active]; - PMHx: 16:16 Dementia; Hypertension; Major Depressive Disorder; Pacemaker; skin cancer; Renal tr6 Disease; bladder "shut down"; - Immunization history:: Adult Immunizations unknown, Vaccine Information Sheet provided. - Social history:: Smoking status: unknown. ROS: 17:12 Constitutional: Negative for fever, chills, and weight loss, Eyes: Negative for injury, tw4 pain, redness, and discharge, Neck: Negative for injury, pain, and swelling, Cardiovascular: Negative for chest pain, palpitations, and edema, Respiratory: Negative for shortness of breath, cough, wheezing, and pleuritic chest pain, Abdomen/GI: Negative for abdominal pain, nausea, vomiting, diarrhea, and constipation, MS/Extremity: Negative for injury and deformity. 17:12 : Positive for hematuria, Negative for injury or acute deformity, urinary symptoms, urinary frequency, small amounts, burning with urination, difficulty urinating, bladder incontinence, foul smelling urine, penile discharge, penile pain, testicular pain Exam: 17:12 Constitutional: This is a well developed, well nourished patient who is awake, alert, tw4 and in no acute distress. Head/Face: Normocephalic, atraumatic. Chest/axilla: Normal chest wall appearance and motion. Nontender with no deformity. No lesions are appreciated. Cardiovascular: Regular rate and rhythm with a normal S1 and S2. No gallops, murmurs, or rubs. Normal PMI, no JVD. No pulse deficits. Respiratory: Lungs have equal breath sounds bilaterally, clear to auscultation and percussion. No rales, rhonchi or wheezes noted. No increased work of breathing, no retractions or nasal flaring. Abdomen/GI: Soft, non-tender, with normal bowel sounds. No distension or tympany. No guarding or rebound. No evidence of tenderness throughout. Back: No spinal tenderness. No costovertebral tenderness. Full range of motion. 17:12 : Male external genitalia: catheter in place draining red colored urine. Vital Signs: 16:41 BP 105 / 65; Pulse 64; Resp 16; Pulse Ox 97% on R/A; dh3 17:30 BP 109 / 64; Pulse 63; Resp 16; Pulse Ox 99% on R/A; dh3 18:30 BP 131 / 73; Pulse 65; Resp 17; Pulse Ox 100% on R/A; dh3 18:59 Temp 98.7; tr6 MDM: 16:27 Patient medically screened. 11/08 16:30 Order name: CBC w/o diff; Complete Time: 19:06 11/08 19:06 Interpretation: Normal except: MCV 84.8; HCT 35.2; HGB 11.4; RDW 15.4. 11/08 16:30 Order name: CMP; Complete Time: 19:06 11/08 19:06 Interpretation: Normal except: NA 134; GLUC 121; BUN 22; GFR 75. 11/08 16:30 Order name: PT-INR; Complete Time: 19:06 11/08 19:06 Interpretation: Normal except: PT 12.9. 11/08 16:30 Order name: Ptt, Activated; Complete Time: 19:06 11/08 16:30 Order name: Bladder Irrigation; Complete Time: 17:21 tw4 Administered Medications: No medications were administered Disposition Summary: 11/08/20 18:53 Discharge Ordered Location: Home tw4 Problem: new tw4 Symptoms: have improved tw4 Condition: Stable tw4 Diagnosis - Hematuria, unspecified tw4 Followup: tw4 - With: Private Physician - When: Upon discharge from the Emergency Department - Reason: Recheck today's complaints, Continuance of care, Re-evaluation by your physician Discharge Instructions: - Discharge Summary Sheet tw4 - Hematuria, Adult tw4 Forms: - Medication Reconciliation Form tw4 - Thank You Letter tw4 - Antibiotic Education tw4 - Prescription Opioid Use tw4 Signatures: Dispatcher [employer] Warren Llamas MD MD tw4 Tia Lomeli RN RN tr6 Corrections: (The following items were deleted from the chart) 19:12 19:06 Normal except: MCV 84.8; HCT 35.2; HGB 11.4. tw4 tw4
--- NOTE | 2020-11-08 18:53 | ER ---
Nurse's Notes [facility] Name: Khris Will Age: 89 yrs Sex: Male : 1930 Arrival Date: 11/08/2020 Time: 16:12 Bed 5 Private MD: Diagnosis: Hematuria, unspecified Presentation: 11/08 16:13 Chief complaint: EMS states: pt had blood in [place] beginning Monday, catheter changed tr6 on Monday but still having blood in urine. Coronavirus screen: At this time, unable to obtain information related to travel outside the [place] Ebola Screen: No symptoms or risks identified at this time. Initial Sepsis Screen: Does the patient meet any 2 criteria? No. Patient's initial sepsis screen is negative. Does the patient have a suspected source of infection? No. Patient's initial sepsis screen is negative. Risk Assessment: Do you want to hurt yourself or someone else? Patient reports no desire to harm self or others. Onset of symptoms was October 2020. 16:13 Method Of Arrival: EMS: [facility] tr6 16:13 Acuity: CONCEPCION 3 tr6 Triage Assessment: 16:16 General: Appears in no apparent distress. comfortable, slender, well groomed, Behavior tr6 is calm, cooperative, appropriate for age. Pain: Denies pain. EENT: No deficits noted. Neuro: Level of Consciousness is awake, alert, obeys commands, Oriented to person, place, time, situation. Cardiovascular: No deficits noted. Respiratory: No deficits noted. GI: No deficits noted. : [place] in place Urine is blood tinged. Derm: No deficits noted. Musculoskeletal: No deficits noted. Historical: - Home Meds: 16:14 Ferrex 150 150 mg iron Oral cap daily [Active]; aspirin 81 mg Oral TbEC 1 tab once tr6 daily [Active]; atorvastatin 40 mg Oral tab 1 tab once daily [Active]; clopidogrel 75 mg Oral tab 1 tab once daily [Active]; trazodone 50 mg Oral tab 1 tab daily [Active]; enalapril maleate 2.5 mg Oral tab 1 tab once daily [Active]; - PMHx: 16:16 Dementia; Hypertension; Major Depressive Disorder; Pacemaker; skin cancer; Renal tr6 Disease; bladder "shut down"; - Immunization history:: Adult Immunizations unknown, Vaccine Information Sheet provided. - Social history:: Smoking status: unknown. Screenin:18 Abuse screen: Denies threats or abuse. Denies injuries from another. Nutritional tr6 screening: No deficits noted. Tuberculosis screening: No symptoms or risk factors identified. Fall Risk None identified. Assessment: 16:54 Reassessment: see triage assessment. tr6 18:04 Reassessment:. tr6 18:45 Reassessment:. tr6 19:45 Reassessment: Patient's daughter reports she will take patient back to [facility]. lp1 Vital Signs: 16:41 BP 105 / 65; Pulse 64; Resp 16; Pulse Ox 97% on R/A; dh3 17:30 BP 109 / 64; Pulse 63; Resp 16; Pulse Ox 99% on R/A; dh3 18:30 BP 131 / 73; Pulse 65; Resp 17; Pulse Ox 100% on R/A; dh3 18:59 Temp 98.7; tr6 ED Course: 16:12 Patient arrived in ED. tr6 16:13 Tia Lomeli RN is Primary Nurse. tr6 16:14 Triage completed. tr6 16:18 Resting quietly. Awaiting ED provider evaluation. tr6 16:18 Patient has correct armband on for positive identification. Fall risk band placed. Bed tr6 in low position. Call light in reach. Side rails up X 1. Side rails up X2. potline monitor on. Pulse ox on. NIBP on. Door closed. Noise minimized. Visitors limited. Lights dimmed. Moved to private room. Warm blanket given. 16:18 No provider procedures requiring assistance completed. tr6 16:27 Warren Foreman MD is Attending Physician. tw4 16:42 Initial lab(s) drawn, by in, sent to lab. Inserted saline lock: 20 gauge in right dh3 antecubital area, using aseptic technique. Blood collected. 18:04 Bladder irrigated via [place] normal saline returned blood tinged fluid Patient tolerated tr6 well. 19:25 Bladder scan completed. 40ml. ds4 19:45 IV discontinued, No redness/swelling at site. Pressure dressing applied. lp1 Administered Medications: No medications were administered Outcome: 18:53 Discharge ordered by . tw4 19:45 Discharged to home via wheelchair, with family. lp1 19:45 Condition: good 19:45 Discharge instructions given to patient, family, Instructed on discharge instructions, follow up and referral plans. Demonstrated understanding of instructions, follow-up care. 19:46 Patient left the ED. lp1 Signatures: Jackie Corea RN RN lp1 GeriDamirKarel ds4 Nina Rodriguez 3 Warren Foreman MD MD tw4 Tia Lomeli RN RN tr6 Corrections: (The following items were deleted from the chart) 19:30 19:30 Bladder scan completed. 40ml ds4 ds4
[2020-11-08 20:05] VITALS: BP 131/73; O2SAT 100
[2020-11-08 20:07] VITALS: TEMP 98.7
== END 2020-11-08 19:46 | disposition home or self-care (01) ==
LOC: ER 16:08
DX: R31.9 Hematuria, unspecified (principal); I10 Essential (primary) hypertension; F03.90 Unspecified dementia, unspecified severity, without behavioral disturbance, psychotic disturbance, mood disturbance, and anxiety; F32.9 Major depressive disorder, single episode, unspecified; Z79.82 Long term (current) use of aspirin; Z95.0 Presence of cardiac pacemaker
CPT/HCPCS: 36415; 51700; 80053; 85027; 85610; 85730; 99285

== ENCOUNTER 2020-11-14 19:24 | Inpatient (IN) | payer OTHER ==
--- OUTSIDE RECORDS SUMMARY | 2020-11-14 19:27 | XMS REPORT | Continuity of Care Document ---
:1930 Author Organization [facility] t Address [address] [place] [address] Care Team Providers Name Role Phone ArceoFaustino kearns Attending Clinician Kvng Sarah Attending Clinician Kvng Sarah Admitting Clinician Problems Condition Condition Condition Status Onset Resolution Last Treating Co mments Source Name Details Category Date Date Treatment Clinician Date FALL Diagnosis Active 2016-03-30 Mem oria 9-12 14:45:00 l FALL 00:00: [place] 00 Active 01/11/2016 [facility] [id number], Diagnosis Active 2015-11-27 Mem oria K63.5, 7-11 14:57:00 l COLON 78808, 00:00: [place] POLYPS K63.5, 00 COLON POLYPS Active 11/09/2015 [facility] Cardiac Problem Active 2016-01-14 Jesus marco arrhythmia 04:04:31 l (disorder) 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 [facility] Polyp of Problem Active 2016-01-14 Mem oria colon 04:04:31 l (disorder) 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) Active Problem 01/14/2016 [facility] ILLNESS, Diagnosis Active 2015-11-27 M emoria UNSPECIFIE 14:57:00 l D ILLNESS, Solomon n UNSPECIFIE D Active [facility] 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 Problem 01/14/2016 [facility] Transient Problem Resolve 2016-01-14 M jesusitaria ischemic d 04:04:31 l attack [place]ice (disorder) Transient ischemic attack (disorder) Resolved Problem 01/14/2016 [facility] History of Past Illness Condition Condition Condition Status Onset Resolution Last Treating Co mments Source Name Details Category Date Date Treatment Clinician Date Discharge Problem 2016-01-14 2016-01-14 Memoria Diagnosis: - 04:04:31 04:04:31 l Finger 05:00: [place] injury Discharge 00 Diagnosis: Finger injury 01/11/2016 01/14/2016 [facility] Allergies, Adverse Reactions, Alerts This patient has no known allergies or adverse reactions. Social History Social Habit Start Date Stop Date Quantity Comments Source Social History 2015-11-24 2015-11-24 [facility] ermann 20:57:23 20:57:23 Medications Ordered Filled [...] Do Memoria 11-24 not l 01:00: refrigerat [place] 00 e Atropine No Notes: Memoria Sulfate [...] Route: IV, l 0.9% IV 20:48: Start [place] date: 11/24/15 15:48:00 CDT, Duration: 30 day, Stop date: 12/24/15 15:47:00 CDT, PRN Line Flush BD Normal No Notes: Memori a Saline 11-23 (Same as: l Flush 20:48: BD [place] 00 Posiflush) Morphine No Notes: Memoria 11-23 (Same l 17:44: as:MORPhin [place] 00 e Sulfate) Zofran No Notes: Memoria 11-23 (Same as: l 17:40: Zofran) [place] 00 MEDICATION WASTE Product Size: 4 mg Product Wasted: ___ mg D5W 1/2NS + No Notes: Jesus marco KCL 20mEq/L 11-23 PREMIX IV l 1000ml 17:39: - Do Not [place] (Premix) 00 Alter 1,000 mL WASTE: F/P - Sink; E - Municipal Trash Bin sugammadex No Notes: Memor ia 11-23 (Same as: l 16:59: Bridion) [place] 00 Ondansetron No Notes: Jesus marco 11-23 (Same as: l 13:53: Zofran) [place]ice MEDICATION WASTE Product Size: 4 mg Product Wasted: ___ mg Naloxone No Notes: Memoria 11-23 Same as l 13:53: Narcan [place] Flumazenil No Notes: Memor ia 11-23 (Same [...] Tenorio [address] [facility] Maleate Maleate [facility] Ferrex 150 Ferrex 150 Yes Na Tenorio [address] [facility] Trazodone Trazodone Yes Na Tenorio [address] [facility] HCl HCl [facility] bedtime [facility] as needed [facility] Atorvastati Atorvastati Yes Na Tenorio [address] [facility] n Calcium n Calcium [facility] Aspirin Aspirin Yes Na Tenorio [address] [facility] Clopidogrel Clopidogrel Yes Na Tenorio [address] [facility] Bisulfate Bisulfate [facility] Vital Signs Vital Name Observation Time Observation Value Comments Source Respitory Rate 2016-01-11 22:56:00 Memori al [place] Heart Rate 2016-01-11 22:56:00 [facility] [place] Systolic (mm Hg) 2016-01-11 22:56:00 Jesus rial [place] Diastolic (mm Hg) 2016-01-11 22:56:00 Mem orial [place] Heart Rate 2016-01-11 21:24:00 [facility] [place] Respitory Rate 2016-01-11 21:24:00 Memori al [place] Systolic (mm Hg) 2016-01-11 21:24:00 Jesus rial [place] Diastolic (mm Hg) 2016-01-11 21:24:00 Mem orial [place] Weight 2016-01-11 21:24:00 [facility] [place] Temperature Oral (F) 2016-01-11 21:24:00 98.5 F [facility] [place] Height 2016-01-11 21:24:00 177.8 cm [facility] [place] BMI Calculated 2016-01-11 21:24:00 Memori al [place] Heart Rate 2015-11-29 12:32:00 [facility] [place] Systolic (mm Hg) 2015-11-29 12:32:00 Jesus rial [place] Diastolic (mm Hg) 2015-11-29 12:32:00 Mem orial [place] Respitory Rate 2015-11-29 12:32:00 Memori al [place] Temperature Oral (F) 2015-11-29 12:32:00 98.0 F [facility] [place] Heart Rate 2015-11-29 09:00:00 [facility] [place] Respitory Rate 2015-11-29 09:00:00 Memori al [place] Systolic (mm Hg) 2015-11-29 09:00:00 Jesus rial [place] Diastolic (mm Hg) 2015-11-29 09:00:00 Mem orial [place] Temperature Oral (F) 2015-11-29 09:00:00 98.1 F [facility] [place] Temperature Oral (F) 2015-11-29 04:55:00 98.2 F [facility] [place] Heart Rate 2015-11-29 04:55:00 [facility] [place] Systolic (mm Hg) 2015-11-29 04:55:00 Jesus rial [place] Diastolic (mm Hg) 2015-11-29 04:55:00 Mem orial [place] Respitory Rate 2015-11-29 04:55:00 Memori al [place] BMI Calculated 2015-11-24 20:49:00 Memori al [place] Weight 2015-11-24 20:49:00 [facility] [place] Height 2015-11-24 20:49:00 177.8 cm [facility] [place] Weight 2015-11-17 14:17:00 [facility] [place] Height 2015-11-17 14:17:00 177.8 cm [facility] [place] BMI Calculated 2015-11-17 14:17:00 Memori al [place] Procedures Procedure Date / Time Performed Performing Clinician [facility] Implantation of cardiac [facility] [place] pacemaker Vasectomy [facility] [place] Wide re-excision of [facility] [place] garrison lesion of skin<sup>1</sup> Encounters Start End Encounter Admission Attending Care Care Encounter Source Date/Time Date/Time Type Type Clinicians Facility Department ID 2020-07-07 2020-07-07 Outpatient [id number] [facility] 2020-05-11 2020-05-11 Outpatient [facility] [id number] [facility] 2020-04-14 2020-04-14 Outpatient [facility] [id number] [facility] 2020-03-13 2020-03-13 [facility] [id number] 2020-03-11 2020-03-11 [facility] [id number] [facility] 2020-02-24 2020-02-24 [facility] [id number] [facility] 2020-01-11 2020-01-11 [facility] [id number] [facility] 04:59:00 04:59:[address] [place] [address] [address] [place] - Drive [facility] l Medicine Outpati ent Clinics 2020-01-09 2020-01-09 [facility] [id number] [facility] 14:40:00 14:40:00 [place] [employer] [place] - Drive [facility] Medicine l Medicine Outpati ent Clinics 2019-11-23 2019-11-23 [facility] [id number] 19:34:00 19:34:00 [place] [employer] Luke s - Drive [facility] Medicine l Medicine Outpati ent Clinics 2019-11-04 2019-11-04 [facility] [id number] 07:06:00 07:06:00 [place] [employer] Luke s - Drive [facility] Medicine l Medicine Outpati ent Clinics 2019-10-31 2019-10-31 [facility] [id number] 13:00:00 13:00:00 [place] [employer] [place] s - Drive [facility] Medicine l Medicine Outpati ent Clinics 2019-10-25 2019-10-25 [facility] [id number] 13[facility]25:00 13:25:00 [place] [employer] [place] - Drive [facility] Medicine l Medicine Outpati ent Clinics 2019-10-25 2019-10-25 [facility] [id number] 13:22:00 13:22:00 [place] [employer] [place] - Drive [facility] Medicine l Medicine Outpati ent Clinics 2019-09-06 2019-09-06 [facility] [id number] [facility] 10:00:00 10:00:[address] [place] [address] [place] [employer] - Drive [facility] Medicine Outpati ent Clinics 2019-08-19 2019-08-19 [facility] [id number] 10:57:00 10:57:[address] [place] [address] [place] [address] [employer] s - Drive [facility] Medicine Outpati ent Clinics 2019-08-16 2019-08-16 [facility] [id number] 13:54:00 13:54:[address] [place] [address] Luke s - Drive [facility] Medicine Outpati ent Clinics 2019-08-05 2019-08-05 [facility] [id number] 15:54:00 15:54:00 [place] [employer] s - Drive [facility] Medicine Outpati ent Clinics 2019-06-21 2019-06-21 [facility] [id number] 09:58:00 09:58:00 [place] [employer] s - Drive [facility] Medicine Outpati ent Clinics 2019-06-07 2019-06-07 [facility] [id number] 15:20:00 15:20:00 [place] [employer] s - [employer] [facility] Medicine Outpati ent Clinics 2016-01-11 2016-01-11 Outpatient Roman Arceo [facility] [id number] 16:11:00 17:58:00 Faustino Agarwal 2015-11-24 2015-11-29 Outpatient Tyrel [facility] [id number] 05:09:00 11:23:00 Andrea I 00 Results [...] code = MCH) 30.1 pg 27.0-31.0 [facility] CogkxahNZMTIQYPSR5765-78-65 10:02:0091.5[facility] HermannHEMATOLOGY 2015-11-26 10:02:0031.4[facility] YhonmnaLFKCKXQPUZ2100-20-89 10:02:0010.3[facility] RmolbkpWBFJZJNDTQ0701-41-59 10:02:003.44[facility] RlrbyeaYHKGJSDFDU1198-30-06 10:02:007.7[facility] AtbensyGIANUHPAXD7947-61-76 10:02:0015.0[facility] [place] EXJNHCHELH5718-99-74 10:02:0032.9[facility] EcncwwuWCTNEWGAEY5974-56-39 10:02:00 7.2[facility] RfellzlIFKWMAGQUXIV6360-04-47 09:04:009[facility] HermannELECTROLYTES 2015-11-25 09:04:000.92[facility] NbntuldJJSSQDZPUIEV2799-87-77 09:04:0024[facility] WfrarlqXWBFFBPRQPUA0919-56-96 09:04:0076[facility] NclzkjzOMKYERLWTETZ1639-52-88 09:04:0014.9[facility] IrccnleXWPJOUFXXR2514-18-86 09:04:0033.0[facility] [place] SHWTFBUBCU3719-69-57 09:04:0015.1[facility] DzsojplERPGCAZYXG7117-72-33 09:04:00 6.7[facility] PivwaacEILGHYXHQS9510-62-18 09:04:85275Qbajyrtn HermannHEMATOLOGY 2015-11-25 09:04:009.4[facility] CsyqynpUQKNDLUBYX0441-58-35 09:04:0011.3[facility] HxmvmcnDZCWKNUXXU8240-00-51 09:04:003.82[facility] IimtliwNLNEPVVLIG3862-48-22 09:04:0089.4[facility] JxjxminOBIEPQANWD3055-11-85 09:04:00 Test Item Value Reference Range Interpretation Comments MCH (test code = MCH) 29.5 pg 27.0-31.0 Memorial PzejwhaYPRILUOQKL1361-26-66 09:04:0034.1[facility] HermannHEMATOLOGY 2015-11-25 09:04:000.0[facility] SnrukzdSJVEQFDIAZ7471-75-85 09:04:000.3[facility] FgiycumRDJIPHUZQL8233-59-61 09:04:007.4[facility] GdwkizqZHYITNZXHK8759-24-30 09:04:000.8[facility] RxrgbirFANHOSKBKE8042-63-36 09:04:001.2[facility] [place] ZJCJSJCYSN9695-51-41 09:04:0078.0[facility]orial ZdpthlnJFFNIQNFXT6521-78-04 09:04:00 8.8[facility]orial LrzakquJYJHELZBNC0046-57-24 09:04:0012.7[facility] HermannHEMATOLOGY 2015-11-25 09:04:000.2[facility] HermannCHEM RMVVJ2417-37-68 09:04:002.1[facility] HermannCHEM SJYSL2530-80-46 09:04:002.8[facility] QgyzmxsRIAMBZEIAOPA4203-58-12 09:04:73743Cnpifcgv NgiyqrtLIDWEUGMJVHH5400-53-23 09:04:008.0[facility] [place] IFDGPKVQQDBU4355-53-86 09:04:94562Mtigoxrj TxsbznhINGKKXPTUGYF3181-91-61 09:04:003.9[facility]orial JrecjqxTQHWFVGUQZPN1207-53-54 09:04:45689Bbazqyyg [place] BLOOD BANK KCSVBFG3992-45-33 15:06:00Positive 1(11/17/15 10:06 AM)[facility] [place]"
--- NOTE | 2020-11-14 20:25 | RAD REPORT ---
EXAM DESCRIPTION: CTAbdomen Pelvis W Contrast - 11/14/2020 8:12 pm CLINICAL HISTORY: Abdominal pain. HEMATURIA COMPARISON: Abdomen Pelvis W Contrast dated 03/04/2020 TECHNIQUE: Biphasic CT imaging of the abdomen and pelvis was performed with 100 ml non-ionic IV cont rast. All CT scans are performed using dose optimization technique as appropriate and may include automated exposure control or mA/KV adjustment according to patient size. FINDINGS: Basilar scarring. Pacemaker leads. Coronary artery calcifications. Mild cardiomegaly. Low-density liver lesions which are statistically benign. Cholelithiasis. Adrenal glands unremarkable . No pancreatic masses are identified. The spleen is unremarkable. Bilateral hydronephrosis is presen t. Punctate left renal calculi. Indeterminate left renal lesion which is unchanged since 03/04/2020 i s almost certainly benign. There is a large soft tissue mass occupying the majority of the bladder lupe men. A Scott catheter is present. Profound prostatomegaly. Atherosclerosis. Fat containing inguinal h ernias. No acute fractures. Colorectal anastomosis. No suspicious bony findings. IMPRESSION: The bladder is moderately distended with heterogeneous material which could be secondary to tumor and/or hemorrhage. Bilateral hydronephrosis is present, presumably secondary to bladder out let obstruction.
[2020-11-14 20:29] LABS: Absolute Lymphocytes (CBC) 1.4 K/uL (0.7-4.9); Basophils % 0.6 % (0-1.3); Hematocrit 31.9 % (39.6-49.0); Lymphocytes % 18.9 % (15.3-44.8); MPV 7.6 fL (7.6-11.3); RBC Red Blood Cell Count 3.81 M/uL (4.33-5.43)
[2020-11-14 20:49] LABS: Potassium 3.8 mmol/L (3.5-5.1)
[2020-11-14 22:01] LABS: Urine Bacteria <20 /HPF (NONE SEEN); Urine RBC TNTC /HPF (NONE SEEN)
[2020-11-14 22:20] LABS: Protime INR 1.13
--- NOTE | 2020-11-14 22:27 | EDPHYS ---
Physician Documentation [facility] Name: Khris Will Age: 89 yrs Sex: Male : 1930 Arrival Date: 11/14/2020 Time: 19:25 Bed 24 Private MD: ED Physician Scooby Henry HPI: 11/14 22:44 This 89 yrs old Male presents to ER via EMS with complaints of Blood In Urine.kb 22:44 The patient presents with urinary symptoms, hematuria. Onset: The symptoms/episode kb began/occurred today. Modifying factors: The symptoms are alleviated by nothing, the symptoms are aggravated by nothing. Associated signs and symptoms: Pertinent positives: hematuria, Pertinent negatives: abdominal pain, constipation, diarrhea, dysuria, fever, nausea, vomiting. Severity of symptoms: At their worst the symptoms were moderate, in the emergency department the symptoms are unchanged. The patient has not experienced similar symptoms in the past. The patient has not recently seen a physician. Pt reports blood in urine that started today. Daughter states this happens every so often, last week he was seen here for the same complaint, irrigated and sent back to the retirement. States this happened about 6 months ago and he had to have continuous irrigation. Sees Dr Swanson. Historical: - Home Meds: 19:30 aspirin 81 mg Oral TbEC 1 tab once daily [Active]; atorvastatin 40 mg Oral tab 1 tab zb once daily [Active]; clopidogrel 75 mg Oral tab 1 tab once daily [Active]; enalapril maleate 2.5 mg Oral tab 1 tab once daily [Active]; Ferrex 150 150 mg iron Oral cap daily [Active]; sodium chloride 1 gram Oral tab twice a day [Active]; trazodone 50 mg Oral tab 1 tab daily [Active]; - PMHx: 19:30 bladder "shut down"; Dementia; Hypertension; Major Depressive Disorder; Pacemaker; zb Renal Disease; skin cancer; - Immunization history:: Adult Immunizations up to date. - Social history:: Smoking status: Patient/guardian denies using tobacco, the patient reports quitting approximately 5 years ago. ROS: 22:42 Constitutional: Negative for fever, chills, and weight loss. kb 22:42 : Positive for hematuria. 22:42 All other systems are negative. Exam: 22:43 Constitutional: This is a well developed, well nourished patient who is awake, alert, kb and in no acute distress. Head/Face: Normocephalic, atraumatic. ENT: Moist Mucous membranes Respiratory: Respirations even and unlabored. No increased work of breathing, no retractions or nasal flaring. Abdomen/GI: Soft, non-tender. No distention Skin: Warm, dry with normal turgor. Normal color. MS/ Extremity: Pulses equal, no cyanosis. Neurovascular intact. Full, normal range of motion. 22:43 : Male external genitalia: normal, a okeefe is noted, urine is noted to have daisy blood. 22:43 Neuro: Exam negative for acute changes. Vital Signs: 19:25 BP 120 / 70; Pulse 71; Resp 16; Temp 98.0; Pulse Ox 98% ; Weight 81.65 kg; Height 5 ft. zb 11 in. (180.34 cm); Pain 0/10; 11/15 00:25 BP 135 / 80; Pulse 72; Resp 16; Pulse Ox 98% ; zb 01:30 BP 114 / 77; Pulse 78; Resp 16; Pulse Ox 99% on R/A; jb4 02:30 BP 121 / 72; Pulse 75; Resp 18; Pulse Ox 97% on R/A; jb4 03:30 BP 120 / 73; Pulse 73; Resp 18; Pulse Ox 97% on R/A; jb4 04:30 BP 135 / 94; Pulse 72; Resp 16; Pulse Ox 99% on R/A; jb4 11/14 19:25 Body Mass Index 25.10 (81.65 kg, 180.34 cm) zb MDM: 11/14 19:26 Patient medically screened. kb 22:25 Data reviewed: vital signs, nurses notes. Data interpreted: Pulse oximetry: on room air kb is 98 %. Interpretation: normal. Counseling: I had a detailed discussion with the patient and/or guardian regarding: the historical points, exam findings, and any diagnostic results supporting the discharge/admit diagnosis, lab results, radiology results, the need for further work-up and treatment in the hospital. Physician consultation: Dick ACOSTA was contacted at 22:25, regarding admission, to the medical/surgical unit. patient's condition, and will see patient in ED. 11/14 19:27 Order name: Basic Metabolic Panel; Complete Time: 20:54 kb 11/14 19:27 Order name: CBC with Diff; Complete Time: 20:35 kb 11/14 19:27 Order name: Protime (+inr); Complete Time: 22:27 kb 11/14 19:27 Order name: Ptt, Activated; Complete Time: 22:27 kb 11/14 19:27 Order name: Urine Microscopic Only; Complete Time: 22:06 kb 11/15 02:57 Order name: COVID-19 : Document "Date of Symptom Onset" if Symptomatic. jb4 11/14 19:27 Order name: IV Saline Lock; Complete Time: 19:59 kb 11/14 19:27 Order name: Labs collected and sent; Complete Time: 19:59 kb 11/14 19:27 Order name: Urine Dipstick-Ancillary (obtain specimen); Complete Time: 21:40 kb 11/14 19:32 Order name: CT Abd/Pelvis - IV Contrast Only; Complete Time: 20:30 kb 11/14 19:32 Order name: Bladder Irrigation; Complete Time: 22:48 kb 11/14 23:08 Order name: CONS Physician Consult [facility] 11/15 03:20 Order name: CORONAVIRUS [facility] 11/15 04:15 Order name: SARS-COV-2 RT PCR [facility] 11/14 22:26 Order name: [place]-[address]; Complete Time: 00:19 kb Administered Medications: No medications were administered Disposition: 11/15 06:58 Co-signature as Attending Physician, Scooby Henry MD I agree with the assessment and rn plan of care. Attestation: The patient's history, exam findings, diagnostics, and a summary of any interventions or procedures was reviewed in detail with Kylah SOLORIO. Disposition Summary: 11/14/20 22:27 Hospitalization Ordered Hospitalization Status: Inpatient Admission kb Provider: Garcia Costa Location: Telemetry/MedSurg (Inpatient) kb Condition: Stable kb Problem: new kb Symptoms: are unchanged kb Bed/Room Type: Standard Room Assignment: 204(11/15/20 02:12) mw Diagnosis - Hematuria, unspecified kb Forms: - Medication Reconciliation Form kb - SBAR form kb Signatures: Dispatcher [employer] [facility] Kylah Thurman FNP-C FNP-Ckb Webb, Martha, RN Scooby Napier MD MD rn Brown, Zipporah, ADRIANNA ruffin Corrections: (The following items were deleted from the chart) 02:12 11/14 22:27 kb mw
--- NOTE | 2020-11-14 22:27 | ER ---
Nurse's Notes [facility] Name: Khris Will Age: 89 yrs Sex: Male : 1930 Arrival Date: 11/14/2020 Time: 19:25 Bed 24 Private MD: Diagnosis: Hematuria, unspecified Presentation: 11/14 19:25 Chief complaint: EMS states: Home health nurse called EMS due to blood in urine. EMS zb states that HHN that noticed that patient okeefe wasn't flowing changed catheter and noticed large amount of bloody urine. History of blood urine possibly from UTI. patient denies pain. Coronavirus screen: At this time, the client does not indicate any symptoms associated with coronavirus-19. Ebola Screen: No symptoms or risks identified at this time. Initial Sepsis Screen: Does the patient meet any 2 criteria? No. Patient's initial sepsis screen is negative. Does the patient have a suspected source of infection? No. Patient's initial sepsis screen is negative. Risk Assessment: Do you want to hurt yourself or someone else? Patient reports no desire to harm self or others. Onset of symptoms was November 14, 2020. 19:25 Acuity: CONCEPCION 3 zb 19:25 Method Of Arrival: EMS: [facility] zb Triage Assessment: 19:32 General: Appears in no apparent distress. comfortable, Behavior is calm. Pain: Denies zb pain. Neuro: Level of Consciousness is awake, Oriented to person, place, time. Cardiovascular: Patient's skin is warm and dry. Respiratory: Airway is patent Respiratory effort is even, unlabored, Respiratory pattern is regular, symmetrical. GI: No deficits noted. : Okeefe in place Urine is daisy blood, Denies pain. Derm: Skin is fragile, is thin, Skin is dry, Skin is normal. Musculoskeletal: Circulation, motion, and sensation intact. Range of motion: intact in all extremities. Historical: - Home Meds: 19:30 aspirin 81 mg Oral TbEC 1 tab once daily [Active]; atorvastatin 40 mg Oral tab 1 tab zb once daily [Active]; clopidogrel 75 mg Oral tab 1 tab once daily [Active]; enalapril maleate 2.5 mg Oral tab 1 tab once daily [Active]; Ferrex 150 150 mg iron Oral cap daily [Active]; sodium chloride 1 gram Oral tab twice a day [Active]; trazodone 50 mg Oral tab 1 tab daily [Active]; - PMHx: 19:30 bladder "shut down"; Dementia; Hypertension; Major Depressive Disorder; Pacemaker; zb Renal Disease; skin cancer; - Immunization history:: Adult Immunizations up to date. - Social history:: Smoking status: Patient/guardian denies using tobacco, the patient reports quitting approximately 5 years ago. Screenin:34 Abuse screen: Denies threats or abuse. Denies injuries from another. Nutritional zb screening: No deficits noted. Tuberculosis screening: No symptoms or risk factors identified. Fall Risk None identified. Assessment: 19:35 Reassessment: see triage assessment. zb 20:30 Reassessment: Patient appears in no apparent distress at this time. Patient and/or zb family updated on plan of care and expected duration. Pain level reassessed. Patient is alert, oriented x 3, equal unlabored respirations, skin warm/dry/pink. bladder irrigated, urine remain red. will attempt Irrigate once more. 21:40 Reassessment: Patient appears in no apparent distress at this time. Patient and/or zb family updated on plan of care and expected duration. Pain level reassessed. Patient is alert, oriented x 3, equal unlabored respirations, skin warm/dry/pink. 22:30 Reassessment: Patient appears in no apparent distress at this time. Patient and/or zb family updated on plan of care and expected duration. Pain level reassessed. Patient is alert, oriented x 3, equal unlabored respirations, skin warm/dry/pink. 2nd attempt to irrigate okeefe. blood clots remain and urine remains bloody. 11/15 01:00 Reassessment: Patient appears in no apparent distress at this time. Patient and/or jb4 family updated on plan of care and expected duration. Pain level reassessed. Patient is alert, oriented x 3, equal unlabored respirations, skin warm/dry/pink. report received from ADRIANNA Loaiza. 01:30 Reassessment: Reassessment: Okeefe noted to not be irrigating properly. Irrigation set jb4 up fixed, obstruction removed from irrigation setup, Okeefe manually irrigated with 100ml on NS. clots noted, steady flow noted after manual irrigation. Okeefe reconnected to irrigation setup. 02:30 Reassessment: Patient appears in no apparent distress at this time. Patient and/or jb4 family updated on plan of care and expected duration. Pain level reassessed. Patient is alert, oriented x 3, equal unlabored respirations, skin warm/dry/pink. 03:30 Reassessment: Patient appears in no apparent distress at this time. Patient and/or jb4 family updated on plan of care and expected duration. Pain level reassessed. Patient is alert, oriented x 3, equal unlabored respirations, skin warm/dry/pink. 04:30 Reassessment: Patient appears in no apparent distress at this time. Patient and/or jb4 family updated on plan of care and expected duration. Pain level reassessed. Patient is alert, oriented x 3, equal unlabored respirations, skin warm/dry/pink. Irrigation is complete. 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 Vital Signs: 11/14 19:25 BP 120 / 70; Pulse 71; Resp 16; Temp 98.0; Pulse Ox 98% ; Weight 81.65 kg; Height 5 ft. zb 11 in. (180.34 cm); Pain 0/10; 11/15 00:25 BP 135 / 80; Pulse 72; Resp 16; Pulse Ox 98% ; zb 01:30 BP 114 / 77; Pulse 78; Resp 16; Pulse Ox 99% on R/A; jb4 02:30 BP 121 / 72; Pulse 75; Resp 18; Pulse Ox 97% on R/A; jb4 03:30 BP 120 / 73; Pulse 73; Resp 18; Pulse Ox 97% on R/A; jb4 04:30 BP 135 / 94; Pulse 72; Resp 16; Pulse Ox 99% on R/A; jb4 11/14 19:25 Body Mass Index 25.10 (81.65 kg, 180.34 cm) zb ED Course: 11/14 19:25 Patient arrived in ED. ds1 19:25 Fadia Ennis RN is Primary Nurse. zb 19:26 Kylah Thurman FNP-C is PHCP. kb 19:26 Scooby Henry MD is Attending Physician. kb 19:30 Triage completed. zb 20:00 Maintain EMS IV. Dressing intact. Good blood return noted. Site clean \\T\\ dry. Gauge \\T\\ zb site: 18G RAC . 20:00 Arm band placed on. zb 20:00 Patient has correct armband on for positive identification. Placed in gown. Bed in low zb position. Pulse ox on. NIBP on. Door closed. Noise minimized. Warm blanket given. 20:13 CT Abd/Pelvis - IV Contrast Only In Process Unspecified. EDMS 22:27 Garcia Costa DO is Hospitalizing Provider. yon 11/15 00:24 Okeefe cath inserted, using sterile technique, to gravity drainage, 3-way catheter zb inserted, using sterile technique, 20 Fr. 02:25 No provider procedures requiring assistance completed. Patient admitted, IV remains in ea place. Administered Medications: No medications were administered Outcome: 11/14 22:27 Decision to Hospitalize by Provider. kb 11/15 04:30 Admitted to Med/surg accompanied by tech, via stretcher, room 204, with chart, Report jb4 called to ADRIANNA Pacheco Condition: stable Discharge instructions given to patient, Instructed on the need for admit, Demonstrated understanding of instructions. 04:39 Patient left the ED. jb4 Signatures: Dispatcher [employer] EDHI Kylah Thurman, HEALTH OCCUPATIONS INSTRUCTOR-C HEALTH OCCUPATIONS INSTRUCTOR-Ckb Tila Barber ds1 Ben Hancock, RN RN jb4 Nathaly Chan RN RN ea Brown, Zipporah, RN RN augustin Corrections: (The following items were deleted from the chart) 04:39 04:30 Admitted to Med/surg accompanied by tech, via stretcher, with chart, jb4 jb4
--- NOTE | 2020-11-14 23:28 | P.HP ---
Certification for Inpatient Patient admitted to: Inpatient With expected LOS: >2 Midnights Patient will require the following post-hospital care: None Practitioner: I am a practitioner with admitting privileges, knowledge of patient current condition, hospital course, and medical plan of care. Services: Services provided to patient in accordance with Admission requirements found in Title 42 Section 412.3 of the Code of Federal Regulations Patient History Date of Service: 11/14/20 Primary Care Provider: Coby Reason for admission: hematuria History of Present Illness: Mr. Will is a 89 yo M with dementia, HTN, BPH, MDD, skin cancer here today for hematuria. For the past week, he has been getting blood clots in his okeefe. T monique there was a profuse amount of hematuria noted by the home health nurse. This last occurred 6 months ago and he was admitted for CBI. He has chronic use of okeefe and follows with urology. He still takes aspirin and plavix. Patient has no complaints. H/H 10.8. Na 130. Glu 140. Allergies No Known Allergies Allergy (Verified 03/25/20 09:39) Home Medications: Enalapril [Vasotec*] 2.5 mg PO DAILY 04/19/19 Iron Ps Cmplx/Vit B12/FA [Ferrex 150 Forte Capsule] 1 tab PO DAILY 04/19/19 Trazodone [Desyrel*] 50 mg PO DAILY 04/19/19 Aspirin [Aspirin EC 81 MG] 81 mg PO DAILY #30 tablet. 10/24/19 Atorvastatin Calcium [Lipitor] 40 mg PO BEDTIME #30 tab 10/24/19 Clopidogrel Bisulfate [Plavix*] 75 mg PO DAILY #30 tablet 10/24/19 Clindamycin HCl 150 mg PO Q8H #15 capsule 03/25/20 Codeine/APAP [Tylenol W/Codeine #3 tab] 1 tab PO Q4HP PRN #15 tab 03/25/20 NaCl 0.9% Irr Bottle [Ns Irrigation Bottle] 1,000 ml IR DAILY #1 btl 03/25/20 - Past Medical/Surgical History Diabetic: No -: Hypertension -: BPH -: skin cancer -: pacemaker -: skin ca removed -: Colonoscopy -: Pacemaker -: Colon Resection - Social History Smoking Status: Never smoker Alcohol use: No CD- Drugs: No Caffeine use: Yes Place of Residence: Home Review of Systems 10-point ROS is otherwise unremarkable Genitourinary: Hematuria Physical Examination - Physical Exam General: Alert, In no apparent distress HEENT: Atraumatic, PERRLA, Mucous membr. moist/pink, EOMI, Sclerae nonicteric Neck: Supple, 2+ carotid pulse no bruit, No LAD, Without JVD or thyroid abnormality Respiratory: Clear to auscultation bilaterally, Normal air movement Cardiovascular: Regular rate/rhythm, Normal S1 S2 Gastrointestinal: Normal bowel sounds Musculoskeletal: No tenderness Integumentary: No rashes Neurological: Normal speech, Normal strength at 5/5 x4 extr, Normal tone, Normal affect Lymphatics: No axilla or inguinal lymphadenopathy Urinary: Okeefe catheter - Studies Laboratory Data (last 24 hrs) 11/14/20 21:55: PT 13.0 H, INR 1.13, APTT 31.9 11/14/20 19:57: WBC 7.60, Hgb 10.8 L, Hct 31.9 L, Plt Count 278 11/14/20 19:57: Sodium 130 L, Potassium 3.8, BUN 23 H, Creatinine 0.88, Glucose 140 H Assessment and Plan - Plan urology consulted continuous bladder irrigation gentle IVF hydration continue to monitor H/H, will transfuse as needed pain management as needed will hold aspirin and plavix SCDs Discharge Plan: Home Plan to discharge in: 48 Hours - Advance Directives Does patient have a Living Will: No Does patient have a Durable POA for Healthcare: No - Code Status/Comfort Care Code Status Assessed: Yes (full code ) Critical Care: No Time Spent Managing Pts Care (In Minutes): 70
[2020-11-15] MEDS ORDERED: NACL 0.9% IRR SOLN 2,000 ML IRR ONE (00:04)
[2020-11-15] MEDS ORDERED: NACL 0.9% IRR SOLN 4,000 ML IRR ONE (05:05)
[2020-11-15] MEDS ORDERED: ACETAMINOPHEN 500 MG TAB PO PRN (05:11)
[2020-11-15] MEDS ORDERED: MORPHINE 2 MG/ML SYR IV PRN (05:11)
[2020-11-15] MEDS ORDERED: ONDANSETRON 4 MG/2 ML VIAL IV PRN (05:11)
[2020-11-15] MEDS: NA CHLORIDE 0.9% 1,000 ML IV SCH ×2 (05:36→14:12)
--- NOTE | 2020-11-15 05:56 | P.PN ---
Subjective Date of Service: 11/15/20 Primary Care Provider: Coby Chief Complaint: hematuria Subjective: Other (Patient is feeling better. Irrigation bladder system in place. He has a chronic okeefe catheter. Sees Dr. Swanson) Physical Examination - Vital Signs Temperature: 98.0 F Blood Pressure: 135/94 Pulse: 72 Respirations: 16 - Studies Laboratory Data (last 24 hrs) 11/14/20 21:55: PT 13.0 H, INR 1.13, APTT 31.9 11/14/20 19:57: WBC 7.60, Hgb 10.8 L, Hct 31.9 L, Plt Count 278 11/14/20 19:57: Sodium 130 L, Potassium 3.8, BUN 23 H, Creatinine 0.88, Glucose 140 H Assessment & Plan Discharge Plan: Home Plan to discharge in: 48 Hours Physician Review Additional Text: CT Scan: COMPARISON: Abdomen Pelvis W Contrast dated 03/04/2020 TECHNIQUE: Biphasic CT imaging of the abdomen and pelvis was performed with 100 ml non-ionic IV contrast. All CT scans are performed using dose optimization technique as appropriate and may include automated exposure control or mA/KV adjustment according to patient size. FINDINGS: Basilar scarring. Pacemaker leads. Coronary artery calcifications. Mild cardiomegaly. Low-density liver lesions which are statistically benign. Cholelithiasis. Adrenal glands unremarkable. No pancreatic masses are identified. The spleen is unremarkable. Bilateral hydronephrosis is present. Punctate left renal calculi. Indeterminate left renal lesion which is unchanged since 03/04/2020 is almost certainly benign. There is a large soft tissue mass occupying the majority of the bladder lumen. A Okeefe catheter is present. Profound prostatomegaly. Atherosclerosis. Fat containing inguinal hernias. No acute fractures. Colorectal anastomosis. No suspicious bony findings. IMPRESSION: The bladder is moderately distended with heterogeneous material which could be secondary to tumor and/or hemorrhage. Bilateral hydronephrosis is present, presumably secondary to bladder outlet obstruction. Physical Exam: General: Alert, In no apparent distress HEENT: Atraumatic, PERRLA, Mucous membr. moist/pink, EOMI, Sclerae nonicteric Neck: Supple, 2+ carotid pulse no bruit, No LAD, Without JVD or thyroid abnormality Respiratory: Clear to auscultation bilaterally, Normal air movement Cardiovascular: Regular rate/rhythm, Normal S1 S2 Gastrointestinal: Normal bowel sounds Musculoskeletal: No tenderness Integumentary: No rashes Neurological: Normal speech, Normal strength at 5/5 x4 extr, Normal tone, Normal affect Lymphatics: No axilla or inguinal lymphadenopathy Urinary: Okeefe catheter Impression: Hematuria with chronic okeefe catheter and hx of BPH, CT showing bilateral hydronephrosis likely secondary to bladder outlet obstruction HTN CAD Dementia Anemia of chronic disease Plan: Will discuss with Urology concerning patient. Continue with bladder irrigation system. Okeefe catheter in place. Patient will likely require cystoscopy. Continue to hold ASA/Plavix. Await recommendation by Urology. Obtain and restart home medication for HTN. Obtain and restart home medication for dementia. Monitor lab and trend CBC, CMP. Will discuss with family. DVT prophylaxis: SCD CODE STATUS: Full code Advance care [id number] minutes: Anticipate home at discharge. Time Spent Managing Pts Care (In Minutes): 55
[2020-11-15] MEDS ORDERED: NACL 0.9% IRR SOLN 2,000 ML IRR SCH (06:00)
[2020-11-15 06:34] VITALS: BMI 25.2
[2020-11-15 06:40] LABS: Absolute Lymphocytes (CBC) 1.2 K/uL (0.7-4.9); Basophils % 0.3 % (0-1.3); Hematocrit 33.3 % (39.6-49.0); Lymphocytes % 15.2 % (15.3-44.8); MPV 7.1 fL (7.6-11.3); RBC Red Blood Cell Count 3.93 M/uL (4.33-5.43)
[2020-11-15 06:41] LABS: Albumin 3.2 g/dL (3.4-5.0); Bilirubin Total 0.7 mg/dL (0.2-1.0); Ferritin 26.7 ng/mL (26-388); Magnesium 2.3 mg/dL (1.8-2.4); Phosphorus 3.3 mg/dL (2.5-4.9); Potassium 3.9 mmol/L (3.5-5.1); Protein, Total 6.9 g/dL (6.4-8.2)
[2020-11-15] MEDS: INSULIN -REGULAR HUMAN 50 UNIT/0.5 ML ML SQ SCH ×3 (07:30→16:03)
[2020-11-15] MEDS ORDERED: POTASSIUM CL SA 10 MEQ TAB PO ONE (09:00)
[2020-11-15] MEDS ORDERED: PNEUMOCOCCAL VACCINE 0.5 ML IMVAC ONE (10:00)
[2020-11-15] MEDS: ENSURE ENLIVE 237 ML CAN PO SCH ×2 (16:49→21:13)
[2020-11-15] MEDS: ATORVASTATIN 40 MG TAB PO SCH (21:13)
[2020-11-15] MEDS: TRAZODONE 50 MG TABLET PO SCH (21:13)
[2020-11-15] MEDS: SODIUM CHLORIDE 1 GM TAB PO SCH (21:13)
[2020-11-16 05:59] LABS: Absolute Lymphocytes (CBC) 1.4 K/uL (0.7-4.9); Basophils % 0.6 % (0-1.3); Hematocrit 32.3 % (39.6-49.0); Lymphocytes % 17.9 % (15.3-44.8); RBC Red Blood Cell Count 3.85 M/uL (4.33-5.43)
--- NOTE | 2020-11-16 06:02 | P.PN ---
Subjective Date of Service: 11/16/20 Primary Care Provider: Coby Chief Complaint: hematuria Subjective: Other (No more hematuria.) Physical Examination - Vital Signs Temperature: 98.0 F Blood Pressure: 111/59 Pulse: 69 Respirations: 19 Pulse Ox (%): 96 Assessment & Plan Discharge Plan: Home Plan to discharge in: 24 Hours Physician Review Additional Text: CT Scan: COMPARISON: Abdomen Pelvis W Contrast dated 03/04/2020 TECHNIQUE: Biphasic CT imaging of the abdomen and pelvis was performed with 100 ml non-ionic IV contrast. All CT scans are performed using dose optimization technique as appropriate and may include automated exposure control or mA/KV adjustment according to patient size. FINDINGS: Basilar scarring. Pacemaker leads. Coronary artery calcifications. M ild cardiomegaly. Low-density liver lesions which are statistically benign. Cholelithiasis. Adrenal glands unremarkable. No pancreatic masses are identified. The spleen is unremarkable. Bilateral hydronephrosis is present. Punctate left renal calculi. Indeterminate left renal lesion which is unchanged since 03/04/2020 is almost certainly benign. There is a large soft tissue mass occupying the majority of the bladder lumen. A Okeefe catheter is present. Profound prostatomegaly. Atherosclerosis. Fat containing inguinal hernias. No acute fractures. Colorectal anastomosis. No suspicious bony findings. IMPRESSION: The bladder is moderately distended with heterogeneous material which could be secondary to tumor and/or hemorrhage. Bilateral hydronephrosis is present, presumably secondary to bladder outlet obstruction. Physical Exam: General: Alert, In no apparent distress HEENT: Atraumatic, PERRLA, Mucous membr. moist/pink, EOMI, Sclerae nonicteric Neck: Supple, 2+ carotid pulse no bruit, No LAD, Without JVD or thyroid abnormality Respiratory: Clear to auscultation bilaterally, Normal air movement Cardiovascular: Regular rate/rhythm, Normal S1 S2 Gastrointestinal: Normal bowel sounds Musculoskeletal: No tenderness Integumentary: No rashes Neurological: Normal speech, Normal strength at 5/5 x4 extr, Normal tone, Normal affect Lymphatics: No axilla or inguinal lymphadenopathy Urinary: Okeefe catheter Impression: Hematuria with chronic okeefe catheter and hx of BPH, CT showing bilateral hydronephrosis likely secondary to bladder outlet obstruction HTN CAD with pacemaker Hyperlipidemia Dementia Anemia of chronic disease Plan: Hematuria improved with bladder irrigation. Await recommendations from urology. Continue to hold aspirin and Plavix. Patient may require urology intervention to further evaluate. Continue medication for hypertension. Continue medication for Hyperlipidemia. Monitor lab and trend CBC, CMP. Case discussed in detail with daughter. DVT prophylaxis: SCD CODE STATUS: Full code Advance care [id number] minutes: Anticipate home at discharge. Time Spent Managing Pts Care (In Minutes): 55
[2020-11-16 06:06] LABS: BUN Blood Urea Nitrogen 17 mg/dL (7-18); Bicarbonate 26 mmol/L (21-32); Glucose Level 96 mg/dL (74-106); Magnesium 2.4 mg/dL (1.8-2.4); Potassium 3.9 mmol/L (3.5-5.1); Sodium Level 135 mmol/L (136-145)
[2020-11-16] MEDS: VIT B12 PO SCH (09:00)
[2020-11-16] MEDS: [UNRECOGNIZED DRUG - OTHER] PO SCH (09:00)
[2020-11-16] MEDS: IRON PS CMPLX PO SCH (09:00)
[2020-11-16] MEDS ORDERED: ENALAPRIL 2.5 MG TAB PO SCH (09:00)
[2020-11-16] MEDS ORDERED: POTASSIUM CL SA 10 MEQ TAB PO ONE (09:00)
[2020-11-16] MEDS: SODIUM CHLORIDE 1 GM TAB PO SCH ×2 (09:58→20:05)
[2020-11-16] MEDS: ENSURE ENLIVE 237 ML CAN PO SCH ×3 (09:59→20:00)
--- NOTE | 2020-11-16 19:37 | CON ---
Date of Consultation: 11/16/2020 Reason For Consultation: Gross hematuria. History Of Present Illness: Mr. 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 He has been on aspirin and Plavix for some time ania use of his risk of stroke and heart attack; however, within the last several days, he developed gross hematuria that became concerning to them in its extent. His daughter notes that he had his urethral Scott catheter exchanged on Monday and by Monday, he had gross hematuria. The patient was never ill feeling and had no complaints. In fact, he was wondering when he would be able to go home. Of jarek lawson, I last saw him in May where a 6-month followup was planned and a median lobe was identified on cystoscopy. Following admission, the patient was placed on continuous bladder irrigation and the consultation was made. Physical Examination: General: The patient was well-appearing and in no acute distress. Alert and awake, lying in bed. H e had no dyspnea or signs of respiratory distress. Abdomen: Soft and nontender. Genitalia: His genitalia had the presence of the subcoronal hypospadias previously noted with no sig n of erythema or acute infection. A 3-way urethral Scott catheter was in place with CBI on slow drip less than 1 drop per second. The efflux of fluid in urine was crystal clear and free of blood. As a result, I assessed the drainage of the catheter by gently back filling his bladder with the irrigat ion port and assessing for respiratory variation, which he had. Once clear, the catheter was not obs tructed, I then allowed it to drain and the urine remained clear. As a result, I clamped the CBI and informed the nursing staff to leave it clamped unless his urine became significantly bloody. 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 I recommended after several hours of the CBI a culture of the urine be taken to assess for the coloni zing bacteria as I suspect a cystitis is underlying the reason for the gross hematuria. Regardless, he will require follow up with me in the [facility]rology [facility] for cystoscopy to assess the sour ce of the gross hematuria, and we will also reach out to his primary care physician, Dr. Alston, to dis cuss when she thinks it would be reasonably appropriate to have him hold his aspirin and Plavix in or gema to have a suprapubic catheter placed because of his traumatic hypospadias. Prior to discharge, I recommended that they resume his aspirin and if no significant return of gross hematuria, the Plavix can next be resumed. If he continues to not bleed with his dual anti-platelet therapy, he may be discharged home with followup as above recommended. MAYANK/CHRISTY Voice ID: [id number] Report ID: [id number]
[2020-11-16] MEDS: TRAZODONE 50 MG TABLET PO SCH (20:06)
[2020-11-16] MEDS: ATORVASTATIN 40 MG TAB PO SCH (20:06)
[2020-11-17 00:58] VITALS: O2SAT 97
[2020-11-17 04:30] LABS: Magnesium 2.2 mg/dL (1.8-2.4); Potassium 4.3 mmol/L (3.5-5.1)
[2020-11-17 04:32] LABS: Hematocrit 30.5 % (39.6-49.0); RBC Red Blood Cell Count 3.64 M/uL (4.33-5.43)
[2020-11-17 04:33] LABS: Absolute Lymphocytes (CBC) 1.4 K/uL (0.7-4.9); Basophils % 0.5 % (0-1.3); Lymphocytes % 18.4 % (15.3-44.8); MPV 7.1 fL (7.6-11.3)
--- NOTE | 2020-11-17 06:03 | P.DS ---
Admission Date: 11/14/20 Discharge Date: 11/17/20 Primary Care Provider: Dr. Tenorio, Urology-Dr. Swanson Disposition: ROUTINE DISCHARGE Discharge Condition: GOOD Reason for Admission: hematuria Consultations: Urology-Dr. Swanson Procedures: CT Scan: COMPARISON: Abdomen Pelvis W Contrast dated 03/04/2020 TECHNIQUE: Biphasic CT imaging of the abdomen and pelvis was performed with 100 ml non-ionic IV contrast. All CT scans are performed using dose optimization technique as appropriate and may include automated exposure control or mA/KV adjustment according to patient size. FINDINGS: Basilar scarring. Pacemaker leads. Coronary artery calcifications. Mild cardiomegaly. Low-density liver lesions which are statistically benign. Cholelithiasis. Adrenal glands unremarkable. No pancreatic masses are identified. The spleen is unremarkable. Bilateral hydronephrosis is present. Punctate left renal calculi. Indeterminate left renal lesion which is unchanged since 03/04/2020 is almost certainly benign. There is a large soft tissue mass occupying the majority of the bladder lumen. A Okeefe catheter is present. Profound prostatomegaly. Ath erosclerosis. Fat containing inguinal hernias. No acute fractures. Colorectal anastomosis. No suspicious bony findings. IMPRESSION: The bladder is moderately distended with heterogeneous material w hich could be secondary to tumor and/or hemorrhage. Bilateral hydronephrosis is present, presumably secondary to bladder outlet obstruction. Medical Problem List: Hematuria with chronic okeefe catheter and hx of BPH, CT showing bilateral hydronephrosis likely secondary to bladder outlet obstruction HTN CAD with pacemaker Hyperlipidemia Dementia Anemia of chronic disease Brief History of Present Illness: Mr. Will is a 89 yo M with dementia, HTN, BPH, MDD, skin cancer here today for hematuria. For the past week, he has been getting blood clots in his okeefe. Today there was a profuse amount of hematuria noted by the home health nurse. This last occurred 6 months ago and he was admitted for CBI. He has chronic use of okeefe and follows with urology. He still takes aspirin and plavix. Patient has no complaints. H/H 10.8. Na 130. Glu 140. Patient was admitted for treatment. Hospital Course: Patient was admitted for hematuria. Patient with chronic Okeefe catheter and history of BPH. CT scan showed bilateral hydronephrosis secondary to bladder outlet obstruction. Patient had prior hematuria in the past requiring continuous bladder irrigation. During the course of his stay patient received continuous bladder irrigation. His condition has improved. Aspirin and Plavix were held during this time. No further bleeding or hematuria noted. Hemoglobin remained stable. At discharge chronic Okeefe catheter was replaced. Urine culture obtained. Patient did not require any antibiotic therapy. Patient stable at this time for discharge. Case discussed with urology who was consulted. At discharge the patient will resume his home medications. Patient will follow up with urology within 1 week. Urology will follow up on urine culture. In the future there is plan for suprapubic catheter placement. Patient with history of hypertension, CAD with pacemaker, and hyperlipidemia. This appears stable at this time. At discharge patient will continue with aspirin 81 mg daily, Plavix 25 mg daily, Lipitor 40 mg daily, and Vasotec 2.5 mg daily. Recommend to monitor his blood pressures daily. Recommend to maintain blood pressure less than 130/80. Patient may need to hold his Vasotec if blood pressure systolic less than 110. Recommend follow-up with PCP and cardiology to further monitor his care. Patient with dementia. This appears stable at this time. Patient will continue with trazodone 50 mg at bedtime. Patient with anemia of chronic disease. This appears stable. At discharge patient will continue with iron supplementation. Patient also takes sodium chloride 1 pill twice daily. Patient will resume this medication. Recommend to monitor labBMP in 1 week to monitor his progress. Vital Signs/Physical Exam: Temp Pulse Resp BP Pulse Ox 97.4 F 74 16 97/52 L 97 11/17/20 04:00 11/17/20 04:00 11/17/20 04:00 11/17/20 04:00 11/17/20 04:00 General: Alert, In no apparent distress, Oriented x3, Oriented x1 HEENT: Atraumatic Neck: Supple Respiratory: Clear to auscultation bilaterally, Normal air movement Cardiovascular: Normal pulses, Regular rate/rhythm Gastrointestinal: Normal bowel sounds, No tenderness, No masses, No rebound, No guarding Musculoskeletal: No erythema, No tenderness, No warmth Urinary: Other (Okeefe catheter in place. No hematuria noted) Laboratory Data at Discharge: WBC 7.90 K/uL (4.3-10.9) 11/17/20 03:48 Hgb 10.3 g/dL (13.6-17.9) L 11/17/20 03:48 Hct 30.5 % (39.6-49.0) L 11/17/20 03:48 Plt Count 283 K/uL (152-406) 11/17/20 03:48 PT 13.0 SECONDS (9.5-12.5) H 11/14/20 21:55 INR 1.13 11/14/20 21:55 APTT 31.9 SECONDS (24.3-36.9) 11/14/20 21:55 Sodium 135 mmol/L (136-145) L 11/17/20 03:44 Potassium 4.3 mmol/L (3.5-5.1) 11/17/20 03:44 BUN 21 mg/dL (7-18) H 11/17/20 03:44 Creatinine 0.81 mg/dL (0.55-1.3) 11/17/20 03:44 Glucose 95 mg/dL (74-106) 11/17/20 03:44 Phosphorus 3.3 mg/dL (2.5-4.9) 11/15/20 06:08 Magnesium 2.2 mg/dL (1.8-2.4) 11/17/20 03:44 Total Bilirubin 0.7 mg/dL (0.2-1.0) 11/15/20 06:08 AST 21 U/L (15-37) 11/15/20 06:08 ALT 45 U/L (12-78) 11/15/20 06:08 Alkaline Phosphatase 83 U/L (45-117) 11/15/20 06:08 Home Medications: Enalapril [Vasotec*] 2.5 mg PO DAILY 04/19/19 Iron Ps Cmplx/Vit B12/FA [Ferrex 150 Forte Capsule] 1 tab PO DAILY 04/19/19 Trazodone [Desyrel*] 50 mg PO DAILY 04/19/19 Aspirin [Aspirin EC 81 MG] 81 mg PO DAILY #30 tablet. 10/24/19 Atorvastatin Calcium [Lipitor] 40 mg PO BEDTIME #30 tab 10/24/19 Clopidogrel Bisulfate [Plavix*] 75 mg PO DAILY #30 tablet 10/24/19 Sodium Chloride Tab [Sodium Chloride*] 1 tab PO BID 11/15/20 Physician Discharge Instructions: Patient was admitted for hematuria. Patient with chronic Okeefe catheter and history of BPH. CT scan showed bilateral hydronephrosis secondary to bladder outlet obstruction. Patient had prior hematuria in the past requiring continuous bladder irrigation. During the course of his stay patient received continuous bladder irrigation. His condition has improved. Aspirin and Plavix were held during this time. No further bleeding or hematuria noted. Hemoglobin remained stable. At discharge chronic Okeefe catheter was replaced. Urine culture obtained. Patient did not require any antibiotic therapy. Patient stable at this time for discharge. Case discussed with urology who was consulted. At discharge the patient will resume his home medications. Patient will follow up with urology within 1 week. Urology will follow up on urine culture. In the future there is plan for suprapubic catheter placement. Patient with history of hypertension, CAD with pacemaker, and hyperlipidemia. This appears stable at this time. At discharge patient will continue with aspirin 81 mg daily, Plavix 25 mg daily, Lipitor 40 mg daily, and Vasotec 2.5 mg daily. Recommend to monitor his blood pressures daily. Recommend to maintain blood pressure less than 130/80. Patient may need to hold his Vasotec if blood pressure systolic less than 110. Recommend follow-up with PCP and cardiology to further monitor his care. Patient with dementia. This appears stable at this time. Patient will continue with trazodone 50 mg at bedtime. Patient with anemia of chronic disease. This appears stable. At discharge patient will continue with iron supplementation. Patient also takes sodium chloride 1 pill twice daily. Patient will resume this medication. Recommend to monitor labBMP in 1 week to monitor his progress. Diet: AHA Activity: Fall precautions Followup: Janis Tenorio DO [Primary Care Provider] - Time spent managing pt's care (in minutes): 55
[2020-11-17] MEDS: VIT B12 PO SCH (09:00)
[2020-11-17] MEDS: IRON PS CMPLX PO SCH (09:00)
[2020-11-17] MEDS ORDERED: ASPIRIN EC 81 MG TAB PO SCH (09:00)
[2020-11-17] MEDS: [UNRECOGNIZED DRUG - OTHER] PO SCH (09:00)
[2020-11-17] MEDS: SODIUM CHLORIDE 1 GM TAB PO SCH (10:03)
[2020-11-17] MEDS: ENSURE ENLIVE 237 ML CAN PO SCH ×2 (10:04→15:03)
[2020-11-17 12:20] VITALS: BP 110/59; TEMP 97.8
== END 2020-11-17 16:53 | disposition home health service (06) | DRG 696 ==
LOC: ER 19:24 → ERHOLD 23:07 → 2ND 11-15 02:28
PROVIDERS: ADMIT Family Medicine; ATTEND Family Medicine
DX: R31.0 Gross hematuria (principal); E87.1 Hypo-osmolality and hyponatremia; N13.30 Unspecified hydronephrosis; I10 Essential (primary) hypertension; N40.0 Benign prostatic hyperplasia without lower urinary tract symptoms; D63.8 Anemia in other chronic diseases classified elsewhere; I25.10 Atherosclerotic heart disease of native coronary artery without angina pectoris; F03.90 Unspecified dementia, unspecified severity, without behavioral disturbance, psychotic disturbance, mood disturbance, and anxiety; N32.89 Other specified disorders of bladder; I25.2 Old myocardial infarction; Z79.82 Long term (current) use of aspirin; Z79.01 Long term (current) use of anticoagulants; Z79.899 Other long term (current) drug therapy; Z90.49 Acquired absence of other specified parts of digestive tract; Z95.0 Presence of cardiac pacemaker; Z85.828 Personal history of other malignant neoplasm of skin; Z87.891 Personal history of nicotine dependence; Z20.822 Contact with and (suspected) exposure to COVID-19
CPT/HCPCS: 36415; 51702; 74177; 80048; 80053; 81015; 82565; 82728; 82947; 83036; 83540; 83735; 84100; 84466; 85025; 85610; 85730; 87077; 87086; 87088; 87186; 94760; 99215; 99285; J7030; Q9967; U0003

== ENCOUNTER 2021-02-09 07:46 | Day surgery (SDC) | payer OTHER ==
[2021-01-07 15:34] LABS: Absolute Lymphocytes (CBC) 1.8 K/uL (0.7-4.9); Basophils % 0.7 % (0-1.3); Hematocrit 36.3 % (39.6-49.0); Lymphocytes % 25.1 % (15.3-44.8); MPV 7.1 fL (7.6-11.3); RBC Red Blood Cell Count 4.35 M/uL (4.33-5.43)
[2021-01-07 15:36] LABS: Protime INR 1.07
--- NOTE | 2021-01-07 16:01 | RAD REPORT ---
EXAM DESCRIPTION: RAD - Chest Pa And Lat (2 Views) - 01/07/2021 3:35 pm CLINICAL HISTORY: PreOp COMPARISON: Chest Single View dated 03/04/2020; Chest Single View dated 10/22/2019; Chest Pa And Lat ( 2 Views) dated 05/29/2019; Chest Pa And Lat (2 Views) dated 04/19/2019 FINDINGS: Lines: Pacemaker. Lungs: No evidence of edema or pneumonia. Pleural: No significant pleural effusions or pneumothorax. Cardiac: Mild cardiomegaly. Bones: No acute fractures. Other: IMPRESSION: No acute cardiopulmonary disease.
[2021-02-04 15:17] LABS: Urine Appearance CLOUDY (Clear); Urine Bilirubin NEGATIVE (Negative); Urine Blood NEGATIVE (Negative); Urine Color YELLOW (Yellow); Urine Glucose NEGATIVE (Negative); Urine Protein NEGATIVE (Negative); Urine Urobilinogen 0.2 mg/dL (0.2-1.0); Urine pH 7.5 (5.0-7.0)
[2021-02-04 15:19] LABS: Urine Microscopic Reflex ORDER UMIC
[2021-02-04 16:15] LABS: Urine Bacteria >50 /HPF (NONE SEEN); Urine RBC <5 /HPF (NONE SEEN); Urine Triple Phosphate Crystal MODERATE (NONE SEEN)
[~2021-02-09 07:46] MED LIST: CEFTRIAXONE 1 GM/NS 50 ML 1 GM/50 ML BAG IV ONE
[2021-02-09] MEDS ORDERED: Ringers Lactate 1,000 ML IV ONE (08:31)
[2021-02-09 09:01] VITALS: TEMP 97.5
[2021-02-09] MEDS ORDERED: FENTANYL CITR 100 MCG/2 ML ONE (09:30)
[2021-02-09] MEDS ORDERED: LIDOCAINE 1% MPF 5 ML VIAL ONE (09:30)
[2021-02-09] MEDS ORDERED: propofoL 200 MG/20 ML VIAL IV ONE ×2 (09:30→11:12)
[2021-02-09] MEDS ORDERED: CIPROFLOXACIN HCL 500 MG TAB PO ONE (10:00)
[2021-02-09] MEDS: Gentamicin Inj 240 MG in NA CHLORIDE 0.9% 100 ML IVPB ONE ×2 (10:15→10:41)
[2021-02-09] MEDS ORDERED: EPHEDRINE SULF 50 MG/ML VIAL ONE (10:48)
[2021-02-09] MEDS ORDERED: ROCURONIUM 50 MG/5 ML VIAL IV ONE (10:52)
[2021-02-09] MEDS ORDERED: ALBUMIN HUM 5% 250 ML IV ONE (10:59)
[2021-02-09] MEDS ORDERED: GLYCOPYRROLATE 0.2 MG/ML SYR ONE (11:06)
[2021-02-09] MEDS ORDERED: PHENAZOPYRIDINE 100MG TAB PO ONE ×3 (12:00→13:02)
[2021-02-09] MEDS ORDERED: CODEINE 30MG/APAP 300MG TAB PO PRN (12:00)
[2021-02-09] MEDS ORDERED: HYDROMORPHONE HCL 1 MG/ML INJ ONE (12:08)
[2021-02-09] MEDS ORDERED: ONDANSETRON 4 MG/2 ML VIAL ONE (12:08)
[2021-02-09] MEDS ORDERED: CODEINE 30MG/APAP 300MG TAB PO ONE (12:30)
[2021-02-09 12:44] VITALS: O2SAT 96
[2021-02-09] MEDS ORDERED: CODEINE 30MG/APAP 300MG TAB ONE (13:02)
[2021-02-09 13:13] VITALS: BP 120/68
--- NOTE | 2021-02-10 02:59 | OP ---
Date of Procedure: 02/09/2021 Surgeon: PIO MARIE Preoperative Diagnoses: 1.Atonic detrusor. 2.Traumatic/subcoronal hypospadias. 3.Bladder calculi. Postoperative Diagnoses: 1.Atonic detrusor. 2.Traumatic/subcoronal hypospadias. 3.Bladder calculi. 4.Fungus ball. Principal Procedures: 1.Cystolitholapaxy. 2.Evacuation of fungus ball. 3.Suprapubic catheter placement. 4.Scott catheter exchange. Indication For Procedure: Mr. Will is an 89-year-old gentleman with BPH with massive lateral and m edian lobar hypertrophy with intravesical projection, causing likely prolonged lower urinary tract ob struction. Unfortunately, he progressed to the point of dysfunction of his detrusor and required ure thral catheter placement. This was present well before he saw me as a patient, and upon my evaluatio n of him, he had the development of subcoronal hypospadias. As a result, I recommended removal of th e urethral Scott catheter and placement of a suprapubic tube. Of note, at the time of cystoscopy, bl adder calculi were also noted. Procedure Note: The patient was consented in the preoperative holding area before being transferred to the operative suite, where general anesthesia was induced. He was given gentamicin along with ora l ciprofloxacin that he was taking prior to the operative excursion today. Pneumo boots were provide d for DVT prophylaxis. He was placed in the lithotomy position, padded and secured to the table appr opriately. His genitalia were prepped using Hibiclens and his lower abdomen up to the level of the u mbilicus was prepped using Betadine. The case was begun using a 26-Bolivian resectoscope along with vi sual obturator to traverse the urethra and into the bladder with ease. As had previously been noted, there was massive lateral and median lobar hypertrophy of the prostate with significant intravesical projection that made visualization beyond the median lobe somewhat difficult and challenging. With distention of his bladder, which there was significant gross hematuria already present, I had to evac uate his bladder and irrigate it several times in order to adequately visualize internally. Then, be neath the median lobe in the region of the trigone, there were multiple small bladder calculi noted. I thus employed a 550 nm laser fiber and power settings of 1 joule and 20 hertz alternating with yimi t and 0.4 joules and 40 hertz in order to dust the stone fragments down to a size sufficient for mitul vitaly from the bladder via the cystoscope. Of note, there was what appeared to be a fungus ball causin g the calculi to coagulate together. As a result, after fragmenting the calculi, I Ellik evacuated t he majority of the stone fragments from his bladder and then used the cystoscope to directly remove a ny remaining fragments under direct visualization. Once this was completed, I then turned my attenti on to placement of the suprapubic catheter. I then filled and distended his bladder significantly, p laced the patient in steep Trendelenburg position and identified a point of entry about 2 fingerbread ths above the pubic symphysis. This was at the level of the belly crease per routine. A stab incisi on was made and then the suprapubic catheter using its introducer sharp stylet was placed with ease t hrough that stab incision and under direct vision into his bladder. The stylet was removed and the c atheter was coiled in a Felton loop fashion per routine. The suprapubic catheter was then sutured to h is lower abdomen using a 2-0 nylon suture. The urethral cystoscope was removed, and a new 20-Bolivian 2-way Scott catheter was placed into his bladder with ease. 20 cc of sterile water was placed in the balloon. Both catheters were placed to drainage bag and secured to his abdomen and his left lower e xtremity, respectively. The patient was then taken out of the lithotomy position, awakened from gene ral anesthesia, transferred to a stretcher, and then transferred to the recovery room in good conditi on. Complications: None. Estimated Blood Loss: Approximately 25 cc, mostly due to ongoing hematuria likely of a prostatic lorna gin in the patient. There is no tumor was easily visible. Discharge Disposition: The patient will keep the urethral Scott catheter along with the suprapubic t ube for at least 2 days after resuming the Plavix, anticipated on Monday. Likely, the urethral Scott catheter can be removed the following Monday as long as his urine remains light pink or clear on the Plavix. He then will keep the suprapubic catheter for a minimum of 6 to 8 weeks before following up with me in the clinic to exchange the 14-Bolivian catheter hopefully to a 16-Bolivian. He will continue on the antimicrobial therapy provided preoperatively for the UTI present. MAYANK/CHRISTY Voice ID: [id number] Report ID: [id number]
== END 2021-02-09 13:09 | disposition home or self-care (01) ==
LOC: OR 07:46
PROVIDERS: ATTEND Urology
PROC: 0T9B30Z Drainage of Bladder with Drainage Device, Percutaneous Approach (ICD-10-PCS; 2021-02-09)
PROC: 0T2BX0Z Change Drainage Device in Bladder, External Approach (ICD-10-PCS; 2021-02-09)
PROC: 0TCB8ZZ Extirpation of Matter from Bladder, Via Natural or Artificial Opening Endoscopic (ICD-10-PCS; principal; 2021-02-09 09:30)
DX: N20.0 Calculus of kidney (principal); Q54.1 Hypospadias, penile; N13.30 Unspecified hydronephrosis; R33.9 Retention of urine, unspecified; N31.8 Other neuromuscular dysfunction of bladder; N40.1 Benign prostatic hyperplasia with lower urinary tract symptoms; R31.0 Gross hematuria; N39.0 Urinary tract infection, site not specified; R31.9 Hematuria, unspecified; B48.8 Other specified mycoses; Z20.822 Contact with and (suspected) exposure to COVID-19
CPT/HCPCS: 87088 ×2; 85025; 87086 ×2; 36415; 85610; 87077 ×2; 87186 ×2; 82360; 71046; 52317; 51102; 51702; U0002 ×2; J2704 ×2; J1580; J3010; P9045; J7120; J2405; 81003; 81015; J1170

== ENCOUNTER 2021-05-24 16:54 | Inpatient (IN) | payer OTHER ==
--- OUTSIDE RECORDS SUMMARY | 2021-05-24 16:57 | XMS REPORT | Continuity of Care Document ---
:1930 Author Organization [facility] t Address [address] [place] [address] Care Team Providers Name Role Phone Unavailable Unavailable Unavailable Problems This patient has no known problems. Allergies, Adverse Reactions, Alerts This patient has no known allergies or adverse reactions. Medications Ordered Filled Start Stop Current Ordering Indication Dosage Frequency Signature Comments Components Source Medication Medication Date Date Medication? Clinician (SIG) Name Name Sodium Sodium 2020-0 2020- No Na Tenorio [address] Chloride Chloride 10-3030 [facility] Lidocaine Lidocaine 2019-0 Yes Na Tenorio [address] [facility] 4[facility]17 skin as [facility] Enalapril Enalapril Yes Na Tenorio [address] [facility] Maleate Maleate [facility] Ferrex 150 Ferrex 150 Yes Na Tenorio [address] [facility] Trazodone Trazodone Yes Na Tenorio [address] [facility] HCl HCl at bedtime [facility] Atorvastati Atorvastati Yes Na Tenorio [address] [facility] n Calcium n Calcium [facility] Aspirin Aspirin Yes Na Tenorio [address] [facility] Clopidogrel Clopidogrel Yes Na Tenorio [address] [facility] Bisulfate Bisulfate [facility] Procedures This patient has no known procedures. Encounters Start End Encounter Admission Attending Care Care Encounter Source Date/Time Date/Time Type Type Clinicians Facility Department ID 2021-05-18 2021-05-18 ambulatory [facility] [id number] [facility] 2021-05-10 2021-05-10 amb[facility] [id number] [facility] 2021-03-31 2021-03-31 ambulatory [facility] [id number] [facility] 2021-03-16 2021-03-16 ambulatory [facility] [id number] [facility] 2021-03-09 2021-03-09 ambulatory [facility] [id number] [facility] 2021-03-06 2021-03-06 amb[facility] [id number] [facility] 2021-02-19 2021-02-19 Outpatient [facility] [id number] [facility] 2021-02-15 2021-02-15 Out[facility] [id number] [facility] 2021-02-10 2021-02-10 Out[facility] [id number] [facility] 2021-01-14 2021-01-14 [facility] [id number] [facility] 2021-01-11 2021-01-11 [facility] [id number] [facility] 2020-12-18 2020-12-18 Out[facility] [id number] [facility] 2020-12-10 2020-12-10 [facility] [id number] [facility] 2020-11-25 2020-11-25 Out[facility] [id number] [facility] 2020-11-25 2020-11-25 Out[facility] [id number] [facility] 2020-11-17 2020-11-17 Out[facility] [id number] [facility] 2020-10-29 2020-10-29 Out[facility] [id number] [facility] 2020-07-07 2020-07-07 Out[facility] [id number] [facility] 2020-05-11 2020-05-11 Out[facility] [id number] [facility] 2020-04-14 2020[facility]04-14 Out[facility] [id number] [facility] 2020-03-13 2020-03-13 Out[facility] [id number] [facility] 2020-03-11 2020-03-11 Out[facility] [id number] [facility] 2020-02-24 2020-02-24 Out[facility] [id number] [facility] 2020-01-11 2020-01-11 [facility] [id number] [facility] 04:59:00 04:59:00 [place] [employer] [facility] Medicine Outpat[facility] ent Clinics 2020-01-09 2020-01-09 [facility] [id number] 14[facility]40:00 14:40:00 [place] [employer] [facility] l Medicine Outpat[facility] ent Clinics 2019-11-23 2019-11-23 [facility] [id number] [facility] 19:34:00 19:34:00 t [employer] [facility] l Medicine Outpati ent Clinics 2019-11-04 2019-11-04 [facility] [id number] [facility] 07[facility]06:00 07:06:00 t [place] [employer] [facility] Outpati ent Clinics 2019-10-31 2019-10-31 [facility] [id number] 13:00:00 13:00:00 t [place] [employer] [facility] Clin[facility] 2019-10-25 2019-10-25 [facility] [id number] 13:25:00 13:25:00 t [employer] [facility] Medicine Outpati ent Clinics 2019-10-25 2019-10-25 [facility] [id number] 13:22:00 13:22:00 t [place] [employer] [facility] Clin[facility] 2019-09-06 2019-09-06 [facility] [id number] [facility] 10:00:00 10:00:00 t [employer] [facility] Clin[facility] 2019-08-19 2019-08-19 [facility] [id number] 10:57:00 10:57:00 t [place] [employer] [facility] Clin[facility] 2019-08-16 2019-08-16 [facility] [id number] [facility] 13:54:00 13:54:00 t [employer] [facility] Clin[facility] 2019-08-05 2019-08-05 [facility] [id number] [facility] 15:54:00 15:54:00 t [employer] [facility] Clin[facility] 2019-06-21 2019-06-21 [facility] [id number] [facility] 09:58:00 09:58:00 t [employer] [facility] Clin[facility] 2019-06-07 2019-06-07 [facility] [id number] [facility] 15:20:00 15:20:00 t [employer] [facility] Results This patient has no known results.
[2021-05-24 17:35] LABS: Absolute Lymphocytes (CBC) 1.9 K/uL (0.7-4.9); Hematocrit 34.4 % (39.6-49.0); Lymphocytes % 23.3 % (15.3-44.8); MPV 6.9 fL (7.6-11.3); RBC Red Blood Cell Count 3.98 M/uL (4.33-5.43)
[2021-05-24 17:37] LABS: Urine Blood 3+ (Negative); Urine Glucose 1+ (Negative); Urine Protein 3+ (Negative); Urine pH >=9.0 (5.0-7.0)
[2021-05-24 17:51] LABS: Bilirubin Direct 0.2 mg/dL (0-0.2); Bilirubin Total 0.5 mg/dL (0.2-1.0); Potassium 4.3 mmol/L (3.5-5.1); Protein, Total 6.9 g/dL (6.4-8.2)
[2021-05-24 18:11] LABS: Protime INR 1.12
[2021-05-24] MEDS ORDERED: NACL 0.9% IRR SOLN 2,000 ML IRR ONE (21:14)
[2021-05-24] MEDS ORDERED: WATER FOR INJ,STERILE 30 ML ONE (21:27)
--- NOTE | 2021-05-24 22:10 | ER ---
Nurse's Notes [facility] Name: Khris Will Age: 89 yrs Sex: Male : 1930 Arrival Date: 05/24/2021 Time: 17:09 Bed 25 Private MD: Diagnosis: Hematuria, unspecified;Acute cystitis Presentation: 05/24 17:09 Chief complaint: EMS states: called to n/h after pt has had blood in super pubic cath x [facility] 3 days. replaced on Monday and this am. Coronavirus screen: Vaccine status: Patient reports receiving the 2nd dose of the covid vaccine. Ebola Screen: No symptoms or risks identified at this time. Initial Sepsis Screen: Does the patient meet any 2 criteria? No. Patient's initial sepsis screen is negative. Does the patient have a suspected source of infection? No. Patient's initial sepsis screen is negative. Risk Assessment: Do you want to hurt yourself or someone else? Patient reports no desire to harm self or others. Onset of symptoms was May 21, 2021. 17:09 Method Of Arrival: EMS: [place] [id number] 17:09 Acuity: CONCEPCION 3 [facility] Triage Assessment: 17:12 General: Appears in no apparent distress. Behavior is calm, cooperative. Pain: Denies [facility] pain. Historical: - Allergies: 17:12 No Known Allergies; [facility] - Home Meds: 17:12 aspirin 81 mg Oral TbEC 1 tab once daily [Active]; trazodone 50 mg Oral tab 1 tab daily [facility] [Active]; atorvastatin 40 mg Oral tab 1 tab once daily [Active]; clopidogrel 75 mg Oral tab 1 tab once daily [Active]; enalapril maleate 2.5 mg Oral tab 1 tab once daily [Active]; Ferrex 150 150 mg iron Oral cap daily [Active]; sodium chloride 1 gram Oral tab twice a day [Active]; - PMHx: 17:12 bladder "shut down"; Dementia; Hypertension; Major Depressive Disorder; Pacemaker; [facility] Renal Disease; skin cancer; - Immunization history:: Adult Immunizations up to date. - Social history:: Smoking status: unknown. Screenin:16 Abuse screen: Denies threats or abuse. Nutritional screening: No deficits noted. [facility] Tuberculosis screening: No symptoms or risk factors identified. Fall Risk No fall in past 12 months (0 pts). Secondary diagnosis (15 points) impaired mobility, IV access (20 points). Assessment: 17:12 Pain: Complains of pain in suprapubic area. jh6 17:12 General: Appears in no apparent distress. comfortable, Behavior is calm, cooperative, jh6 Smells of. 18:14 Reassessment: No changes from previously documented assessment. attempted to irrigate jh6 super pubic cath but unable to irrigate to clear. advised provider/. 18:45 Reassessment: bladder scan reported 60ml in bladder. was able to remove mulitple small jh6 clots from cath but would not clear of blood. provider advised. 18:55 Reassessment: after provider spoke with pts urologist, plan to place 20fr okeefe into [facility] and irrigate super pubic cath and have it drain into cath in penis. pt made aware. 19:25 General: Appears in no apparent distress. comfortable, Behavior is calm, cooperative. tk1 Pain: Denies pain. Neuro: No deficits noted. Cardiovascular: No deficits noted. Respiratory: No deficits noted. Airway is patent Respiratory effort is even, unlabored, Respiratory pattern is regular, symmetrical. GI: No deficits noted. : suprapubic catheter in place Urine is daisy blood. EENT: No deficits noted. Derm: No signs and/or symptoms reported regarding the dermatologic system. Musculoskeletal: No deficits noted. 19:25 Reassessment: 20 Fr okeefe cath inserted into penis per insertion protocol. 180 mls dark tk1 red urine to gravity bag after insertion. 20:45 Reassessment: Irrigated okeefe cath to penis and suprapubic cath with 1.5 liters NS. tk1 Patient continues to have small clots of blood. Output clears then becomes dark red. Mid level notified. 21:00 Reassessment: Urologist in for irrigation of catheters. tk1 21:53 Reassessment: CBI started per urologist. tk1 Vital Signs: 17:09 BP 125 / 72; Pulse 71; Resp 17; Temp 98.2(O); Pulse Ox 99% on R/A; Weight 81.65 kg; jh6 Height 5 ft. 10 in. (177.80 cm); Pain 0/10; 18:14 BP 117 / 81; Pulse 76; Resp 18; Pulse Ox 98% ; jh6 19:25 BP 123 / 72 RA Supine (auto/reg); Pulse 65 MON; Resp 18 S; Pulse Ox 98% ; Pain 0/10; tk1 17:09 Body Mass Index 25.83 (81.65 kg, 177.80 cm) jh6 Lilia Coma Score: 19:25 Eye Response: spontaneous(4). Verbal Response: oriented(5). Motor Response: obeys tk1 commands(6). Total: 15. ED Course: 17:09 Patient arrived in ED. ds1 17:11 Guido Hutchison MD is Attending Physician. kdr 17:12 Triage completed. jh6 17:12 Arm band placed on left wrist. jh6 17:20 Inserted saline lock: 20 gauge in left antecubital area, using aseptic technique. Blood jh6 collected. 18:04 PT-INR Sent. ab2 18:12 Milena Magana, ADRIANNA is Primary Nurse. jh6 18:16 Patient has correct armband on for positive identification. Bed in low position. Call [facility] light in reach. Side rails up X 1. Adult w/ patient. 19:25 Bed in low position. Call light in reach. Side rails up X 1. Adult w/ patient. tk1 20:29 Gayr Llanes PA is PHCP. jr8 20:51 PHCP role handed off by Gary Llanes PA jr8 20:51 Suhail Harper NP is PHCP. jr8 21:50 Urine Culture Sent. ab2 21:50 Urine Culture Sent. ab2 21:50 Urine Microscopic Only Sent. ab2 21:56 Urine Culture Sent. tk1 22:09 Dick Hopkins PA is Hospitalizing Provider. pm1 05/25 02:38 No provider procedures requiring assistance completed. tk1 Administered Medications: 05/24 22:14 CANCELLED (Physician Discretion): Rocephin (cefTRIAXone) 1 grams IV at calculated rate pm1 once; Given slow IV push per pharmacy instructions 05/25 01:18 Drug: Cefepime 1 grams Route: IVPB; Rate: 200 ml/hr; Infused Over: 30 mins; Site: left tk1 antecubital; Intake: 05/24 21:53 Tubes: 3000ml (); Total: 3000ml. tk1 19:25 Dark red urine via suprapubic cath to leg bag tk1 21:53 Per CBI tk1 Output: 19:25 Urine: 200ml ([place]); Total: 200ml. tk1 21:53 Drainage: 3000ml; Total: 3200ml. tk1 19:25 Dark red urine via suprapubic cath to leg bag tk1 21:53 Per CBI tk1 Outcome: 22:09 Decision to Hospitalize by Provider. pm1 05/25 02:38 Admitted to Med/surg accompanied by nurse, via stretcher, room 219, with chart. tk1 Condition: stable 02:39 Patient left the ED. tk1 Signatures: Guido Hutchison MD MD kdr Sanford, Demi ds1 Gary Llanes PA PA 8 Suhail Harper, COMPUTER NETWORKING INSTRUCTOR ADJUNCT COMPUTER NETWORKING INSTRUCTOR ADJUNCT pm1 Milena Magana RN RN jh6 Marianna Glass tk1 Simone Posey2 Corrections: (The following items were deleted from the chart) 05/24 18:14 18:12 General: Appears in no apparent distress. comfortable, Behavior is calm, jh6 cooperative, Smells of jh6 18:14 18:12 Pain: Complains of pain in suprapubic area jh6 jh6
--- NOTE | 2021-05-24 22:11 | EDPHYS ---
Physician Documentation [facility] Name: Khris Will Age: 89 yrs Sex: Male : 1930 Arrival Date: 05/24/2021 Time: 17:09 Bed 25 Private MD: ED Physician Guido Hutchison HPI: 05/24 17:39 This 89 yrs old Male presents to ER via EMS with complaints of Bleeding from his kdr suprapubic catheter. 17:40 The patient presents with a Scott catheter problem, draining bloody urine, Patient has kdr been bleeding from his suprapubic catheter since it was changed out last week. He normally has a small amount of bleeding with the exchanges but that has persisted this time. Patient is on Plavix and aspirin for his other medical issues. Onset: The symptoms/episode began/occurred gradually, last week. Modifying factors: The symptoms are alleviated by nothing, the symptoms are aggravated by nothing. Associated signs and symptoms: Pertinent positives: hematuria, nausea, Pertinent negatives: abdominal pain, constipation, diarrhea, dysuria, fever, vomiting. Severity of symptoms: At their worst the symptoms were moderate, severe, just prior to arrival, in the emergency department the symptoms are unchanged. The patient has not experienced similar symptoms in the past. The patient has not recently seen a physician. Historical: - Allergies: 17:12 No Known Allergies; [facility] - Home Meds: 17:12 aspirin 81 mg Oral TbEC 1 tab once daily [Active]; trazodone 50 mg Oral tab 1 tab daily [facility] [Active]; atorvastatin 40 mg Oral tab 1 tab once daily [Active]; clopidogrel 75 mg Oral tab 1 tab once daily [Active]; enalapril maleate 2.5 mg Oral tab 1 tab once daily [Active]; Ferrex 150 150 mg iron Oral cap daily [Active]; sodium chloride 1 gram Oral tab twice a day [Active]; - PMHx: 17:12 bladder "shut down"; Dementia; Hypertension; Major Depressive Disorder; Pacemaker; [facility] Renal Disease; skin cancer; - Immunization history:: Adult Immunizations up to date. - Social history:: Smoking status: unknown. ROS: 17:40 Constitutional: Negative for fever, chills, and weight loss, Eyes: Negative for injury, kdr pain, redness, and discharge, Neck: Negative for injury, pain, and swelling, Cardiovascular: Negative for chest pain, palpitations, and edema, Respiratory: Negative for shortness of breath, cough, wheezing, and pleuritic chest pain, Abdomen/GI: Negative for abdominal pain, nausea, vomiting, diarrhea, and constipation, Back: Negative for injury and pain, MS/Extremity: Negative for injury and deformity, Skin: Negative for injury, rash, and discoloration, Neuro: Negative for headache, weakness, numbness, tingling, and seizure activity. Psych: Negative for depression, anxiety, suicide ideation, homicidal ideation, and hallucinations, Allergy/Immunology: Negative for hives, rash, and allergies, Endocrine: Negative for neck swelling, polydipsia, polyuria, polyphagia, and marked weight changes, Hematologic/Lymphatic: Negative for swollen nodes, abnormal bleeding, and unusual bruising. 17:40 : Positive for hematuria, Negative for burning with urination, difficulty urinating, bladder incontinence, foul smelling urine. Exam: 17:40 Constitutional: This is a well developed, well nourished patient who is awake, alert, kdr and in no acute distress. Head/Face: Normocephalic, atraumatic. Eyes: Pupils equal round and reactive to light, extra-ocular motions intact. Lids and lashes normal. Conjunctiva and sclera are non-icteric and not injected. Cornea within normal limits. Periorbital areas with no swelling, redness, or edema. Neck: Trachea midline, no thyromegaly or masses palpated, and no cervical lymphadenopathy. Supple, full range of motion without nuchal rigidity, or vertebral point tenderness. No Meningismus. 17:40 Abdomen/GI: The patient has a super cath on the Scott in place that is not leaking but appears to be properly seated. The Scott itself is full of what appears to be bloody discharge. Vital Signs: 17:09 BP 125 / 72; Pulse 71; Resp 17; Temp 98.2(O); Pulse Ox 99% on R/A; Weight 81.65 kg; jh6 Height 5 ft. 10 in. (177.80 cm); Pain 0/10; 18:14 BP 117 / 81; Pulse 76; Resp 18; Pulse Ox 98% ; jh6 19:25 BP 123 / 72 RA Supine (auto/reg); Pulse 65 MON; Resp 18 S; Pulse Ox 98% ; Pain 0/10; tk1 17:09 Body Mass Index 25.83 (81.65 kg, 177.80 cm) jh6 Colon Coma Score: 19:25 Eye Response: spontaneous(4). Verbal Response: oriented(5). Motor Response: obeys tk1 commands(6). Total: 15. MDM: 18:56 Data reviewed: vital signs, nurses notes, lab test result(s), radiologic studies. kdr Counseling: I had a detailed discussion with the patient and/or guardian regarding: the historical points, exam findings, and any diagnostic results supporting the discharge/admit diagnosis, lab results, radiology results. Physician consultation: Bladimir Swanson MD I related the findings and history to Dr. Biggs. He suggested that we place a 20 [place] Scott catheter through the urethra and then irrigate the bladder with 500-1000 cc of normal saline. If if the urine does not sufficiently clear then he should be consulted for possible admission. 19:52 Patient medically screened. [facility] 21:00 Physician consultation: Bladimir Swanson MD in the emergency department to see patient at pm1 21:00. 22:03 Physician consultation: Bladimir Swanson MD would like the patient admitted for pm1 continuous bladder irrigation. Give patient abx, Rocephin q12. Renal u/s to evaluate for presence of hydro. His diagnosis and cause for the hematuria is cystitis. 22:14 ED course: Sky would like cefepime for abx instead of ceftriaxone. pm1 05/24 17:11 Order name: Basic Metabolic Panel; Complete Time: 19:51 [facility] 05/24 17:11 Order name: CBC with Diff; Complete Time: 17:39 [facility] 05/24 17:11 Order name: Hepatic Function; Complete Time: 19:51 [facility] 05/24 17:11 Order name: Lipase; Complete Time: 19:51 [facility] 05/24 17:16 Order name: Urine Microscopic Only; Complete Time: 22:59 ab2 05/24 17:36 Order name: Urine Dipstick-Ancillary; Complete Time: 17:39 EDMS 05/24 17:39 Order name: PT-INR; Complete Time: 19:51 [facility] 05/24 20:52 Order name: Urine Culture [facility] 05/24 20:52 Order name: Urine Culture [facility] 05/24 22:03 Order name: COVID-19/FLU A+B (Document "Date of Onset" if Symptomatic); Complete Time: tk1 23:17 05/24 22:18 Order name: CONS Physician Consult EDUT 05/24 17:11 Order name: IV Saline Lock; Complete Time: 21:50 kdr 05/24 17:11 Order name: Labs collected and sent; Complete Time: 21:50 kdr 05/24 17:16 Order name: Urine Dipstick-Ancillary (obtain specimen); Complete Time: 21:50 ab2 05/24 17:38 Order name: Misc. Order: Irrigate suprapubic Scott until clear ; Complete Time: 20:47 kdr 05/24 17:46 Order name: Labs - recollect needed: recollect yellow top with urine; Complete Time: bd 21:50 Administered Medications: 22:14 CANCELLED (Physician Discretion): Rocephin (cefTRIAXone) 1 grams IV at calculated rate pm1 once; Given slow IV push per pharmacy instructions 05/25 01:18 Drug: Cefepime 1 grams Route: IVPB; Rate: 200 ml/hr; Infused Over: 30 mins; Site: left tk1 antecubital; Disposition: 09:01 Co-signature as Attending Physician, Guido Hutchison MD I agree with the assessment and kdr plan of care. Disposition Summary: 05/24/21 22:09 Hospitalization Ordered Hospitalization Status: Inpatient Admission pm1 Provider: Dick Hopkins pm1 Location: Telemetry/[facility] (Inpatient) pm1 Condition: Stable pm1 Problem: new pm1 Symptoms: have improved pm1 Bed/Room Type: Standard pm1 Room Assignment: 219(05/25/21 00:32) bb Diagnosis - Hematuria, unspecified pm1 - Acute cystitis pm1 Forms: - Medication Reconciliation Form pm1 - SBAR form pm1 Signatures: Dispatcher [employer] EDUT Noelle Garcia Guido Hutchison MD MD kdr Valerie Lancaster RN RN Gary Mallory PA PA jr8 Suhail Harper, KARINA SCALE MANAGER pm1 Milena Magana RN RN jh6 Marianna Glass tk1 Simone Posey ab2 Corrections: (The following items were deleted from the chart) 05/24 22:10 22:03 Physician consultation: Bladimir Swanson MD would like the patient admitted for pm1 continuous bladder irrigation. Give patient abx, Rocephin q12. Renal u/s to evaluate for presence of hydro, pm1 22:14 22:08 Rocephin (cefTRIAXone) 1 grams IV at calculated rate once; Given slow IV push per pm1 pharmacy instructions ordered. pm1 22:33 22:03 SARS-COV-2 RT PCR+[id number].[id number] ordered. EDMS EDMS 05/25 00:32 05/24 22:09 pm1 bb
[2021-05-24 22:55] LABS: Urine Bacteria <20 /HPF (NONE SEEN); Urine RBC TNTC /HPF (NONE SEEN)
[2021-05-24 23:09] LABS: SARS-COV-2 RT PCR NEGATIVE (NEGATIVE)
--- NOTE | 2021-05-24 23:10 | P.HP ---
Certification for Inpatient Patient admitted to: Inpatient With expected LOS: <2 Midnights Patient will require the following post-hospital care: None Practitioner: I am a practitioner with admitting privileges, knowledge of patient current condition, hospital course, and medical plan of care. Services: Services provided to patient in accordance with Admission requirements found in Title 42 Section 412.3 of the Code of Federal Regulations Patient History Date of Service: 05/24/21 Reason for admission: hematuria History of Present Illness: Mr. 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 He reports he noticed blood in his urine at home, so he called the assisted living nurse and she called EMS. Dr. Swanson irrigated 5-6 liters at bedside, the first 4 of which had extensive clots and hematuria. Patient will remain on continuous bladder irrigation overnight. He takes aspirin and Plavix. Hemoglobin 11.8 Na 131 BUN 19 GFR 65 UA positive for blood, ketones, leukocyte esterase and nitrites. Allergies No Known Allergies Allergy (Verified 01/07/21 14:48) Home Medications: Enalapril [Vasotec*] 2.5 mg PO DAILY 04/19/19 Iron Ps Cmplx/Vit B12/FA [Ferrex 150 Forte Capsule] 150 mg PO DAILY 04/19/19 Trazodone [Desyrel*] 50 mg PO BEDTIME 04/19/19 Aspirin [Aspirin EC 81 MG] 81 mg PO DAILY #30 tablet. 10/24/19 Atorvastatin Calcium [Lipitor] 40 mg PO BEDTIME #30 tab 10/24/19 Clopidogrel Bisulfate [Plavix*] 75 mg PO DAILY #30 tablet 10/24/19 - Past Medical/Surgical History Diabetic: No -: Hypertension -: BPH -: skin cancer -: pacemaker -: depression -: BPH -: CAD -: atonic bladder -: traumatic hypospadias -: skin ca removed -: Colonoscopy -: Pacemaker -: Colon Resection -: chronic suprapubic catheter use - Family History Mother -: Hypertension, Lung disease Notes: smoker Father -: Stroke - Social History Smoking Status: Unknown if ever smoked Alcohol use: No CD- Drugs: No Caffeine use: Yes Place of Residence: Home Review of Systems 10-point ROS is otherwise unremarkable General: Unremarkable Eyes: Unremarkable ENT: Unremarkable Respiratory: Unremarkable Cardiovascular: Unremarkable Gastrointestinal: Unremarkable Genitourinary: Hematuria Musculoskeletal: Unremarkable Integumentary: Unremarkable Neurological: Unremarkable Lymphatics: Unremarkable Physical Examination - Physical Exam General: Alert, In no apparent distress HEENT: Atraumatic, PERRLA, Mucous membr. moist/pink, EOMI, Sclerae nonicteric Neck: Supple, 2+ carotid pulse no bruit, No LAD, Without JVD or thyroid abnormality Respiratory: Clear to auscultation bilaterally, Normal air movement Cardiovascular: Regular rate/rhythm, Normal S1 S2 Gastrointestinal: Normal bowel sounds, No tenderness Musculoskeletal: No tenderness Integumentary: No rashes Neurological: Normal speech, Normal strength at 5/5 x4 extr, Normal tone, Normal affect Lymphatics: No axilla or inguinal lymphadenopathy Urinary: Suprapubic catheter - Studies Laboratory Data (last 24 hrs) 05/24/21 17:55: PT 12.9 H, INR 1.12 05/24/21 17:19: WBC 8.00 D, Hgb 11.8 L, Hct 34.4 L, Plt Count 271 05/24/21 17:19: Sodium 131 L, Potassium 4.3, BUN 19 H, Creatinine 1.07, Glucose 90, Total Bilirubin 0.5, AST 14 L, ALT 27, Alkaline Phosphatase 63, Lipase 138 Assessment and Plan - Problems (Diagnosis) (1) Anemia Onset Date: 04/27/15 Current Visit: No Status: Chronic Qualifiers: Anemia type: unspecified type Qualified Code(s): D64.9 - Anemia, unspecified (2) Benign prostatic hypertrophy with urinary obstruction Onset Date: 04/27/15 Current Visit: No Status: Chronic (3) Detrusor dysfunction Current Visit: No Status: Acute (4) Gross hematuria Current Visit: No Status: Acute (5) Hypertension Current Visit: No Status: Chronic Qualifiers: Hypertension type: primary hypertension Qualified Code(s): I10 - Essential (primary) hypertension (6) Hypospadias, penile Current Visit: No Status: Chronic (7) Hyponatremia Onset Date: 04/27/15 Current Visit: No Status: Chronic (8) UTI (urinary tract infection) Onset Date: 04/27/15 Current Visit: No Status: Acute Qualifiers: Urinary tract infection type: site unspecified Hematuria presence: with hematuria Qualified Code(s): N39.0 - Urinary tract infection, site not specified; R31.9 - Hematuria, unspecified - Plan urology consulted continue continuous bladder irrigation monitor hemoglobin q [address] urogram pending anemia workup pending urine culture pending, continue IV cefepime hold aspirin and plavix continue sodium chloride tablets, monitor Na levels reconcile and continue other home medications DVT ppx Discharge Plan: Home Plan to discharge in: 24 Hours - Advance Directives Does patient have a Living Will: Yes Does patient have a Durable POA for Healthcare: Yes - Code Status/Comfort Care Code Status Assessed: Yes (full code ) Critical Care: No Time Spent Managing Pts Care (In Minutes): 70
[2021-05-25] MEDS ORDERED: CEFEPIME 1 GM/VIAL ONE (01:20)
[2021-05-25] MEDS ORDERED: NA CHLORIDE 0.9% 100 ML ONE (01:21)
[2021-05-25] MEDS ORDERED: ONDANSETRON 4 MG/2 ML VIAL IV PRN (02:54)
[2021-05-25] MEDS ORDERED: ACETAMINOPHEN 500 MG TAB PO PRN (02:54)
[2021-05-25 03:03] VITALS: BMI 24.4
[2021-05-25 05:47] LABS: Absolute Lymphocytes (CBC) 1.6 K/uL (0.7-4.9); Hematocrit 33.7 % (39.6-49.0); Lymphocytes % 18.6 % (15.3-44.8); MPV 7.1 fL (7.6-11.3); RBC Red Blood Cell Count 3.87 M/uL (4.33-5.43)
[2021-05-25] MEDS ORDERED: NACL 0.9% IRR SOLN 4,000 ML IRR ONE ×2 (06:19→22:14)
[2021-05-25] MEDS ORDERED: SODIUM CHLORIDE 1 GM TAB PO SCH (08:00)
[2021-05-25 08:05] LABS: Albumin 2.9 g/dL (3.4-5.0); Bilirubin Total 0.7 mg/dL (0.2-1.0); Ferritin 27.1 ng/mL (26-388); Magnesium 2.3 mg/dL (1.8-2.4); Phosphorus 3.3 mg/dL (2.5-4.9); Potassium 4.2 mmol/L (3.5-5.1); Protein, Total 6.7 g/dL (6.4-8.2)
--- NOTE | 2021-05-25 08:45 | RAD REPORT ---
EXAM DESCRIPTION: CT - Abdomen Pelvis W/Wo Contrast - 05/25/2021 8:08 am CLINICAL HISTORY: evaluate upper tract for urothelial filling defect COMPARISON: Abdomen Pelvis W Contrast dated 11/14/2020 TECHNIQUE: Biphasic, helical CT imaging of the abdomen and pelvis was performed following 100 ml non -ionic IV contrast. Pre IV contrast images were obtained along with 10 minutes delayed images. Sagitt al and coronal reformatted images were generated and reviewed. No oral contrast was administered. Move All CT scans are performed using dose optimization technique as appropriate and may include automated exposure control or mA/KV adjustment according to patient size. FINDINGS: Fibrotic stranding is seen in each lung base. An acute lung base finding is not suspected. No pleural effusion. Coronary artery calcifications are present. Pacemaker leads are in place. The liver, spleen, and pancreas show no suspicious findings. A 13 millimeter simple cyst is present i n the anterior left lobe liver. Gallstones are seen in a normal size gallbladder. Additional stones c ould be occult. No wall thickening, edema or other finding of active gallbladder disease. No biliary tree dilatation. Precontrast imaging shows a 2 millimeter calyx calcification posterior mid left kidney. There are 3 c alcifications in the lower pole left kidney measuring 2-5 mm in size. There is no hydronephrosis pres ent. No ureteral calculi identifiable. Patient has numerous pelvic floor phleboliths. Post-contrast imaging shows prompt, symmetric cortical enhancement pattern. There is overall cortical thinning of both kidneys. Medullary enhancement normal as well. A 22 millimeter partially exophytic simple cyst projects from the anterior mid left kidney. A 12 millimeter cyst is present in the latera l lower pole left kidney with a 7 millimeter cyst in the medial lower pole of the left kidney. No per inephric stranding. No pyelonephritis or acute parenchymal process. No adrenal abnormalities. Delayed images show no filling defects within non dilated ureters. Urinary bladder is tightly contracted around an indwelling urethral Scott catheter and a suprapubic b alloon tip catheter. Thickened nodular bladder wall is evident but not fully assessed in this state. There is only a limited amount of contrast within the lumen of the bladder. Enlarged prostate gland i s present. Calcifications are present in the posterior aspect of the enlarged prostate gland. No dilated bowel loops or bowel wall thickening. Moderate volume of stool distends the rectum. The re ctum anastomosis in place with no acute component. Patient has minimal diverticulosis. No active GI p rocess seen. No free air, free fluid or inflammatory stranding. No mass or bulky lymphadenopathy. No omental thic kening. Bilateral fat filled inguinal hernias are present. No suspicious bony findings. Disc and bone degenerative changes are present. Prominent vascular calcifications are present. Aorta is 3.2 cm at the jason of the diaphragm. Infraren al abdominal aorta has tapered down to 2.1 cm. Dense iliac atherosclerotic calcifications are present . No displaced calcification. IMPRESSION: Thickened nodular urinary bladder parikh presumed to be previously evaluated. The patient has a balloon tipped Scott catheter in place via urethral access as well as a suprapubic balloon tip catheter. Significant prostate gland hypertrophy. This causes extrinsic compression on the bladder base. There is no hydronephrosis present. No obstructing urethral, pelvic or calyx calcifications. Patient does have nonobstructing 2-5 mm calyx calculi in the mid and lower pole of the left kidney. Nonacute findings are detailed in the body of the report. These findings are not significantly differ ent from the comparison.
[2021-05-25] MEDS: SODIUM CHLORIDE 1 GM TAB PO SCH ×2 (11:02→17:10)
[2021-05-25] MEDS: CEFEPIME 1 GM in NA CHLORIDE 0.9% 100 ML IV SCH ×2 (11:04→21:00)
--- NOTE | 2021-05-25 14:47 | P.PN ---
Subjective Date of Service: 05/25/21 Chief Complaint: hematuria Patient currently has no complaint. Bladder irrigation is ongoing, urine bag containing bloodstained urine. No bleeding from the urethral meatus or the suprapubic ostomy. Physical Examination - Vital Signs Temperature: 97.1 F Blood Pressure: 130/68 Pulse: 65 Respirations: 18 Pulse Ox (%): 96 - Physical Exam General: Alert, In no apparent distress, Oriented x3 HEENT: Atraumatic, Mucous membr. moist/pink Neck: JVD not distended Respiratory: Clear to auscultation bilaterally, Normal air movement Cardiovascular: No edema, Regular rate/rhythm, Normal S1 S2 Gastrointestinal: Normal bowel sounds, Soft and benign, Non-distended, Other (Suprapubic catheter in place) Musculoskeletal: No swelling Integumentary: No rashes, No erythema, No cyanosis Neurological: Normal strength at 5/5 x4 extr Urinary: Scott catheter (Three-way) - Studies Laboratory Data (last 24 hrs) 05/24/21 17:55: PT 12.9 H, INR 1.12 05/24/21 17:19: WBC 8.00 D, Hgb 11.8 L, Hct 34.4 L, Plt Count 271 05/24/21 17:19: Sodium 131 L, Potassium 4.3, BUN 19 H, Creatinine 1.07, Glucose 90, Total Bilirubin 0.5, AST 14 L, ALT 27, Alkaline Phosphatase 63, Lipase 138 Assessment And Plan - Current Problems (Diagnosis) (1) Detrusor dysfunction Current Visit: No Status: Acute (2) Gross hematuria Current Visit: No Status: Acute (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 No mass noted. It appears hematuria has evacuated. Continue bladder irrigation. Urology input appreciated. Empiric cefepime. Pain management as needed. Urology to follow. Monitor H&H and transfuse as needed for hemoglobin less than 7. UA showed mostly hematuria, also nitrite positive. Follow urine culture. Continue to hold aspirin and Plavix.
[2021-05-25 17:22] LABS: Absolute Lymphocytes (CBC) 1.6 K/uL (0.7-4.9); Hematocrit 34.5 % (39.6-49.0); Lymphocytes % 22.9 % (15.3-44.8); RBC Red Blood Cell Count 3.99 M/uL (4.33-5.43)
--- NOTE | 2021-05-25 19:20 | P.DS ---
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 He reports he noticed blood in his urine at home, so he called the assisted living nurse and she called EMS. Dr. Swanson irrigated 5-6 liters at bedside, the first 4 of which had extensive clots and hematuria. Patient will remain on continuous bladder irrigation overnight. He takes aspirin and Plavix. Hemoglobin 11.8 Na 131 BUN 19 GFR 65 UA positive for blood, ketones, leukocyte esterase and nitrites. Patient admitted for further management. Hospital Course: Patient admitted to the medical floor and treated with IV cefepime for suspected UTI. Urine culture is pending. He had no more hematuria. CT abdomen and pelvis/CT urogram demonstrated contracted bladder, no mass or clot within the bladder. Patient denied any pain. Hematuria cleared. Patient reevaluated by urology-Dr. Swanson and deemed stable for discharge. Patient is discharged with ciprofloxacin for possible UTI. Urine culture to be followed as an outpatient. Patient will follow with Dr. Swanson in the office later this week for urethral catheter removal. Vital Signs/Physical Exam: Temp Pulse Resp BP Pulse Ox 97.8 F 74 17 140/71 97 05/25/21 16:00 05/25/21 16:00 05/25/21 16:00 05/25/21 16:00 05/25/21 16:00 General: Alert, In no apparent distress, Oriented x3 HEENT: Mucous membr. moist/pink Neck: JVD not distended Respiratory: Clear to auscultation bilaterally, Normal air movement Cardiovascular: No edema, Regular rate/rhythm, Normal S1 S2 Gastrointestinal: Soft and benign, Non-distended, No tenderness, Other (Suprapubic catheter) Musculoskeletal: No swelling, No tenderness Integumentary: No rashes, No cyanosis Neurological: Normal strength at 5/5 x4 extr Laboratory Data at Discharge: WBC 7.20 K/uL (4.3-10.9) D 05/25/21 17:09 Hgb 11.4 g/dL (13.6-17.9) L 05/25/21 17:09 Hct 34.5 % (39.6-49.0) L 05/25/21 17:09 Plt Count 260 K/uL (152-406) 05/25/21 17:09 PT 12.9 SECONDS (9.5-12.5) H 05/24/21 17:55 INR 1.12 05/24/21 17:55 Sodium 131 mmol/L (136-145) L 05/25/21 04:47 Potassium 4.2 mmol/L (3.5-5.1) 05/25/21 04:47 BUN 16 mg/dL (7-18) 05/25/21 04:47 Creatinine 0.94 mg/dL (0.55-1.3) 05/25/21 04:47 Glucose 108 mg/dL (74-106) H 05/25/21 04:47 Phosphorus 3.3 mg/dL (2.5-4.9) 05/25/21 04:47 Magnesium 2.3 mg/dL (1.8-2.4) 05/25/21 04:47 Total Bilirubin 0.7 mg/dL (0.2-1.0) 05/25/21 04:47 AST 15 U/L (15-37) 05/25/21 04:47 ALT 24 U/L (12-78) 05/25/21 04:47 Alkaline Phosphatase 66 U/L (45-117) 05/25/21 04:47 Lipase 138 U/L (73-393) 05/24/21 17:19 Home Medications: Enalapril [Vasotec*] 2.5 mg PO DAILY 04/19/19 Iron Ps Cmplx/Vit B12/FA [Ferrex 150 Forte Capsule] 150 mg PO DAILY 04/19/19 Trazodone [Desyrel*] 50 mg PO BEDTIME 04/19/19 Aspirin [Aspirin EC 81 MG] 81 mg PO DAILY #30 tablet. 10/24/19 Atorvastatin Calcium [Lipitor] 40 mg PO BEDTIME #30 tab 10/24/19 Clopidogrel Bisulfate [Plavix*] 75 mg PO DAILY #30 tablet 10/24/19 Ciprofloxacin HCl [Cipro 500 MG Tablet] 500 mg PO BID #14 tab 05/25/21 New Medications: Ciprofloxacin HCl [Cipro 500 MG Tablet] 500 mg PO BID #14 tab Diet: AHA Activity: Fall precautions Followup: DARRION MAIER [Primary Care Provider] - Bladimir Swanson [ACTIVE - CAN ADMIT] - (within 4 days.)
--- NOTE | 2021-05-25 21:26 | CON ---
Reason For Consultation: Followup evaluation of gross hematuria. History Of Present Illness: As discussed in the prior consultation, this is an 89-year-old gentleman with an atonic detrusor and suprapubic catheter placed due to traumatic hypospadias associated with chronic indwelling urethral Scott catheter. He presented yesterday to the emergency department with large volume gross hematuria with clot retention and underwent significant manual irrigation to clear that clot burden before being placed on CBI overnight. He did well overnight with no significant ne ed for manual irrigation to deal with any clots. There was one instance where he went down for CAT s can, and when he returned, the catheter was not draining. The nurse at that time irrigated the tana ter with 40 cc of normal saline, aspirated and did not get any significant clots, and then she has quiroz d no problems since that time. He is on cefepime antimicrobial therapy for presumptive cystitis unde rlying the gross hematuria and clot retention. Physical Examination: Urethral Scott catheter in place with suprapubic catheter as the infusion site for normal saline CBI, which his progressing at slow drip and the efflux is clear with may be a tinge of pink. The bag, wh ich reflects the collection of urine and CBI fluid over the last several hours is light pink and shirley slucent. As a result, I elevated the catheter tubing to about 20 cm above bladder height and instill ed CBI fluid to distend his bladder before clamping the CBI and observing the efflux. The efflux of fluid in urine was completely clear, so I left the CBI clamped and observed the drainage for the next several minutes and the drainage continued to be clear. Assessment And Recommendations: Gross hematuria and clot, urinary retention in the setting of an kristen greta detrusor with suprapubic catheter placed due to traumatic hypospadias. I recommend leaving the CBI clamped for the next hour, and if the urine remains clear or may be only a tinge of pink, he can be successfully discharged home with the suprapubic catheter connected to a l eg bag and the urethral Scott catheter connected to the floor bag as is currently. I would recommend Cipro twice daily for the next 6 days for a total of 7 days of therapy for presumpt jenni cystitis to treat potential pseudomonas infection given his residence within a home care facility . He may follow up with us in the Urology Clinic on Monday to have the urethral Scott catheter removed if the urine remains clear on discharge. He subsequently will require cystoscopic evaluation, which potentially could be done on Monday or potentially within the coming [address] urography completed on 05/25/2021 was negative for upper tract urothelial filling defect. No hydr onephrosis. No obstructing calcifications. Only a nonobstructing 2 to 5 mm calyceal calculi in the mid and lower pole of the left kidney. Both the Scott and suprapubic catheters are in the bladder as desired. WR/MODL Voice ID: [id number] Report ID: [id number]
[2021-05-26 05:21] LABS: Bilirubin Total 0.7 mg/dL (0.2-1.0); Potassium 3.9 mmol/L (3.5-5.1); Protein, Total 6.7 g/dL (6.4-8.2)
[2021-05-26] MEDS: SODIUM CHLORIDE 1 GM TAB PO SCH ×2 (08:00→16:12)
[2021-05-26] MEDS ORDERED: POTASSIUM 25 MEQ EFFERV TAB PO ONE (09:00)
[2021-05-26] MEDS: CEFEPIME 1 GM in NA CHLORIDE 0.9% 100 ML IV SCH ×2 (09:00→20:34)
[2021-05-26] MEDS ORDERED: NACL 0.9% IRR SOLN 4,000 ML IRR ONE (10:25)
--- NOTE | 2021-05-26 13:00 | CON ---
Reason For Consultation: Gross hematuria. History Of Present Illness: Mr. Will is an 89-year-old gentleman known to me with history of multi ple medical comorbidities, but urologic history significant for bladder calculi, associated with trau matic hypospadias from a chronic indwelling Scott catheter, for which I performed a cystolitholapaxy and placed a suprapubic tube back in January 2021. He had undergone prior evaluation with urodynamic s which revealed the presence of an atonic detrusor, which also justify the presence of the suprapubi c catheter placement. He had done well since that time with only the 16-Danish suprapubic catheter a nd the urethral Scott catheter removed, but last week, [facility] came out and changed the suprapubic catheter, and shortly thereafter, he developed significant and progressively worsening gross hematuri a. His family notes that he had a small amount of hematuria after suprapubic catheter exchanges done before, but this time, it got worse. He eventually developed significant densely opaque reddish blo od non translucent in the urine that resulted in his emergency department presentation. He also had a significant degree of discomfort. I was consulted by the emergency department via phone, and I recommended they place a 20-Danish [address] urethral Scott catheter to decompress his bladder and have a source for manual irrigation that was m ore effective than the 16-Danish suprapubic catheter. They had done this prior to my arrival. Extensive Bladder Irrigation And CBI Initiation Procedure Note: I then began to irrigate the 20-Danish urethral Scott catheter and removed several liters of clot fro m within his bladder. Likely given the atonic nature of his bladder, he had a significant component of a distended bladder that was just full of clot without his recognition. After irrigating with ove r 4 L of normal saline, I finally had read his bladder of the majority of the clot burden and further irrigation was done simply to remove formed clot off the wall of the bladder. Once this was done, I connected CBI with normal saline with infusion via the 16-Danish suprapubic catheter, which I had al so irrigated to confirm its appropriate location and patency. The drainage port was via the 20-Frenc h urethral Scott catheter. In the end, the efflux of fluid and urine was light pink with CBI at slow drip, approximately 2 drops per second. Assessment And Recommendations: Acute urinary retention due to gross hematuria and bladder clots ass ociated with an atonic detrusor and large volume blood clots removed. I recommend continue CBI with normal saline in order to keep the urine light pink to clear. Recheck CBC tonight, and if reasonably stable, the acuity of the bleeding has likely stopped that wou ld be at risk of causing progressive anemia. Recommend IV antimicrobial therapy, ceftriaxone is a good starting point. Send urine taken prior to bladder irrigation for culture. We will follow up in the morning. The patient will require interval cystoscopy, hopefully as an outpatient once the gross hematuria cea ses. Recommend CT urography, which is a triple phase CT without, with IV contrast, and 10 minute delayed p hase scanning to rule out any upper tract urothelial lesion, assuming his renal function is adequate with an EGFR greater than 45. If [address] urography is contraindicated, at least obtain a renal ultrasound to rule out upper tract hy dronephrosis or renal mass. Please note, 1 hour of [id number] consultation time was spent with the above procedural ricky TALLEY/CHRISTY Voice ID: [id number] Report ID: [id number]
[2021-05-27 00:21] VITALS: O2SAT 95
[2021-05-27 04:03] VITALS: BP 131/65; TEMP 97.5
[2021-05-27] MEDS: SODIUM CHLORIDE 1 GM TAB PO SCH (08:43)
[2021-05-27] MEDS: CEFEPIME 1 GM in NA CHLORIDE 0.9% 100 ML IV SCH (08:45)
[2021-05-27] MEDS ORDERED: CIPROFLOXACIN HCL 500 MG TAB PO SCH (21:00)
== END 2021-05-27 09:50 | disposition home health service (06) | DRG 690 ==
LOC: ER 16:54 → ERHOLD 22:58 → INTOOBSV 22:58 → OBSVTOIN 22:58 → 2ND 05-25 02:11
PROVIDERS: ADMIT Internal Medicine; ATTEND Internal Medicine
PROC: 3C1ZX8Z Irrigation of Indwelling Device using Irrigating Substance, External Approach (ICD-10-PCS; principal; 2021-05-24)
DX: N39.0 Urinary tract infection, site not specified (principal); E87.1 Hypo-osmolality and hyponatremia; N13.8 Other obstructive and reflux uropathy; N40.1 Benign prostatic hyperplasia with lower urinary tract symptoms; Q54.1 Hypospadias, penile; D64.9 Anemia, unspecified; F03.90 Unspecified dementia, unspecified severity, without behavioral disturbance, psychotic disturbance, mood disturbance, and anxiety; R31.0 Gross hematuria; I25.10 Atherosclerotic heart disease of native coronary artery without angina pectoris; N31.2 Flaccid neuropathic bladder, not elsewhere classified; N32.89 Other specified disorders of bladder; I10 Essential (primary) hypertension; R33.8 Other retention of urine; N20.0 Calculus of kidney; Z95.0 Presence of cardiac pacemaker; Z96.0 Presence of urogenital implants; Z20.822 Contact with and (suspected) exposure to COVID-19
CPT/HCPCS: 0240U; 36415; 74178; 80048; 80053; 80076; 81003; 81015; 82607; 82728; 82747; 83540; 83690; 83735; 84100; 84466; 85025; 85610; 87077; 87086; 87088; 87186; 96374; 99285; J0692; Q9967

== ENCOUNTER 2021-06-25 15:43 | Emergency (ER) | payer OTHER ==
--- OUTSIDE RECORDS SUMMARY | 2021-06-25 15:46 | XMS REPORT | Continuity of Care Document ---
:1930 Author Organization [facility] t Address [address] [place] [address] Care Team Providers Name Role Phone Ml Tenorio Attending Clinician Unavailable Problems This patient has no known problems. Allergies, Adverse Reactions, Alerts This patient has no known allergies or adverse reactions. Medications Ordered Filled Start Stop Current Ordering Indication Dosage Frequency Signature Comments Components Source Medication Medication Date Date Medication? Clinician (SIG) Name Name Sodium Sodium 2020-0 2020- No Na Tenorio [address] Chloride Chloride [facility] 09-30 [facility] Lidocaine Lidocaine 2020-0 Yes Na Tenorio [address] [facility] 4-17 skin as [facility] Enalapril Enalapril Yes Na Tenorio [address] [facility] Maleate Maleate [facility] Ferrex 150 Ferrex 150 Yes Na Tenorio [address] [facility] Trazodone Trazodone Yes Na Tenorio [address] [facility] HCl HCl at bedtime [facility] Atorvastati Atorvastati Yes Na Tenorio [address] [facility] n Calcium n Calcium [facility] Aspirin Aspirin Yes Na Tenorio [address] [facility] Clopidogrel Clopidogrel Yes Na Tenorio [address] [facility] Bisulfate Bisulfate [facility] Procedures This patient has no known procedures. Encounters Start End Encounter Admission Attending Care Care Encounter Source Date/Time Date/Time Type Type Clinicians Facility Department ID 2021-05-31 Outpatient Janis Tenorio [facility] [id number] [facility]01 [facility] 2021-05-26 Outpatient Janis Tenorio [facility] [id number] [facility] 14[facility]35:33 [facility] 2021-05-26 Outpatient Janis Tenorio [facility] [id number] [facility]35[facility]02 [facility] 2021-05-26 Outpatient Janis Tenorio [facility] [id number] [facility] 14:11:31 [id number] [facility] 2021-05-26 Outpatient Janis Tenorio STLC STLML[facility] [id number] [facility] 13:30:14 [id number] [facility] 2021-05-26 Outpatient Janis Tenorio [facility] [id number] [facility] 13:29:41 [id number] [facility] 2021-05-26 Outpatient Janis Tenorio STLC STLC [id number] [facility] 12:05:15 [id number] [facility] 2021-05-26 Outpatient Janis Tenorio [facility] [id number] [facility] 12:04:19 [id number] [facility] 2021-05-26 Outpatient Coby, Janis [facility]C [facility] [id number] [facility] 11:44:06 [id number] [facility] 2021-05-26 Outpatient Coby Na [facility]LMLC ST[facility] [id number] [facility] 11:41:52 [id number] [facility] 2021-05-26 Outpatient Coby Na [facility] [id number] [facility] 11:29:35 [id number] [facility] 2021-05-26 Outpatient Coby, Na [facility]C STL[facility] [id number] [facility] 11:29:03 [id number] [facility] 2021-05-26 Outpatient Coby, Na [facility] [id number] [facility] 11:19:13 [id number] [facility] 2021-05-26 Outpatient Coby, Na [facility] [id number] [facility] 11:06:06 [id number] [facility] 2021-06-09 2021-06-09 ambulatory [facility] [id number] [facility] 2021-05-18 2021-05-18 ambulatory [facility] [id number] [facility] 2021-05-18 2021-05-18 ambulatory [facility] [id number] [facility] 2021-05-10 2021-05-10 ambulatory [facility] [id number] [facility] 2021-03-31 2021-03-31 ambulatory [facility] [id number] [facility] 2021-03-16 2021-03-16 ambulatory [facility] [id number] [facility] 2021-03-09 2021-03-09 ambulatory [facility] [id number] [facility] 2021-03-06 2021-03-06 ambulatory [facility] [id number] [facility] 2021-02-19 2021-02-19 Outpatient [facility] [id number] [facility] 2021-02-15 2021-02-15 Outpatient [facility] [id number] [facility] 2021-02-10 2021-02-10 Outpatient [facility] [id number] [facility] 2021-01-14 2021-01-14 Outpatient [facility] [id number] [facility] 2021-01-11 2021-01-11 Outpatient [facility] [id number] [facility] 2020-12-18 2020-12-18 Outpatient [facility] [id number] [facility] 2020-12-10 2020-12-10 Outpatient [facility] [id number] [facility] 2020-11-25 2020-11-25 Outpatient [facility] [id number] [facility] 2020-11-25 2020-11-25 Outpatient [facility] [id number] [facility] 2020-11-17 2020-11-17 Outpatient [facility] [id number] [facility] 2020-10-29 2020-10-29 Outpatient [facility] [id number] [facility] 2020-07-07 2020-07-07 Outpatient [facility] [id number] [facility] 2020-05-11 2020-05-11 Outpatient [facility] [id number] [facility] 2020-04-14 2020-04-14 Outpatient [facility] [id number] [facility] 2020-03-13 2020-03-13 Outpatient [facility] [id number] [facility] 2020-03-11 2020-03-11 Outpatient [facility] [id number] [facility] 2020-02-24 2020-02-[address] [facility] [id number] 2020-01-11 2020-01-11 [facility] [id number] [facility] 04[facility]59:00 04:59[facility] [facility] [facility] 2020-01-09 2020-01-09 [facility] [id number] 14[facility]40:00 14:40:00 [place] [employer] [facility] 2019-11-23 2019-11-23 [facility] [id number] 19[facility]34:00 19:34:00 [place] [employer] [facility] 2019-11-04 2019-11-04 [facility] [id number] 07:06:00 07:06:00 [place] [employer] [facility] [address] [facility] 2019-10-31 2019-10-31 [facility] [id number] 13:00:00 13:00:00 [place] [employer] [facility] [address] [facility] Clinics 2019-10-25 2019-10-25 [facility] [id number] 13:25:00 13:25:00 [place] [employer] [address] [facility] Medicine Outpati ent Clinics 2019-10-25 2019-10-25 [facility] [id number] 13[facility]22:00 13:22:00 [facility] Clin[facility] 2019-09-06 2019-09-06 [facility] [id number] [facility] 10:00:00 10:00:00 [facility] 2019-08-19 2019-08-19 [facility] [id number] [facility] 10:57:00 10:57:00 [facility] 2019-08-16 2019-08-16 [facility] [id number] [facility] 13:54:00 13:54:00 [facility] 2019-08-05 2019-08-05 [facility] [id number] [facility] 15:54:00 15:54:00 [facility] 2019-06-21 2019-06-21 [facility] [id number] [facility] 09:58:00 09:58:00 [facility] 2019-06-07 2019-06-07 [facility] [id number] [facility] 15:20:00 15:20:00 [facility] Results This patient has no known results.
[2021-06-25 16:45] LABS: Urine Blood 3+ (Negative); Urine Glucose Negative (Negative); Urine Protein Trace (Negative)
[2021-06-25 17:03] LABS: Absolute Lymphocytes (CBC) 1.8 K/uL (0.7-4.9); MPV 7.2 fL (7.6-11.3); RBC Red Blood Cell Count 4.13 M/uL (4.33-5.43)
[2021-06-25] MEDS ORDERED: CEFTRIAXONE 1000 MG/VIAL ONE (17:24)
[2021-06-25 18:24] LABS: Albumin 3.1 g/dL (3.4-5.0); Bilirubin Direct 0.1 mg/dL (0-0.2); Bilirubin Total 0.3 mg/dL (0.2-1.0); Potassium 3.9 mmol/L (3.5-5.1); Protein, Total 7.2 g/dL (6.4-8.2)
--- NOTE | 2021-06-25 18:36 | EDPHYS ---
Physician Documentation [facility] Name: Khris Will Age: 89 yrs Sex: Male : 1930 Arrival Date: 06/25/2021 Time: 15:44 Bed 16 Private MD: ED Physician Pablo Luis HPI: 06/25 16:17 This 89 yrs old Male presents to ER via EMS with complaints of Urinary catheter problem.ma2 16:17 Patient had suprapubic bladder catheter replaced today routinely since it has been 6 ma2 months since it was placed last time. Patient presented ER because he stated that the catheter is not draining, and he is concerned that he may get urinary retention. Patient does not have pain, this problem happened gradually over the last 3 hours. Historical: - Allergies: 15:47 No Known Allergies; quiroz - Home Meds: 15:47 aspirin 81 mg Oral TbEC 1 tab once daily [Active]; atorvastatin 40 mg Oral tab 1 tab quiroz once daily [Active]; clopidogrel 75 mg Oral tab 1 tab once daily [Active]; enalapril maleate 2.5 mg Oral tab 1 tab once daily [Active]; Ferrex 150 150 mg iron Oral cap daily [Active]; sodium chloride 1 gram Oral tab twice a day [Active]; trazodone 50 mg Oral tab 1 tab daily [Active]; - PMHx: 15:49 bladder "shut down"; Dementia; Hypertension; Major Depressive Disorder; Pacemaker; quiroz Renal Disease; skin cancer; - PSHx: 15:49 None; quiroz - Immunization history:: Adult Immunizations up to date. - Social history:: Smoking status: Patient denies any tobacco usage or history of. - Family history:: not pertinent. ROS: 16:17 Constitutional: Negative for fever, chills, and weight loss. ma2 16:17 All other systems are negative. Exam: 16:17 Constitutional: This is a well developed, well nourished patient who is awake, alert, ma2 and in no acute distress. Chest/axilla: Normal chest wall appearance and motion. Nontender with no deformity. No lesions are appreciated. Cardiovascular: Regular rate and rhythm with a normal S1 and S2. No gallops, murmurs, or rubs. Normal PMI, no JVD. No pulse deficits. Respiratory: Lungs have equal breath sounds bilaterally, clear to auscultation and percussion. No rales, rhonchi or wheezes noted. No increased work of breathing, no retractions or nasal flaring. Abdomen/GI: Suprapubic catheter location is dry, no induration, soft, non-tender, with normal bowel sounds. No distension or tympany. No guarding or rebound. No evidence of tenderness throughout. Male : Normal genitalia with no discharge or lesions. Skin: Warm, dry with normal turgor. Normal color with no rashes, no lesions, and no evidence of cellulitis. MS/ Extremity: Pulses equal, no cyanosis. Neurovascular intact. Full, normal range of motion. Neuro: Awake and alert, GCS 15, oriented to person, place, time, and situation. Cranial nerves II-XII grossly intact. Motor strength 5/5 in all extremities. Sensory grossly intact. Cerebellar exam normal. Normal gait. Vital Signs: 15:44 BP 146 / 89; Pulse 67; Resp 18; Temp 97.9(O); Pulse Ox 100% ; Weight 77.11 kg; Height 5 quiroz ft. 10 in. (177.80 cm); 15:45 BP 156 / 79; Pulse 70; Resp 17; Pulse Ox 100% on R/A; jg9 16:00 BP 139 / 80; Pulse 66; Resp 18; Pulse Ox 100% on R/A; jg9 16:15 BP 140 / 60; Pulse 66; Resp 20 S; Pulse Ox 99% on R/A; jg9 17:20 BP 115 / 69; Pulse 65; Resp 17 S; Pulse Ox 100% on R/A; jg9 18:30 BP 130 / 78; Pulse 70; Resp 18 S; Pulse Ox 97% on R/A; jg9 15:44 Body Mass Index 24.39 (77.11 kg, 177.80 cm) quiroz MDM: 15:49 Patient medically screened. ma2 17:34 Differential diagnosis: UTI, urinary retention, Scott catheter problem, Suprapubic ma2 catheter flushed with NS 10 cc, now urine flow is back to normal, patient also has UTI. Data reviewed: vital signs, nurses notes. Counseling: I had a detailed discussion with the patient and/or guardian regarding: the historical points, exam findings, and any diagnostic results supporting the discharge/admit diagnosis, the presence of at least one elevated blood pressure reading (>120/80) during this emergency department visit, the need for outpatient follow up. Response to treatment: the patient's symptoms have markedly improved after treatment. 06/25 16:21 Order name: Basic Metabolic Panel [facility] 06/25 16:21 Order name: CBC with Diff; Complete Time: 17:34 [facility] 06/25 16:21 Order name: Hepatic Function; Complete Time: 18:35 [facility] 06/25 16:21 Order name: Lipase; Complete Time: 18:35 [facility] 06/25 16:22 Order name: Basic Metabolic Panel; Complete Time: 18:35 [facility] 06/25 16:45 Order name: Urine Dipstick-Ancillary; Complete Time: 17:01 [facility] 06/25 15:50 Order name: Urine Dipstick-Ancillary (obtain specimen); Complete Time: 16:47 [facility] 06/25 16:21 Order name: IV Saline Lock; Complete Time: 17:04 [facility] 06/25 16:21 Order name: Labs collected and sent; Complete Time: 17:04 [facility] 06/25 17:05 Order name: Labs - recollect needed: recollect chem7/ hempolyzed; Complete Time: 17:33 eb 06/25 17:42 Order name: Labs - recollect needed: recollect of the recollect/ hemolyzed; Complete eb Time: 18:46 Administered Medications: 17:33 Drug: Rocephin (cefTRIAXone) 1 grams Route: IV; Rate: 1 bolus; Site: left hand; jg9 17:35 Follow up: Response: No adverse reaction; IV Status: Completed infusion; IV Intake: [id number] Disposition Summary: 06/25/21 18:35 Discharge Ordered Location: Home ma2 Condition: Stable ma2 Diagnosis - UTI/ Urinary tract infection, site not specified ma2 Followup: ma2 - With: Private Physician - When: Tomorrow - Reason: Continuance of care Discharge Instructions: - Discharge Summary Sheet ma2 - Urinary Tract Infection, Adult ma2 Forms: - Medication Reconciliation Form ma2 - Thank You Letter ma2 - Antibiotic Education ma2 - Prescription Opioid Use ma2 Prescriptions: - Bactrim DS 800-160 mg Oral Tablet - take 1 tablet by ORAL route every 12 hours for 3 days; 6 tablet; Refills: 0, ma2 Product Selection Permitted Signatures: Dispatcher [employer] Pablo Herrera MD MD ma2 Laura Oakes Jennifer RN RN jg9 Vee Jackson RN RN quiroz
--- NOTE | 2021-06-25 18:36 | ER ---
Nurse's Notes [facility] Name: Khris Will Age: 89 yrs Sex: Male : 1930 Arrival Date: 06/25/2021 Time: 15:44 Bed 16 Private MD: Diagnosis: UTI/ Urinary tract infection, site not specified Presentation: 06/25 15:44 Chief complaint: Patient states: pt has blood in his suprapubic cath/ urine. quiroz Coronavirus screen: Vaccine status: Patient reports receiving the 2nd dose of the covid vaccine. Ebola Screen: Patient denies travel to an Ebola-affected area in the 21 days before illness onset. Initial Sepsis Screen: Does the patient meet any 2 criteria? No. Patient's initial sepsis screen is negative. Does the patient have a suspected source of infection? No. Patient's initial sepsis screen is negative. Risk Assessment: Do you want to hurt yourself or someone else? Patient reports no desire to harm self or others. Onset of symptoms was June 25, 2021. 15:44 Method Of Arrival: EMS: [facility] 15:44 Acuity: CONCEPCION 3 quiroz Triage Assessment: 15:49 General: Appears in no apparent distress. Behavior is calm, cooperative. Pain: Denies quiroz pain. Historical: - Allergies: 15:47 No Known Allergies; quiroz - Home Meds: 15:47 aspirin 81 mg Oral TbEC 1 tab once daily [Active]; atorvastatin 40 mg Oral tab 1 tab quiroz once daily [Active]; clopidogrel 75 mg Oral tab 1 tab once daily [Active]; enalapril maleate 2.5 mg Oral tab 1 tab once daily [Active]; Ferrex 150 150 mg iron Oral cap daily [Active]; sodium chloride 1 gram Oral tab twice a day [Active]; trazodone 50 mg Oral tab 1 tab daily [Active]; - PMHx: 15:49 bladder "shut down"; Dementia; Hypertension; Major Depressive Disorder; Pacemaker; quiroz Renal Disease; skin cancer; - PSHx: 15:49 None; quiroz - Immunization history:: Adult Immunizations up to date. - Social history:: Smoking status: Patient denies any tobacco usage or history of. - Family history:: not pertinent. Screenin:50 Abuse screen: Denies threats or abuse. Denies injuries from another. Nutritional quiroz screening: No deficits noted. Tuberculosis screening: No symptoms or risk factors identified. Fall Risk Secondary diagnosis (15 points) impaired mobility. Assessment: 15:50 General: Appears in no apparent distress. : suprapubic cath has blood in it and ER MD quiroz ordered to flush cath. 16:35 Reassessment: irrigated supra-pubic catheter-\\T\\100 cc in and out, clots noted, now jg9 running straw colored urine-pressure in abdomen is decreased. 17:34 : checked bag and urine still flowing, color-mat/tea with small clots noted in leg jg9 bag. Vital Signs: 15:44 BP 146 / 89; Pulse 67; Resp 18; Temp 97.9(O); Pulse Ox 100% ; Weight 77.11 kg; Height 5 quiroz ft. 10 in. (177.80 cm); 15:45 BP 156 / 79; Pulse 70; Resp 17; Pulse Ox 100% on R/A; jg9 16:00 BP 139 / 80; Pulse 66; Resp 18; Pulse Ox 100% on R/A; jg9 16:15 BP 140 / 60; Pulse 66; Resp 20 S; Pulse Ox 99% on R/A; jg9 17:20 BP 115 / 69; Pulse 65; Resp 17 S; Pulse Ox 100% on R/A; jg9 18:30 BP 130 / 78; Pulse 70; Resp 18 S; Pulse Ox 97% on R/A; jg9 15:44 Body Mass Index 24.39 (77.11 kg, 177.80 cm) quiroz ED Course: 15:44 Patient arrived in ED. quiroz 15:47 Triage completed. quiroz 15:49 Pablo Luis MD is Attending Physician. ma2 15:49 Arm band placed on. quiroz 15:51 Patient has correct armband on for positive identification. Bed in low position. quiroz 15:51 No provider procedures requiring assistance completed. quiroz 16:08 Milena Rose, ADRIANNA is Primary Nurse. jg9 16:36 Bladder irrigated via suprapubic catheter with 100 ml normal saline returned yellow jg9 urine Patient tolerated well. 16:47 No apparent distress. Resting quietly. jg9 16:52 Inserted saline lock: 22 gauge in left hand, using aseptic technique. mb7 17:04 Basic Metabolic Panel Sent. jg9 17:34 No apparent distress. Resting quietly. jg9 19:03 IV discontinued. jg9 19:04 Pt visited by daughter, patient taken back to [facility]-attempted to call [facility] report-no answer at number listed [phone]. Administered Medications: 17:33 Drug: Rocephin (cefTRIAXone) 1 grams Route: IV; Rate: 1 bolus; Site: left hand; j9 17:35 Follow up: Response: No adverse reaction; IV Status: Completed infusion; IV Intake: [id number] Intake: 17:35 IV: 10ml; Total: 10ml. j9 Outcome: 18:35 Discharge ordered by . mary 18:46 Discharged to correction. jg9 18:46 Condition: stable 18:46 Discharge instructions given to patient, family. 19:07 Patient left the ED. jg9 Signatures: Pablo Luis MD MD ma2 Breneman, Mary 7 Milena Rose RN RN jg9 Vee Jackson RN RN
[2021-06-25 19:45] VITALS: TEMP 97.9
[2021-06-25 20:04] VITALS: BP 130/78; O2SAT 97
== END 2021-06-25 19:07 | disposition home or self-care (01) ==
LOC: ER 15:43
DX: N39.0 Urinary tract infection, site not specified (principal); I10 Essential (primary) hypertension; F03.90 Unspecified dementia, unspecified severity, without behavioral disturbance, psychotic disturbance, mood disturbance, and anxiety; Z95.0 Presence of cardiac pacemaker; Z79.82 Long term (current) use of aspirin
CPT/HCPCS: 36415; 51700; 80048; 80076; 81003; 83690; 85025; 96374; 99284